=== PATIENT | female | born 1975 | race Caucasian/White ===

== ENCOUNTER → 2018-04-30 10:34 | Outpatient (CLI) | payer MEDICAID, SELFPAY ==
[2018-04-30 12:19] LABS: Alanine Aminotransferase 21 U/L (12-78); Albumin Level 3.9 gm/dL (3.4-5.0); Alkaline Phosphatase 91 U/L (46-116); Anion Gap 11.6 mEq/L (5-15); Aspartate Amino Transferase 17 U/L (15-37); Bilirubin,Total 0.5 mg/dL (0.2-1.0); Blood Urea Nitrogen 13 mg/dL (7-18); Calcium 9.5 mg/dL (8.5-10.1); Carbon Dioxide 27 mmol/L (21.0-32.0); Chloride 104 mmol/L (98-107); Chol/HDL Ratio 4.3 (1-3.5); Cholesterol 200 mg/dL (140-200); Estimated Glomerular Filt Rate 91 ml/min (>60); GFR (African American) 111 ML/MIN (>60); Globulin 3.9 gm/dl (1.3-3.2); Glucose 96 mg/dL (74-106); HDL Cholesterol 46 mg/dL (29-89); LDL Cholesterol 129 mg/dL (0-130); Potassium 4.6 mmoL/L (3.5-5.1); Sodium 138 mmol/L (136-145); Thyroid Stimulating Hormone 1.15 uIU/ml (0.358-3.740); Total Protein,Serum 7.8 gm/dL (6.4-8.2); Triglycerides 123 mg/dL (30-200); VLDL Cholesterol 25 mg/dL (0-40)
[2018-05-01 18:05] LABS: Vitamin D 25 Hydroxy 30.9 ng/mL (30.0-100.0)
== END ==
PROVIDERS: Visit Provider Physician Assistant
DX: Z13.29 Encounter for screening for other suspected endocrine disorder (principal); Z13.220 Encounter for screening for lipoid disorders; E55.9 Vitamin D deficiency, unspecified
CPT/HCPCS: 36415; 80053; 80061; 82652; 84443

== ENCOUNTER → 2019-02-03 12:16 | Outpatient (CLI) | payer MEDICAID, SELFPAY ==
[2019-02-03 12:19] LABS: Adenovirus F 40/41, stool Not Detected (NotDetected); Astrovirus Not Detected (NotDetected); Campylobacter Not Detected (NotDetected); Clostridium Difficile A/B, PCR Not Detected (NotDetected); Cryptosporidium Not Detected (NotDetected); Cyclospora Cayetanesis Not Detected (NotDetected); Entamoeba histolytica Not Detected (NotDetected); Enteroaggregative E coli Not Detected (NotDetected); Enteropathogenic E coli Not Detected (NotDetected); Enterotoxigenic E coli Not Detected (NotDetected); Giardia lamblia Not Detected (NotDetected); Norovirus Not Detected (NotDetected); Plesimonas Shigalloides, PCR Not Detected (NotDetected); Rotavirus A Not Detected (NotDetected); Salmonella, PCR Not Detected (NotDetected); Sapovirus Not Detected (NotDetected); Shiga-like toxin E coli Not Detected (NotDetected); Shigella Enterovasive E coli Not Detected (NotDetected); Vibrio Cholerae Not Detected (NotDetected); Vibrio, PCR Not Detected (NotDetected); Yersinia Entercolitica, PCR Not Detected (NotDetected)
== END ==
PROVIDERS: Visit Provider Surgery
DX: R19.7 Diarrhea, unspecified (principal)
CPT/HCPCS: 87506

== ENCOUNTER → 2019-02-04 11:07 | Outpatient (CLI) | payer MEDICAID, SELFPAY ==
--- NOTE | 2019-02-04 11:12 | XR_ITS ---
XR KUB HISTORY: ITS.REASON: IBS and abdominal pain ORDERING PHYSICIAN: Jean Marie Zaidi MD PATIENT AGE: 43 years COMPARISON: None FINDINGS: Surgical clips are present in the right upper quadrant. There is a mild amount of retained colonic feces. No intestinal obstruction or free air is evident. No acute bony findings. IMPRESSION: Mild amount of retained colonic feces otherwise negative
== END ==
PROVIDERS: PCP Family Medicine; Visit Provider Surgery
DX: K58.9 Irritable bowel syndrome, unspecified (principal); R10.9 Unspecified abdominal pain
CPT/HCPCS: 74018

== ENCOUNTER → 2019-05-23 14:29 | Outpatient (CLI) | payer MEDICAID, SELFPAY ==
--- NOTE | 2019-05-23 14:34 | XR_ITS ---
XR hand RT min 3V HISTORY: ITS.REASON: RT HAND / WRIST PAIN ORDERING PHYSICIAN: Patricia Mooney MD PATIENT AGE: 43 years COMPARISON: None FINDINGS: No fracture or dislocation. No lytic or blastic change. There is normal mineralization.. The joint spaces are well-preserved. No significant degenerative/arthritic changes. No erosive changes evident.. IMPRESSION: Negative, no acute finding
== END ==
PROVIDERS: PCP Emergency Medicine; Visit Provider Emergency Medicine
DX: M79.641 Pain in right hand (principal); M25.531 Pain in right wrist
CPT/HCPCS: 73130

== ENCOUNTER 2020-02-06 16:40 | Emergency (ER) | payer MEDICAID, SELFPAY ==
[2020-02-06 17:08] VITALS: BP 131/75; PULSE 79; RESP 18; TEMP 36.6; O2SAT 99; BMI 39.9
[2020-02-06 17:14] LABS: Apearance,Urine Cloudy (Clear); Bilirubin,Urine Negative (Negative); Blood, Urine Negative (Negative); Color,Urine Dark Yellow (Yellow); Glucose,Urine (UA) Negative (Negative); Ketones,Urine Negative (Negative); Protein,Urine Negative (Negative); Specific Gravity, Urine 1.025 (1.005-1.030); UTC Leukocyte Esterase,Urine Negative (Negative); UTC Nitrate,Urine Negative (Negative); Urobilinogen,Urine 0.2 EU/dl (0.2)
--- NOTE | 2020-02-06 17:14 | HMH.EDUTC ---
[facility] [place] Clinical Impression: URI (upper respiratory infection) Qualifiers: URI type: unspecified URI Qualified Code(s): J06.9 - Acute upper respiratory infection, unspecified Disposition: Home, Self-Care Condition on Discharge: Good Instructions: Sinusitis (Alternative Therapy), Sore Throat, Sinusitis, DI for Urinary Tract Infection (UTI), DI for Low Back Pain, Low Back Pain Additional Instructions: *Monitor Temp, Over the counter Motrin or Tylenol as directed/as needed Tylenol every 4 hours and Motrin every 6 hours (as long as your family doctor has told you that you can take it) for fever or pain. and straight to ER if unable to lower temp less than 101.0 after medication given *Warm salt water gargles may help to soothe the throat *Throat Lozenges *Warm fluids *Sleep elevated *Humidifier/Vaporizer Make sure to drink plenty of fluids like water to help to flush kidneys Follow up with PCP if no improvement or any worsening of symptoms Return if needed Straight to ER if any life threatening symptoms Follow up IMMEDIATELY for new or worsening symptoms or no Noticeable improvement over the next 48-72 hours. 911 for difficulty breathing or swallowing Prescriptions: cephALEXin [Keflex 500mg Cap] 500 mg PO Q12H 10 Days #20 cap Transmission Status: Pending to [facility] Referrals: Marycruz Nelson MD [Primary Care Provider] - As needed Time of Disposition: 17:29 Medical Decision Making - Ricky Inquiry Pt receiving controlled substance: No Ricky was queried for this patient: No Vital Signs: 02/06/20 17:08 Temperature 97.8 F Temperature Source Oral Pulse Rate [Right Brachial] 79 Respiratory Rate 18 Blood Pressure [Right Arm] 131/75 Blood Pressure Mean [Right Arm] 93 Blood Pressure Source [Right Arm] Automatic Cuff Blood Pressure Position [Right Arm] Sitting 02 Sat by Pulse Oximetry 99 Oxygen Delivery Method Room Air - Lab Data Lab results reviewed: Yes: I reviewed the patient's lab results. Lab Results 02/06/20 17:13: Urine Color Dark yellow, Urine Appearance Cloudy, Urine pH 6.0, Ur Specific [place] 1.025, Urine Protein Negative, Urine Glucose (UA) Negative, Urine Ketones Negative, Urine Blood Negative, Urine Nitrate Negative, Urine Bilirubin Negative, Urine Urobilinogen 0.2, Ur Leukocyte Esterase Negative [facility] [place] - General Stated complaint: Possible UTI,Lower Back,sore throat,drainage Time Seen by Provider: 02/06/20 17:14 Mode of Arrival: Ambulatory Source of Information: Patient Limitations: No Limitations Description of Symptoms (Recalled from Triage Doc. by RN): PATIENT C/O LOW BACK PAIN, SINUS DRAINAGE AND COUGH X 3 DAYS; SHE BELIEVES SHE HAS A UTI AND HAS BEEN TAKING AZO SINCE THE LOW BACK PAIN STARTED HEENT Symptoms (Recalled from RN notes): Yes Resp Symptoms (Recalled from RN notes): Yes Skin Symptoms (Recalled from RN notes): No MS Symptoms (Recalled from RN notes): Yes Functional Status (Recalled from RN notes): WNL - History of Present Illness Provider Complaint: Patient states that she started having low back ache about 3 days ago and started taking AZO States that also has been having sore throat, cough and sinus pain and pressure States that she feels like her sinuses has got worse States that she came in to get checked Denies known exposure to Covid19 denies fever - Related Data Home Medications Medication Instructions Recorded Confirmed lisinopril 20 1 tab PO DAILY 02/02/19 02/21/19 mg-hydrochlorothiazide 12.5 mg tablet loratadine 10 mg tablet 10 mg PO DAILY 02/02/19 02/21/19 Previous Rx's Medication Instructions Recorded cephALEXin [Keflex 500mg Cap] 500 mg PO Q12H 10 Days #20 cap 02/06/20 Allergies Allergy/AdvReac Type Severity Reaction Status Date / Time acetaminophen [From PERCOCET] Allergy Unknown Verified 02/21/19 23:36 oxycodone [From PERCOCET] Allergy Unknown Verified 02/21/19 23:36 tramadol [TRAMADOL] Allergy Unknown
[2020-02-06 17:32] VITALS: BP 131/75; PULSE 79; RESP 18; TEMP 36.6; O2SAT 99
== END 2020-02-06 17:36 | disposition home or self-care (01) ==
PROVIDERS: Emergency Provider Nurse Practitioner; PCP Family Medicine
DX: J06.9 Acute upper respiratory infection, unspecified (principal); Z79.899 Other long term (current) drug therapy; Z88.6 Allergy status to analgesic agent; I10 Essential (primary) hypertension
CPT/HCPCS: 81003; 99201

== ENCOUNTER 2020-03-18 10:00 | Emergency (ER) | payer OTHER, MEDICAID, SELFPAY ==
[2020-03-18] VITALS (7 sets, daily range): BP systolic 123–171; BP diastolic 71–89; PULSE 75–113; RESP 18–22; TEMP 36.6–36.8; O2SAT 96–99; BMI 38.6
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
--- NOTE | 2020-03-18 10:05 | PC.NURSE ---
at bedside upon arrival
--- NOTE | 2020-03-18 10:15 | PC.NURSE ---
c-collar placed on pt at this time
--- NOTE | 2020-03-18 10:20 | PC.NURSE ---
pt to CT
--- NOTE | 2020-03-18 10:21 | PC.NURSE ---
Pt with rad.
--- NOTE | 2020-03-18 10:26 | PC.NURSE ---
Dr Noriega paged.
--- NOTE | 2020-03-18 10:28 | PC.NURSE ---
Dr Noriega returned call.
--- NOTE | 2020-03-18 10:35 | PC.NURSE ---
Pt returned from rad.
--- NOTE | 2020-03-18 11:27 | PC.NURSE ---
Dr Butcher spoke with Dr. Donahue
--- NOTE | 2020-03-18 11:28 | PC.NURSE ---
[facility] paged
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
--- NOTE | 2020-03-18 12:28 | PC.NURSE ---
Pt returned from rad.
--- NOTE | 2020-03-18 13:00 | PC.NURSE ---
pt c/o increasing pain. mother at bedside.
--- NOTE | 2020-03-18 14:00 | PC.NURSE ---
pt c/o increasing pain
--- NOTE | 2020-03-18 15:00 | PC.NURSE ---
pt in ccollar informed she is not to take off c collar until follow up with neurosurgery
--- NOTE | 2020-03-18 16:00 | PC.NURSE ---
long arm splint applied to lt arm sling applied. pt c/o pain lt upper arm pt tearful.
== END 2020-03-18 16:54 | disposition home or self-care (01) ==
PROVIDERS: Emergency Provider Emergency Medicine
DX: S42.342A Displaced spiral fracture of shaft of humerus, left arm, initial encounter for closed fracture (principal); S12.591A Other nondisplaced fracture of sixth cervical vertebra, initial encounter for closed fracture; V49.3XXA Car occupant (driver) (passenger) injured in unspecified nontraffic accident, initial encounter; Y92.488 Other paved roadways as the place of occurrence of the external cause; I10 Essential (primary) hypertension; Z88.5 Allergy status to narcotic agent; Z90.49 Acquired absence of other specified parts of digestive tract
CPT/HCPCS: 29105; 70450; 72125; 73060; 73562; 96372; 96374; 96376; 99285

== ENCOUNTER 2020-04-24 14:41 | Emergency (ER) | payer OTHER, MEDICAID, SELFPAY ==
[2020-04-24 14:50] VITALS: BP 126/84; PULSE 89; RESP 18; TEMP 37.3; O2SAT 97; BMI 38.2
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
[2020-04-24 16:34] LABS: Microscopic, Urine URINE MICROSCOPIC (MICROSCOPIC)
[2020-04-24 16:40] LABS: Appearance,Urine CLEAR (Clear); Bilirubin,Urine Negative (Negative); Blood, Urine Negative (Negative); Color,Urine YELLOW (Yellow); Glucose,Urine (UA) Negative (Negative); Ketones,Urine Negative (Negative); Leukocyte Esterase,Urine Negative (Negative); Nitrate,Urine POSITIVE (Negative); PH,Urine 6.5 (5.0-8.5); Protein,Urine Negative (Negative); Urobilinogen,Urine 0.2 EU/dl (0.2)
[2020-04-24 17:00] LABS: Squamous Epithelial Cell,Urine Occasional #/hpf (0-5); WBC,Urine Occasional #/hpf (0-3)
[2020-04-24 17:01] LABS: Bacteria,Urine Trace /lpf
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
[2020-04-24 17:45] VITALS: BP 114/72; PULSE 53; RESP 20; TEMP 36.7; O2SAT 94
== END 2020-04-24 17:45 | disposition home or self-care (01) ==
PROVIDERS: Emergency Provider Family Medicine
DX: S39.012A Strain of muscle, fascia and tendon of lower back, initial encounter (principal); R30.0 Dysuria; M54.16 Radiculopathy, lumbar region; I10 Essential (primary) hypertension; M54.31 Sciatica, right side; X50.1XXA Overexertion from prolonged static or awkward postures, initial encounter; Y92.013 Bedroom of single-family (private) house as the place of occurrence of the external cause
CPT/HCPCS: 72131; 81001; 99282

== ENCOUNTER → 2020-05-03 17:53 | Outpatient (CLI) | payer OTHER, SELFPAY ==
[2020-05-03 19:20] LABS: Alanine Aminotransferase 20 U/L (12-78); Alkaline Phosphatase 115 U/L (38-126); Aspartate Amino Transferase 22 U/L (14-36); Bilirubin,Indirect 0.4 mg/dL (0.0-0.9); Bilirubin,Total 0.4 mg/dl (0.2-1.3); Bilirubin,Unconjugated 0.3 mg/dL (0.0-1.1)
[2020-05-03 19:21] LABS: Albumin Level 4.1 g/dl (3.5-5.0); Total Protein,Serum 7.5 g/dl (6.3-8.2)
== END ==
PROVIDERS: Visit Provider Family Medicine
DX: R94.5 Abnormal results of liver function studies (principal); Z79.899 Other long term (current) drug therapy; V89.2XXA Person injured in unspecified motor-vehicle accident, traffic, initial encounter
CPT/HCPCS: 80076

== ENCOUNTER → 2020-06-05 18:05 | Outpatient (CLI) | payer OTHER, SELFPAY | PROVIDERS: Visit Provider Family Medicine | DX: N39.0 Urinary tract infection, site not specified (principal) | CPT/HCPCS: 87086; 87088; 87186 ==

== ENCOUNTER → 2020-07-05 14:53 | Outpatient (CLI) | payer OTHER, SELFPAY | PROVIDERS: Visit Provider Family Medicine | DX: N39.0 Urinary tract infection, site not specified (principal) | CPT/HCPCS: 87086; 87088; 87186 ==

== ENCOUNTER → 2020-08-14 15:39 | Outpatient (CLI) | payer OTHER, SELFPAY | PROVIDERS: Visit Provider Urology | DX: N39.0 Urinary tract infection, site not specified (principal) | CPT/HCPCS: 87086; 87088; 87186 ==

== ENCOUNTER → 2020-08-18 11:14 | Outpatient (CLI) | payer OTHER, SELFPAY ==
[2020-08-18 13:09] LABS: Basophils # 0.1 K/mm3 (0-0.2); Basophils % 0.7 % (0.1-2.0); Eosinophils # 0.1 K/mm3 (0.0-0.4); Eosinophils % 0.6 % (0.1-12.0); Hematocrit 44.4 % (37.0-47.0); Hemoglobin 14.7 g/dL (12.2-16.2); Lymphocytes # 2.2 K/mm3 (0.7-4.5); Mean Corpuscular HGB Conc 33.1 g/dL (31.8-35.4); Mean Corpuscular Hemoglobin 29.1 pg (27.0-31.2); Mean Corpuscular Volume 87.9 fl (81-99); Mean Platelet Volume 8.6 fl (7.4-10.4); Monocytes # 0.4 K/mm3 (0.1-1.0); Monocytes % 4.4 % (1.7-9.3); Neutrophils # 5.6 K/mm3 (1.8-7.8); Neutrophils % 67.3 % (37.0-80.0); Platelet Count 346 K/mm3 (142-424); Red Blood Count 5.05 M/mm3 (4.20-5.40); Red Cell Distribution Width 14.4 % (11.5-17.5); White Blood Count 8.3 K/mm3 (4.8-10.8)
[2020-08-18 13:19] LABS: HCG Qualitative, Serum Negative (Negative)
[2020-08-18 13:23] LABS: Blood Urea Nitrogen 13 mg/dl (7-17); Calcium 10.2 mg/dl (8.4-10.2); Carbon Dioxide 28 mmol/L (22.0-30.0); Chloride 102 mmol/L (98-107); Estimated Glomerular Filt Rate 90 ml/min (>60); GFR (African American) 109 ML/MIN (>60); Glucose 106 mg/dl (74-100); Sodium 141 mmol/L (136-145)
[2020-08-18 15:04] LABS: Coronavirus 19 IgG Antibody Negative (Negative); Coronavirus 19 IgM Antibody Negative (Negative)
== END ==
PROVIDERS: Visit Provider Urology
DX: Z01.818 Encounter for other preprocedural examination (principal); R10.9 Unspecified abdominal pain; R35.0 Frequency of micturition
CPT/HCPCS: 36415; 80048; 84703; 85025; 86328

== ENCOUNTER 2020-08-20 09:09 | Day surgery (SDC) | payer OTHER, SELFPAY ==
[2020-08-17 14:34] VITALS: BMI 36.4
[2020-08-20 09:26] VITALS: BP 109/72; PULSE 74; RESP 17; TEMP 36.5; O2SAT 98
[2020-08-20 11:33] VITALS: BP 100/51; PULSE 67; RESP 18; TEMP 36.1; O2SAT 94
[2020-08-20 11:43] VITALS: BP 96/67; PULSE 61; RESP 18; O2SAT 96
[2020-08-20 12:00] VITALS: BP 102/54; PULSE 61; RESP 18; O2SAT 96
--- NOTE | 2020-08-20 16:43 | HMH.OPNOTE ---
Date of procedure: 08/20/20 Pre-op Diagnosis:: History of urethral stenosis, recurrent UTIs Post-op Diagnosis:: Same Procedure performed:: Cystoscopy with urethral dilation Surgeon:: Jake Pacheco MD SOAP DRIER OPERATOR:: Tu Butcher Anesthesia: GETA Estimated blood loss (mL): 0 Clinical Note:: 44-year-old white female with recurrent urinary tract infections and history of urethral stenosis presents for cystoscopy and urethral dilation. She states that urethral dilation has improved her symptoms in the past. Operative findings:: Mildly stenotic urethra, bladder with squamous metaplasia but no suspicious findings. Operative note:: Patient taken to the operating room after informed consent was obtained. She was placed on the operating table in the supine position and general anesthesia administered. She was then placed into the dorsolithotomy position and prepped and draped in the standard surgical fashion. Vaginal examination was normal. Urethra in the normal anatomic position and no evidence of cystocele rectocele or genital lesions. The urethra was dilated with the 2426 and 28 [place] female sounds with mild resistance to the initial sound. A 22 [place] scope then passed into the urethra and into the bladder. The bladder was examined in a systematic fashion. There was some squamous metaplasia noted at the intertrigonal region. There is no evidence of mucosal abnormalities, stones, trabeculation or diverticula formation. The ureteral orifices in their normal anatomic position with clear efflux of urine noted. The bladder neck and urethra were normal. The bladder drained the scope removed. Lidocaine jelly placed into the urethra after the procedure. She was transported to recovery in stable condition. Condition: stable Disposition: PACU Specimens:: None Complications:: None
== END 2020-08-20 12:06 | disposition home or self-care (01) ==
LOC: OR 09:10
PROVIDERS: PCP Family Medicine; Visit Provider Urology
PROC: 0TJB8ZZ Inspection of Bladder, Via Natural or Artificial Opening Endoscopic (ICD-10-PCS; CPT 52000; principal; 2020-08-20 11:00)
DX: N35.92 Unspecified urethral stricture, female (principal); N32.89 Other specified disorders of bladder; Z87.442 Personal history of urinary calculi; Z87.440 Personal history of urinary (tract) infections
CPT/HCPCS: 52281

== ENCOUNTER 2020-09-05 10:00 | Outpatient (RCR) | payer OTHER, SELFPAY | END 2020-09-05 10:05 | disposition home or self-care (01) | LOC: OT 10:00 | PROVIDERS: Visit Provider Orthopaedic Surgery | DX: M79.602 Pain in left arm (principal); M25.512 Pain in left shoulder; S42.302A Unspecified fracture of shaft of humerus, left arm, initial encounter for closed fracture | CPT/HCPCS: 97014; 97110; 97165; 97530; G0283 ==

== ENCOUNTER 2020-09-05 11:00 | Outpatient (RCR) | payer OTHER, SELFPAY | END 2020-09-05 12:05 | disposition home or self-care (01) | LOC: PT 11:00 | PROVIDERS: Visit Provider Orthopaedic Surgery | DX: M25.562 Pain in left knee; M23.52 Chronic instability of knee, left knee; M25.561 Pain in right knee | CPT/HCPCS: 97010; 97014; 97110; 97163; G0283 ==

== ENCOUNTER 2020-09-23 11:41 | Emergency (ER) | payer OTHER, SELFPAY ==
[2020-09-23 12:11] VITALS: BP 121/75; PULSE 78; RESP 18; TEMP 36.9; O2SAT 98; BMI 36.4
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
[2020-09-23 12:48] VITALS: BP 121/75; PULSE 78; RESP 18; TEMP 36.9; O2SAT 98
== END 2020-09-23 12:49 | disposition home or self-care (01) ==
PROVIDERS: Emergency Provider Physician Assistant; PCP Family Medicine
DX: R20.0 Anesthesia of skin (principal); I10 Essential (primary) hypertension; Z88.5 Allergy status to narcotic agent; Z79.899 Other long term (current) drug therapy; Z90.49 Acquired absence of other specified parts of digestive tract; Z90.721 Acquired absence of ovaries, unilateral
CPT/HCPCS: 99201

== ENCOUNTER 2020-10-01 12:20 | Emergency (ER) | payer OTHER, SELFPAY ==
[2020-10-01 13:15] VITALS: BP 138/78; PULSE 87; RESP 19; TEMP 36.6; O2SAT 100; BMI 41.3
[2020-10-01 13:20] VITALS: BP 138/78; PULSE 87; RESP 19; TEMP 36.6; O2SAT 100
--- NOTE | 2020-10-01 13:21 | HMH.EDUTC ---
[facility] [place] Disposition Clinical Impression: Encounter for laboratory testing for COVID-19 virus Sinusitis Qualifiers: Sinusitis location: unspecified location Chronicity: unspecified Qualified Code(s): J32.9 - Chronic sinusitis, unspecified Disposition: Home, Self-Care Condition on Discharge: Good Instructions: Sinusitis, DI for Sinusitis, Preventing the Spread of Coronavirus Discharge Instructions Additional Instructions: *Monitor Temp, Over the counter Motrin or Tylenol as directed/as needed Tylenol every 4 hours and Motrin every 6 hours (as long as your family doctor has told you that you can take it) for fever or pain. and straight to ER if unable to lower temp less than 101.0 after medication given *Warm salt water gargles may help to soothe the throat *Throat Lozenges *Warm fluids like tea with honey may help to soothe the throat *Sleep elevated *Humidifier/Vaporizer *Flonase 2 sprays in each nostril daily but be aware that it may take 2-3 days before you notice improvement Follow up IMMEDIATELY for new or worsening symptoms or no Noticeable improvement over the next 48-72 hours. 911 for difficulty breathing or swallowing You were tested for today for COVID19 your test result should be back in the next 24-48 hours, you may call to the [facility] to see if your test results are back in the next 48 hours [phone] [facility] hours are 9am-9pm You was given a handout with instructions for Self Quarantine and Self isolation for while you wait on test results and what to do if they are positive If you are positive the Health Dept will be contacting you also Prescriptions: Amoxicillin/Potassium Clav [Augmentin 875-125 Tablet] 1 tab PO Q12H 10 Days #20 tab Transmission Status: Pending to [id number] Referrals: Kirill Desai MD [Primary Care Provider] - As needed Forms: Work/School Release Time of Disposition: 13:28 Medical Decision Making - Ricky Inquiry Pt receiving controlled substance: No Ricky was queried for this patient: No Vital Signs: 10/01/20 13:15 10/01/20 13:20 Temperature 97.8 F 97.8 F Temperature Source Oral Pulse Rate 87 Pulse Rate [Left] 87 Respiratory Rate 19 19 Blood Pressure 138/78 Blood Pressure [Right Arm] 138/78 Blood Pressure Mean [Right Arm] 98 Blood Pressure Source [Right Arm] Automatic Cuff Blood Pressure Position [Right Arm] Sitting 02 Sat by Pulse Oximetry 100 Oxygen Delivery Method Room Air Orders (Tests/Meds): ORDERS Category Date Time Status Covid-19 Nasal PCR Sendout [facility] 10/01/20 13:10 Ordered [facility] [place] HPI - General Stated complaint: Covid exposure Time Seen by Provider: 10/01/20 13:21 Mode of Arrival: Ambulatory Source of Information: Patient Limitations: No Limitations Description of Symptoms (Recalled from Triage Doc. by RN): Covid test-symptomatic- sinus pressure and pain, headache, sore throat, hot flashes HEENT Symptoms (Recalled from RN notes): Yes Resp Symptoms (Recalled from RN notes): Yes Skin Symptoms (Recalled from RN notes): No MS Symptoms (Recalled from RN notes): No Functional Status (Recalled from RN notes): wnl - History of Present Illness Provider Complaint: Patient state that she wanted to get tested for COVID States that she thinks she has a sinus infection States that she has been having sinus pain pressure and feeling the pressure behind her eyes and in her teeth for over a week, states that she felt like she was having hot flashes, states that she felt hot like she was feverish, had headache and sore throat - Related Data Home Medications Medication Instructions Recorded Confirmed Citalopram Hydrobromide 20 mg PO DAILY 08/17/20 08/20/20 [Citalopram HBr] Docusate Sodium 100 mg PO BID 08/17/20 08/20/20 Fluticasone Propionate 1 spray INTRANASAL DAILY 08/17/20 08/20/20 Loratadine [Allergy Relief] 10 mg PO DAILY 08/17/20 08/20/20 Miconazole Nitrate 1 applic TOPICAL DAILY 08/17/20 08/20/20 hydroCHLOROthiazide [HC
[2020-10-02 12:42] LABS: Covid-19 Nasal PCR Sendout Lex Positive
--- NOTE | 2020-10-02 13:14 | PC.NURSE ---
PT NOTIFIED OF POSITIVE COVID TEST RESULT
== END 2020-10-01 13:34 | disposition home or self-care (01) ==
PROVIDERS: Emergency Provider Nurse Practitioner; PCP Family Medicine
DX: U07.1 COVID-19 (principal); J32.9 Chronic sinusitis, unspecified; I10 Essential (primary) hypertension; Z88.5 Allergy status to narcotic agent; Z79.899 Other long term (current) drug therapy
CPT/HCPCS: 99201; U0004

== ENCOUNTER 2021-01-05 09:10 | Emergency (ER) | payer OTHER, SELFPAY ==
[2021-01-05 09:44] VITALS: BP 122/76; PULSE 102; RESP 14; TEMP 37.6; O2SAT 97; BMI 36.4
--- NOTE | 2021-01-05 10:03 | HMH.EDUTC ---
[facility] [place] Clinical Impression: Strep throat Disposition: Home, Self-Care Condition on Discharge: Good Instructions: DI for Strep Throat Additional Instructions: Start antibiotics today be sure to take it as ordered with the full length of time although you should start feeling better in 24-48 hours. Change toothbrush and toothpaste 24-48 hours after starting antibiotics Tylenol or Motrin as needed for fever or pain Encourage fluids, water, Gatorade, Powerade, try cold fluids, popsicles, ice cream will make it feel better You are contagious for 24 hours. Avoid kissing anyone, no eating or drinking after anyone. You are contagious. Follow-up the ER for new or worsening symptoms or no noticeable improvement over the next 24-48 hours. Follow-up with PCP this week. Prescriptions: Azithromycin [Zithromax 250mg tab] 250 mg PO DIRECTED #6 tab Transmission Status: [facility] Referrals: Kirill Desai MD [Primary Care Provider] - Time of Disposition: 10:09 Medical Decision Making - Ricky Inquiry Pt receiving controlled substance: No Vital Signs: 01/05/21 09:44 Temperature 99.7 F H Temperature Source Oral Pulse Rate [Right] 102 H Respiratory Rate 14 Blood Pressure [Right Arm] 122/76 Blood Pressure Mean [Right Arm] 91 Blood Pressure Source [Right Arm] Automatic Cuff Blood Pressure Position [Right Arm] Sitting 02 Sat by Pulse Oximetry 97 Oxygen Delivery Method Room Air [facility] [place] - General Chief complaint: [facility] Stated complaint: sore throat, 101F Time Seen by Provider: 01/05/21 10:03 Mode of Arrival: Ambulatory Source of Information: Patient Limitations: No Limitations Description of Symptoms (Recalled from Triage Doc. by RN): pt has a sore throat, is lethargic, it hurts to swall, body aches and she has a knot on the L side of her neck. HEENT Symptoms (Recalled from RN notes): Yes (sore throat) Resp Symptoms (Recalled from RN notes): No Skin Symptoms (Recalled from RN notes): No MS Symptoms (Recalled from RN notes): Yes (body aches) Functional Status (Recalled from RN notes): na - History of Present Illness Provider Complaint: 45 yr old female presents for sore throat,fever and difficulty swallowing since yesterday - Related Data Home Medications Medication Instructions Recorded Confirmed Fluticasone Propionate 1 spray INTRANASAL DAILY 08/17/20 12/06/20 Loratadine [Allergy Relief] 10 mg PO DAILY 08/17/20 12/06/20 hydroCHLOROthiazide [HCTZ 25mg 25 mg PO DAILY 08/17/20 12/06/20 tab] Previous Rx's Medication Instructions Recorded Naproxen [Naproxen 500mg tab] 500 mg PO BID 10 Days #20 tab 09/23/20 hydrocodone 7.5 mg-acetaminophen 1 tab PO DAILY PRN #20 tab 12/06/20 325 mg tablet methylprednisolone 4 mg tablets in See Rx Instructions PO PER PKG DIR 12/06/20 a dose pack #21 tab gabapentin 600 mg tablet 600 mg PO TID PRN #90 tab 12/07/20 citalopram 20 mg tablet See Rx Instructions .ROUTE 01/01/21 .COMPLEX #30 tablet Azithromycin [Zithromax 250mg 250 mg PO DIRECTED #6 tab 01/05/21 tab] Allergies Allergy/AdvReac Type Severity Reaction Status Date / Time acetaminophen [From PERCOCET] Allergy Unknown Verified 01/05/21 09:50 oxycodone [From PERCOCET] Allergy Unknown Verified 01/05/21 09:50 tramadol [TRAMADOL] Allergy Unknown Verified 01/05/21 09:50 - Worker's Comp Is this a Worker's Comp case?: No [facility] History - Hepatitis A Screen Drug use history?: No High risk sexual behaviors?: No History of sexually transmitted infection?: No Currently employed?: No Childcare worker?: No Do you have indoor plumbing?: Yes Do you have electricity?: Yes Attestation statement:: This patient has been screened for Hepatitis A risk factors. I have reviewed the patient's past medical history: Yes Medical History: Reports:: Hypertension, Ulcer Denies:: Cancer, Diabetes Mellitus Type 1, Diabetes Mellitus Type 2, Internal Pa
[2021-01-05 10:04] VITALS: BP 120/74; PULSE 98; RESP 16; TEMP 36.6
[2021-01-05 11:14] LABS: UTC Strep Screen (Rapid) Positive (Negative)
== END 2021-01-05 10:20 | disposition home or self-care (01) ==
PROVIDERS: Emergency Provider Nurse Practitioner Family; PCP Family Medicine
DX: J02.0 Streptococcal pharyngitis (principal); I10 Essential (primary) hypertension; Z88.5 Allergy status to narcotic agent
CPT/HCPCS: 87880; 99202; G0463

== ENCOUNTER → 2021-01-09 15:31 | Outpatient (CLI) | payer OTHER, SELFPAY ==
--- NOTE | 2021-01-09 15:37 | XR_ITS ---
PROCEDURE: XR HUMERUS RT CLINICAL INDICATION: arm pain COMPARISON: CR XR HUMERUS LT from 03/18/2020 FINDINGS: No fracture or dislocation. No lytic or blastic change. There is normal mineralization. The joint spaces are well-preserved. No significant degenerative/arthritic changes. No erosive changes evident. Other findings:None. IMPRESSION: No acute findings. Dictated by: Yung Davis MD 01/09/2021 16:19 Yung Davis MD in [place] 01/09/2021 16:19
--- NOTE | 2021-01-09 15:37 | XR_ITS ---
PROCEDURE: XR CERVICAL SPINE 4V CLINICAL INDICATION: numbness in hands COMPARISON: No exams were available for comparison FINDINGS: No fracture or dislocation. No lytic or blastic change. There is normal mineralization. There is straightening of the cervical lordosis. Anterior osteophytes are present at C3-C4 and C5-C6. Other findings:None. IMPRESSION: Mild degenerative changes, no acute finding Dictated by: Yung Davis MD 01/09/2021 16:17 Yung Davis MD in [facility] 01/09/2021 16:17
--- NOTE | 2021-01-09 15:37 | XR_ITS ---
PROCEDURE: XR HUMERUS LT CLINICAL INDICATION: fracture Pain COMPARISON: CR XR HUMERUS LT from 03/18/2020 FINDINGS: There is a healing midshaft left humeral fracture. Abundant callus formation has developed at the previously noted comminuted fracture site. There is mild medial angulation of the distal fracture fragment with no significant displacement. The joint spaces are well-preserved. No significant degenerative/arthritic changes. No erosive changes evident. Other findings:None. IMPRESSION: Healing midshaft left humeral fracture Dictated by: Yung Davis MD 01/09/2021 16:20 Yung Davis MD in [facility] 01/09/2021 16:20
== END ==
PROVIDERS: PCP Family Medicine; Visit Provider Family Medicine
DX: M79.603 Pain in arm, unspecified (principal); R20.0 Anesthesia of skin; R20.2 Paresthesia of skin; V89.2XXA Person injured in unspecified motor-vehicle accident, traffic, initial encounter
CPT/HCPCS: 72050; 73060

== ENCOUNTER → 2021-01-11 13:59 | Outpatient (CLI) | payer OTHER, SELFPAY ==
[2021-01-11 14:39] LABS: Basophils # 0.1 K/mm3 (0-0.2); Eosinophils # 0.1 K/mm3 (0.0-0.4); Eosinophils % 0.9 % (0.1-12.0); Hematocrit 42.2 % (37.0-47.0); Lymphocytes # 3.1 K/mm3 (0.7-4.5); Lymphocytes % 38.2 % (10-50); Mean Corpuscular HGB Conc 30.8 g/dL (31.8-35.4); Mean Corpuscular Hemoglobin 28.1 pg (27.0-31.2); Mean Corpuscular Volume 91.2 fl (81-99); Mean Platelet Volume 7.3 fl (7.4-10.4); Monocytes # 0.4 K/mm3 (0.1-1.0); Monocytes % 4.9 % (1.7-9.3); Neutrophils # 4.4 K/mm3 (1.8-7.8); Neutrophils % 55.1 % (37.0-80.0); Platelet Count 426 K/mm3 (142-424); Red Blood Count 4.63 M/mm3 (4.20-5.40); Red Cell Distribution Width 13.3 % (11.5-17.5)
[2021-01-11 15:01] LABS: Erythrocyte Sedimentation Rate 23 mm/hr (0-20)
[2021-01-11 15:06] LABS: Anion Gap 11.1 mEq/L (5-15); Blood Urea Nitrogen 13 mg/dl (7-17); Calcium 10.7 mg/dl (8.4-10.2); Carbon Dioxide 30 mmol/L (22.0-30.0); Chloride 102 mmol/L (98-107); Estimated Glomerular Filt Rate 90 ml/min (>60); GFR (African American) 109 ML/MIN (>60); Glucose 85 mg/dl (74-100); Potassium 4.1 mmoL/L (3.5-5.1); Sodium 139 mmol/L (136-145)
[2021-01-11 15:11] LABS: C-Reactive Protein 30.5 mg/L (0-4)
[2021-01-11 15:22] LABS: 25-OH Vitamin D, Total 32.3 ng/mL (30-100)
== END ==
PROVIDERS: Visit Provider Orthopaedic Surgery
DX: S42.302A Unspecified fracture of shaft of humerus, left arm, initial encounter for closed fracture (principal)
CPT/HCPCS: 36415; 80048; 82306; 85025; 85651; 86140

== ENCOUNTER → 2021-01-23 15:00 | Outpatient (CLI) | payer OTHER, SELFPAY ==
--- NOTE | 2021-01-23 15:04 | CT_ITS ---
PROCEDURE: CT HUMERUS LT WO CON CLINICAL HISTORY: Pain numbness of upper extremity COMPARISON: CR XR HUMERUS LT from 03/18/2020 CR XR HUMERUS RT from 01/09/2021 CR XR HUMERUS LT from 01/09/2021 TECHNIQUE: Axial images obtained with sagittal and coronal reformats. All CT scans at the facility use one or more dose reduction, viz: automated exposure control, ma/kV adjustment per patient size (including targeted exams where dose is matched to indication, i.e. head), or iterative reconstruction technique. FINDINGS: There is evidence of healed fracture of the right middle 1/3 of the left humerus. Heterogeneous bone density is noted at the site of the fracture with minor deformity and cortical irregularity, represents healed fracture. No acute fractures or dislocations. There is generalized osteopenia of the left femur. The glenohumeral joint appears within normal limits. There is no significant soft tissue abnormality is noted. The visualized left hemithorax is unremarkable. IMPRESSION: Healed fracture of the middle 1/3 of the left humeral diaphysis, demonstrates minor deformity and cortical irregularity. No evidence of acute fractures. Dictated by: Iqra Suarez 01/23/2021 16:18 Iqra Suarez in [facility] 01/23/2021 16:18
== END ==
PROVIDERS: PCP Family Medicine; Visit Provider Orthopaedic Surgery
DX: M79.602 Pain in left arm (principal); R20.2 Paresthesia of skin
CPT/HCPCS: 73200

== ENCOUNTER → 2021-05-09 18:17 | Outpatient (CLI) | payer OTHER, SELFPAY ==
[2021-05-09 19:35] LABS: Basophils # 0.1 K/mm3 (0-0.2); Basophils % 0.6 % (0.1-2.0); Eosinophils # 0.1 K/mm3 (0.0-0.4); Hematocrit 38.5 % (37.0-47.0); Hemoglobin 13.1 g/dL (12.2-16.2); Lymphocytes # 2.8 K/mm3 (0.7-4.5); Lymphocytes % 33.6 % (10-50); Mean Corpuscular HGB Conc 34.1 g/dL (31.8-35.4); Mean Corpuscular Hemoglobin 29.5 pg (27.0-31.2); Mean Corpuscular Volume 86.4 fl (81-99); Mean Platelet Volume 9.2 fl (7.4-10.4); Monocytes # 0.5 K/mm3 (0.1-1.0); Monocytes % 5.6 % (1.7-9.3); Neutrophils # 4.9 K/mm3 (1.8-7.8); Neutrophils % 59.2 % (37.0-80.0); Platelet Count 295 K/mm3 (142-424); Red Blood Count 4.45 M/mm3 (4.20-5.40); White Blood Count 8.4 K/mm3 (4.8-10.8)
[2021-05-09 19:48] LABS: Alanine Aminotransferase 18 U/L (12-78); Albumin Level 4.3 g/dl (3.5-5.0); Albumin/Globulin Ratio 1.3 (1.1-1.8); Alkaline Phosphatase 93 U/L (38-126); Anion Gap 14.5 mEq/L (5-15); Aspartate Amino Transferase 26 U/L (14-36); Bilirubin,Total 0.9 mg/dl (0.2-1.3); Blood Urea Nitrogen 14 mg/dl (7-17); Calcium 9.6 mg/dl (8.4-10.2); Carbon Dioxide 26 mmol/L (22.0-30.0); Chloride 104 mmol/L (98-107); Chol/HDL Ratio 4.2 (1-3.5); Cholesterol 197 mg/dl (140-200); Estimated Glomerular Filt Rate 90 ml/min (>60); GFR (African American) 109 ML/MIN (>60); Globulin 3.2 g/dL (1.3-3.2); Glucose 91 mg/dl (74-100); HDL Cholesterol 47 mg/dl (40-60); Potassium 4.5 mmoL/L (3.5-5.1); Sodium 140 mmol/L (136-145); Total Protein,Serum 7.5 g/dl (6.3-8.2); Triglycerides 166 mg/dl (30-150); VLDL Cholesterol 33 mg/dL (0-40)
[2021-05-09 19:59] LABS: Direct LDL Cholesterol 107.55 mg/dL (100-129)
[2021-05-09 20:05] LABS: T4 (Thyroxine) 7.9 ug/dl (5.53-11.0)
[2021-05-09 20:09] LABS: 25-OH Vitamin D, Total 44.5 ng/mL (30-100)
[2021-05-09 20:18] LABS: Thyroid Stimulating Hormone 1.33 uIU/mL (0.465-4.68)
== END ==
PROVIDERS: Visit Provider Nurse Practitioner Family
DX: R60.9 Edema, unspecified (principal); I95.9 Hypotension, unspecified; Z79.899 Other long term (current) drug therapy; E66.3 Overweight; Z68.39 Body mass index [BMI] 39.0-39.9, adult
CPT/HCPCS: 80053; 80061; 82306; 84436; 84443; 85025

== ENCOUNTER 2021-06-06 11:38 | Emergency (ER) | payer OTHER, SELFPAY ==
[2021-06-06 11:38] VITALS: BP 133/57; PULSE 77; RESP 19; TEMP 36.9; O2SAT 97; BMI 36.4
--- NOTE | 2021-06-06 12:12 | HMH.EDUTC ---
[facility] [place] Clinical Impression: Encounter for laboratory testing for COVID-19 virus Sinusitis Qualifiers: Sinusitis location: unspecified location Chronicity: unspecified Qualified Code(s): J32.9 - Chronic sinusitis, unspecified Disposition: Home, Self-Care Condition on Discharge: Good Instructions: Sinusitis, DI for Sinusitis, DI for Cough -- Adult, DI for COVID-19 (Suspected or Confirmed ), Preventing the Spread of Coronavirus Discharge Instructions Additional Instructions: *Monitor Temp, Over the counter Motrin or Tylenol as directed/as needed Tylenol every 4 hours and Motrin every 6 hours (as long as your family doctor has told you that you can take it) for fever or pain. and straight to ER if unable to lower temp less than 101.0 after medication given *Warm salt water gargles may help to soothe the throat *Throat Lozenges *Warm fluids like tea with honey may help to soothe the throat *Sleep elevated *Humidifier/Vaporizer *Flonase 2 sprays in each nostril daily but be aware that it may take 2-3 days before you notice improvement Follow up IMMEDIATELY for new or worsening symptoms or no Noticeable improvement over the next 48-72 hours. 911 for difficulty breathing or swallowing You were tested for today for COVID19 your test result should be back in the next 24-48 hours, you may call to the [facility] to see if your test results are back in the next 48 hours [phone] [facility] hours are 9am-9pm You was given a handout with instructions for Self Quarantine and Self isolation for while you wait on test results and what to do if they are positive If you are positive the Health Dept will be contacting you also Make sure to take your Vitamins Vit. C Vit D and Zinc if you can take them Prescriptions: Azithromycin [Z-Skip 250mg Tab] 250 mg PO DIRECTED #6 tab Transmission Status: Pending to [facility] Referrals: Kirill Desai MD [Primary Care Provider] - As needed Forms: Work/School Release Time of Disposition: 12:24 Medical Decision Making - Ricky Inquiry Pt receiving controlled substance: No Ricky was queried for this patient: No Vital Signs: 06/06/21 11:38 Temperature 98.4 F Temperature Source Oral Pulse Rate [Left Radial] 77 Respiratory Rate 19 Blood Pressure [Right Arm] 133/57 L Blood Pressure Mean [Right Arm] 82 Blood Pressure Source [Right Arm] Automatic Cuff 02 Sat by Pulse Oximetry 97 Oxygen Delivery Method Room Air Orders (Tests/Meds): ORDERS Category Date Time Status Covid-19 Nasal PCR ([facility]) Routine Lab 06/06/21 12:00 Received Medical Decision Narrative: Patient states that she has taken azithromycin in the past without complications or interactions [facility] [place] - General Stated complaint: sore throat, muscle pain, congestion Time Seen by Provider: 06/06/21 12:12 Mode of Arrival: Ambulatory Source of Information: Patient Limitations: No Limitations Description of Symptoms (Recalled from Triage Doc. by RN): c/o PLEITEZ, coughing and chest congestion for 3 days HEENT Symptoms (Recalled from RN notes): Yes Resp Symptoms (Recalled from RN notes): No Skin Symptoms (Recalled from RN notes): No MS Symptoms (Recalled from RN notes): No Functional Status (Recalled from RN notes): wnl - History of Present Illness Provider Complaint: Patient state that she has been around her grandchildren last week that was sick State that she started having some sinus congestion and pressure and has continued to get worse so she started taking Mucinex States that now she is having drainage in the back of her throat and cough so she came in to get tested for COVID to make sure she doesnt have it but thinks it is a sinus infection like she has had before - Related Data Home Medications Medication Instructions Recorded Confirmed Fluticasone Propionate 1 spray INTRANASAL DAILY 08/17/20 05/09/21 Loratadine [Allergy Relief] 10 mg PO DAILY 08/17/20 05/09/21 hydroCHLOROthiazide [HCTZ 25mg 25 mg PO
[2021-06-06 12:33] VITALS: BP 133/57; PULSE 77; RESP 19; TEMP 36.9; O2SAT 97
== END 2021-06-06 12:33 | disposition home or self-care (01) ==
PROVIDERS: Emergency Provider Nurse Practitioner; PCP Family Medicine
DX: J32.9 Chronic sinusitis, unspecified (principal); Z20.822 Contact with and (suspected) exposure to COVID-19; I10 Essential (primary) hypertension
CPT/HCPCS: 99202; G0463; U0003

== ENCOUNTER 2021-07-01 10:33 | Emergency (ER) | payer OTHER, SELFPAY ==
[2021-07-01 10:34] VITALS: BP 151/82; PULSE 71; RESP 16; TEMP 36.6; O2SAT 98; BMI 36.4
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
--- NOTE | 2021-07-01 10:45 | HMH.EDNEU ---
ED Disposition Clinical Impression: Radicular neuropathy Disposition: Home, Self-Care Condition on Discharge: Good Additional Instructions: Please follow-up with your primary care physician within about 5 days if symptoms do not improve. Prescriptions: Ketorolac Tromethamine [Toradol 10mg tablet] 10 mg PO Q6HP PRN #8 tab MDD 40mg/day PRN Reason: pain Transmission Status: Received by [facility] predniSONE [Deltasone 20mg tablet] 60 mg PO DAILY #15 tab Transmission Status: Received by [facility] Referrals: Kirill Desai MD [Primary Care Provider] - As needed - Critical Care Critical Care Time: No Attestation: On , the high probability of a clinically significant, sudden or life threatening deterioration of the following system(s) required my full and direct attention, intervention and personal management. The time I documented below is in addition to time spent performing reported procedures but includes the following listed in this critical care notation. Medical Decision Making - Medical Records Medical records reviewed: Yes: I reviewed the patient's medical records. - Ricky Inquiry Pt receiving controlled substance: No Ricky was queried for this patient: No Vital Signs: 07/01/21 10:34 Temperature 98 F Temperature Source Oral Pulse Rate [Radial] 71 Respiratory Rate 16 Blood Pressure [Right Arm] 151/82 H Blood Pressure Mean [Right Arm] 105 Blood Pressure Position [Right Arm] Sitting 02 Sat by Pulse Oximetry 98 Oxygen Delivery Method Room Air - Lab Data Lab results reviewed: Yes: I reviewed the patient's lab results. Orders (Tests/Meds): ED MEDICATIONS Discontinued Medications Generic Name Dose Route Start Last Admin Trade Name Freq PRN Reason Stop Dose Admin Ketorolac Tromethamine 60 mg 07/01/21 11:01 07/01/21 11:18 Ketorolac 60mg/2ml Vial IM 07/01/21 11:02 60 mg ONCE ONE Administration - Radiology Data #1 Image(s): C-Spine Image Reviewed: Yes I have reviewed radiologist's interpretation Preliminary Findings: Normal/NAD (Degenerative changes) Medical Decision Narrative: The patient presents to the emergency department complaining of right-sided upper extremity pain. This pain is worsened with manipulation of the patient's neck. This is highly suggestive of cervical radiculopathy. The patient's plain radiograph did not show any acute disease. The patient will be discharged in stable condition with a prescription for Toradol and oral steroids and instructions to follow-up with her primary care physician regarding further work-up for this probable cervical radiculopathy. Neuro HPI - General Stated Complaint: rt arm pain/swelling Time Seen by Provider: 07/01/21 10:45 Mode of Arrival: Ambulatory Source of Information: Patient Limitations: No Limitations - History of Present Illness HPI Narrative: The patient presents to the emergency department complaining of right-sided upper arm and forearm pain. Denies any recent injuries. Denies fever. Onset (ago): day(s) (5) - Related Data Home Medications: Home Medications Medication Instructions Recorded Confirmed Fluticasone Propionate 1 spray INTRANASAL DAILY 08/17/20 05/09/21 Loratadine [Allergy Relief] 10 mg PO DAILY 08/17/20 05/09/21 hydroCHLOROthiazide [HCTZ 25mg 25 mg PO DAILY 08/17/20 05/09/21 tab] Previous Rx's Medication Instructions Recorded hydrocodone 7.5 mg-acetaminophen 1 tab PO DAILY PRN #20 tab 12/06/20 325 mg tablet gabapentin 600 mg tablet 600 mg PO TID PRN #90 tab 12/07/20 citalopram 20 mg tablet See Rx Instructions .ROUTE 01/01/21 .COMPLEX #30 tablet Azithromycin [Z-Skip 250mg Tab] 250 mg PO DIRECTED #6 tab 06/06/21 Ketorolac Tromethamine [Toradol 10 mg PO Q6HP PRN #8 tab MDD 07/01/21 10mg tablet] 40mg/day predniSONE [Deltasone 20mg 60 mg PO DAILY #15 tab 07/01/21 tablet] Allergies/Adverse Reactions: Allergi
--- NOTE | 2021-07-01 10:56 | PC.NURSE ---
Pt with rad.
[2021-07-01 12:07] VITALS: BP 140/71; PULSE 67; RESP 16; TEMP 36.7; O2SAT 97
== END 2021-07-01 12:13 | disposition home or self-care (01) ==
LOC: ER 11:14
PROVIDERS: Emergency Provider Emergency Medicine; PCP Family Medicine
DX: M54.12 Radiculopathy, cervical region (principal); I10 Essential (primary) hypertension; Z88.5 Allergy status to narcotic agent
CPT/HCPCS: 72050; 96372; 99282

== ENCOUNTER → 2021-07-15 14:32 | Outpatient (CLI) | payer OTHER, SELFPAY ==
--- NOTE | 2021-07-15 14:32 | MR_ITS ---
PROCEDURE: MR CERVICAL SPINE WO CON CLINICAL INDICATION: neck pain Right-sided neck and arm pain with numbness and headache COMPARISON: CR XR CERVICAL SPINE 5V from 07/01/2021 TECHNIQUE: Standard multiplanar multiecho sequences are performed without contrast. 3-D MIP and myelographic images are also rendered and reviewed FINDINGS: There is straightening of the cervical lordosis which could be due to patient positioning or muscle spasm. The craniocervical junction has an unremarkable appearance. No fracture or dislocation. C2-C3: Unremarkable. There is a mild posterior longitudinal ligament hypertrophic change at C3 very slightly eccentric toward the left resulting in canal stenosis at 10 mm. C3-C4: Small left paracentral disc protrusion versus prominent posterior longitudinal ligament with canal stenosis of 9 mm. There is minimal contour deformity of the cord at this level anteriorly. C4-C5: There is canal stenosis of 10 mm without cord impingement. C5-C6: Minimal bulging disc with canal stenosis of 9 mm. There is mild left-sided foraminal narrowing from facet and uncovertebral hypertrophy. There is mild wedging of the C6 vertebral body anteriorly. This however does appear chronic. C6-C7: Minimal broad-based disc protrusion in the central left paracentral and foraminal region with canal stenosis of 8 mm and mild left lateral recess and foraminal narrowing. C7-T1: Unremarkable. Anterior osteophytes are present at C3-C4 C5 and C6. No extruded herniated disc is evident. IMPRESSION: There is multilevel cervical spondylosis with mild multilevel canal stenosis. Please see above for detailed description at each level. Dictated by: Yung Davis MD 07/17/2021 07:40 Yung Davis MD in [place] 07/17/2021 07:40
== END ==
PROVIDERS: PCP Family Medicine; Visit Provider Family Medicine
DX: M54.2 Cervicalgia (principal)
CPT/HCPCS: 72141; 76376

== ENCOUNTER → 2021-07-22 16:13 | Outpatient (CLI) | payer OTHER, SELFPAY ==
--- NOTE | 2021-07-22 16:26 | XR_ITS ---
PROCEDURE: XR HIP LT 2-3V W/PELVIS CLINICAL INDICATION: left hip pain COMPARISON: CR [id number] HIP RT 2-3V W/PELVIS IF PERFOR from 12/25/2016 FINDINGS: Mild osteoarthritic changes. No acute fracture or dislocation. No lytic or blastic change. IMPRESSION: Mild osteoarthritis Dictated by: Yung Davis MD 07/23/2021 09:41 Yung Davis MD in [place] 07/23/2021 09:41
--- NOTE | 2021-07-22 16:26 | XR_ITS ---
PROCEDURE: XR HIP RT 2-3V W/PELVIS CLINICAL INDICATION: right hip pain COMPARISON: No exams were available for comparison FINDINGS: Mild osteoarthritic changes. No acute fracture or dislocation. No lytic or blastic change. IMPRESSION: Mild osteoarthritis Dictated by: Yung Davis MD 07/23/2021 07:44 Yung Davis MD in [place] 07/23/2021 07:44
[2021-07-22 17:32] LABS: C-Reactive Protein 22.8 mg/L (0-4)
[2021-07-22 21:21] LABS: Erythrocyte Sedimentation Rate 18 mm/hr (0-20)
[2021-07-30 21:08] LABS: 1,25 Dihydroxy Vitamin D 40 pg/mL (.); 1,25-Dihydroxy, Vitamin D-2 <10 pg/mL (.); 1,25-Dihydroxy, Vitamin D-3 39 pg/mL (.)
== END ==
PROVIDERS: Visit Provider Family Medicine
DX: M25.552 Pain in left hip (principal); M25.551 Pain in right hip; Z71.2 Person consulting for explanation of examination or test findings
CPT/HCPCS: 36415; 73502; 82652; 85651; 86140

== ENCOUNTER → 2021-08-07 17:59 | Outpatient (CLI) | payer OTHER, SELFPAY | PROVIDERS: Visit Provider Nurse Practitioner Family | DX: Z20.822 Contact with and (suspected) exposure to COVID-19 (principal) | CPT/HCPCS: C9803; U0003; U0005 ==

== ENCOUNTER 2021-08-18 15:08 | Emergency (ER) | payer OTHER, SELFPAY ==
[2021-08-18 15:55] VITALS: BP 184/79; PULSE 66; RESP 18; TEMP 36.8; O2SAT 97; BMI 36.6
--- NOTE | 2021-08-18 16:56 | HMH.EDUTC ---
[facility] [place] Disposition Clinical Impression: Herpes zoster Qualifiers: Herpes zoster complications: without complications Qualified Code(s): B02.9 - Zoster without complications Sinusitis Qualifiers: Sinusitis location: unspecified location Chronicity: acute Recurrence: non-recurrent Qualified Code(s): J01.90 - Acute sinusitis, unspecified Disposition: Home, Self-Care Condition on Discharge: Good Instructions: Shingles, DI for Shingles, DI for Sinusitis Additional Instructions: Drink plenty of fluids. Take tylenol or ibuprofen for pain or fever. Take the medications as directed. Follow up with your regular doctor. GO TO THE ER FOR ANY WORSENING SYMPTOMS Take the medications as directed. Drink plenty of water while you are on these medications. Follow up with Dr. Desai. Prescriptions: Acyclovir 800 mg PO 5XDAY 7 Days #37 tab Transmission Status: Received by [id number] Amoxicillin/Potassium Clav [Augmentin 875-125 Tablet] 1 tab PO Q12H 10 Days #20 tab Transmission Status: Received by [id number] Fluticasone Propionate [Flonase 50mcg nasal spray 16gm] 1 spr NS BID #120 each Transmission Status: Received by [id number] methylPREDNISolone [Medrol] 4 mg PO DIRECTED 6 Days #21 packet Transmission Status: Received by [id number] Referrals: Kirill Desai MD [Primary Care Provider] - Forms: Work/School Release Time of Disposition: 17:02 Medical Decision Making - Medical Records Medical records reviewed: No: I reviewed the patient's medical records. - Ricky Inquiry Pt receiving controlled substance: No Vital Signs: 08/18/21 15:55 08/18/21 17:04 Temperature 98.2 F 98.2 F Temperature Source Oral Oral Pulse Rate 66 Pulse Rate [Right Brachial] 66 Respiratory Rate 18 18 Blood Pressure 184/79 H Blood Pressure [Right Arm] 184/79 H Blood Pressure Mean [Right Arm] 114 Blood Pressure Source [Right Arm] Automatic Cuff Blood Pressure Position [Right Arm] Sitting 02 Sat by Pulse Oximetry 97 Oxygen Delivery Method Room Air Room Air - Lab Data Lab Results 08/18/21 15:57: Urine Color Yellow, Urine Appearance Cloudy, Urine pH 6.0, Ur Specific [place] 1.025, Urine Protein Negative, Urine Glucose (UA) Negative, Urine Ketones Negative, Urine Blood Negative, Urine Nitrate Negative, Urine Bilirubin Negative, Urine Urobilinogen 0.2, Ur Leukocyte Esterase Negative [facility] [place] HPI - General Stated complaint: Rash MAIK anders Time Seen by Provider: 08/18/21 16:57 Mode of Arrival: Ambulatory Source of Information: Patient Limitations: No Limitations Description of Symptoms (Recalled from Triage Doc. by RN): rash. headache. no energy HEENT Symptoms (Recalled from RN notes): Yes Resp Symptoms (Recalled from RN notes): No Skin Symptoms (Recalled from RN notes): Yes MS Symptoms (Recalled from RN notes): Yes Functional Status (Recalled from RN notes): yes - History of Present Illness Provider Complaint: She c/o a painful itchy rash on her left lower chest below her breast. Her symptoms began about 2 days ago. She has patches of blisters that go around to her left upper back. She denies any shortness of breath of other chest pain. - Related Data Home Medications Medication Instructions Recorded Confirmed Fluticasone Propionate 1 spray INTRANASAL DAILY 08/17/20 08/07/21 Loratadine [Allergy Relief] 10 mg PO DAILY 08/17/20 08/07/21 hydroCHLOROthiazide [HCTZ 25mg 25 mg PO DAILY 08/17/20 08/07/21 tab] Previous Rx's Medication Instructions Recorded citalopram 20 mg tablet See Rx Instructions .ROUTE 07/15/21 .COMPLEX #30 tab prednisone 20 mg tablet 20 mg PO BID #10 tab 08/07/21 Acyclovir 800 mg PO 5XDAY 7 Days #37 tab 08/18/21 Amoxicillin/Potassium Clav 1 tab PO Q12H 10 Days #20 tab 08/18/21 [Augmentin 875-125 Tablet] Fluticasone Propionate [Flonase 1 spr NS BID #120 each 08/18/21 50mcg nasal spray 16gm] methylPREDNISolone [Medrol] 4
[2021-08-18 17:04] VITALS: BP 184/79; PULSE 66; RESP 18; TEMP 36.8
[2021-08-18 18:22] LABS: Apearance,Urine Cloudy (Clear); Color,Urine Yellow (Yellow)
[2021-08-18 18:25] LABS: Bilirubin,Urine Negative (Negative); Blood, Urine Negative (Negative); Glucose,Urine (UA) Negative (Negative); Ketones,Urine Negative (Negative); Protein,Urine Negative (Negative); Specific Gravity, Urine 1.025 (1.005-1.030); Urobilinogen,Urine 0.2 EU/dl (0.2)
[2021-08-18 18:26] LABS: UTC Leukocyte Esterase,Urine Negative (Negative); UTC Nitrate,Urine Negative (Negative)
== END 2021-08-18 17:04 | disposition home or self-care (01) ==
PROVIDERS: Emergency Provider Nurse Practitioner Family; PCP Family Medicine
DX: J01.90 Acute sinusitis, unspecified (principal); B02.9 Zoster without complications; I10 Essential (primary) hypertension; Z88.5 Allergy status to narcotic agent
CPT/HCPCS: 81003; 99202; G0463

== ENCOUNTER 2021-08-24 08:38 | Emergency (ER) | payer OTHER, SELFPAY ==
[2021-08-24 08:39] VITALS: BP 157/85; PULSE 82; RESP 16; TEMP 36.9; O2SAT 98; BMI 36.4
--- NOTE | 2021-08-24 09:16 | PC.NURSE ---
Took pt to the bathroom.
--- NOTE | 2021-08-24 09:20 | HMH.EDNVD ---
ED Disposition Clinical Impression: Nausea vomiting and diarrhea Disposition: Home, Self-Care Condition on Discharge: Good Instructions: DI for Diarrhea and Traveler's Diarrhea -- Adult, DI for Diarrhea and Traveler's Diarrhea -- Child, DI for Nausea -- Adult, DI for Nausea -- Child Additional Instructions: You were evaluated in the emergency department today for vomiting and diarrhea, and there is no need for further emergent evaluation at this time. Symptoms may be due to adverse effect of medication, possible gastroenteritis. Use loperamide, 2 mg of liquid bowel movement as needed [id number], as well as Pepcid 20 mg twice daily [id number] for control of symptoms. Maintain adequate oral hydration with sips of liquid throughout the day and follow-up with your primary care physician in the next 2 to 3 days for monitoring of any persistent symptoms and coordination of ongoing care needs. Return to the emergency department without hesitation with any new or worsening symptoms. Referrals: Kirill Desai MD [Primary Care Provider] - 3 days - Critical Care Critical Care Time: No Attestation: On 08/24/21, the high probability of a clinically significant, sudden or life threatening deterioration of the following system(s) required my full and direct attention, intervention and personal management. The time I documented below is in addition to time spent performing reported procedures but includes the following listed in this critical care notation. Medical Decision Making - Ricky Inquiry Pt receiving controlled substance: No Vital Signs: 08/24/21 08:39 Temperature 98.4 F Temperature Source Oral Pulse Rate [Right] 82 Respiratory Rate 16 Blood Pressure [Right Arm] 157/85 H Blood Pressure Mean [Right Arm] 109 Blood Pressure Source [Right Arm] Automatic Cuff Blood Pressure Position [Right Arm] Sitting 02 Sat by Pulse Oximetry 98 Oxygen Delivery Method Room Air - Lab Data Lab Results 08/24/21 09:18: Urine Color Yellow, Urine Appearance Clear, Urine pH 6.0, Ur Specific [place] >= 1.030, Urine Protein Negative, Urine Glucose (UA) Negative, Urine Ketones Negative, Urine Blood Negative, Urine Nitrate Negative, Urine Bilirubin Negative, Urine Urobilinogen 0.2, Ur Leukocyte Esterase Negative, Urine RBC None, Urine WBC None, Ur Squamous Epith Cells Occasional, Urine Bacteria Trace 08/24/21 10:28: WBC 12.9 H, RBC 4.72, Hgb 13.9, Hct 44.2, MCV 93.5, MCH 29.4, MCHC 31.4 L, RDW 14.5, Plt Count 288, MPV 8.4, Neut % (Auto) 81.3 H, Lymph % (Auto) 12.5, [place] % (Auto) 4.7, Eos % (Auto) 0.6, Baso % (Auto) 0.8, Neut # (Auto) 10.5 H, Lymph # (Auto) 1.6, [place] # (Auto) 0.6, Eos # (Auto) 0.1, Baso # (Auto) 0.1 08/24/21 10:28: Sodium 136, Potassium 4.2, Chloride 105, Carbon Dioxide 22, Anion Gap 13.2, BUN 16, Creatinine 0.50 L, Estimated Creat Clear 220, Estimated GFR 133, Est GFR ( Amer) 161, Glucose 112 H, Calcium 9.6, Total Bilirubin 1.4 H, AST 35, ALT 20, Alkaline Phosphatase 97, Total Protein 7.7, Albumin 4.1, Globulin 3.6 H, Albumin/Globulin Ratio 1.1 08/24/21 10:28: Lipase 114 Result diagrams: 08/24/21 10:28 08/24/21 10:28 Orders (Tests/Meds): ED MEDICATIONS Discontinued Medications Generic Name Dose Route Start Last Admin Trade Name Farhad PRN Reason Stop Dose Admin Belladonna Alkaloids 60 ml 08/24/21 09:12 08/24/21 09:35 Gi Cocktail 60ml Udc PO 08/24/21 09:13 60 ml ONCE ONE Administration Famotidine 40 mg 08/24/21 09:12 08/24/21 09:35 Famotidine 20mg Tablet PO 08/24/21 09:13 40 mg ONCE ONE Administration Fluconazole 200 mg 08/25/21 09:13 Fluconazole 200mg Tablet PO 08/25/21 09:14 ONCE ONE Fluconazole 200 mg 08/24/21 09:35 08/24/21 09:37 Fluconazole 100mg Tablet PO 08/24/21 09:36 200 mg ONCE ONE Administration Sodium Chloride 1,000 mls @ 999 mls/hr 08/24/21 09:15 08/24/21 09:36 Sod Chlor 0.9% 1000ml Bag IV 08/24/21 10:15 999 mls/hr .Q1H1M CINTHYA Administ
[2021-08-24 09:27] LABS: Microscopic, Urine URINE MICROSCOPIC (MICROSCOPIC)
[2021-08-24 09:31] LABS: Appearance,Urine CLEAR (Clear); Bilirubin,Urine Negative (Negative); Blood, Urine Negative (Negative); Color,Urine YELLOW (Yellow); Glucose,Urine (UA) Negative (Negative); Ketones,Urine Negative (Negative); Leukocyte Esterase,Urine Negative (Negative); Nitrate,Urine Negative (Negative); Protein,Urine Negative (Negative); Specific Gravity, Urine >= 1.030 (1.005-1.030); Urobilinogen,Urine 0.2 EU/dl (0.2)
[2021-08-24 09:46] LABS: Bacteria,Urine Trace /lpf; Squamous Epithelial Cell,Urine Occasional #/hpf (0-5)
--- NOTE | 2021-08-24 10:05 | PC.NURSE ---
Multiple IV attempts with no success. Dr. Damon going to attempt with US
[2021-08-24 10:54] LABS: Basophils # 0.1 K/mm3 (0-0.2); Basophils % 0.8 % (0.1-2.0); Eosinophils # 0.1 K/mm3 (0.0-0.4); Eosinophils % 0.6 % (0.1-12.0); Hematocrit 44.2 % (37.0-47.0); Hemoglobin 13.9 g/dL (12.2-16.2); Lymphocytes # 1.6 K/mm3 (0.7-4.5); Lymphocytes % 12.5 % (10-50); Mean Corpuscular HGB Conc 31.4 g/dL (31.8-35.4); Mean Corpuscular Hemoglobin 29.4 pg (27.0-31.2); Mean Corpuscular Volume 93.5 fl (81-99); Mean Platelet Volume 8.4 fl (7.4-10.4); Monocytes # 0.6 K/mm3 (0.1-1.0); Monocytes % 4.7 % (1.7-9.3); Neutrophils # 10.5 K/mm3 (1.8-7.8); Neutrophils % 81.3 % (37.0-80.0); Platelet Count 288 K/mm3 (142-424); Red Blood Count 4.72 M/mm3 (4.20-5.40); Red Cell Distribution Width 14.5 % (11.5-17.5); White Blood Count 12.9 K/mm3 (4.8-10.8)
[2021-08-24 10:59] LABS: Chloride 105 mmol/L (98-107); Potassium 4.2 mmoL/L (3.5-5.1); Sodium 136 mmol/L (136-145)
[2021-08-24 11:01] LABS: Blood Urea Nitrogen 16 mg/dl (7-17); Creatinine Clearance Estimated 220 mL/min (50-200); Estimated Glomerular Filt Rate 133 ml/min (>60); GFR (African American) 161 ML/MIN (>60)
[2021-08-24 11:02] LABS: Alanine Aminotransferase 20 U/L (12-78); Albumin Level 4.1 g/dl (3.5-5.0); Albumin/Globulin Ratio 1.1 (1.1-1.8); Alkaline Phosphatase 97 U/L (38-126); Anion Gap 13.2 mEq/L (5-15); Aspartate Amino Transferase 35 U/L (14-36); Bilirubin,Total 1.4 mg/dl (0.2-1.3); Calcium 9.6 mg/dl (8.4-10.2); Carbon Dioxide 22 mmol/L (22.0-30.0); Globulin 3.6 g/dL (1.3-3.2); Glucose 112 mg/dl (74-100); Total Protein,Serum 7.7 g/dl (6.3-8.2)
[2021-08-24 11:34] LABS: Lipase 114 U/L (23-300)
[2021-08-24 12:16] VITALS: BP 130/70; PULSE 74; RESP 16; TEMP 36.8; O2SAT 98
== END 2021-08-24 12:20 | disposition home or self-care (01) ==
PROVIDERS: Emergency Provider Student in an Organized Health Care Education/Training Program; PCP Family Medicine
DX: R11.12 Projectile vomiting (principal); R19.7 Diarrhea, unspecified; F41.8 Other specified anxiety disorders; I10 Essential (primary) hypertension
CPT/HCPCS: 80053; 81001; 83690; 85025; 96374; 99283; J2405

== ENCOUNTER → 2021-09-18 17:39 | Outpatient (CLI) | payer OTHER, SELFPAY | PROVIDERS: Visit Provider Nurse Practitioner Family | DX: J02.9 Acute pharyngitis, unspecified (principal) ==

== ENCOUNTER 2021-10-24 12:55 | Emergency (ER) | payer OTHER, SELFPAY ==
--- NOTE | 2021-10-24 13:23 | XR_ITS ---
PROCEDURE: XR CHEST PORTABLE CLINICAL HISTORY: chest pain, cough, fever COMPARISON: CR CXR CHEST(2 VIEWS-NOT PORTABLE) from 06/10/2015 CR CXR CHEST(2 VIEWS-NOT PORTABLE) from 05/10/2016 CR CXR1 CHEST-PORTABLE from 12/16/2016 FINDINGS: The cardiomediastinal silhouette and pulmonary vascularity are within normal limits. The lungs are clear without infiltrates, suspicious nodules, or pleural effusions. No acute bony abnormalities. IMPRESSION: No acute findings. Dictated by: Yung Davis MD 10/24/2021 14:13 Yung Davis MD in [place] 10/24/2021 14:13
[2021-10-24 13:35] VITALS: BP 121/56; PULSE 98; RESP 16; TEMP 36.9; O2SAT 100; BMI 40.9
[2021-10-24 13:42] LABS: Influenza A, PCR Not Detected (NotDetected); Influenza B, PCR Not Detected (NotDetected)
[2021-10-24 14:31] LABS: Coronavirus 19, PCR Detected (NotDetected)
--- NOTE | 2021-10-24 14:52 | HMH.EDGENADL ---
ED Disposition Clinical Impression: COVID-19 Disposition: Home, Self-Care Condition on Discharge: Good Instructions: Coronavirus Disease 2019 Additional Instructions: Please follow up with your primary care physician in 2-3 days for further management via telehealth. Please take tylenol and ibuprofen for pain control. Please use the zofran as prescribed. Please return for any worsening symptoms. If oxygenation saturation drops below 88% on your O2 monitor please return to the ED. Referrals: Kirill Desai MD [Primary Care Provider] - Forms: Work/School Release Time of Disposition: 15:35 - Critical Care Critical Care Time: No Attestation: On 10/24/21, the high probability of a clinically significant, sudden or life threatening deterioration of the following system(s) required my full and direct attention, intervention and personal management. The time I documented below is in addition to time spent performing reported procedures but includes the following listed in this critical care notation. Medical Decision Making - Medical Records Medical records reviewed: Yes: I reviewed the patient's medical records. - Ricky Inquiry Pt receiving controlled substance: No Vital Signs: 10/24/21 13:35 10/24/21 15:07 Temperature 98.5 F 98.5 F Temperature Source Oral Pulse Rate 89 Pulse Rate [Right Brachial] 98 H Respiratory Rate 16 16 Blood Pressure 123/54 L Blood Pressure [Right Arm] 121/56 L Blood Pressure Mean [Right Arm] 77 Blood Pressure Source [Right Arm] Automatic Cuff Blood Pressure Position [Right Arm] Sitting 02 Sat by Pulse Oximetry 100 Oxygen Delivery Method Room Air - Lab Data Lab results reviewed: Yes: I reviewed the patient's lab results. Lab Results 10/24/21 13:33: SARS-CoV-2 (PCR) Detected A, Influenza A Untype (PCR) Not detected, Influenza Type B (PCR) Not detected Orders (Tests/Meds): ED MEDICATIONS Discontinued Medications Generic Name Dose Route Start Last Admin Trade Name Freq PRN Reason Stop Dose Admin Acetaminophen 1,000 mg 10/24/21 14:01 10/24/21 14:02 Acetaminophen 500mg Tab PO 10/24/21 14:02 1,000 mg ONCE ONE Administration Sodium Chloride 500 mls @ 999 mls/hr 10/24/21 13:30 Sod Chlor 0.9% 1000ml Bag IV 10/24/21 14:00 .Q31M [facility] Medical Decision Narrative: Miss Glasgow is a 46 yo female w/ no significant PMH who presents to the ED for cough, fever and chest pressures, associated symptoms include vomting, headache and heart palpitations. Patient is afebrile and hemodynamically stable on arrival. Patient is po challenged and drink 2L from water bottle following administration of zofran and tylenol. CXR shows normal cardiopulmonary silhouette, no evidence of pneumonia. Patient is swabbed positive for COVID. Patient instructed to self quarantine for 14 d and to return to the ED for any concerning symptoms such as difficulty breathing, inability to eat and drink or any other worsening symptoms. Patient provided a script for zofran and is discharged in stable condition. Of note: Patient is PERC negative no suspicion for PE. General Adult HPI - General Chief complaint: Upper Respiratory Infection Stated complaint: chest, pressure, vomiting,headache Time Seen by Provider: 10/24/21 13:50 Mode of Arrival: Ambulatory Source of Information: Patient Limitations: No Limitations Description of Symptoms (Recalled from ER Triage Doc. by RN): patient states she has been having vomiting and fever since 5 am today. she said she has had congestion and cough for a few days. - History of Present Illness HPI narrative: Miss Glasgow is a 46 yo female otherwise healthy, who presents to the ED for cough, fever and chest pressure. Patient reports symptoms onset a few days prior. No known covid exposures or sick contact. Patient also reports non bloody non bilious emesis and reduced po intake. Patient also reports intermittent periods of heart palpitations and headache wh
[2021-10-24 15:07] VITALS: BP 123/54; PULSE 89; RESP 16; TEMP 36.9; O2SAT 98
== END 2021-10-24 15:08 | disposition home or self-care (01) ==
PROVIDERS: Emergency Provider Student in an Organized Health Care Education/Training Program; PCP Family Medicine
DX: U07.1 COVID-19 (principal); I10 Essential (primary) hypertension
CPT/HCPCS: 71045; 99282; C9803; U0003; U0005

== ENCOUNTER → 2021-11-22 14:49 | Outpatient (CLI) | payer OTHER, SELFPAY ==
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
--- NOTE | 2021-11-22 14:54 | XR_ITS ---
FINAL REPORT CLINICAL HISTORY: pain proximal femur imaged under Rt hip FINDINGS: Multiple views of the right femur were obtained. There is no acute fracture or dislocation. Visualized joint spaces are intact. There is no acute soft tissue abnormality. IMPRESSION: No acute process. Reviewed, Interpreted and Dictated by Nate Sierra MD Transcribed by Cj Norton Authenticated by Nate Sierra MD on 11/22/2021 04:26:38 PM [facility]
--- NOTE | 2021-11-22 14:54 | XR_ITS ---
FINAL REPORT CLINICAL HISTORY: pain FINDINGS: RIGHT HIP WITH PELVIS Two views demonstrate no acute fracture or dislocation. The joint spaces appear normal. The visualized bony structures are well aligned. No soft tissue abnormality is seen. IMPRESSION: No acute bony abnormality. Reviewed, Interpreted and Dictated by Nate Sierra MD Transcribed by Cj Norton Authenticated by Nate Sierra MD on 11/22/2021 04:26:[address] [facility]
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
== END ==
PROVIDERS: PCP Family Medicine; Visit Provider Family Medicine
DX: M54.10 Radiculopathy, site unspecified (principal); M77.41 Metatarsalgia, right foot; M77.42 Metatarsalgia, left foot; V89.2XXA Person injured in unspecified motor-vehicle accident, traffic, initial encounter
CPT/HCPCS: 72052; 73060; 73502; 73552; 73630

== ENCOUNTER → 2021-12-06 16:30 | Outpatient (CLI) | payer OTHER, SELFPAY | PROVIDERS: Visit Provider Family Medicine | DX: J02.9 Acute pharyngitis, unspecified (principal) ==

== ENCOUNTER 2021-12-13 14:42 | Outpatient (RCR) | payer OTHER, SELFPAY | END 2021-12-13 15:47 | disposition home or self-care (01) | LOC: OT 14:42 | PROVIDERS: Visit Provider Orthopaedic Surgery | DX: G56.01 Carpal tunnel syndrome, right upper limb (principal) | CPT/HCPCS: 97763 ==

== ENCOUNTER 2022-01-21 11:38 | Emergency (ER) | payer OTHER, SELFPAY ==
[2022-01-21 12:30] VITALS: BP 180/111; PULSE 91; RESP 19; TEMP 36.9; O2SAT 95
[2022-01-21 12:37] VITALS: BP 184/117; PULSE 78; RESP 20; TEMP 36.9; O2SAT 98; BMI 36.4
--- NOTE | 2022-01-21 12:43 | XR_ITS ---
FINAL REPORT CLINICAL HISTORY: cough COMPARISON: October 24, 2021 FINDINGS: Two views of the chest were obtained. The heart size and pulmonary vascularity are within normal limits. The mediastinum is normal. No acute pulmonary abnormality is identified. There is no pneumothorax. The bony thorax is intact. IMPRESSION: No active cardiopulmonary disease. Reviewed, Interpreted and Dictated by Carter Ambrocio III, MD Transcribed by Citlalli Meyer Authenticated by Carter Ambrocio III, MD on 01/21/2022 01:45:48 PM [facility]
[2022-01-21 12:53] VITALS: BP 150/94; PULSE 87; O2SAT 96
--- NOTE | 2022-01-21 13:02 | HMH.EDGENADL ---
ED Disposition Clinical Impression: Viral illness Disposition: Home, Self-Care Condition on Discharge: Good Instructions: DI for Viral Syndrome Additional Instructions: follow up pcp as needed Prescriptions: Promethazine/Dextromethorphan [Promethazine-Dm Syrup] 5 ml PO Q6H PRN #120 ml PRN Reason: Cough Transmission Status: P[facility] to [facility] Ondansetron [Zofran 4mg ODT] 4 mg PO TIDP PRN #15 tab PRN Reason: Nausea And Vomiting Transmission Status: Pending to [facility] Referrals: Kirill Desai MD [Primary Care Provider] - - Critical Care Critical Care Time: No Attestation: On 01/21/22, the high probability of a clinically significant, sudden or life threatening deterioration of the following system(s) required my full and direct attention, intervention and personal management. The time I documented below is in addition to time spent performing reported procedures but includes the following listed in this critical care notation. Medical Decision Making - Medical Records Medical records reviewed: Yes: I reviewed the patient's medical records. - Ricky Inquiry Pt receiving controlled substance: No Vital Signs: 01/21/22 12:30 01/21/22 12:37 Temperature 98.4 F 98.4 F Temperature Source Oral Oral Pulse Rate [Left Radial] 78 Pulse Rate [Right Brachial] 91 H Respiratory Rate 19 20 Blood Pressure [Right Arm] 180/111 H 184/117 H Blood Pressure Mean [Right Arm] 134 139 Blood Pressure Source [Right Arm] Automatic Cuff Automatic Cuff Blood Pressure Position [Right Arm] Supine Sitting 02 Sat by Pulse Oximetry 95 98 Oxygen Delivery Method Room Air Room Air - Lab Data Lab Results 01/21/22 12:43: Group A Strep Rapid Negative Orders (Tests/Meds): ED MEDICATIONS Discontinued Medications Generic Name Dose Route Start Last Admin Trade Name Freq PRN Reason Stop Dose Admin Lisinopril 20 mg 01/21/22 12:45 01/21/22 12:47 Lisinopril 20mg Tablet PO 02/20/22 12:44 Not Given DAILY CINTHYA Lisinopril 20 mg 01/22/22 12:47 Lisinopril 10mg Tablet PO 01/22/22 12:48 DAILY ONE Lisinopril 20 mg 01/21/22 12:50 01/21/22 12:51 Lisinopril 10mg Tablet PO 01/21/22 12:51 20 mg ONCE ONE Administration Ondansetron HCl 8 mg 01/21/22 13:03 Ondansetron 4mg Odt SL 01/21/22 13:04 ONCE ONE ORDERS Category Date Time Status XR chest 2V Stat Exams 01/21/22 12:43 Taken Rapid PCR Covid and Flu A/B Stat Lab 01/21/22 12:43 Received Strep Screen Confirmation Stat Micro 01/21/22 12:43 Received Medical Decision Narrative: reeval, appears well, johnny po weel, vss, ok with plan to f/u pcp General Adult HPI - General Chief complaint: Upper Respiratory Infection Stated complaint: fever, sore throat, vomiting, h/a Time Seen by Provider: 01/21/22 13:02 Mode of Arrival: Ambulatory Limitations: No Limitations Description of Symptoms (Recalled from ER Triage Doc. by RN): c/o fever, cough, PLEITEZ, vomiting mucus, sore throat for 2 days - History of Present Illness HPI narrative: fever, sore throat, cough, rn, n/v Onset (ago): day(s) Severity: moderate Quality: aching Consistency: constant Relieving factors: none Exacerbating factors: none Associated symptoms: fever/chills, nausea/vomiting - Related Data Home Medications Medication Instructions Recorded Confirmed Fluticasone Propionate 1 spray INTRANASAL DAILY 08/17/20 12/13/21 Previous Rx's Medication Instructions Recorded Fluticasone Propionate [Flonase 1 spr NS BID #120 each 08/18/21 50mcg nasal spray 16gm] hydrochlorothiazide 25 mg tablet See Rx Instructions .ROUTE 09/17/21 .COMPLEX #90 tablet benzonatate 100 mg capsule 100 mg PO TID PRN #20 cap 09/18/21 cetirizine 10 mg tablet 10 mg PO DAILY PRN #30 tab 09/18/21 etodolac 400 mg tablet 400 mg PO BID #60 tab 11/22/21 tizanidine 4 mg capsule 4 mg PO HS #90 cap 11/22/21 citalopram 20 mg tablet See Rx Instructions .ROUTE
[2022-01-21 13:04] LABS: Coronavirus 19, PCR Not Detected (NotDetected); Influenza A, PCR Not Detected (NotDetected); Influenza B, PCR Not Detected (NotDetected)
[2022-01-21 13:15] LABS: Strep Scrn Group A (Rapid) Negative (Negative)
[2022-01-21 13:28] VITALS: BP 128/76; PULSE 70; O2SAT 97
[2022-01-21 13:46] VITALS: BP 146/95; PULSE 84; O2SAT 97
[2022-01-21 13:58] VITALS: BP 146/95; PULSE 84; RESP 16; TEMP 36.9; O2SAT 97
== END 2022-01-21 14:00 | disposition home or self-care (01) ==
LOC: UTC 11:41 → ER 12:25
PROVIDERS: Emergency Provider Emergency Medicine; PCP Family Medicine
DX: B34.9 Viral infection, unspecified (principal); I10 Essential (primary) hypertension; R50.9 Fever, unspecified; Z79.899 Other long term (current) drug therapy
CPT/HCPCS: 71046; 87430; 96365; 99283; C9803; U0003; U0005

== ENCOUNTER → 2022-01-28 14:41 | Outpatient (CLI) | payer OTHER, SELFPAY | PROVIDERS: Visit Provider Family Medicine | DX: N39.498 Other specified urinary incontinence (principal); B96.20 Unspecified Escherichia coli [E. coli] as the cause of diseases classified elsewhere | CPT/HCPCS: 87086; 87088; 87186 ==

== ENCOUNTER 2022-03-07 23:12 | Emergency (ER) | payer OTHER, SELFPAY ==
[2022-03-07 23:14] VITALS: BP 133/73; PULSE 95; RESP 18; TEMP 36.8; O2SAT 99; BMI 35.7
[2022-03-07 23:21] VITALS: BMI 35.7
[2022-03-07 23:26] LABS: Microscopic, Urine URINE MICROSCOPIC (MICROSCOPIC)
[2022-03-07 23:27] LABS: Appearance,Urine CLOUDY (Clear); Bilirubin,Urine Negative (Negative); Blood, Urine Negative (Negative); Color,Urine YELLOW (Yellow); Glucose,Urine (UA) Negative (Negative); Ketones,Urine TRACE (Negative); Leukocyte Esterase,Urine Negative (Negative); Nitrate,Urine Negative (Negative); Protein,Urine 2+ (Negative); Specific Gravity, Urine 1.025 (1.005-1.030)
[2022-03-07 23:37] LABS: Basophils # 0.1 K/mm3 (0-0.2); Basophils % 0.7 % (0.1-2.0); Eosinophils # 0.2 K/mm3 (0.0-0.4); Eosinophils % 1.2 % (0.1-12.0); Hematocrit 42.6 % (37.0-47.0); Hemoglobin 14.6 g/dL (12.2-16.2); Lymphocytes # 0.9 K/mm3 (0.7-4.5); Lymphocytes % 7.7 % (10-50); Mean Corpuscular HGB Conc 34.2 g/dL (31.8-35.4); Mean Corpuscular Volume 87.9 fl (81-99); Mean Platelet Volume 8.6 fl (7.4-10.4); Monocytes # 0.5 K/mm3 (0.1-1.0); Monocytes % 4.2 % (1.7-9.3); Neutrophils # 10.3 K/mm3 (1.8-7.8); Neutrophils % 86.2 % (37.0-80.0); Platelet Count 349 K/mm3 (142-424); Red Blood Count 4.85 M/mm3 (4.20-5.40); Red Cell Distribution Width 14.8 % (11.5-17.5); White Blood Count 11.9 K/mm3 (4.8-10.8)
[2022-03-07 23:38] LABS: MANUAL DIFFERENTIAL MANUAL DIFFERENTIAL (MANUAL DIFF)
[2022-03-07 23:38] LABS: Bacteria,Urine 1+ /lpf; RBC,Urine Occasional #/hpf (0-3)
[2022-03-07 23:43] LABS: Chloride 101 mmol/L (98-107)
[2022-03-07 23:44] LABS: Potassium 3.9 mmoL/L (3.5-5.1); Sodium 135 mmol/L (136-145)
[2022-03-07 23:46] LABS: Alanine Aminotransferase 26 U/L (12-78); Alkaline Phosphatase 117 U/L (38-126); Anion Gap 9.9 mEq/L (5-15); Aspartate Amino Transferase 39 U/L (14-36); Bilirubin,Total 1.1 mg/dl (0.2-1.3); Blood Urea Nitrogen 16 mg/dl (7-17); Carbon Dioxide 28 mmol/L (22.0-30.0); Creatinine Clearance Estimated 214 mL/min (50-200); Estimated Glomerular Filt Rate 132 ml/min (>60); GFR (African American) 160 ML/MIN (>60); Lipase 59 U/L (23-300)
[2022-03-07 23:47] LABS: Albumin Level 4.2 g/dl (3.5-5.0); Albumin/Globulin Ratio 1.1 (1.1-1.8); Calcium 9.4 mg/dl (8.4-10.2); Globulin 3.7 g/dL (1.3-3.2); Glucose 155 mg/dl (74-100); Total Protein,Serum 7.9 g/dl (6.3-8.2)
[2022-03-07 23:50] LABS: Lymphocytes % 11 % (10-50); Monocytes % 2 % (2-9); Neutrophils % 84 % (42-76); Platelet Estimate Normal; RBC Morphology Normal; Total Cells Counted 100
--- NOTE | 2022-03-08 01:51 | HMH.EDGENADL ---
ED Disposition Clinical Impression: Gastroenteritis UTI (urinary tract infection) Qualifiers: Urinary tract infection type: site unspecified Hematuria presence: without hematuria Qualified Code(s): N39.0 - Urinary tract infection, site not specified Disposition: Home, Self-Care Condition on Discharge: Good Instructions: DI for Nausea -- Adult, DI for Nausea -- Child, DI for Diarrhea and Traveler's Diarrhea -- Adult, DI for Diarrhea and Traveler's Diarrhea -- Child Prescriptions: cephALEXin [Cephalexin 500mg Tab] 500 mg PO Q6H 5 Days #20 tab Transmission Status: Pending to [facility] Ondansetron [Zofran 4mg ODT] 4 mg PO TIDP PRN 2 Days #6 tab PRN Reason: Nausea Transmission Status: Pending to [facility] Referrals: Kirill Desai MD [Primary Care Provider] - - Critical Care Critical Care Time: No Attestation: On 03/07/22, the high probability of a clinically significant, sudden or life threatening deterioration of the following system(s) required my full and direct attention, intervention and personal management. The time I documented below is in addition to time spent performing reported procedures but includes the following listed in this critical care notation. Medical Decision Making - Ricky Inquiry Pt receiving controlled substance: No Vital Signs: 03/07/22 23:14 Temperature 98.2 F Temperature Source Oral Pulse Rate [Right] 95 H Respiratory Rate 18 Blood Pressure [Right Arm] 133/73 Blood Pressure Mean [Right Arm] 93 02 Sat by Pulse Oximetry 99 - Lab Data Lab Results 03/07/22 23:14: Urine Color Yellow, Urine Appearance Cloudy, Urine pH 7.0, Ur Specific [place] 1.025, Urine Protein 2+, Urine Glucose (UA) Negative, Urine Ketones Trace, Urine Blood Negative, Urine Nitrate Negative, Urine Bilirubin Negative, Urine Urobilinogen 1.0, Ur Leukocyte Esterase Negative, Urine RBC Occasional, Urine WBC 10-20, Ur Squamous Epith Cells 5-10, Urine Bacteria 1+ 03/07/22 23:20: WBC 11.9 H, RBC 4.85, Hgb 14.6, Hct 42.6, MCV 87.9, MCH 30.0, MCHC 34.2, RDW 14.8, Plt Count 349, MPV 8.6, Neut % (Auto) 86.2 H, Lymph % (Auto) 7.7 L, [place] % (Auto) 4.2, Eos % (Auto) 1.2, Baso % (Auto) 0.7, Neut # (Auto) 10.3 H, Lymph # (Auto) 0.9, [place] # (Auto) 0.5, Eos # (Auto) 0.2, Baso # (Auto) 0.1, Total Counted 100, Neutrophils % (Manual) 84 H, Band Neutrophils % 3.0, Lymphocytes % (Manual) 11, Monocytes % (Manual) 2, Platelet Estimate Normal, RBC Morphology Normal 03/07/22 23:20: Sodium 135 L, Potassium 3.9, Chloride 101, Carbon Dioxide 28, Anion Gap 9.9, BUN 16, Creatinine 0.50 L, Estimated Creat Clear 214, Estimated GFR 132, Est GFR ( Amer) 160, Glucose 155 H, Calcium 9.4, Total Bilirubin 1.1, AST 39 H, ALT 26, Alkaline Phosphatase 117, Total Protein 7.9, Albumin 4.2, Globulin 3.7 H, Albumin/Globulin Ratio 1.1, Lipase 59 Result diagrams: 03/07/22 23:20 03/07/22 23:20 Orders (Tests/Meds): ED MEDICATIONS Generic Name Dose Route Start Last Admin Trade Name Freq PRN Reason Stop Dose Admin Lactated Ringer's 1,000 mls @ 999 mls/hr 03/07/22 23:30 03/07/22 23:37 Lactated Ringer's 1000 Ml Bag IV 03/08/22 00:30 999 mls/hr .Q1H1M CINTHYA Administration Discontinued Medications Generic Name Dose Route Start Last Admin Trade Name Freq PRN Reason Stop Dose Admin Ondansetron HCl 4 mg 03/07/22 23:22 03/07/22 23:37 Ondansetron 4mg/2ml Vial IV 03/07/22 23:23 4 mg ONCE ONE Administration ORDERS Category Date Time Status Urine Culture Stat Micro 03/07/22 23:14 Received Medical Decision Narrative: 46-year-old female presented to the emergency department with several day history of headache with vomiting and diarrhea today with patient afebrile and hemodynamically stable in the emergency department. Patient was in crystalloid fluid bolus as well as Zofran in the emergency department with patient able to tolerate p.o. after this. Patient CBC and metabolic panel are nonactionable
[2022-03-08 03:02] VITALS: BP 130/70; PULSE 78; RESP 18; TEMP 36.8; O2SAT 99
== END 2022-03-08 03:04 | disposition home or self-care (01) ==
PROVIDERS: Emergency Provider Student in an Organized Health Care Education/Training Program; PCP Family Medicine
DX: K52.9 Noninfective gastroenteritis and colitis, unspecified (principal); N39.0 Urinary tract infection, site not specified; Z87.11 Personal history of peptic ulcer disease; Z87.19 Personal history of other diseases of the digestive system; I10 Essential (primary) hypertension; Z88.6 Allergy status to analgesic agent; Z80.9 Family history of malignant neoplasm, unspecified; Z83.3 Family history of diabetes mellitus
CPT/HCPCS: 80053; 81001; 83690; 85007; 85025; 87086; 87088; 87186; 96365; 96375; 99283; J2405

== ENCOUNTER → 2022-04-02 06:27 | Outpatient (CLI) | payer OTHER, SELFPAY | PROVIDERS: PCP Family Medicine; Visit Provider Family Medicine | DX: N39.0 Urinary tract infection, site not specified (principal) | CPT/HCPCS: 87086 ==

== ENCOUNTER 2022-04-30 19:38 | Emergency (ER) | payer OTHER, SELFPAY ==
[2022-04-30 19:40] VITALS: BP 124/60; PULSE 71; RESP 17; TEMP 36.7; O2SAT 99; BMI 36.6
--- NOTE | 2022-04-30 20:24 | XR_ITS ---
PROCEDURE INFORMATION: Exam: XR Left Forearm Exam date and time: 04/30/2022 8:25 PM Age: 46 years old Clinical indication: Pain; Lower or forearm; Left; Additional info: Pain, no known injury TECHNIQUE: Imaging protocol: Radiologic exam of the Left forearm. Views: 2 views. COMPARISON: CR XR WRIST LT MIN 3V 04/30/2022 8:23 PM FINDINGS: Bones/joints: No acute fracture or dislocation. Soft tissues: Normal. IMPRESSION: No acute fracture or dislocation.
--- NOTE | 2022-04-30 20:24 | XR_ITS ---
PROCEDURE INFORMATION: Exam: XR Left Wrist Exam date and time: 04/30/2022 8:23 PM Age: 46 years old Clinical indication: Pain; Wrist; Left; Additional info: Pain, no known injury TECHNIQUE: Imaging protocol: Radiologic exam of the Left wrist. Views: 3 or more views. COMPARISON: DX (HAND PA, HAND, HAND PA) 05/23/2019 2:36 PM FINDINGS: Bones/joints: No acute fracture or dislocation. Soft tissues: Normal. IMPRESSION: No acute fracture or dislocation.
--- NOTE | 2022-04-30 21:13 | HMH.EDUPEXT ---
ED Disposition Clinical Impression: Tenosynovitis of left wrist Disposition: Home, Self-Care Condition on Discharge: Fair Instructions: DI for Tenosynovitis Additional Instructions: use meds and see pcp for follow up Prescriptions: predniSONE [Prednisone 20mg Tab] 20 mg PO BID #10 tab Transmission Status: [facility] to [facility] Ketorolac Tromethamine [Toradol 10mg tablet] 10 mg PO Q6HP PRN #8 tab MDD 40mg/day PRN Reason: Moderate To Severe Pain Transmission Status: Pending to [facility] Referrals: Kirill Desai MD [Primary Care Provider] - - Critical Care Critical Care Time: No Attestation: On 04/30/22, the high probability of a clinically significant, sudden or life threatening deterioration of the following system(s) required my full and direct attention, intervention and personal management. The time I documented below is in addition to time spent performing reported procedures but includes the following listed in this critical care notation. Medical Decision Making - Medical Records Medical records reviewed: Yes: I reviewed the patient's medical records. - Ricky Inquiry Pt receiving controlled substance: No Vital Signs: 04/30/22 19:40 Temperature 98.1 F Temperature Source Oral Pulse Rate [Right] 71 Respiratory Rate 17 Blood Pressure [Right Arm] 124/60 Blood Pressure Mean [Right Arm] 81 Blood Pressure Source [Right Arm] Automatic Cuff 02 Sat by Pulse Oximetry 99 Oxygen Delivery Method Room Air - Radiology Data #1 Image(s): Forearm, Wrist Image Reviewed: Yes I have reviewed radiologist's interpretation Preliminary Findings: No Fracture Seen Medical Decision Narrative: has acute tenosynovitis lt wrist - will need splint and meds and see pcp for follow up Upper Extremity HPI - General Chief Complaint: Extremity Problem,Nontraumatic Stated Complaint: L arm pain Time Seen by Provider: 04/30/22 21:13 Mode of Arrival: Family Vehicle Source of Information: Patient, Medical Record Limitations: No Limitations Description of Symptoms (Recalled from ER Triage Doc. by RN): Pt c/o pain to left wrist and forearm. Denies any injury or trauma. States she has known carpal tunnel to R wrist and sees Dr. Love. However, she has not been dx to left side though states it junior feels like that what it is. She has taking tylenol 2x today, lidocaine patches, and wirst wrap however continues to have pain. - History of Present Illness HPI narrative: has lt wrist/forearm pain and some to right sec to overuse and consistent with tenosynovitis MD complaint: injury to: left, forearm, wrist Onset (ago): day(s) Other Extremity Injury: Left: wrist, forearm Handedness: right Place: work Severity: moderate Exacerbating factors: movement of extremity Context: other (over- use - repetive activity) Associated symptoms: denies other symptoms - Related Data Home Medications Medication Instructions Recorded Confirmed Fluticasone Propionate 1 spray INTRANASAL DAILY 08/17/20 04/01/22 Previous Rx's Medication Instructions Recorded Fluticasone Propionate [Flonase 1 spr NS BID #120 each 08/18/21 50mcg nasal spray 16gm] cetirizine 10 mg tablet 10 mg PO DAILY PRN #30 tab 09/18/21 tizanidine 4 mg capsule 4 mg PO HS #90 cap 11/22/21 diclofenac sodium 3 % topical gel 1 applic TOPICAL BID #100 g 12/06/21 Ondansetron [Zofran 4mg ODT] 4 mg PO TIDP PRN #15 tab 01/21/22 Promethazine/Dextromethorphan 5 ml PO Q6H PRN #120 ml 01/21/22 [Promethazine-Dm Syrup] albuterol sulfate 90 mcg/actuation 2 puff INHALATION QID PRN #8.5 g 01/28/22 aerosol inhaler Ondansetron [Zofran 4mg ODT] 4 mg PO TIDP PRN 2 Days #6 tab 03/08/22 citalopram 20 mg tablet See Rx Instructions .ROUTE 03/21/22 .COMPLEX #30 tab bupropion HCl 150 mg tablet,12 hr 150 mg PO DAILY #30 each 04/01/22 sustained-release etodolac 400 mg tablet 400 mg PO BID #60 tab 04/01/22 methylprednisolone 4 mg tabl
[2022-04-30 21:39] VITALS: BP 108/60; PULSE 61; RESP 16; TEMP 36.7; O2SAT 99
== END 2022-04-30 21:45 | disposition home or self-care (01) ==
PROVIDERS: Emergency Provider Emergency Medicine; PCP Family Medicine
DX: M65.88 Other synovitis and tenosynovitis, other site (principal)
CPT/HCPCS: 73090; 73110; 96372; 99283

== ENCOUNTER 2022-06-26 11:17 | Emergency (ER) | payer OTHER, SELFPAY ==
[2022-06-26] VITALS (12 sets, daily range): BP systolic 118–167; BP diastolic 52–84; PULSE 55–80; RESP 15–21; TEMP 37; O2SAT 95–100; BMI 39.4
--- NOTE | 2022-06-26 11:13 | ECG_ITS ---
APPROVED REPORT Exam: Resting ECG HR:76 bpm ECG Measurements Heart Rate 76 AXES WA 151 P 47 QRSd 90 QRS 7 QT 360 T 21 QTc 391 Conclusion SINUS RHYTHM NORMAL ECG UNCONFIRMED REPORT Electronically signed by : Ruel Arreola MD 06/27/2022 17:10:02
--- NOTE | 2022-06-26 11:26 | XR_ITS ---
FINAL REPORT CLINICAL HISTORY: CHEST PAIN COMPARISON: 01/21/2022 FINDINGS: The heart size is normal. The mediastinum is normal. There is no focal infiltrate or edema. There are no pleural effusions. There is no pneumothorax. There is no osseous abnormality. IMPRESSION: No acute cardiopulmonary process Reviewed, Interpreted and Dictated by Carter Ambrocio III, MD Transcribed by Cj Norton Authenticated and [facility]
--- NOTE | 2022-06-26 11:31 | HMH.EDGENADL ---
Discharge Plan Disposition Patient Disposition: Home, Self-Care Condition: Good Prescriptions Prescriptions: No Action tizanidine [Zanaflex] 4 mg capsule 4 mg PO HS Qty: 90 3RF methylprednisolone [Medrol (Skip)] 4 mg tablets,dose pack See Rx Instructions PO PER PKG DIR Qty: 21 0RF Rx Instructions: PO PER PKG DIR etodolac [Lodine] 400 mg tablet 400 mg PO BID Qty: 60 2RF bupropion HCl [Wellbutrin SR] 150 mg tablet sustained-release 12 hr 150 mg PO DAILY Qty: 30 2RF cetirizine [Zyrtec] 10 mg tablet 10 mg PO DAILY PRN (Reason: allergy symptoms) Qty: 30 3RF diclofenac sodium 3 % gel 1 applic TOPICAL BID Qty: 100 10RF albuterol sulfate 90 mcg/actuation HFA aerosol inhaler 2 puff INHALATION QID PRN (Reason: shortness of breath or wheezing) Qty: 8.5 10RF Rx Instructions: for cough citalopram 20 mg tablet See Rx Instructions .ROUTE .COMPLEX Qty: 30 2RF Dose Instruction: TAKE ONE TABLET BY MOUTH EVERY DAY Rx Instructions: TAKE ONE TABLET BY MOUTH EVERY DAY hydrochlorothiazide 25 mg tablet See Rx Instructions .ROUTE .COMPLEX Qty: 90 1RF Dose Instruction: TAKE ONE TABLET BY MOUTH EVERY DAY Rx Instructions: TAKE ONE TABLET BY MOUTH EVERY DAY fluticasone propionate 16 GM spray,suspension 1 spray INTRANASAL DAILY Rx Instructions: administer into each nostril fluticasone propionate 120 SPR/BOT bottle 1 spr NS BID Qty: 120 1RF ondansetron 4 MG tablet,disintegrating 4 mg PO TIDP PRN (Reason: Nausea) 2 Days Qty: 6 0RF prednisone 20 MG tablet 20 mg PO BID Qty: 10 0RF ketorolac 10 MG tablet 10 mg PO Q6HP MDD 40mg/day PRN (Reason: Moderate To Severe Pain) Qty: 8 0RF Rx Instructions: Therapy initiated with IV/IM dose ondansetron 4 MG tablet,disintegrating 4 mg PO TIDP PRN (Reason: Nausea And Vomiting) Qty: 15 0RF promethazine-DM 120 ML syrup 5 ml PO Q6H PRN (Reason: Cough) Qty: 120 0RF Referrals Follow up/Referrals: Jose Luis Escobedo MD [Staff Physician] - See instructions (holter monitor placed for paroxysmal palpitations) Clinical Impressions Clinical Impression: Heart palpitations Discharge ED Provider: Vj Vu General Adult HPI General Chief complaint: Chest Pain Stated complaint: chest pain Time Seen by Provider: 06/26/22 11:20 Mode of Arrival: Ambulatory Source of Information: Patient Limitations: No Limitations Description of Symptoms (Recalled from ER Triage Doc. by RN): to ed per pvt car with c/o chest pain, sob, palpatations starting yesterday. pt denies any fever, chills, nausea, vomiting, radiation of pain History of Present Illness HPI narrative: This is a 46-year-old female with history of hypertension and anxiety presenting with palpitations. Patient states the palpitations began yesterday at work, and then again today at work. Associated with shortness of breath and they are intermittent, lasting less than a minute. Patient denies chest pain, nausea, vomiting, diaphoresis, weakness, vision changes, chest pain, chest trauma, recent travel, cough, fevers, chills, or any other concerning history. The only thing that makes shortness of breath better is deep breathing and slow breathing. Otherwise no concerning history. Related Data Home Medications Medication Instructions Recorded Confirmed fluticasone propionate 50 1 spray intranasal DAILY Allergy 08/17/20 04/01/22 mcg/actuation nasal symptoms spray,suspension Previous Rx's Medication Instructions Recorded fluticasone propionate 50 1 spr intranasal BID #120 ea 08/18/21 mcg/actuation nasal spray,suspension cetirizine 10 mg tablet (Zyrtec) 10 mg PO DAILY PRN allergy 09/18/21 symptoms #30 tabs tizanidine 4 mg capsule (Zanaflex) 4 mg PO HS #90 caps 11/22/21 diclofenac sodium 3 % topical gel 1 applic topical BID #100 grams 12/06/21 ondansetron 4 mg disintegrating 4 mg PO TIDP PRN Nausea And 01/21/22 t
[2022-06-26 11:35] LABS: Basophils # 0.1 K/mm3 (0-0.2); Basophils % 1.3 % (0.1-2.0); Eosinophils # 0.1 K/mm3 (0.0-0.4); Hematocrit 41.3 % (37.0-47.0); Hemoglobin 12.9 g/dL (12.2-16.2); Lymphocytes % 42.8 % (10-50); Mean Corpuscular HGB Conc 31.3 g/dL (31.8-35.4); Mean Corpuscular Hemoglobin 28.2 pg (27.0-31.2); Mean Platelet Volume 8.3 fl (7.4-10.4); Monocytes # 0.5 K/mm3 (0.1-1.0); Monocytes % 7.2 % (1.7-9.3); Neutrophils # 3.3 K/mm3 (1.8-7.8); Neutrophils % 46.7 % (37.0-80.0); Platelet Count 304 K/mm3 (142-424); Red Blood Count 4.59 M/mm3 (4.20-5.40); Red Cell Distribution Width 13.8 % (11.5-17.5)
[2022-06-26 11:43] LABS: Chloride 106 mmol/L (98-107); Potassium 3.8 mmoL/L (3.5-5.1); Sodium 142 mmol/L (136-145)
[2022-06-26 11:44] LABS: Chloride 105 mmol/L (98-107); Potassium 3.8 mmoL/L (3.5-5.1); Sodium 142 mmol/L (136-145)
[2022-06-26 11:46] LABS: Alanine Aminotransferase 28 U/L (12-78); Albumin Level 4.4 g/dl (3.5-5.0); Albumin/Globulin Ratio 1.3 (1.1-1.8); Alkaline Phosphatase 132 U/L (38-126); Anion Gap 9.8 mEq/L (5-15); Aspartate Amino Transferase 40 U/L (14-36); Bilirubin,Total 0.2 mg/dl (0.2-1.3); Blood Urea Nitrogen 16 mg/dl (7-17); Carbon Dioxide 30 mmol/L (22.0-30.0); Creatinine Clearance Estimated 120 mL/min (50-200); Estimated Glomerular Filt Rate 67 ml/min (>60); GFR (African American) 81 ML/MIN (>60); Globulin 3.5 g/dL (1.3-3.2); Total Protein,Serum 7.9 g/dl (6.3-8.2)
[2022-06-26 11:47] LABS: Alanine Aminotransferase 29 U/L (12-78); Albumin Level 4.4 g/dl (3.5-5.0); Albumin/Globulin Ratio 1.2 (1.1-1.8); Alkaline Phosphatase 131 U/L (38-126); Anion Gap 10.8 mEq/L (5-15); Aspartate Amino Transferase 44 U/L (14-36); Bilirubin,Total 0.2 mg/dl (0.2-1.3); Blood Urea Nitrogen 17 mg/dl (7-17); Carbon Dioxide 30 mmol/L (22.0-30.0); Creatinine Clearance Estimated 120 mL/min (50-200); Estimated Glomerular Filt Rate 67 ml/min (>60); GFR (African American) 81 ML/MIN (>60); Globulin 3.6 g/dL (1.3-3.2)
[2022-06-26 11:48] LABS: Calcium 9.8 mg/dl (8.4-10.2); Glucose 96 mg/dl (74-100)
[2022-06-26 11:56] LABS: NT Pro Brain Natriuretic Pep. 92.7 pg/mL (0-125)
[2022-06-26 12:02] LABS: Troponin I < 0.01 ng/ml (0.00-0.034)
[2022-06-26 12:05] LABS: HCG,Quantitative < 2 mIU/ml (0-5.42)
[2022-06-26 12:13] LABS: Glucose 98 mg/dl (74-100)
--- NOTE | 2022-06-26 13:39 | PC.NURSE ---
PT AMBULATING TO BR
--- NOTE | 2022-06-26 13:40 | PC.NURSE ---
LAB NOTIFIED OF TROP
--- NOTE | 2022-06-26 14:29 | PC.NURSE ---
contacted lab about second troponin draw
[2022-06-26 15:26] LABS: Troponin I < 0.01 ng/ml (0.00-0.034)
== END 2022-06-26 15:45 | disposition home or self-care (01) ==
PROVIDERS: Emergency Provider Emergency Medicine; PCP Family Medicine
DX: R00.2 Palpitations (principal); I10 Essential (primary) hypertension; F41.9 Anxiety disorder, unspecified; Z88.6 Allergy status to analgesic agent
CPT/HCPCS: 71045; 80053; 83880; 84484; 84702; 85025; 93005; 93225; 99284

== ENCOUNTER → 2022-07-16 13:04 | Outpatient (CLI) | payer OTHER, SELFPAY ==
--- NOTE | 2022-07-16 13:04 | MR_ITS ---
FINAL REPORT CLINICAL HISTORY: [place] hip pain bilateral hip pain bursitis injection x 3 years pain, tingling and numbness down both legs steps make it worse FINDINGS: Multiplanar MR images of the pelvis was obtained without contrast. The hip joint spaces are well preserved. The femoral heads demonstrate normal smooth contour. There is no evidence of avascular necrosis or osteochondral injury. The acetabular jacob appear intact. There is a small uterine fibroid measuring 0.8 cm. IMPRESSION: No acute process. Small uterine fibroid. Reviewed, Interpreted and Dictated by Nate Sierra MD Transcribed by Malia Boateng Authenticated and [facility]
== END ==
PROVIDERS: PCP Family Medicine; Visit Provider Orthopaedic Surgery
DX: M70.61 Trochanteric bursitis, right hip (principal); M70.62 Trochanteric bursitis, left hip
CPT/HCPCS: 72195

== ENCOUNTER 2022-08-09 15:16 | Emergency (ER) | payer OTHER, SELFPAY ==
[2022-08-09 16:00] VITALS: BP 145/74; PULSE 80; RESP 20; TEMP 36.8; O2SAT 96; BMI 36.4
--- NOTE | 2022-08-09 16:26 | EXP.UTC ---
Discharge Plan Disposition Patient Disposition: Home, Self-Care Condition: Good Prescriptions Prescriptions: New amoxicillin-pot clavulanate 875-125 mg Tablet 1 tab PO Q12H Qty: 20 0RF prednisone 20 mg tablet 20 mg PO BID Qty: 10 0RF benzonatate 100 mg capsule 100 mg PO TID PRN (Reason: cough) Qty: 30 0RF No Action tizanidine [Zanaflex] 4 mg capsule 4 mg PO HS Qty: 90 3RF methylprednisolone [Medrol (Skip)] 4 mg tablets,dose pack See Rx Instructions PO PER PKG DIR Qty: 21 0RF Rx Instructions: PO PER PKG DIR etodolac [Lodine] 400 mg tablet 400 mg PO BID Qty: 60 2RF bupropion HCl [Wellbutrin SR] 150 mg tablet sustained-release 12 hr 150 mg PO DAILY Qty: 30 2RF diclofenac sodium 3 % gel 1 applic TOPICAL BID Qty: 100 10RF albuterol sulfate 90 mcg/actuation HFA aerosol inhaler 2 puff INHALATION QID PRN (Reason: shortness of breath or wheezing) Qty: 8.5 10RF Rx Instructions: for cough hydrochlorothiazide 25 mg tablet See Rx Instructions .ROUTE .COMPLEX Qty: 90 1RF Dose Instruction: TAKE ONE TABLET BY MOUTH EVERY DAY Rx Instructions: TAKE ONE TABLET BY MOUTH EVERY DAY citalopram 20 mg tablet See Rx Instructions .ROUTE .COMPLEX Qty: 30 1RF Dose Instruction: TAKE ONE TABLET BY MOUTH EVERY DAY Rx Instructions: TAKE ONE TABLET BY MOUTH EVERY DAY cetirizine [Zyrtec] 10 mg tablet 10 mg PO DAILY PRN (Reason: allergy symptoms) Qty: 30 3RF fluticasone propionate 16 GM spray,suspension 1 spray INTRANASAL DAILY Rx Instructions: administer into each nostril fluticasone propionate 120 SPR/BOT bottle 1 spr NS BID Qty: 120 1RF ondansetron 4 MG tablet,disintegrating 4 mg PO TIDP PRN (Reason: Nausea) 2 Days Qty: 6 0RF prednisone 20 MG tablet 20 mg PO BID Qty: 10 0RF ketorolac 10 MG tablet 10 mg PO Q6HP MDD 40mg/day PRN (Reason: Moderate To Severe Pain) Qty: 8 0RF Rx Instructions: Therapy initiated with IV/IM dose ondansetron 4 MG tablet,disintegrating 4 mg PO TIDP PRN (Reason: Nausea And Vomiting) Qty: 15 0RF promethazine-DM 120 ML syrup 5 ml PO Q6H PRN (Reason: Cough) Qty: 120 0RF Referrals Follow up/Referrals: Kirill Desai MD [Primary Care Provider] - See instructions Activity Restrictions/Add. Instructions Additional Instructions/Restrictions: Start antibiotic today. Be sure to complete entire prescription even if feeling better Monitor temp. Tylenol every 4 hours as needed and / or ibuprofen every 6 hours as needed ( As long as your primary care physician has told you that it ok to take both. For fever/aches/pains ER if no less than 101 despite Tylenol or Motrin Humidifier/vaporizer or hot steamy shower *Start steroid today. Helps with inflammation therefore, cough and wheezing. Follow directions on the package. Reviewed side effects. Patient reports taking them before. Follow up IMMEDIATELY for new or worsening of symptoms OR no noticeable improvement over the next 48-72 hours. 911 immediately for any life threatening symptoms such as chest pain or difficulty breathing Clinical Impressions Clinical Impression: Bronchitis Sinusitis Qualifiers: Sinusitis location: unspecified location Chronicity: unspecified Qualified Code(s): J32.9 - Chronic sinusitis, unspecified Instructions Patient Instructions: Sinusitis, Acute Bronchitis, DI for Sinusitis Discharge ED Provider: Soni Robin [facility] [place] General Stated complaint: candice PLEITEZ Mode of Arrival: Ambulatory Source of Information: Patient Limitations: No Limitations Time Seen by Provider: 08/09/22 16:26 Description of Symptoms (Recalled from Triage Doc. by RN): PATIENT C/O HEADACHE, DRAINAGE, AND COUGH WITH THICK MUCOUS SINCE LAST THURSDAY HEENT Symptoms (Recalled from RN notes): Yes Resp Symptoms (Recalled from RN notes): Yes Skin Symptoms (Recalled from RN notes): No MS Symptoms
[2022-08-09 16:35] VITALS: BP 145/74; PULSE 80; RESP 20; TEMP 36.8; O2SAT 96
== END 2022-08-09 16:38 | disposition home or self-care (01) ==
PROVIDERS: Emergency Provider Nurse Practitioner; PCP Family Medicine
DX: J40 Bronchitis, not specified as acute or chronic (principal); J32.9 Chronic sinusitis, unspecified
CPT/HCPCS: 99212; G0463

== ENCOUNTER → 2022-08-20 13:17 | Outpatient (CLI) | payer OTHER, SELFPAY | PROVIDERS: PCP Family Medicine; Visit Provider Emergency Medicine | DX: Z20.822 Contact with and (suspected) exposure to COVID-19 (principal) | CPT/HCPCS: C9803; U0003; U0005 ==

== ENCOUNTER → 2022-08-21 16:10 | Outpatient (CLI) | payer OTHER, SELFPAY | PROVIDERS: PCP Family Medicine; Visit Provider Emergency Medicine | DX: Z20.822 Contact with and (suspected) exposure to COVID-19 (principal) | CPT/HCPCS: C9803; U0003; U0005 ==

== ENCOUNTER → 2022-08-28 10:30 | Outpatient (CLI) | payer OTHER, SELFPAY ==
[2022-08-28 14:45] LABS: Chol/HDL Ratio 4.7 (1-3.5); Cholesterol 249 mg/dl (140-200); HDL Cholesterol 53 mg/dl (40-60); Triglycerides 136 mg/dl (30-150); VLDL Cholesterol 27 mg/dL (0-40)
[2022-08-28 14:55] LABS: Direct LDL Cholesterol 146.92 mg/dL (100-129)
[2022-08-28 15:17] LABS: Thyroid Stimulating Hormone 1.49 uIU/mL (0.465-4.68)
== END ==
PROVIDERS: PCP Family Medicine; Visit Provider Family Medicine
DX: I10 Essential (primary) hypertension (principal); R53.83 Other fatigue
CPT/HCPCS: 80061; 84443

== ENCOUNTER 2022-09-16 01:04 | Emergency (ER) | payer OTHER, SELFPAY ==
[2022-09-16 01:06] VITALS: BP 159/86; PULSE 95; RESP 16; TEMP 36.9; O2SAT 98; BMI 35.2
--- NOTE | 2022-09-16 01:14 | ECG_ITS ---
APPROVED REPORT Exam: Resting ECG HR:97 bpm ECG Measurements Heart Rate 97 AXES [place] 159 P 54 QRSd 94 QRS 40 QT 332 T 5 QTc 387 Conclusion SINUS RHYTHM NORMAL ECG UNCONFIRMED REPORT Electronically signed by : Ruel Arreola MD 09/18/2022 20:17:12
[2022-09-16 01:19] VITALS: RESP 16; TEMP 36.9; O2SAT 98
--- NOTE | 2022-09-16 01:19 | XR_ITS ---
PROCEDURE INFORMATION: Exam: XR Chest Exam date and time: 09/16/2022 1:19 AM Age: 46 years old Clinical indication: Shortness of breath; Additional info: SOA TECHNIQUE: Imaging protocol: Radiologic exam of the chest. Views: 2 views. COMPARISON: CR XR CHEST PORTABLE 06/26/2022 11:41 AM FINDINGS: Lungs: Lung volumes are mildly diminished. There are minimally increased markings in the left lower lobe. The lungs appear otherwise clear. No focal areas of consolidation. Pleural spaces: No pleural effusions or appreciable adenopathy. Negative for pneumothorax. Heart/Mediastinum: Cardiac silhouette and pulmonary vasculature are within range of normal. Bones/joints: There is no evidence of acute fracture. Surgical clips in the right upper quadrant indicate cholecystectomy. IMPRESSION: 1. Lung volumes are mildly diminished. 2. Minimally increased nonspecific markings in the left lower lobe
[2022-09-16 01:38] LABS: Basophils # 0.2 K/mm3 (0-0.2); Basophils % 1.4 % (0.1-2.0); Eosinophils # 0.1 K/mm3 (0.0-0.4); Hematocrit 45.3 % (37.0-47.0); Hemoglobin 14.6 g/dL (12.2-16.2); Lymphocytes # 4.2 K/mm3 (0.7-4.5); Lymphocytes % 31.9 % (10-50); Mean Corpuscular HGB Conc 32.2 g/dL (31.8-35.4); Mean Corpuscular Hemoglobin 29.1 pg (27.0-31.2); Mean Corpuscular Volume 90.1 fl (81-99); Mean Platelet Volume 8.2 fl (7.4-10.4); Monocytes # 0.7 K/mm3 (0.1-1.0); Monocytes % 5.4 % (1.7-9.3); Neutrophils # 7.9 K/mm3 (1.8-7.8); Neutrophils % 60.2 % (37.0-80.0); Platelet Count 415 K/mm3 (142-424); Red Blood Count 5.03 M/mm3 (4.20-5.40); Red Cell Distribution Width 13.7 % (11.5-17.5); White Blood Count 13.2 K/mm3 (4.8-10.8)
[2022-09-16 01:43] LABS: Chloride 101 mmol/L (98-107); Potassium 3.7 mmoL/L (3.5-5.1); Sodium 142 mmol/L (136-145)
[2022-09-16 01:46] LABS: Alanine Aminotransferase 19 U/L (12-78); Albumin Level 4.6 g/dl (3.5-5.0); Albumin/Globulin Ratio 1.2 (1.1-1.8); Alkaline Phosphatase 140 U/L (38-126); Anion Gap 12.7 mEq/L (5-15); Aspartate Amino Transferase 30 U/L (14-36); Bilirubin,Total 0.4 mg/dl (0.2-1.3); Blood Urea Nitrogen 19 mg/dl (7-17); Carbon Dioxide 32 mmol/L (22.0-30.0); Creatinine Clearance Estimated 117 mL/min (50-200); Estimated Glomerular Filt Rate 67 ml/min (>60); GFR (African American) 81 ML/MIN (>60); Globulin 3.9 g/dL (1.3-3.2); Total Protein,Serum 8.5 g/dl (6.3-8.2)
[2022-09-16 01:47] LABS: Calcium 10.5 mg/dl (8.4-10.2); Glucose 110 mg/dl (74-100)
[2022-09-16 02:04] LABS: Troponin I < 0.01 ng/ml (0.00-0.034)
--- NOTE | 2022-09-16 02:39 | CT_ITS ---
PROCEDURE INFORMATION: Exam: CTA Chest With Contrast Exam date and time: 09/16/2022 2:50 AM Age: 46 years old Clinical indication: Shortness of breath; Additional info: SOA TECHNIQUE: Imaging protocol: Computed tomographic angiography of the chest with contrast. 3D rendering (Not supervised by radiologist): MIP and/or 3D reconstructed images were created by the technologist. Radiation optimization: All CT scans at this facility use at least one of these dose optimization techniques: automated exposure control; mA and/or kV adjustment per patient size (includes targeted exams where dose is matched to clinical indication); or iterative reconstruction. Contrast material: ISOVUE; Contrast volume: 70 ml; Contrast route: INTRAVENOUS (IV); COMPARISON: CR XR CHEST 2V 09/16/2022 1:19 AM FINDINGS: Pulmonary arteries: There is heterogeneous contrast attenuation of visualized pulmonary arteries, more pronounced in the subsegmental vessels and likely related to contrast bolus. This limits the detection of pulmonary emboli in the small and peripheral pulmonary arterial branches. As seen, no large or central pulmonary emboli. Aorta: No aortic aneurysm. No aortic dissection. Thyroid: Subtle area of decreased attenuation in the inferior right thyroid lobe is nonspecific. The remainder of the visualized thyroid is within range of normal. Lungs: Nonspecific minor bibasilar opacities are consistent with atelectasis, edema, or pneumonia. Pleural spaces: There are no pleural effusions. There are no pleural effusions. No pneumothorax. Heart: The heart is not enlarged. There is no evidence of pericardial fluid collections. There is no evidence of pericardial fluid collections. Lymph nodes: There is no evidence of pathologic adenopathy. Liver: There is diffuse decrease in hepatic parenchymal density consistent with fatty infiltration. Gallbladder and bile ducts: There has been a cholecystectomy. Intraperitoneal space: The remainder of the upper visualized abdominal structures are normal. Bones/joints: The thoracic spine demonstrates mild degenerative changes at multiple levels. Soft tissues: No significant soft tissue edema. Other findings: Motion artifact does moderately limit the sensitivity of this examination. IMPRESSION: 1. Heterogeneous contrast attenuation of visualized pulmonary arteries limits the detection of pulmonary emboli in the small and peripheral pulmonary arterial branches. No large or central pulmonary emboli. 2. Nonspecific mild bibasilar opacities are most consistent with atelectasis, edema, or pneumonia. 3. Fatty hepatic infiltration.
--- NOTE | 2022-09-16 03:18 | HMH.EDSOB ---
Discharge Plan Disposition Patient Disposition: Home, Self-Care Chief Complaint: Shortness of Breath/Dyspnea Prescriptions Prescriptions: No Action etodolac [Lodine] 400 mg tablet 400 mg PO BID Qty: 60 2RF diclofenac sodium 3 % gel 1 applic TOPICAL BID Qty: 100 10RF albuterol sulfate 90 mcg/actuation HFA aerosol inhaler 2 puff INHALATION QID PRN (Reason: shortness of breath or wheezing) Qty: 8.5 10RF Rx Instructions: for cough citalopram 20 mg tablet See Rx Instructions .ROUTE .COMPLEX Qty: 90 3RF Dose Instruction: TAKE ONE TABLET BY MOUTH EVERY DAY Rx Instructions: TAKE ONE TABLET BY MOUTH EVERY DAY bupropion HCl 150 mg tablet sustained-release 12 hr See Rx Instructions .ROUTE .COMPLEX Qty: 90 3RF Dose Instruction: TAKE ONE TABLET BY MOUTH EVERY DAY Rx Instructions: TAKE ONE TABLET BY MOUTH EVERY DAY clobetasol [Temovate] 0.05 % ointment 1 applic topical BID PRN (Reason: itching) Qty: 60 3RF hydrochlorothiazide 25 mg tablet See Rx Instructions .ROUTE .COMPLEX Qty: 90 1RF Dose Instruction: TAKE ONE TABLET BY MOUTH EVERY DAY Rx Instructions: TAKE ONE TABLET BY MOUTH EVERY DAY cetirizine [Zyrtec] 10 mg tablet 10 mg PO DAILY PRN (Reason: allergy symptoms) Qty: 30 3RF atorvastatin [Lipitor] 20 mg tablet 20 mg PO DAILY Qty: 90 3RF fluticasone propionate 120 SPR/BOT bottle 1 spr NS BID Qty: 120 1RF Referrals Follow up/Referrals: Kirill Desai MD [Primary Care Provider] - See instructions Clinical Impressions Clinical Impression: Acute pleurisy without pleural effusion Instructions Patient Instructions: DI for Pleurisy Discharge ED Provider: Geraldo Siegel Resp/SOB HPI General Chief Complaint: Shortness of Breath/Dyspnea Stated Complaint: SOB; radiating back pain Time Seen by Provider: 09/16/22 03:18 Mode of Arrival: Ambulatory Source of Information: Patient, Significant Other and Medical Record Limitations: No Limitations Description of Symptoms (Recalled from ER Triage Doc. by RN): pt states got out her emma tree out today. around 10 today pt began having sharp paon yael rt breat radiating to back and SOA History of Present Illness acute onset of rt chest pain with pain with insp and movement - no fever/trauma or rash - no recent viral illness Complaint: pain with inspiration and chest pain Onset (ago): day(s) Severity: moderate Consistency/Duration: intermittent Exacerbating factors: inspiration Treatment prior to arrival: none Related Data Home oxygen amount: none Previous Rx's Medication Instructions Recorded fluticasone propionate 50 1 spr intranasal BID #120 ea 08/18/21 mcg/actuation nasal spray,suspension diclofenac sodium 3 % topical gel 1 applic topical BID #100 grams 12/06/21 albuterol sulfate 90 mcg/actuation 2 puff inhalation QID PRN 01/28/22 aerosol inhaler shortness of breath or wheezing #8.5 grams etodolac 400 mg tablet (Lodine) 400 mg PO BID #60 tabs 04/01/22 hydrochlorothiazide 25 mg tablet See Rx Instructions .Route 04/24/22 .COMPLEX #90 tabs cetirizine 10 mg tablet (Zyrtec) 10 mg PO DAILY PRN allergy 07/10/22 symptoms #30 tabs bupropion HCl 150 mg tablet,12 hr See Rx Instructions .Route 08/28/22 sustained-release .COMPLEX #90 tabs citalopram 20 mg tablet See Rx Instructions .Route 08/28/22 .COMPLEX #90 tabs clobetasol 0.05 % topical ointment 1 applic topical BID PRN itching 08/28/22 (Temovate) #60 grams atorvastatin 20 mg tablet (Lipitor) 20 mg PO DAILY #90 tabs 08/31/22 Allergies Allergy/AdvReac Type Severity Reaction Status Date / Time tramadol [TRAMADOL] Allergy Unknown Verified 08/28/22 09:51 Well's Criteria PE Score Clinical signs/symptoms of DVT: No PE is #1 diagnosis or equally likely: Yes Heart rate is > 100: Yes Immobile at least 3 days, or surgery in past 4 wks: No Previously, obj. diagnosed PE or DVT: No Hemoptysis: No Malignancy w/Rx with
[2022-09-16 03:50] VITALS: BP 147/81; PULSE 90; RESP 16; TEMP 36.9; O2SAT 98
[2022-09-16 04:36] LABS: T4 (Thyroxine) 7.5 ug/dl (5.53-11.0)
[2022-09-16 04:43] LABS: Intact Parathyroid Hormone 64.8 pg/mL (7.5-53.5)
[2022-09-16 04:50] LABS: Thyroid Stimulating Hormone 1.53 uIU/mL (0.465-4.68)
== END 2022-09-16 03:57 | disposition home or self-care (01) ==
PROVIDERS: Emergency Provider Emergency Medicine; PCP Family Medicine
DX: R07.9 Chest pain, unspecified (principal); M54.9 Dorsalgia, unspecified; R06.02 Shortness of breath; K21.9 Gastro-esophageal reflux disease without esophagitis; F32.A Depression, unspecified; Z79.1 Long term (current) use of non-steroidal anti-inflammatories (NSAID); Z79.51 Long term (current) use of inhaled steroids; Z79.899 Other long term (current) drug therapy
CPT/HCPCS: 71046; 71275; 80053; 83970; 84436; 84443; 84484; 85025; 93005; 96374; 96375; 99284; J2405; Q9967

== ENCOUNTER 2022-09-26 08:00 | Outpatient (RCR) | payer OTHER, SELFPAY ==
--- NOTE | 2022-09-23 15:30 | HMH.OTOPEV ---
OT Inpatient Evaluation Rehab OT Outpatient Eval Start: 09/23/22 13:16 Freq: Status: Active Protocol: Document 09/23/22 13:17 PELON (Rec: 09/23/22 13:21 ZOLTANRAFAT [id number]) E-signed By Rebekah Hart, OT Outpatient Therapy Subjective History Subjective History 46 year old female referred to skilled OP OT services for left wrist pain. Patient stated to have left wrist pain starting on Nov while completing repetition movements at 3M. Patient is applying topical cream daily as diclofenac sodium gel. 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 Patient dx is sprain wrist at this time. No x-rays completed. Chief Complaint Pain,Decreased Sap Manager Strength Symptom Type Ache Symptoms Relieved By Nothing Symptoms Aggravated By Physical Activity Prior Functional Limitations None Current Functional Limitations Reaching,Lifting,Recreation Activity Symptom Description Constant and Continuous Level of pain today (0-10) 3 Pain scale - at its best (0-10) 3 Pain scale - at its worst (0-10) 7 Wrist/Hand Eval Wrist Range of Motion Left Wrist Extension Active Range of Motion ( 50 degrees) Wrist Flexion Active Range of Motion ( 50 degrees) Wrist Radial Deviation Active Range of 15 Motion (degrees) Wrist Ulnar Deviation Active Range of 28 Motion (degrees) Forearm Supination Active Range of 80 Motion (degrees) Forearm Pronation Active Range of Motion 90 (degrees) Sap Manager/Pinch Strength Right Sap Manager Strength Measurement (lbs) 50 Left Sap Manager Strength Measurement (lbs) 40 OT Outpatient Assessment Short Term Goals Number of Weeks 2 Increase Range of Motion Yes: Improve AROM of LUE wrist flex: 55; ext: [address]: 20 Increase Strength Yes: 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
== END 2022-09-26 08:05 | disposition home or self-care (01) ==
LOC: OT 08:00
PROVIDERS: Visit Provider Student in an Organized Health Care Education/Training Program
DX: M25.532 Pain in left wrist (principal)
CPT/HCPCS: 97010; 97014; 97035; 97140; 97165; G0283

== ENCOUNTER → 2022-11-06 08:15 | Outpatient (CLI) | payer OTHER, SELFPAY ==
--- NOTE | 2022-11-06 08:15 | MR_ITS ---
FINAL REPORT CLINICAL HISTORY: Lower Back Pain. History lumbar surgery 2009. bilateral leg pain, numbness and tingling but left leg is worse. no injury or trauma. FINDINGS: Multiplanar MR imaging of the lumbar spine was performed without contrast. On the sagittal T2-weighted images, multilevel disc degeneration is seen. The vertebral alignment is normal. There is no evidence of fracture. No bony mass is identified. The conus is seen at approximately the L1 level and has an unremarkable appearance. T11-12: No significant central canal stenosis or neural foraminal narrowing. T12-L1: No significant central canal stenosis or neural foraminal narrowing. L1-2: There is an annular disc bulge without significant canal stenosis or neural foraminal narrowing. L2-3: There is an annular disc bulge without significant canal stenosis or neural foraminal narrowing. L3-4: Annular disc bulge with right posterolateral disc protrusion and mild right neural foraminal narrowing. L4-5: Annular disc bulge with small central disc protrusion. L5-S1: Annular disc bulge and facet arthropathy. There is a left foraminal disc protrusion with left S1 nerve root impingement. There is mild right and moderate left neural foraminal narrowing. IMPRESSION: Left foraminal disc protrusion at L5-S1 with left S1 nerve root impingement and moderate left neural foraminal narrowing. Reviewed, Interpreted and Dictated by Carter Ambrocio III, MD Transcribed by Cheryl Parr Authenticated and [facility]
== END ==
PROVIDERS: PCP Family Medicine; Visit Provider Nurse Practitioner Family
DX: M54.50 Low back pain, unspecified (principal); M54.16 Radiculopathy, lumbar region; M79.606 Pain in leg, unspecified
CPT/HCPCS: 72148; 76376

== ENCOUNTER 2022-11-20 08:00 | Outpatient (RCR) | payer OTHER, SELFPAY ==
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
== END 2022-11-20 08:05 | disposition home or self-care (01) ==
LOC: PT 08:00
PROVIDERS: PCP Family Medicine; Visit Provider Nurse Practitioner Family
DX: M54.30 Sciatica, unspecified side (principal); M25.552 Pain in left hip; M25.551 Pain in right hip
CPT/HCPCS: 97010; 97014; 97110; 97163; G0283

== ENCOUNTER → 2022-11-21 15:10 | Outpatient (CLI) | payer OTHER, SELFPAY ==
[2022-11-21 15:19] LABS: Chol/HDL Ratio 4.4 (1-3.5); Cholesterol 234 mg/dl (140-200); HDL Cholesterol 53 mg/dl (40-60); Triglycerides 156 mg/dl (30-150); VLDL Cholesterol 31 mg/dL (0-40)
[2022-11-21 15:30] LABS: Direct LDL Cholesterol 135.22 mg/dL (100-129)
[2022-11-21 15:49] LABS: Thyroid Stimulating Hormone 1.24 uIU/mL (0.465-4.68)
== END ==
PROVIDERS: PCP Family Medicine; Visit Provider Family Medicine
DX: R53.83 Other fatigue (principal); Z79.899 Other long term (current) drug therapy
CPT/HCPCS: 80061; 84443

== ENCOUNTER 2022-12-03 13:54 | Emergency (ER) | payer OTHER, SELFPAY ==
[2022-12-03 14:28] VITALS: BP 149/86; PULSE 75; RESP 18; TEMP 36.5; O2SAT 98; BMI 36.6
--- NOTE | 2022-12-03 14:38 | EXP.UTC ---
Discharge Plan Disposition Patient Disposition: Still a Patient Condition: Fair Prescriptions Prescriptions: No Action etodolac [Lodine] 400 mg tablet 400 mg PO BID Qty: 60 2RF cyclobenzaprine 10 mg tablet 10 mg PO TID PRN (Reason: muscle spasm) Qty: 60 0RF diclofenac sodium 3 % gel 1 applic TOPICAL BID Qty: 100 10RF albuterol sulfate 90 mcg/actuation HFA aerosol inhaler 2 puff INHALATION QID PRN (Reason: shortness of breath or wheezing) Qty: 8.5 10RF Rx Instructions: for cough clobetasol [Temovate] 0.05 % ointment 1 applic topical BID PRN (Reason: itching) Qty: 60 3RF venlafaxine [Effexor XR] 150 mg capsule,extended release 24hr 150 mg PO DAILY Qty: 90 3RF hydrochlorothiazide 25 mg tablet See Rx Instructions .ROUTE .COMPLEX Qty: 90 1RF Dose Instruction: TAKE ONE TABLET BY MOUTH EVERY DAY Rx Instructions: TAKE ONE TABLET BY MOUTH EVERY DAY cetirizine [Zyrtec] 10 mg tablet 10 mg PO DAILY PRN (Reason: allergy symptoms) Qty: 30 3RF atorvastatin [Lipitor] 20 mg tablet 20 mg PO DAILY Qty: 90 3RF lidocaine 5 % adhesive patch,medicated 1 patch topical DAILY Qty: 30 0RF Rx Instructions: leave on most painful area for up to 12 hrs fluticasone propionate 120 SPR/BOT bottle 1 spr NS BID Qty: 120 1RF Referrals Follow up/Referrals: Kirill Desai MD [Primary Care Provider] - See instructions Discharge ED Provider: Soni Robin [facility] HPI General Stated complaint: Headache weakness congestion Mode of Arrival: Ambulatory Source of Information: Patient Limitations: No Limitations Time Seen by Provider: 12/03/22 14:38 Description of Symptoms (Recalled from Triage Doc. by RN): Patient reports nausea, headache, sinus pressure, congestion, dizziness HEENT Symptoms (Recalled from RN notes): Yes Resp Symptoms (Recalled from RN notes): No Skin Symptoms (Recalled from RN notes): No MS Symptoms (Recalled from RN notes): No Functional Status (Recalled from RN notes): wnl History of Present Illness Provider Complaint: Patient states that she struck with headache on Thursday and felt like it may have been sinuses States that she was having nausea, dizziness and feeling off in her head and she passed out on the toilet State that she is unsure how long she was out but she when she woke up she still had a bad headache State that she thought she would be ok but has continued to have headache, dizziness and feeling like she is going to pass out State that she feels like something is off in her head States today she has the worse headache of her life with dizziness and did not feel right so she came in Related Data Previous Rx's Medication Instructions Recorded fluticasone propionate 50 1 spr intranasal BID #120 ea 08/18/21 mcg/actuation nasal spray,suspension diclofenac sodium 3 % topical gel 1 applic topical BID #100 grams 12/06/21 albuterol sulfate 90 mcg/actuation 2 puff inhalation QID PRN 01/28/22 aerosol inhaler shortness of breath or wheezing #8.5 grams etodolac 400 mg tablet (Lodine) 400 mg PO BID #60 tabs 04/01/22 hydrochlorothiazide 25 mg tablet See Rx Instructions .Route 04/24/22 .COMPLEX #90 tabs cetirizine 10 mg tablet (Zyrtec) 10 mg PO DAILY PRN allergy 07/10/22 symptoms #30 tabs clobetasol 0.05 % topical ointment 1 applic topical BID PRN itching 08/28/22 (Temovate) #60 grams atorvastatin 20 mg tablet (Lipitor) 20 mg PO DAILY #90 tabs 08/31/22 cyclobenzaprine 10 mg tablet 10 mg PO TID PRN muscle spasm #60 10/16/22 tabs lidocaine 5 % topical patch 1 patch topical DAILY #30 ea 10/30/22 venlafaxine 150 mg 150 mg PO DAILY #90 caps 11/21/22 capsule,extended release 24 hr (Effexor XR) Allergies Allergy/AdvReac Type Severity Reaction Status Date / Time tramadol [TRAMADOL] Allergy Unknown Verified 11/21/22 10:55 Worker's Comp Is this a Worker's Comp case?: No [facility] Disclaimer: The information contained in this section
[2022-12-03 16:40] VITALS: BP 144/76; PULSE 68; RESP 16; O2SAT 100
--- NOTE | 2022-12-03 16:58 | CT_ITS ---
PROCEDURE INFORMATION: Exam: CTA Head With Contrast, Arteriography Exam date and time: 12/03/2022 5:27 PM Age: 47 years old Clinical indication: Headache TECHNIQUE: Imaging protocol: Computed tomographic angiography of the head with contrast. Exam focused on the arteries. 3D rendering (Not supervised by radiologist): MIP and/or 3D reconstructed images were created by the technologist. Radiation optimization: All CT scans at this facility use at least one of these dose optimization techniques: automated exposure control; mA and/or kV adjustment per patient size (includes targeted exams where dose is matched to clinical indication); or iterative reconstruction. Contrast material: ISO 370; Contrast volume: 96 ml; Contrast route: INTRAVENOUS (IV); Other protocol: This patient has received 3 known CTs and 0 known cardiac nuclear medicine studies in the 12 months prior to the current study. COMPARISON: CT HEAD/BRAIN WO CON 12/03/2022 5:25 PM FINDINGS: ANTERIOR CIRCULATION: Right internal carotid artery: Intracranial segment is patent with no significant stenosis. No aneurysm. Right middle cerebral artery: No occlusion or significant stenosis. No aneurysm. Right anterior cerebral artery: No occlusion or significant stenosis. No aneurysm. Left internal carotid artery: Intracranial segment is patent with no significant stenosis. No aneurysm. Left middle cerebral artery: No occlusion or significant stenosis. No aneurysm. Left anterior cerebral artery: No occlusion or significant stenosis. No aneurysm. POSTERIOR CIRCULATION: Right vertebral artery: Hypoplastic. Left vertebral artery: No occlusion or significant stenosis. No aneurysm. Basilar artery: Hypoplastic. Right posterior cerebral artery: Primarily constituted from the anterior circulation via a patent posterior communicating artery. There is a small P1 segment. Left posterior cerebral artery: Primarily constituted from the anterior circulation via a patent posterior communicating artery. There is a small P1 segment. Brain: No definite mass, mass effect, or midline shift. Cerebral ventricles: No ventriculomegaly. Bones/joints: Unremarkable. No acute fracture. Soft tissues: Unremarkable. IMPRESSION: No large vessel stenosis or occlusion. The posterior circulation is primarily constituted from the anterior circulation.
--- NOTE | 2022-12-03 16:58 | CT_ITS ---
PROCEDURE INFORMATION: Exam: CTA Neck With Contrast Exam date and time: 12/03/2022 5:27 PM Age: 47 years old Clinical indication: Headache TECHNIQUE: Imaging protocol: Computed tomographic angiography of the neck with contrast. 3D rendering (Not supervised by radiologist): MIP and/or 3D reconstructed images were created by the technologist. Radiation optimization: All CT scans at this facility use at least one of these dose optimization techniques: automated exposure control; mA and/or kV adjustment per patient size (includes targeted exams where dose is matched to clinical indication); or iterative reconstruction. Contrast material: ISO 370; Contrast volume: 96 ml; Contrast route: INTRAVENOUS (IV); Other protocol: This patient has received 3 known CTs and 0 known cardiac nuclear medicine studies in the 12 months prior to the current study. COMPARISON: MR CERVICAL SPINE WO CON 07/15/2021 2:44 PM FINDINGS: Right common carotid artery: No stenosis. No dissection or occlusion. Right internal carotid artery: No stenosis of the extracranial segment. No dissection or occlusion. Right external carotid artery: No occlusion or stenosis of the origin. Left common carotid artery: No stenosis. No dissection or occlusion. Left internal carotid artery: No stenosis of the extracranial segment. No dissection or occlusion. Left external carotid artery: No occlusion or stenosis of the origin. Right vertebral artery: Hypoplastic. No dissection or occlusion. Left vertebral artery: No stenosis. No dissection or occlusion. Soft tissues: Normal. No significant soft tissue swelling. Bones/joints: No acute fracture. IMPRESSION: No significant stenoses of the internal carotid arteries by NASCET criteria. REFERENCES: NASCET CRITERIA. The degree of stenosis in the cervical segment of the internal carotid artery is based on NASCET criteria. Normal is no stenosis. Mild is less than 50% stenosis. Moderate is 50-69% stenosis. Severe is 70% to 99% stenosis. Total occlusion is no detectable patent lumen.
--- NOTE | 2022-12-03 16:58 | CT_ITS ---
PROCEDURE INFORMATION: Exam: CT Head Without Contrast Exam date and time: 12/03/2022 5:25 PM Age: 47 years old Clinical indication: Pain; Headache TECHNIQUE: Imaging protocol: Computed tomography of the head without contrast. Radiation optimization: All CT scans at this facility use at least one of these dose optimization techniques: automated exposure control; mA and/or kV adjustment per patient size (includes targeted exams where dose is matched to clinical indication); or iterative reconstruction. Other protocol: This patient has received 3 known CTs and 0 known cardiac nuclear medicine studies in the 12 months prior to the current study. COMPARISON: CT HEAD/BRAIN WO CON 03/18/2020 12:13 PM FINDINGS: Brain: The cortical/white matter interfaces are preserved throughout the brain. The visualized basilar cisterns are patent. There is no evidence of acute hemorrhage within the brain parenchyma or the subarachnoid space. There is no evidence of mass, mass effect or midline shift. No significant white matter lucencies. Cerebral ventricles: The ventricular system is normal in size and distribution. Paranasal sinuses: Minor mucoperiosteal thickening involves the bilateral maxillary sinuses, scattered ethmoid air cells, sphenoid sinuses and minimally involving the left frontal sinus. No air-fluid levels or bony destructive change. Mastoid air cells: The mastoid sinuses are normal. Orbital cavities: The orbits are normal. Bones/joints: There is no evidence of acute fracture. Soft tissues: No significant soft tissue edema. IMPRESSION: No acute intracranial abnormality. Stable exam.
[2022-12-03 17:01] VITALS: BP 132/78; PULSE 82; RESP 18; O2SAT 99
[2022-12-03 17:04] VITALS: BP 144/76; PULSE 64; RESP 18; TEMP 36.7; O2SAT 100; BMI 36.6
[2022-12-03 17:29] LABS: Basophils # 0.1 K/mm3 (0-0.2); Basophils % 1.5 % (0.1-2.0); Eosinophils # 0.1 K/mm3 (0.0-0.4); Eosinophils % 1.4 % (0.1-12.0); Hematocrit 41.7 % (37.0-47.0); Hemoglobin 13.9 g/dL (12.2-16.2); Lymphocytes # 2.9 K/mm3 (0.7-4.5); Lymphocytes % 31.4 % (10-50); Mean Corpuscular HGB Conc 33.4 g/dL (31.8-35.4); Mean Corpuscular Hemoglobin 29.4 pg (27.0-31.2); Mean Corpuscular Volume 88.2 fl (81-99); Mean Platelet Volume 8.2 fl (7.4-10.4); Monocytes # 0.5 K/mm3 (0.1-1.0); Monocytes % 5.9 % (1.7-9.3); Neutrophils # 5.5 K/mm3 (1.8-7.8); Neutrophils % 59.8 % (37.0-80.0); Platelet Count 337 K/mm3 (142-424); Red Blood Count 4.73 M/mm3 (4.20-5.40); Red Cell Distribution Width 13.7 % (11.5-17.5); White Blood Count 9.2 K/mm3 (4.8-10.8)
[2022-12-03 17:51] LABS: Alanine Aminotransferase 26 U/L (12-78); Albumin Level 4.5 g/dl (3.5-5.0); Albumin/Globulin Ratio 1.2 (1.1-1.8); Alkaline Phosphatase 137 U/L (38-126); Anion Gap 10.2 mEq/L (5-15); Aspartate Amino Transferase 38 U/L (14-36); Bilirubin,Total 0.6 mg/dl (0.2-1.3); Blood Urea Nitrogen 10 mg/dl (7-17); Calcium 9.8 mg/dl (8.4-10.2); Carbon Dioxide 25 mmol/L (22.0-30.0); Chloride 107 mmol/L (98-107); Creatinine Clearance Estimated 181 mL/min (50-200); Estimated Glomerular Filt Rate 107 ml/min (>60); GFR (African American) 129 ML/MIN (>60); Globulin 3.8 g/dL (1.3-3.2); Glucose 109 mg/dl (74-100); Potassium 4.2 mmoL/L (3.5-5.1); Sodium 138 mmol/L (136-145); Total Protein,Serum 8.3 g/dl (6.3-8.2)
--- NOTE | 2022-12-03 18:20 | PC.NURSE ---
contacted rad to check on status of CT results, waiting rn telephone triage back
--- NOTE | 2022-12-03 18:26 | PC.NURSE ---
radiology states CTs are being read at this time
--- NOTE | 2022-12-03 18:39 | HMH.EDGENADL ---
Discharge Plan Disposition Patient Disposition: Home, Self-Care Condition: Fair Prescriptions Prescriptions: No Action etodolac [Lodine] 400 mg tablet 400 mg PO BID Qty: 60 2RF cyclobenzaprine 10 mg tablet 10 mg PO TID PRN (Reason: muscle spasm) Qty: 60 0RF diclofenac sodium 3 % gel 1 applic TOPICAL BID Qty: 100 10RF albuterol sulfate 90 mcg/actuation HFA aerosol inhaler 2 puff INHALATION QID PRN (Reason: shortness of breath or wheezing) Qty: 8.5 10RF Rx Instructions: for cough clobetasol [Temovate] 0.05 % ointment 1 applic topical BID PRN (Reason: itching) Qty: 60 3RF venlafaxine [Effexor XR] 150 mg capsule,extended release 24hr 150 mg PO DAILY Qty: 90 3RF hydrochlorothiazide 25 mg tablet See Rx Instructions .ROUTE .COMPLEX Qty: 90 1RF Dose Instruction: TAKE ONE TABLET BY MOUTH EVERY DAY Rx Instructions: TAKE ONE TABLET BY MOUTH EVERY DAY cetirizine [Zyrtec] 10 mg tablet 10 mg PO DAILY PRN (Reason: allergy symptoms) Qty: 30 3RF atorvastatin [Lipitor] 20 mg tablet 20 mg PO DAILY Qty: 90 3RF lidocaine 5 % adhesive patch,medicated 1 patch topical DAILY Qty: 30 0RF Rx Instructions: leave on most painful area for up to 12 hrs fluticasone propionate 120 SPR/BOT bottle 1 spr NS BID Qty: 120 1RF Referrals Follow up/Referrals: Kirill Desai MD [Primary Care Provider] - See instructions Clinical Impressions Clinical Impression: Headache Discharge ED Provider: Soni Robin Adult HPI General Chief complaint: Headache Stated complaint: Headache weakness congestion Time Seen by Provider: 12/03/22 14:38 Mode of Arrival: Ambulatory Source of Information: Patient Limitations: No Limitations Description of Symptoms (Recalled from ER Triage Doc. by RN): pt to ed c/o headache that started on thursday. pt states she has had episodes of nausea but denies v/d. pt states pt has been constipated x1 week. History of Present Illness HPI narrative: Patient sent over from urgent care for worsening headache as described in HPI and urgent care. Very strong headache for couple days not thunderclap in origin however was throbbing and nonradiating. No numbness weakness or tingling in arms or legs. Sent over for evaluation for CT head Related Data Previous Rx's Medication Instructions Recorded fluticasone propionate 50 1 spr intranasal BID #120 ea 08/18/21 mcg/actuation nasal spray,suspension diclofenac sodium 3 % topical gel 1 applic topical BID #100 grams 12/06/21 albuterol sulfate 90 mcg/actuation 2 puff inhalation QID PRN 01/28/22 aerosol inhaler shortness of breath or wheezing #8.5 grams etodolac 400 mg tablet (Lodine) 400 mg PO BID #60 tabs 04/01/22 hydrochlorothiazide 25 mg tablet See Rx Instructions .Route 04/24/22 .COMPLEX #90 tabs cetirizine 10 mg tablet (Zyrtec) 10 mg PO DAILY PRN allergy 07/10/22 symptoms #30 tabs clobetasol 0.05 % topical ointment 1 applic topical BID PRN itching 08/28/22 (Temovate) #60 grams atorvastatin 20 mg tablet (Lipitor) 20 mg PO DAILY #90 tabs 08/31/22 cyclobenzaprine 10 mg tablet 10 mg PO TID PRN muscle spasm #60 10/16/22 tabs lidocaine 5 % topical patch 1 patch topical DAILY #30 ea 10/30/22 venlafaxine 150 mg 150 mg PO DAILY #90 caps 11/21/22 capsule,extended release 24 hr (Effexor XR) Allergies Allergy/AdvReac Type Severity Reaction Status Date / Time tramadol [TRAMADOL] Allergy Unknown Verified 11/21/22 10:55 [facility] Disclaimer: The information contained in this section may have been updated after the patient was seen, as this information can be updated by other users. Medical History Depression History of gastroesophageal reflux (GERD) Hypertension Surgical History History of cholecystectomy History of tubal ligation Social History (Reviewed 09/02/22 @ 14:07 b
[2022-12-03 18:54] VITALS: BP 138/74; PULSE 62; RESP 20; TEMP 36.7; O2SAT 99
== END 2022-12-03 18:55 | disposition home or self-care (01) ==
LOC: UTC 14:44 → ER 16:05
PROVIDERS: Emergency Medicine; Emergency Provider Nurse Practitioner; PCP Family Medicine
DX: R51.9 Headache, unspecified (principal); R53.1 Weakness; R09.81 Nasal congestion; F32.A Depression, unspecified; K21.9 Gastro-esophageal reflux disease without esophagitis; I10 Essential (primary) hypertension; Z90.49 Acquired absence of other specified parts of digestive tract; Z98.51 Tubal ligation status
CPT/HCPCS: 36415; 70450; 70496; 70498; 80053; 85025; 96361; 96374; 96375; 99285; Q9967

== ENCOUNTER 2022-12-09 19:46 | Emergency (ER) | payer OTHER, SELFPAY ==
[2022-12-09 19:48] VITALS: BP 163/70; PULSE 70; RESP 24; TEMP 37.1; O2SAT 98; BMI 36.4
[2022-12-09 20:04] VITALS: BP 163/70; PULSE 69; O2SAT 97
--- NOTE | 2022-12-09 20:53 | HMH.EDNVD ---
Discharge Plan Disposition Patient Disposition: Home, Self-Care Prescriptions Prescriptions: New fluconazole [Diflucan] 150 mg tablet 150 mg PO DAILY Qty: 5 0RF ondansetron HCl 4 mg Tablet 4 mg PO Q8H PRN (Reason: Nausea) Qty: 20 0RF No Action etodolac [Lodine] 400 mg tablet 400 mg PO BID Qty: 60 2RF cyclobenzaprine 10 mg tablet 10 mg PO TID PRN (Reason: muscle spasm) Qty: 60 0RF diclofenac sodium 3 % gel 1 applic TOPICAL BID Qty: 100 10RF albuterol sulfate 90 mcg/actuation HFA aerosol inhaler 2 puff INHALATION QID PRN (Reason: shortness of breath or wheezing) Qty: 8.5 10RF Rx Instructions: for cough clobetasol [Temovate] 0.05 % ointment 1 applic topical BID PRN (Reason: itching) Qty: 60 3RF venlafaxine [Effexor XR] 150 mg capsule,extended release 24hr 150 mg PO DAILY Qty: 90 3RF hydrochlorothiazide 25 mg tablet See Rx Instructions .ROUTE .COMPLEX Qty: 90 1RF Dose Instruction: TAKE ONE TABLET BY MOUTH EVERY DAY Rx Instructions: TAKE ONE TABLET BY MOUTH EVERY DAY cetirizine [Zyrtec] 10 mg tablet 10 mg PO DAILY PRN (Reason: allergy symptoms) Qty: 30 3RF atorvastatin [Lipitor] 20 mg tablet 20 mg PO DAILY Qty: 90 3RF lidocaine 5 % adhesive patch,medicated 1 patch topical DAILY Qty: 30 0RF Rx Instructions: leave on most painful area for up to 12 hrs fluconazole 150 mg tablet See Rx Instructions .ROUTE .COMPLEX Qty: 1 0RF Dose Instruction: TAKE ONE TABLET BY MOUTH NOW A ONE-TIME DOSE Rx Instructions: TAKE ONE TABLET BY MOUTH NOW A ONE-TIME DOSE Referrals Follow up/Referrals: Geraldo Siegel MD [Primary Care Provider] - See instructions Clinical Impressions Clinical Impression: Gastroenteritis Instructions Patient Instructions: DI for Diarrhea and Traveler's Diarrhea -- Adult Discharge ED Provider: Christal (ED)Geraldo Nausea/Vomiting/Diarrhea HPI General Chief complaint: Nausea/Vomiting/Diarrhea Stated complaint: vomiting,Abd pain Time Seen by Provider: 12/09/22 20:53 Mode of Arrival: Wheelchair Source of Information: Patient, Spouse and Medical Record Limitations: No Limitations Description of Symptoms (Recalled from ER Triage Doc. by RN): pt c/o NVD for 3 days pt also stated she was seen here and is currently being treated for a yeast infection. pt c/o weakness from being sick History of Present Illness HPI Narrative: pt with reported vomiting and diarrhea w/o blood or fever and reports feeling weak MD complaint: nausea, vomiting and diarrhea Onset (ago): day(s) Associated Abdominal Pain: Yes Location of pain: diffuse Severity: moderate Quality: cramping Consistency: intermittent Associated symptoms: denies other symptoms Related Data Previous Rx's Medication Instructions Recorded diclofenac sodium 3 % topical gel 1 applic topical BID #100 grams 12/06/21 albuterol sulfate 90 mcg/actuation 2 puff inhalation QID PRN 01/28/22 aerosol inhaler shortness of breath or wheezing #8.5 grams etodolac 400 mg tablet (Lodine) 400 mg PO BID #60 tabs 04/01/22 hydrochlorothiazide 25 mg tablet See Rx Instructions .Route 04/24/22 .COMPLEX #90 tabs cetirizine 10 mg tablet (Zyrtec) 10 mg PO DAILY PRN allergy 07/10/22 symptoms #30 tabs clobetasol 0.05 % topical ointment 1 applic topical BID PRN itching 08/28/22 (Temovate) #60 grams atorvastatin 20 mg tablet (Lipitor) 20 mg PO DAILY #90 tabs 08/31/22 cyclobenzaprine 10 mg tablet 10 mg PO TID PRN muscle spasm #60 10/16/22 tabs lidocaine 5 % topical patch 1 patch topical DAILY #30 ea 10/30/22 venlafaxine 150 mg 150 mg PO DAILY #90 caps 11/21/22 capsule,extended release 24 hr (Effexor XR) fluconazole 150 mg tablet See Rx Instructions .Route 12/08/22 .COMPLEX #1 ea fluconazole 150 mg tablet 150 mg PO DAILY #5 tabs 12/09/22 (Diflucan) ondansetron HCl 4 mg tablet 4 mg PO Q8H PRN Nausea #20 tabs 12/09/22 Allergies Allergy/AdvReac Type S
--- NOTE | 2022-12-09 21:00 | XR_ITS ---
PROCEDURE INFORMATION: Exam: XR Chest Exam date and time: 12/09/2022 9:15 PM Age: 47 years old Clinical indication: Pain; Other: Abdominal; Additional info: Abd pain TECHNIQUE: Imaging protocol: Radiologic exam of the chest. Views: 2 views. COMPARISON: CR XR CHEST 2V 09/16/2022 1:19 AM FINDINGS: Lungs: Unremarkable. No consolidation. Pleural spaces: Unremarkable. No pleural effusion. No pneumothorax. Heart/Mediastinum: Unremarkable. No cardiomegaly. Bones/joints: Unremarkable. IMPRESSION: No acute findings.
--- NOTE | 2022-12-09 21:01 | CT_ITS ---
PROCEDURE INFORMATION: Exam: CT Abdomen And Pelvis With Contrast Exam date and time: 12/09/2022 9:30 PM Age: 47 years old Clinical indication: Abdominal pain; Prior surgery; Surgery type: Tubal; Additional info: Abd pain TECHNIQUE: Imaging protocol: Computed tomography of the abdomen and pelvis with contrast. Radiation optimization: All CT scans at this facility use at least one of these dose optimization techniques: automated exposure control; mA and/or kV adjustment per patient size (includes targeted exams where dose is matched to clinical indication); or iterative reconstruction. Contrast material: ISOVUE; Contrast volume: 75 ml; Contrast route: IV; Other protocol: This patient has received 4 known CTs and 0 known cardiac nuclear medicine studies in the 12 months prior to the current study. COMPARISON: MR PELVIS WO CON 07/16/2022 1:08 PM FINDINGS: Tubes, catheters and devices: None noted. Lungs: Lung bases appear clear. Heart: No significant coronary calcifications. No cardiomegaly. No significant pericardial effusion. Liver: Normal. No mass. Gallbladder and bile ducts: Cholecystectomy. No ductal dilation. Pancreas: Normal. No ductal dilation. Spleen: Normal. No splenomegaly. Adrenal glands: Normal. No mass. Kidneys and ureters: Normal. No hydronephrosis. Stomach and bowel: Diverticulosis without diverticulitis. No obstruction. No mucosal thickening. Appendix: No evidence of appendicitis. Intraperitoneal space: Unremarkable. No free air. No significant fluid collection. Retroperitoneal space: No significant retroperitoneal inflammatory changes are noted. Vasculature: Unremarkable. No abdominal aortic aneurysm. Lymph nodes: Unremarkable. No enlarged lymph nodes. Urinary bladder: Unremarkable as visualized. Reproductive: Unremarkable as visualized. Bones/joints: Unremarkable. No acute fracture. Soft tissues: Unremarkable. IMPRESSION: No acute findings.
[2022-12-09 21:12] LABS: Microscopic, Urine URINE MICROSCOPIC (MICROSCOPIC)
[2022-12-09 21:20] LABS: Basophils # 0.1 K/mm3 (0-0.2); Basophils % 1.3 % (0.1-2.0); Eosinophils # 0.1 K/mm3 (0.0-0.4); Eosinophils % 0.9 % (0.1-12.0); Hematocrit 41.7 % (37.0-47.0); Hemoglobin 13.9 g/dL (12.2-16.2); Lymphocytes # 3.4 K/mm3 (0.7-4.5); Lymphocytes % 44.9 % (10-50); Mean Corpuscular HGB Conc 33.4 g/dL (31.8-35.4); Mean Corpuscular Hemoglobin 28.7 pg (27.0-31.2); Mean Platelet Volume 8.8 fl (7.4-10.4); Monocytes # 0.4 K/mm3 (0.1-1.0); Monocytes % 5.7 % (1.7-9.3); Neutrophils # 3.6 K/mm3 (1.8-7.8); Neutrophils % 47.3 % (37.0-80.0); Platelet Count 386 K/mm3 (142-424); Red Blood Count 4.85 M/mm3 (4.20-5.40); Red Cell Distribution Width 13.7 % (11.5-17.5); White Blood Count 7.7 K/mm3 (4.8-10.8)
--- NOTE | 2022-12-09 21:24 | PC.NURSE ---
pt gone to ct at this time
[2022-12-09 21:26] LABS: Amylase 61 U/L (30-110); Lipase 93 U/L (23-300)
[2022-12-09 21:26] LABS: Appearance,Urine CLOUDY (Clear); Bilirubin,Urine Negative (Negative); Blood, Urine Negative (Negative); Color,Urine YELLOW (Yellow); Glucose,Urine (UA) Negative (Negative); Ketones,Urine Negative (Negative); Leukocyte Esterase,Urine Negative (Negative); Nitrate,Urine Negative (Negative); PH,Urine 7.5 (5.0-8.5); Protein,Urine Negative (Negative); Urobilinogen,Urine 0.2 EU/dl (0.2)
[2022-12-09 21:27] LABS: Alanine Aminotransferase 28 U/L (12-78); Albumin Level 4.7 g/dl (3.5-5.0); Albumin/Globulin Ratio 1.2 (1.1-1.8); Alkaline Phosphatase 127 U/L (38-126); Aspartate Amino Transferase 34 U/L (14-36); Bilirubin,Total 0.6 mg/dl (0.2-1.3); Blood Urea Nitrogen 11 mg/dl (7-17); Calcium 9.7 mg/dl (8.4-10.2); Carbon Dioxide 27 mmol/L (22.0-30.0); Chloride 105 mmol/L (98-107); Creatinine Clearance Estimated 154 mL/min (50-200); Estimated Glomerular Filt Rate 89 ml/min (>60); GFR (African American) 108 ML/MIN (>60); Globulin 3.9 g/dL (1.3-3.2); Glucose 124 mg/dl (74-100); Sodium 139 mmol/L (136-145); Total Protein,Serum 8.6 g/dl (6.3-8.2)
[2022-12-09 21:55] LABS: Squamous Epithelial Cell,Urine Occasional #/hpf (0-5)
[2022-12-09 22:00] VITALS: BP 163/89; PULSE 62; O2SAT 99
[2022-12-09 22:00] LABS: Lactic Acid 0.9 mmol/L (0.7-2.1)
[2022-12-09 22:10] LABS: Coronavirus 19, PCR Not Detected (NotDetected); Influenza A, PCR Not Detected (NotDetected); Influenza B, PCR Not Detected (NotDetected)
[2022-12-09 22:30] VITALS: BP 124/63; PULSE 63; O2SAT 98
[2022-12-09 23:00] VITALS: BP 118/67; PULSE 63; O2SAT 99
[2022-12-10 00:02] VITALS: BP 118/67; PULSE 63; RESP 16; TEMP 36.9; O2SAT 98
== END 2022-12-10 00:09 | disposition home or self-care (01) ==
PROVIDERS: Emergency Provider Emergency Medicine; PCP Emergency Medicine
DX: K52.9 Noninfective gastroenteritis and colitis, unspecified (principal); F32.A Depression, unspecified; K21.9 Gastro-esophageal reflux disease without esophagitis; I10 Essential (primary) hypertension; Z90.49 Acquired absence of other specified parts of digestive tract; Z98.51 Tubal ligation status; Z20.822 Contact with and (suspected) exposure to COVID-19
CPT/HCPCS: 71046; 74177; 80053; 81001; 82150; 83605; 83690; 85025; 96361; 96374; 99285; C9803; J2405; Q9967; U0003; U0005

== ENCOUNTER → 2022-12-10 11:55 | Outpatient (CLI) | payer OTHER, SELFPAY ==
[2022-12-10 12:02] LABS: Adenovirus F 40/41, stool Not Detected (NotDetected); Astrovirus Not Detected (NotDetected); Campylobacter Not Detected (NotDetected); Clostridium Difficile A/B, PCR Not Detected (NotDetected); Cryptosporidium Not Detected (NotDetected); Cyclospora Cayetanesis Not Detected (NotDetected); Entamoeba histolytica Not Detected (NotDetected); Enteroaggregative E coli Not Detected (NotDetected); Enteropathogenic E coli Not Detected (NotDetected); Enterotoxigenic E coli Not Detected (NotDetected); Giardia lamblia Not Detected (NotDetected); Plesimonas Shigalloides, PCR Not Detected (NotDetected); Rotavirus A Not Detected (NotDetected); Salmonella, PCR Not Detected (NotDetected); Sapovirus Not Detected (NotDetected); Shiga-like toxin E coli Not Detected (NotDetected); Shigella Enterovasive E coli Not Detected (NotDetected); Vibrio Cholerae Not Detected (NotDetected); Vibrio, PCR Not Detected (NotDetected); Yersinia Entercolitica, PCR Not Detected (NotDetected)
[2022-12-10 20:34] LABS: Norovirus Detected (NotDetected)
== END ==
PROVIDERS: PCP Emergency Medicine; Visit Provider Emergency Medicine
DX: R19.7 Diarrhea, unspecified (principal); R11.2 Nausea with vomiting, unspecified; A08.11 Acute gastroenteropathy due to Norwalk agent
CPT/HCPCS: 87507

== ENCOUNTER → 2023-01-02 10:34 | Outpatient (CLI) | payer OTHER, SELFPAY ==
--- NOTE | 2023-01-02 10:42 | XR_ITS ---
FINAL REPORT CLINICAL HISTORY: shoulder pain,,NO TRAUMA COMPARISON: none FINDINGS: LEFT SHOULDER Two views demonstrate no acute fracture or dislocation. Mild degenerative change of the AC joint. The visualized bony structures are well aligned. No soft tissue abnormality is seen. IMPRESSION: Degenerative change without acute bony abnormality. Reviewed, Interpreted and Dictated by Carter Ambrocio III, MD Transcribed by Gayle Chang Authenticated and . [facility]
--- NOTE | 2023-01-02 10:42 | XR_ITS ---
FINAL REPORT CLINICAL HISTORY: shoulder pain,,NO TRAUMA COMPARISON: none FINDINGS: RIGHT SHOULDER Two views demonstrate no acute fracture or dislocation. There is mild AC joint degenerative change. The visualized bony structures are well aligned. No soft tissue abnormality is seen. IMPRESSION: Degenerative change with no acute bony abnormality. Reviewed, Interpreted and Dictated by Carter Ambrocio III, MD Transcribed by Gayle Chang Authenticated and [facility]
--- NOTE | 2023-01-02 10:42 | XR_ITS ---
FINAL REPORT CLINICAL HISTORY: wrist pain..NO TRAUMA COMPARISON: none FINDINGS: RIGHT WRIST Three views demonstrate no acute fracture or dislocation. The visualized joint spaces are normally aligned. The soft tissues are unremarkable. IMPRESSION: No acute bony abnormality. Reviewed, Interpreted and Dictated by Carter Ambrocio III, MD Transcribed by Gayle Chang Authenticated and [facility]
== END ==
PROVIDERS: PCP Family Medicine; Visit Provider Orthopaedic Surgery
DX: M25.511 Pain in right shoulder (principal); M25.512 Pain in left shoulder; M25.531 Pain in right wrist
CPT/HCPCS: 73030; 73110

== ENCOUNTER 2023-01-17 15:48 | Emergency (ER) | payer OTHER, SELFPAY ==
[2023-01-17 15:57] VITALS: BP 129/80; PULSE 87; RESP 15; TEMP 36.8; O2SAT 99; BMI 37.4
--- NOTE | 2023-01-17 16:20 | HMH.EDGENADL ---
Discharge Plan Disposition Patient Disposition: Home, Self-Care Condition: Fair Prescriptions Prescriptions: No Action etodolac [Lodine] 400 mg tablet 400 mg PO BID Qty: 60 2RF cyclobenzaprine 10 mg tablet 10 mg PO TID PRN (Reason: muscle spasm) Qty: 60 0RF diclofenac sodium 3 % gel 1 applic TOPICAL BID Qty: 100 10RF albuterol sulfate 90 mcg/actuation HFA aerosol inhaler 2 puff INHALATION QID PRN (Reason: shortness of breath or wheezing) Qty: 8.5 10RF Rx Instructions: for cough clobetasol [Temovate] 0.05 % ointment 1 applic topical BID PRN (Reason: itching) Qty: 60 3RF venlafaxine [Effexor XR] 150 mg capsule,extended release 24hr 150 mg PO DAILY Qty: 90 3RF hydrochlorothiazide 25 mg tablet See Rx Instructions .ROUTE .COMPLEX Qty: 90 1RF Dose Instruction: TAKE ONE TABLET BY MOUTH EVERY DAY Rx Instructions: TAKE ONE TABLET BY MOUTH EVERY DAY cetirizine [Zyrtec] 10 mg tablet 10 mg PO DAILY PRN (Reason: allergy symptoms) Qty: 30 3RF atorvastatin [Lipitor] 20 mg tablet 20 mg PO DAILY Qty: 90 3RF lidocaine 5 % adhesive patch,medicated 1 patch topical DAILY Qty: 30 0RF Rx Instructions: leave on most painful area for up to 12 hrs fluconazole 150 mg tablet See Rx Instructions .ROUTE .COMPLEX Qty: 1 0RF Dose Instruction: TAKE ONE TABLET BY MOUTH NOW A ONE-TIME DOSE Rx Instructions: TAKE ONE TABLET BY MOUTH NOW A ONE-TIME DOSE fluconazole [Diflucan] 150 mg tablet 150 mg PO DAILY Qty: 5 0RF ondansetron HCl 4 mg Tablet 4 mg PO Q8H PRN (Reason: Nausea) Qty: 20 0RF Referrals Follow up/Referrals: Kirill Desai MD [Primary Care Provider] - See instructions Clinical Impressions Clinical Impression: Visit for wound check Instructions Patient Instructions: How to Care for a Surgical Wound-Stitches Discharge ED Provider: [facility] HPI General Chief complaint: Wound/Laceration Stated complaint: Surg 01/08 Lumbar Decompression, infected Time Seen by Provider: 01/17/23 16:20 Mode of Arrival: Wheelchair Source of Information: Patient and Spouse Limitations: Physical Limitations Description of Symptoms (Recalled from ER Triage Doc. by RN): 10 days s/p [id number] surgery w midline incision and patient concerned about scant drainage from incision. Dsg in place History of Present Illness HPI narrative: Patient is a 47-year-old female with past medical history of recent lumbar surgery who presents with concern for wound dehiscence. She says that there has been a little bit of drainage from the inferior margin of her incision. She says her surgery was 10 days ago. Denies any redness. She says the drainage was slightly blood-tinged. Denies any fever or chills. Related Data Previous Rx's Medication Instructions Recorded diclofenac sodium 3 % topical gel 1 applic topical BID #100 grams 12/06/21 albuterol sulfate 90 mcg/actuation 2 puff inhalation QID PRN 01/28/22 aerosol inhaler shortness of breath or wheezing #8.5 grams etodolac 400 mg tablet (Lodine) 400 mg PO BID #60 tabs 04/01/22 hydrochlorothiazide 25 mg tablet See Rx Instructions .Route 04/24/22 .COMPLEX #90 tabs cetirizine 10 mg tablet (Zyrtec) 10 mg PO DAILY PRN allergy 07/10/22 symptoms #30 tabs clobetasol 0.05 % topical ointment 1 applic topical BID PRN itching 08/28/22 (Temovate) #60 grams atorvastatin 20 mg tablet (Lipitor) 20 mg PO DAILY #90 tabs 08/31/22 cyclobenzaprine 10 mg tablet 10 mg PO TID PRN muscle spasm #60 10/16/22 tabs lidocaine 5 % topical patch 1 patch topical DAILY #30 ea 10/30/22 venlafaxine 150 mg 150 mg PO DAILY #90 caps 11/21/22 capsule,extended release 24 hr (Effexor XR) fluconazole 150 mg tablet See Rx Instructions .Route 12/08/22 .COMPLEX #1 ea fluconazole 150 mg tablet 150 mg PO DAILY #5 tabs 12/09/22 (Diflucan) ondansetron HCl 4 mg tablet 4 mg PO Q8H PRN Nausea #20 tabs 12/09/22 Allergies
--- NOTE | 2023-01-17 16:35 | PC.NURSE ---
no needs at this time
[2023-01-17 16:52] VITALS: BP 126/63; PULSE 80; RESP 20; TEMP 37; O2SAT 98
== END 2023-01-17 16:54 | disposition home or self-care (01) ==
LOC: ER 16:41
PROVIDERS: Emergency Provider Student in an Organized Health Care Education/Training Program; PCP Family Medicine
DX: T81.31XA Disruption of external operation (surgical) wound, not elsewhere classified, initial encounter (principal)
CPT/HCPCS: 99281; 99282

== ENCOUNTER → 2023-05-12 08:57 | Outpatient (CLI) | payer OTHER, SELFPAY ==
[2023-05-12 09:31] LABS: Basophils # 0.1 K/mm3 (0-0.2); Eosinophils # 0.1 K/mm3 (0.0-0.4); Eosinophils % 1.6 % (0.1-12.0); Hematocrit 39.6 % (37.0-47.0); Hemoglobin 12.9 g/dL (12.2-16.2); Lymphocytes # 2.6 K/mm3 (0.7-4.5); Lymphocytes % 40.3 % (10-50); Mean Corpuscular HGB Conc 32.6 g/dL (31.8-35.4); Mean Corpuscular Hemoglobin 27.7 pg (27.0-31.2); Mean Corpuscular Volume 84.9 fl (81-99); Mean Platelet Volume 8.3 fl (7.4-10.4); Monocytes # 0.4 K/mm3 (0.1-1.0); Monocytes % 6.3 % (1.7-9.3); Neutrophils # 3.3 K/mm3 (1.8-7.8); Neutrophils % 50.8 % (37.0-80.0); Platelet Count 328 K/mm3 (142-424); Red Blood Count 4.67 M/mm3 (4.20-5.40); Red Cell Distribution Width 13.6 % (11.5-17.5); White Blood Count 6.5 K/mm3 (4.8-10.8)
[2023-05-12 09:37] LABS: Hemoglobin A1C 5.6 % (4.0-6.0)
[2023-05-12 09:58] LABS: Alanine Aminotransferase 28 U/L (12-78); Albumin Level 4.3 g/dl (3.5-5.0); Albumin/Globulin Ratio 1.4 (1.1-1.8); Alkaline Phosphatase 162 U/L (38-126); Anion Gap 10.4 mEq/L (5-15); Aspartate Amino Transferase 31 U/L (14-36); Bilirubin,Total 0.5 mg/dl (0.2-1.3); Blood Urea Nitrogen 17 mg/dl (7-17); Calcium 10.1 mg/dl (8.4-10.2); Carbon Dioxide 30 mmol/L (22.0-30.0); Chloride 105 mmol/L (98-107); Chol/HDL Ratio 4.1 (1-3.5); Cholesterol 216 mg/dl (140-200); Estimated Glomerular Filt Rate 107 ml/min (>60); GFR (African American) 129 ML/MIN (>60); Globulin 3.1 g/dL (1.3-3.2); Glucose 120 mg/dl (74-100); HDL Cholesterol 53 mg/dl (40-60); Potassium 4.4 mmoL/L (3.5-5.1); Sodium 141 mmol/L (136-145); Total Protein,Serum 7.4 g/dl (6.3-8.2); Triglycerides 142 mg/dl (30-150); VLDL Cholesterol 28 mg/dL (0-40)
[2023-05-12 10:08] LABS: Direct LDL Cholesterol 120.38 mg/dL (100-129)
[2023-05-12 10:14] LABS: Free T4 (Free Thyroxine) 0.98 ng/dl (0.78-2.19)
[2023-05-12 10:28] LABS: Thyroid Stimulating Hormone 3.18 uIU/mL (0.465-4.68)
[2023-05-27 22:18] LABS: 1,25 Dihydroxy Vitamin D 33 pg/mL (.); 1,25-Dihydroxy, Vitamin D-2 <10 pg/mL (.); 1,25-Dihydroxy, Vitamin D-3 33 pg/mL (.)
== END ==
PROVIDERS: PCP Family Medicine; Visit Provider Nurse Practitioner Acute Care
DX: F32.A Depression, unspecified (principal); F41.0 Panic disorder [episodic paroxysmal anxiety]; F41.1 Generalized anxiety disorder; R53.83 Other fatigue; R63.5 Abnormal weight gain; E11.9 Type 2 diabetes mellitus without complications; E66.9 Obesity, unspecified; Z68.41 Body mass index [BMI] 40.0-44.9, adult
CPT/HCPCS: 36415; 80053; 80061; 82652; 83036; 84439; 84443; 85025

== ENCOUNTER → 2023-05-25 12:13 | Outpatient (CLI) | payer OTHER, SELFPAY ==
--- NOTE | 2023-05-25 13:07 | MR_ITS ---
FINAL REPORT CLINICAL HISTORY: LUMBAR PAIN COMPARISON: 11/06/2022 FINDINGS: Multiplanar MR imaging of the lumbar spine was performed without contrast. On the sagittal T2-weighted images, disc degeneration is seen at multiple levels. The vertebral alignment is normal. Mild chronic wedging of L2 is stable. No bony mass is identified. The conus has an unremarkable appearance. L1-2: Annular disc bulge and facet arthropathy. There is no significant canal stenosis or neural foraminal narrowing. L2-3: An annular bulge is present. Posterior midline annular tear. There is no significant canal stenosis or neural foraminal narrowing. L3-4: Annular disc bulge and facet arthropathy. Right posterior lateral disc protrusion is stable. Mild right neuroforaminal narrowing. L4-5: Interval postoperative changes from L4 laminectomies. An annular bulge is present. Mild left neuroforaminal narrowing. L5-S1: Interval postoperative changes from L5 laminectomies. Annular disc bulge and facet arthropathy. Left paracentral disc protrusion partially improved. Mild right and moderate left neuroforaminal narrowing. Possible left S1 nerve root impingement but improved. IMPRESSION: Multilevel degenerative disc disease. Postoperative changes L4-5 and L5-S1 with improved disc protrusion and nerve root impingement at L5-S1. Reviewed, Interpreted and Dictated by Carter Ambrocio III, MD Transcribed by Gayle Chang Authenticated and [facility]
== END ==
PROVIDERS: PCP Family Medicine; Visit Provider Orthopaedic Surgery
DX: M54.50 Low back pain, unspecified (principal); G47.33 Obstructive sleep apnea (adult) (pediatric); R06.83 Snoring; R40.0 Somnolence
CPT/HCPCS: 72148; 76376; G0399

== ENCOUNTER → 2023-08-26 16:22 | Outpatient (CLI) | payer OTHER, SELFPAY ==
[2023-08-26 16:50] LABS: Basophils # 0.1 K/mm3 (0-0.2); Basophils % 0.8 % (0.1-2.0); Eosinophils # 0.1 K/mm3 (0.0-0.4); Eosinophils % 1.2 % (0.1-12.0); Hematocrit 40.1 % (37.0-47.0); Hemoglobin 13.7 g/dL (12.2-16.2); Lymphocytes # 3.4 K/mm3 (0.7-4.5); Mean Corpuscular HGB Conc 34.1 g/dL (31.8-35.4); Mean Corpuscular Hemoglobin 29.4 pg (27.0-31.2); Mean Corpuscular Volume 86.1 fl (81-99); Mean Platelet Volume 8.2 fl (7.4-10.4); Monocytes # 0.5 K/mm3 (0.1-1.0); Monocytes % 4.5 % (1.7-9.3); Neutrophils % 59.6 % (37.0-80.0); Platelet Count 309 K/mm3 (142-424); Red Blood Count 4.66 M/mm3 (4.20-5.40); Red Cell Distribution Width 13.4 % (11.5-17.5); White Blood Count 10.1 K/mm3 (4.8-10.8)
[2023-08-26 17:27] LABS: Erythrocyte Sedimentation Rate 21 mm/hr (0-20)
[2023-08-26 17:29] LABS: Alanine Aminotransferase 28 U/L (12-78); Albumin Level 4.4 g/dl (3.5-5.0); Albumin/Globulin Ratio 1.4 (1.1-1.8); Alkaline Phosphatase 132 U/L (38-126); Anion Gap 13.9 mEq/L (5-15); Aspartate Amino Transferase 32 U/L (14-36); Bilirubin,Total 0.2 mg/dl (0.2-1.3); Blood Urea Nitrogen 22 mg/dl (7-17); Calcium 9.7 mg/dl (8.4-10.2); Carbon Dioxide 28 mmol/L (22.0-30.0); Chloride 101 mmol/L (98-107); Cholesterol 198 mg/dl (140-200); Estimated Glomerular Filt Rate 89 ml/min (>60); GFR (African American) 108 ML/MIN (>60); Globulin 3.2 g/dL (1.3-3.2); Glucose 107 mg/dl (74-100); HDL Cholesterol 49 mg/dl (40-60); Magnesium 1.6 mg/dl (1.6-2.3); Potassium 3.9 mmoL/L (3.5-5.1); Sodium 139 mmol/L (136-145); Total Protein,Serum 7.6 g/dl (6.3-8.2); Triglycerides 179 mg/dl (30-150); Uric Acid 6.3 mg/dl (2.5-6.2); VLDL Cholesterol 36 mg/dL (0-40)
[2023-08-26 17:41] LABS: Direct LDL Cholesterol 109.01 mg/dL (100-129)
[2023-08-26 17:48] LABS: 25-OH Vitamin D, Total 39.6 ng/mL (30-100)
[2023-08-26 17:49] LABS: Hemoglobin A1C 5.8 % (4.0-6.0)
[2023-08-26 18:03] LABS: Thyroid Stimulating Hormone 2.34 uIU/mL (0.465-4.68)
[2023-08-28 10:17] LABS: Estradiol <5.0 pg/mL (.); FSH 33.3 mIU/mL (.); LH 24.5 mIU/mL (.); Progesterone <0.1 ng/mL (.)
[2023-08-28 12:32] LABS: RA Latex Turbid. <10.0 IU/mL (<14.0)
[2023-08-31 12:10] LABS: Antinuclear Antibodies, IFA Negative (.)
== END ==
PROVIDERS: PCP Nurse Practitioner Family; Visit Provider Nurse Practitioner Family
DX: M79.10 Myalgia, unspecified site (principal); M25.50 Pain in unspecified joint; R73.9 Hyperglycemia, unspecified; R23.2 Flushing; I10 Essential (primary) hypertension; R00.2 Palpitations; R51.9 Headache, unspecified; Z68.41 Body mass index [BMI] 40.0-44.9, adult; Z79.84 Long term (current) use of oral hypoglycemic drugs
CPT/HCPCS: 80053; 80061; 82306; 82670; 83001; 83002; 83036; 83735; 84144; 84443; 84550; 85025; 85651; 86038; 86431

== ENCOUNTER → 2023-09-07 09:54 | Outpatient (POV) | payer OTHER, SELFPAY ==
--- NOTE | 2023-09-07 09:56 | EXP.PAIN.OV ---
HPI Data of Consult Patient: new to practice Consult date: 09/07/23 Requesting Physician: Hanna Varela APRN Primary Care Provider: Jocelynn Troy APRN Consult Narrative Reason for consult: Low back pain, bilateral hip pain, left leg pain History of present illness: Ms. Glasgow is a 47 year old female who presents today as a new patient. She is a referral from [facility] office. Today she rates her pain a 7 out of 10. She states her pain is all in her low back along her bilateral hips and she also has left leg pain. 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 Patient does state then she ended up having a lumbar surgery with slim Shin at . Patient does state that she continues to have pain over the years and ended up having a second surgery in December 2022 however this made no change of her symptoms but seem to worsen her pain into her hips and buttocks. Patient does describe this as an aching, throbbing, sharp sensation that is worse with increased activity or prolonged positioning. Patient states she typically cannot lay on her sides for long without having to change position or prolonged sitting worsens her pain. She does state that at night she seems to have worsening pain. Patient does state the pain interferes with her ability to perform activities of daily living such as cooking and cleaning. Patient states that Humberto Avery was the provider who did her second lumbar surgery and that he is wanting to do a fusion however the patient does not want to proceed forward with this option since her last surgery did not provide any additional relief. Patient has had multiple sessions of physical therapy with no additional help. She does state that she is scheduled to start it again next week. Patient states her hips have been an issue over the last 5 years and in the past she has had bursa injections by Dr. Suarez that did provide good relief however only lasted a short period of time. Patient has tried Tylenol and ibuprofen along with heat and ice and topicals with no additional relief. Patient has been prescribed Callicoon, Tylenol 3 and tramadol in the past. Her Ricky has been reviewed and is appropriate. CC: Hanna Varela APRN [facility] Disclaimer: The information contained in this section may have been updated after the patient was seen, as this information can be updated by other users. Medical History (Updated 09/07/23 @ 10:27 by Hanna Varela APRN) Chronic post-traumatic stress disorder (PTSD) Depression Generalized anxiety disorder with panic attacks History of gastroesophageal reflux (GERD) Hypertension MDD (major depressive disorder), recurrent, with melancholic features OCD (obsessive compulsive disorder) Type 2 diabetes mellitus Surgical History History of carpal tunnel surgery of right wrist History of cholecystectomy History of tubal ligation Hx of decompressive lumbar laminectomy Family History Mother FHx: mental illness Hypertension Hyperlipidemia Father FHx: mental illness Bipolar disorder Coronary artery disease Alcoholism Grandfather , Paternal grandfather had bipolar disorder No problems noted. Social History Smoking Status: Never smoker second hand exposure: No alcohol intake: never substance use type: denies use current occupational status: previously employed, disabled (Tiffanie has filed for disability.) and other Travel in the last 8 weeks: None household members: children housing: house marital status: legally number of children: 3 number of grandchildren: 6 education level: middle school service: No snf: No cur
--- OUTSIDE RECORDS SUMMARY | 2023-09-07 09:56 | XMS_ITS ---
Care Plan - [facility], [facility] Created on: September 07, 2023 Tiffanie Glasgow : 1975 Sex: Female Author Name Unknown Address [address] [place] [address] [place] [address] Phone Organization [facility] Address [address] [place] [address] Phone Care Team Providers Care Operating Room Scheduler Name Role Phone Omar SANDERS, Bc Randhawa Primary Care Provider [phone] Avery SANEDRS, Humberto Casillas Unavailable [phone] Kirill Desai Unavailable [phone]
--- OUTSIDE RECORDS SUMMARY | 2023-09-07 09:56 | XMS_ITS ---
Author Name Unknown Address [address] [place] [address] Phone Organization [facility] Address [address] [place] [address] Phone Care Team Providers Care Crude Unit Operator Name Role Phone Omar SANDERS, Bc Randhawa Primary Care Provider [phone] Avery SANDERS, Humberto Casillas Unavailable [phone] Kirill Desai Unavailable [phone] Problems Includes: Active, inactive, and resolved Problems All Visits Onset Date Resolved Date Provider Condition S tatus Lower Back Pain 12/18/2016 Humberto Varela MD Act juwan Plan of Treatment Pending Tests Order Diagnosis Results Due Ordering P cherelle Radiology - MRI MRI Lumbar Spine Low back pain 05/25/23 Geraldo Belle PA-C Instructions to patient Lose weight Last Documented On 3 8:27AM ; [facility] Lose weight Last Documented On 3 2:43PM ; [facility] Lose weight Last Documented On 3 1:55PM ; [facility] Lose weight Last Documented On 3 4:04PM ; [facility] Lose weight Last Documented On 3 8:17AM ; [facility]
--- OUTSIDE RECORDS SUMMARY | 2023-09-07 09:57 | XMS_ITS | Clinical Summary ---
Author Name Unknown Address [address] [address] Phone Organization [facility] Address [address] [address] Phone Care Team Providers Care Mammographer Name Role Phone Bc Nelson MD Primary Care Provider [phone] Avery SANDERS, Humberto Casillas Unavailable [phone] Kirill Desai Unavailable [phone] Reason for Visit and Chief Complaint The Chief Complaint is: L4-S1 Lami POV Problems Includes: Problems addressed during this encounter and other active Problems Current Visit Onset Date Resolved Date Provider Alexia candelaria Status Lower Back Pain 12/18/2016 Humberto Varela MD Act juwan Plan of Treatment Patient was seen by myself Geraldo Belle PA-C. Patient will follow up with myself and Dr. Varela on . We will place her on some clindamycin keep a dressing on this but some there is new Steri-Strips on it to - Last Documented On 01/20/2023 8:12AM ; [facility], [facility] Pending Tests Order Diagnosis Results Due Ordering P rovider Radiology - MRI MRI Lumbar Spine Low back pain 05/25/23 Geraldo Belle PA-C Instructions to patient Lose weight Last Documented On 4:04PM ; [facility], [facility] Assessments Includes: Assessments from this encounter Findings L4-S1 laminectomy January 07, 2023 - Last Documented On 01/20/2023 8:12AM ; [facility]
--- OUTSIDE RECORDS SUMMARY | 2023-09-07 09:57 | XMS_ITS | Clinical Summary ---
Author Name Unknown Address [address] [place] [address] Phone Organization [facility] Address [address] [place] [address] Phone Care Team Providers Care Special Education Case Manager Name Role Phone Bc Nelson MD Primary Care Provider [phone] Avery SANDERS, Humberto Casillas Unavailable [phone] Kirill Desai Unavailable [phone] Reason for Visit and Chief Complaint [facility] Problems Includes: Problems addressed during this encounter and other active Problems All Visits Onset Date Resolved Date Provider Condition S tatus Lower Back Pain 12/18/2016 Humberto Varela MD Act juwan Plan of Treatment No Plan of Treatment Recorded Assessments Includes: Assessments from this encounter No Assessments Recorded Medical Equipment - Implanted Devices Includes: Current Devices No Medical Equipment Recorded Medications Includes: Medications discussed during this encounter and other current Medications Current Medications (continue as prescribed) Venlafaxine HCl ER 150 MG Or al Capsule Extended Release 24 Hour 11/21/2022 Provider: Diagnosis: Citalopram Hydrobromide 20 MG Oral Tablet 11/05/2022 Provider: Diagnosis:
--- OUTSIDE RECORDS SUMMARY | 2023-09-07 09:57 | XMS_ITS | Clinical Summary ---
Author Name Unknown Address [address] [place] [address] Phone Organization [facility] Address [address] [place] [address] Phone Care Team Providers Care Parts Person Name Role Phone Bc Nelson MD Primary Care Provider [phone] Avery SANDERS, Humberto Casillas Unavailable [phone] Kirill Desai Unavailable [phone] Reason for Visit and Chief Complaint The Chief Complaint is: L4-S1 Lami POV Problems Includes: Problems addressed during this encounter and other active Problems Current Visit Onset Date Resolved Date Provider Alexia candelaria Status Lower Back Pain 12/18/2016 Humberto Varela MD Act juwan Plan of Treatment Instructions to patient Lose weight Last Documented On 3 1:55PM ; [facility], [facility] Assessments Includes: Assessments from this encounter Findings L4-S1 laminectomy January 07, 2023 - Last Documented On 01/23/2023 7:50AM ; [facility], [facility] Instructions Includes: Instructions from this encounter Instructions to patient Lose weight Last Documented On 3 1:55PM ; [facility], [facility] Medical Equipment - Implanted Devices Includes: Current Devices No Medical Equipment Recorded Medications Includes: Medications discussed during this encounter and other current Medications
--- OUTSIDE RECORDS SUMMARY | 2023-09-07 09:57 | XMS_ITS | Clinical Summary ---
Author Name Unknown Address [address] [place] [address] Phone Organization [facility] , [facility] Address [address] [place] [address] Phone Care Team Providers Care Pie Cutter Name Role Phone Bc Nelson MD Primary Care Provider [phone] Avery SANDERS, Humberto Casillas Unavailable [phone] Kirill Desai Unavailable [phone] Reason for Visit and Chief Complaint The Chief Complaint is: Low back/leg pain Problems Includes: Problems addressed during this encounter and other active Problems Current Visit Onset Date Resolved Date Provider Conditio n Status Lower Back Pain 12/18/2016 Humberto Varela MD Act juwan Plan of Treatment Patient was seen by myself Geraldo Belle PA-C. Patient will follow up with Dr. Varela after lumbar spine MRI. - Last Documented On 05/12/2023 12:50PM ; [facility] Pending Tests Order Diagnosis Results Due Ordering [facility] - MRI MRI Lumbar Spine Low back pain 05/25/23 Geraldo Belle PA-C Instructions to patient Lose weight Last Documented On 2:43PM ; [facility], [facility] Assessments Includes: Assessments from this encounter Findings L4-S1 laminectomy January 07, 2023 - Last Documented On 05/12/2023 12:50PM ; [facility] Right leg radiculopathy possible recurrence of spinal stenosis - Last Documented On
[2023-09-07 10:38] VITALS: BP 144/86; PULSE 82; RESP 18; O2SAT 97; BMI 40.6
== END ==
LOC: SC.PAIN 09:54
PROVIDERS: PCP Nurse Practitioner Family; Visit Provider Nurse Practitioner Family
DX: M51.16 Intervertebral disc disorders with radiculopathy, lumbar region (principal); G54.9 Nerve root and plexus disorder, unspecified; M54.42 Lumbago with sciatica, left side; M54.41 Lumbago with sciatica, right side; G89.29 Other chronic pain; M46.1 Sacroiliitis, not elsewhere classified; M70.60 Trochanteric bursitis, unspecified hip
CPT/HCPCS: 99202; G0463

== ENCOUNTER → 2023-09-07 12:53 | Outpatient (CLI) | payer OTHER, SELFPAY ==
--- NOTE | 2023-09-07 12:53 | US_ITS ---
PROCEDURE: US TRANSVAGINAL CLINICAL INDICATION: Pelvic pain COMPARISON: No exams were available for comparison FINDINGS: Transvaginal sonographic images of the pelvis were obtained. UTERUS: 6.1 cm x 4.3 cm x 2.9 cm with a combined endometrial thickness of 1.9mm. Uterus is anteverted and anteflexed. There are several nabothian cysts in the cervix. The largest measures 1.1 cm. Post ablation changes and the endometrium is thin. There is a small hyperechoic area in the posterior endometrium with posterior shadowing measuring 5.1 mm x 2.3 mm x 4.3 mm. LEFT OVARY: [id number] with a volume of 3.5ml. RIGHT OVARY: Not visualized and may be surgically absent. There is no fluid in the cul-de-sac. IMPRESSION: 1. Anteverted, anteflexed uterus normal in shape and size. 2. The endometrium is thin with an echogenic area that has posterior shadowing in the posterior aspect of the uterus. 3. The right ovary has been surgically removed, the left ovary is normal in shape and size. 4. No fluid in the cul-de-sac Dictated by: Derick Dickson MD 09/07/2023 16:47 Derick Dickson MD in OV 09/07/2023 16:47
== END ==
PROVIDERS: PCP Nurse Practitioner Family; Visit Provider Nurse Practitioner Family
DX: R10.2 Pelvic and perineal pain (principal)
CPT/HCPCS: 76830

== ENCOUNTER 2023-09-22 09:06 | Day surgery (SDC) | payer OTHER, SELFPAY ==
--- OUTSIDE RECORDS SUMMARY | 2023-09-22 09:08 | XMS_ITS ---
Author Name Unknown Address [address] [place] [address] Phone Organization [facility] Address [address] [place] [address] Phone Care Team Providers Care [employer] Tech Name Role Phone Omar SANDERS, Bc Randhawa Primary Care Provider [phone] Avery SANDERS, Humberto Casillas Unavailable [phone] Kirill Desai Unavailable [phone] Problems Includes: Active, inactive, and resolved Problems All Visits Onset Date Resolved Date Provider Condition S tatus Lower Back Pain 12/18/2016 Humberto Varela MD Act juwan Plan of Treatment Pending Tests Order Diagnosis Results Due Ordering P rovider Radiology - MRI MRI Lumbar Spine Low back pain 05/25/23 Geraldo Belle PA-C Instructions to patient Lose weight Last Documented On 3 8:27AM ; [facility] Lose weight Last Documented On 3 2:43PM ; [facility] Lose weight Last Documented On 3 1:55PM ; [facility] Lose weight Last Documented On 3 4:04PM ; [facility] Lose weight Last Documented On 3 8:17AM ; [facility] No intervention and counseli ng on cessation of tobacco use Last Documented On 7 1:02PM ; [facility] No intervention and counseli ng on cessation of tobacco use Last Documented On 7 8:59AM ; [facility] Education and Decision Aids were provided during visit for: No health seminar on smoking cessation Last Documented On 7 1:02PM ; [facility] No health seminar on smoking cessation Last Documented On 7 8:59AM ; [facility] Assessments Includes: Assessments for all patient encounters Findings Encounter Date Overweight Follow Up with Humberto Varela MD 07/02/2023 Instructions Includes: Instructions for all patient encounters Instructions to patient Lose weight Last Documented On 3 8:27AM ; [facility] Lose weight Last Documented On 3 2:43PM ; [facility] Lose weight Last Documented On 3 1:55PM ; [facility] Lose weight Last Documented On 3 4:04PM ; [facility] Lose weight Last Documented On 3 8:17AM ; [facility] No intervention and counseli ng on cessation of tobacco use Last Documented On 7 1:02PM ; [facility] No intervention and counseli ng on cessation of tobacco use Last Documented On 7 8:59AM ; [facility] Education and Decision Aids were provided during visit for: No health seminar on smoking cessation Last Documented On 7 1:02PM ; [facility] No health seminar on smoking cessation Last Documented On 7 8:59AM ; [facility] Medical Equipment - Implanted Devices Includes: Current and historical Devices No Medical Equipment Recorded Medications Includes: Current and historical Medications Current Medications (continue as prescribed) Venlafaxine HCl ER 150 MG Or al Capsule Extended Release 24 Hour 11/21/2022 Provider: Diagnosis: Citalopram Hydrobromide 20 MG Oral Tablet 11/05/2022 Provider: Diagnosis: hydroCHLOROthiazide 25 MG Oral Tablet 11/05/2022 Pro vider: Diagnosis: Past Medications on file Methocarbamol 750 MG Oral Tablet 07/02/2023 - 08/31/20 Provider: Humberto Varela MD Diagnosis: Take 1 tablet every 8 hrs prn pain HYDROcodone-Acetaminophen 5- 325 MG Oral Tablet 01/22/2023 - 02/06/2023 Provider: Humberto Varela MD Diagnosis: Take 1 tablet every 8 hrs prn pain Clindamycin HCl 300 MG Oral Capsule 01/19/2023 - 01/26/2023 Provider: Geraldo Bernardo Diagnosis: Take 2 tablets by mouth every 8 hours HYDROcodone-Acetaminophen 7. 5-325 MG Oral Tablet 01/05/2023 - 01/20/2023 Provider: Humberto Varela MD Diagnosis: 1 po q 4h prn pain Flector 1.3 % Patch 12/18/2016 - 01/17/2017 Provider: Humberto Varela MD Diagnosis: take as directed Lisinopril 20 MG Tablet 12/01/2016 - 11/27/2022 Provid er: Diagnosis: PriLOSEC 10 MG Packet 12/01/2016 - 11/27/2022 Provider : Diagnosis: Medications Administered Includes: Administered Medications in patient's chart No Administered Medications Recorded Vital Signs Includes: Vital Signs from 09/22/2022 through 09/22/2023 Vital Name 07/02/2023 08:30A 05/11/2023 02:50P 01/22/2023 02:05P 01/19/2023 04:05P 11/27/2022 08:09A Height (in) 65 65 65 65 65 Weight (lb) 250 225 225 225 220 Body Mass Index 41.6 37.4 37.4 37.4 36.6 Body Surface Area 2.2 2.1 2.1 2.1 2.1 Blood Pressure Sitting (mmHg) 124/87 Pulse Rate-Sitting (bpm) 84 Note: sg mg mg MG mg Last Documented On: 07/02/2023 8:30AM ; [facility] 05/11/2023 2:50PM ; [facility] 01/22/2023 2:05PM ; [facility] 01/19/2023 4:05PM ; [facility] 11/27/2022 8:17AM ; [facility] Results Includes: Results from 09/22/2022 through 09/22/2023 No Results Recorded For Specified Dates History of Present Illness History of Present Illness not supported for this document type No History of Present Illness Recorded Social History Description Last Updated Tobacco non-user 07/02/2023 Procedures and Surgical History Includes: Procedures from 09/22/2022 through 09/22/2023 Procedures Code Diagnosis Performing Provider Service Location Service Date X-RAY EXAM OF LOWER SPINE 2-3 VIEWS LIMITED [address]8949 Radiculopathy, lumbar region Geraldo Belle PA-C [facility] 05/11/2023 Surgical History Last Updated History of back surgery L5-S1 Fusion 200 8 11/27/2022 Medical History Includes: Medical History in patient's chart Description Last Updated History of depression 11/27/2022 Family History Includes: Family History in patient's chart Description Last Updated Diabetes mellitus 11/27/2022 Review of Systems Review of Systems not supported for this document type No Review of Systems Recorded Mental Status Description No anxiety Functional Status No Functional Status Recorded Physical Exam Physical Exam not supported for this document type No Physical Exam Recorded Allergies Includes: Active, inactive, and resolved Allergies Substance Type Reaction Onset Date Resolved Date Statu s traMADol HCl Allergy 12/01/2016 Active Encounters Includes: Encounters from 09/22/2022 through 09/22/2023 Encounter Provider Location Date Check-In Time Check-Out Time Diagnosis Follow Up Humberto Varela MD [facility] 07/02/20 8:27AM 8:45AM Overweight Follow Up Geraldo Belle PA-C [facility] 05/11/20 23 2:43PM 3:12PM Post Op Humberto Varela MD [facility] 01/23/20 23 1:34PM 2:26PM Post Op Geraldo Belle PA-C [facility] 01/20/20 23 4:00PM 4:27PM [facility] Humberto Varela MD Surgery 01/08/20 23 01/08/2023 11:18AM 11/27/2022 11:59PM [Patient Encounter] Humberto Varela MD 01/06/20 23 11/27/2022 1:31PM 11/27/2022 11:59PM [Patient Encounter] Humberto Varela MD 12/07/19 23 11/27/2022 10:15PM 11/27/2022 11:59PM Physician Specified Humberto Varela MD [facility] 11/27/19 8:11AM 8:35AM Insurance Includes: Active Insurance Policies Plan Name Member ID Group # Subscriber Relationship Effect juwan Dates 1 - [facility] [id number] Tiffanie Glasogw Self Clinical Notes Includes: Signed Clinical Notes starting from 10/09/2022 * Progress note Date Encounter Last Documented by 07/02/2023 Follow Up Last documented on 07/02/2023; 4:54 PM, Humberto Varela MD; [facility] Active Problems & Conditions - Lower Back Pain Chief Complaint The Chief Complaint is: Low back/leg pain. Referred Here Referred by PCP. History of Present Illness Tiffanie Glasgow is a 47 year old female. - Allergy list reviewed - Problem list reviewed - Medication list reviewed with patient Patient a previous L4-L5 L5-S1 lumbar laminectomy January 06, 2023 she did well until about the beginning of April and symptoms count returned mainly in the right leg radiates down the right leg to the side of the foot difficulty standing and walking. She denies any bowel or bladder issues with this. Current Medication - Citalopram Hydrobromide 20 MG Oral Tablet 30 days, 0 refills - hydroCHLOROthiazide 25 MG Oral Tablet 30 days, 0 refills - Venlafaxine HCl ER 150 MG Oral Capsule Extended Release 24 Hour 30 days, 0 refills Past Medical/Surgical History Reported: Medical: Gallbladder disease. Diagnoses: Hypertension. Gastric ulcer. Depression past medical/surgical history [use for free text]. Procedural: - History of Gallbladder Surgical: - Back surgery L5-S1 Fusion 2007 Social History Not a current smoker. Current diet: No recent change in diet. No recent change in diet. Caffeine use: Caffeine use. Tobacco use: No tobacco use and not a current smoker. Tobacco non-user. Alcohol: Not using alcohol. Drug Use: Not using drugs. Habits: Not exercising regularly. Allergies - Percocet - traMADol HCl Family History Cancer Heart disease Diabetes mellitus Systemic hypertension Thromboembolic disease Rheumatoid arthritis Review Of Systems Systemic: Not feeling tired and no recent weight loss. Recent weight gain. No edema. Head: Headache and sinus pain. Eyes: No vision problems and no glaucomatous visual field defect. No Cataracts. Glasses/Contacts. No Glaucoma. Otolaryngeal: No hearing loss and no tinnitus. No nasal symptoms. Cardiovascular: No chest pain or discomfort, no palpitations, no Hypertension, and no High Cholesterol. Pulmonary: No daytime asthma symptoms, no cough, and no chronic cough. No wheezing. Gastrointestinal: No heartburn and no abdominal pain. No Indigestion, no Acid Reflux, no Peptic Ulcer, no GI Stomach Bleed, and no Ulcers. Endocrine: No hot flashes, no muscle weakness, no Diabetes, no Hypothyroid, and no Hyperthyroid. Hematologic: No easy bleeding, no tendency for easy bruising, and no Anemia. Musculoskeletal: No Arthritis. Lower back pain. No soft tissue swelling. Pain localized to one or more joints. Neurological: No dizziness, no convulsions, and no numbness. Psychological: No anxiety and no emotional lability. Depression. No insomnia. Not crying for no reason. Skin: No dry skin. No Ulcers, no Scars, no rash, and no ulcers. Allergic and Immunologic: No complaint of seasonal allergic reaction. Physical Findings - Vitals taken 07/02/2023 08:30 am sg Height 65 in Weight 250 lbs Body Mass Index 41.6 kg/m2 Body Surface Area 2.2 m2 Standard Measurements: - Patient was overweight. Pleasant oriented x3. She is overweight. She is 4+ out of 5 EHL gastroc quadricep tibialis anterior strength bilaterally 1+ patellar and Achilles reflexes bilaterally negative straight leg raise bilaterally Tests lumbar spine MRI shows a some recurrence of the stenosis at L4-L5 L5-S1 on the right Assessment - Overweight L4-L5 L5-S1 spinal stenosis Previous Tests Available previous imaging studies were reviewed Available previous history reviewed Counseling/Education - Lose weight Plan StartCited - Low back pain Therapy/Physical Therapy: Lumbar Instructions: See PT order attached EndCited StartCited - Other Methocarbamol 750 MG tablet Take 1 tablet every 8 hrs prn pain, 30 days, 1 refills EndCited Patient was seen by myself and Dr. Avery Belle PA-C. Patient will follow up 6 weeks last resort for her be a lumbar fusion working to see if we can have her start some physical therapy prescription for Robaxin continue with anti-inflammatories as she is using Aleve [id number] and will try a L5-S1 transforaminal injection on the right side Notes This dictation was done with voice recognition software and may contain errors and omissions. Practice Management Use of tobacco assessment performed Review of medications documented. Care Team - Kirill Desai Health Reminders - Assess BMI satisfied 07/02/2023. - Assess Tobacco Use satisfied 12/18/2016. - Follow Up Plan BMI Management satisfied 07/02/2023. * Progress note Date Encounter Last Documented by 05/11/2023 Follow Up Last documented on 05/12/2023; 12:50 PM, Geraldo Chavez; [facility] Active Problems & Conditions - Lower Back Pain Chief Complaint The Chief Complaint is: Low back/leg pain. Referred Here Referred by PCP. History of Present Illness Tiffanie Glasgow is a 47 year old female. - Allergy list reviewed - Problem list reviewed - Medication list reviewed with patient Patient is here today complaints of back and right leg pain has been on for about 2 weeks is getting worse. She had a previous lumbar decompression L5-S1 March 09, [address] Varela for spinal stenosis. Says this bothers her more when she tries to walk will radiate down the right leg to the lateral ankle top of the foot she has difficulty sleeping difficulties laying on her back. She had no injury and no bowel or bladder issues with this. Current Medication - Citalopram Hydrobromide 20 MG Oral Tablet 30 days, 0 refills - hydroCHLOROthiazide 25 MG Oral Tablet 30 days, 0 refills - Venlafaxine HCl ER 150 MG Oral Capsule Extended Release 24 Hour 30 days, 0 refills Past Medical/Surgical History Reported: Medical: Gallbladder disease. Diagnoses: Hypertension. Gastric ulcer. Depression past medical/surgical history [use for free text]. Procedural: - History of Gallbladder Surgical: - Back surgery L5-S1 Fusion 2007 Social History Not a current smoker. Current diet: No recent change in diet. No recent change in diet. Caffeine use: Caffeine use. Tobacco use: No tobacco use and not a current smoker. Tobacco non-user. Smoking status: Never smoker. Alcohol: Not using alcohol. Drug Use: Not using drugs. Habits: Not exercising regularly. Allergies - Percocet - traMADol HCl Family History Cancer Heart disease Diabetes mellitus Systemic hypertension Thromboembolic disease Diabetes mellitus Rheumatoid arthritis Review Of Systems Systemic: Not feeling tired and no recent weight loss. Recent weight gain. No edema. Head: Headache and sinus pain. Eyes: No vision problems and no glaucomatous visual field defect. No Cataracts. Glasses/Contacts. No Glaucoma. Otolaryngeal: No hearing loss and no tinnitus. No nasal symptoms. Cardiovascular: No chest pain or discomfort, no palpitations, no Hypertension, and no High Cholesterol. Pulmonary: No daytime asthma symptoms, no cough, and no chronic cough. No wheezing. Gastrointestinal: No heartburn and no abdominal pain. No Indigestion, no Acid Reflux, no Peptic Ulcer, no GI Stomach Bleed, and no Ulcers. Endocrine: No hot flashes, no muscle weakness, no Diabetes, no Hypothyroid, and no Hyperthyroid. Hematologic: No easy bleeding, no tendency for easy bruising, and no Anemia. Musculoskeletal: No Arthritis. Lower back pain. No soft tissue swelling. Pain localized to one or more joints. Neurological: No dizziness, no convulsions, and no numbness. Psychological: No anxiety and no emotional lability. Depression. No insomnia. Not crying for no reason. Skin: No dry skin. No Ulcers, no Scars, no rash, and no ulcers. Allergic and Immunologic: No complaint of seasonal allergic reaction. Physical Findings - Vitals taken 05/11/2023 02:50 pm mg Height 65 in Weight 225 lbs Body Mass Index 37.4 kg/m2 Body Surface Area 2.1 m2 Standard Measurements: - Patient was overweight. Pleasant alert and AOx3 seems to walk with a normal gait she has 4+ out of 5 EHL gastroc quadricep tibialis anterior strength bilaterally blunted patellar and Achilles reflexes bilaterally Tests 2 views lumbar spine shows degenerative changes L5-S1 05/11/23 Assessment L4-S1 laminectomy January 07, 2023 Right leg radiculopathy possible recurrence of spinal stenosis Previous Tests Available previous imaging studies were reviewed Available previous history reviewed Counseling/Education - Lose weight Plan StartCited - Low back pain Radiology/MRI: MRI Lumbar Spine EndCited Patient was seen by myself Geraldo Belle PA-C. Patient will follow up with Dr. Varela after lumbar spine MRI. Notes This dictation was done with voice recognition software and may contain errors and omissions. Practice Management Use of tobacco assessment performed. Care Team - Kirill Desai Health Reminders - Assess BMI satisfied 05/11/2023. - Assess Tobacco Use satisfied 12/18/2016. - Follow Up Plan BMI Management satisfied 05/11/2023. * Progress note Date Encounter Last Documented by 01/22/2023 Post Op Last documented on 01/23/2023; 7:50 AM, Humberto Varela MD; [facility] Active Problems & Conditions - Lower Back Pain Chief Complaint The Chief Complaint is: L4-S1 Lami POV. Referred Here Referred by PCP. History of Present Illness Tiffanie Glasgow is a 47 year old female. - Allergy list reviewed - Problem list reviewed - Medication list reviewed with patient Current Medication - Citalopram Hydrobromide 20 MG Oral Tablet 30 days, 0 refills - Clindamycin HCl 300 MG Oral Capsule Take 2 tablets by mouth every 8 hours, 7 days, 0 refills - hydroCHLOROthiazide 25 MG Oral Tablet 30 days, 0 refills - Venlafaxine HCl ER 150 MG Oral Capsule Extended Release 24 Hour 30 days, 0 refills Past Medical/Surgical History Reported: Medical: Gallbladder disease. Diagnoses: Hypertension. Gastric ulcer. Depression past medical/surgical history [use for free text]. Procedural: - History of Gallbladder Surgical: - Back surgery L5-S1 Fusion 2007 Social History Not a current smoker. Current diet: No recent change in diet. Caffeine use: Caffeine use. Tobacco use: Tobacco non-user. Alcohol: Not using alcohol. Drug Use: Not using drugs. Habits: Not exercising regularly. Allergies - Percocet - traMADol HCl Family History Cancer Heart disease Diabetes mellitus Systemic hypertension Thromboembolic disease Diabetes mellitus Rheumatoid arthritis Review Of Systems Systemic: Not feeling tired and no recent weight loss. Recent weight gain. No edema. Head: Headache and sinus pain. Eyes: No vision problems and no glaucomatous visual field defect. No Cataracts. Glasses/Contacts. No Glaucoma. Otolaryngeal: No hearing loss and no tinnitus. No nasal symptoms. Cardiovascular: No chest pain or discomfort, no palpitations, no Hypertension, and no High Cholesterol. Pulmonary: No daytime asthma symptoms, no cough, and no chronic cough. No wheezing. Gastrointestinal: No heartburn and no abdominal pain. No Indigestion, no Acid Reflux, no Peptic Ulcer, no GI Stomach Bleed, and no Ulcers. Endocrine: No hot flashes, no muscle weakness, no Diabetes, no Hypothyroid, and no Hyperthyroid. Hematologic: No easy bleeding, no tendency for easy bruising, and no Anemia. Musculoskeletal: No Arthritis. Lower back pain. No soft tissue swelling. Pain localized to one or more joints. Neurological: No dizziness, no convulsions, and no numbness. Psychological: No anxiety and no emotional lability. Depression. No insomnia. Not crying for no reason. Skin: No dry skin. No Ulcers, no Scars, no rash, and no ulcers. Allergic and Immunologic: No complaint of seasonal allergic reaction. Physical Findings - Vitals taken 01/22/2023 02:05 pm mg Height 65 in Weight 225 lbs Body Mass Index 37.4 kg/m2 Body Surface Area 2.1 m2 Standard Measurements: - Patient was overweight. Assessment L4-S1 laminectomy January 07, 2023 Previous Tests Available previous imaging studies were reviewed Available previous history reviewed Counseling/Education - Lose weight Plan StartCited - Other HYDROcodone-Acetaminophen 5-325 MG tablet Take 1 tablet every 8 hrs prn pain, 15 days, 0 refills EndCited Notes This dictation was done with voice recognition software and may contain errors and omissions. Patient is here for follow-up of her lumbar laminectomy. She is feeling better. Incisions clean dry and intact. She has good strength both lower extremities. Recommend she do some gentle stretching and we will see her back in 6 weeks Practice Management Use of tobacco assessment performed. Care Team - Kirill Desai Health Reminders - Assess BMI satisfied 01/22/2023. - Assess Tobacco Use satisfied 01/23/2023. - Follow Up Plan BMI Management satisfied 01/22/2023. * Progress note Date Encounter Last Documented by 01/19/2023 Post Op Last documented on 01/20/2023; 8:12 AM, Geraldo Belle PA-C; [facility] Active Problems & Conditions - Lower Back Pain Chief Complaint The Chief Complaint is: L4-S1 Lami POV. Referred Here Referred by PCP. History of Present Illness Tiffanie Glasgow is a 47 year old female. - Allergy list reviewed - Problem list reviewed - Medication list reviewed with patient Patient is here today for follow-up of her back surgery she noticed on Thursday that her incision had been draining some and she is having some increased pain with that. She wanted to have the incision checked today Current Medication - Citalopram Hydrobromide 20 MG Oral Tablet 30 days, 0 refills - hydroCHLOROthiazide 25 MG Oral Tablet 30 days, 0 refills - HYDROcodone-Acetaminophen 7.5-325 MG Oral Tablet 1 po q 4h prn pain, 15 days, 0 refills - Venlafaxine HCl ER 150 MG Oral Capsule Extended Release 24 Hour 30 days, 0 refills Past Medical/Surgical History Reported: Medical: Gallbladder disease. Diagnoses: Hypertension. Gastric ulcer. Depression past medical/surgical history [use for free text]. Procedural: - History of Gallbladder Surgical: - Back surgery L5-S1 Fusion 2007 Social History Not a current smoker. Current diet: No recent change in diet. No recent change in diet. Caffeine use: Caffeine use. Tobacco use: No tobacco use and not a current smoker. Tobacco non-user. Smoking status: Never smoker. Alcohol: Not using alcohol. Drug Use: Not using drugs. Habits: Not exercising regularly. Allergies - Percocet - traMADol HCl Family History Cancer Heart disease Diabetes mellitus Systemic hypertension Thromboembolic disease Diabetes mellitus Rheumatoid arthritis Review Of Systems Systemic: Not feeling tired and no recent weight loss. Recent weight gain. No edema. Head: Headache and sinus pain. Eyes: No vision problems and no glaucomatous visual field defect. No Cataracts. Glasses/Contacts. No Glaucoma. Otolaryngeal: No hearing loss and no tinnitus. No nasal symptoms. Cardiovascular: No chest pain or discomfort, no palpitations, no Hypertension, and no High Cholesterol. Pulmonary: No daytime asthma symptoms, no cough, and no chronic cough. No wheezing. Gastrointestinal: No heartburn and no abdominal pain. No Indigestion, no Acid Reflux, no Peptic Ulcer, no GI Stomach Bleed, and no Ulcers. Endocrine: No hot flashes, no muscle weakness, no Diabetes, no Hypothyroid, and no Hyperthyroid. Hematologic: No easy bleeding, no tendency for easy bruising, and no Anemia. Musculoskeletal: No Arthritis. Lower back pain. No soft tissue swelling. Pain localized to one or more joints. Neurological: No dizziness, no convulsions, and no numbness. Psychological: No anxiety and no emotional lability. Depression. No insomnia. Not crying for no reason. Skin: No dry skin. No Ulcers, no Scars, no rash, and no ulcers. Allergic and Immunologic: No complaint of seasonal allergic reaction. Physical Findings - Vitals taken 01/19/2023 04:05 pm MG Height 65 in Weight 225 lbs Body Mass Index 37.4 kg/m2 Body Surface Area 2.1 m2 Patient's incision was clean dry intact there is no [place] this was all with internal sutures there is at scant amount of drainage on the dressing today there is no erythema around the incision itself Assessment L4-S1 laminectomy January 07, 2023 Previous Tests Available previous imaging studies were reviewed Available previous history reviewed Counseling/Education - Lose weight Plan StartCited - Other Clindamycin HCl 300 MG capsule Take 2 tablets by mouth every 8 hours, 7 days, 0 refills EndCited Patient was seen by myself Geraldo Belle PA-C. Patient will follow up with myself and Dr. Varela on . We will place her on some clindamycin keep a dressing on this but some there is new Steri-Strips on it to Notes This dictation was done with voice recognition software and may contain errors and omissions. Practice Management Use of tobacco assessment performed. Care Team - Kirill Desai Health Reminders - Assess BMI satisfied 01/19/2023. - Assess Tobacco Use satisfied 12/18/2016. - Follow Up Plan BMI Management satisfied 01/19/2023. * Progress note Date Encounter Last Documented by 11/27/2022 Physician Specified Last documen tricia on 11/27/2022; 11:20 AM, Humberto Varela MD; [facility], [facility] Active Problems & Conditions - Lower Back Pain Chief Complaint The Chief Complaint is: Low back pain. Referred Here Referred by PCP. History of Present Illness Tiffanie Glasgow is a 47 year old female. - Allergy list reviewed - Problem list reviewed - Medication list reviewed with patient - Previous history of new onset pain 2021 - Pain is constant (100% of the time) - Pain is throbbing - Pain is dull, aching - Yes, previous treatment. PCP Current Medication - Citalopram Hydrobromide 20 MG Oral Tablet 30 days, 0 refills - hydroCHLOROthiazide 25 MG Oral Tablet 30 days, 0 refills - Venlafaxine HCl ER 150 MG Oral Capsule Extended Release 24 Hour 30 days, 0 refills Past Medical/Surgical History Reported: Medical: Gallbladder disease. Diagnoses: Hypertension. Gastric ulcer. Depression past medical/surgical history [use for free text]. Procedural: - History of Gallbladder Surgical: - Back surgery L5-S1 Fusion 2007 Social History Not a current smoker. Current diet: No recent change in diet. No recent change in diet. Caffeine use: Caffeine use. Tobacco use: No tobacco use and not a current smoker. Tobacco non-user. Smoking status: Never smoker. Alcohol: Not using alcohol. Drug Use: Not using drugs. Habits: Not exercising regularly. Allergies - Percocet - traMADol HCl Family History Cancer Heart disease Diabetes mellitus Systemic hypertension Diabetes mellitus Review Of Systems Systemic: Not feeling tired and no recent weight loss. Recent weight gain. No edema. Head: Headache and sinus pain. Eyes: No vision problems and no glaucomatous visual field defect. No Cataracts. Glasses/Contacts. No Glaucoma. Otolaryngeal: No hearing loss and no tinnitus. No nasal symptoms. Cardiovascular: No chest pain or discomfort, no palpitations, no Hypertension, and no High Cholesterol. Pulmonary: No daytime asthma symptoms, no cough, and no chronic cough. No wheezing. Gastrointestinal: No heartburn and no abdominal pain. No Indigestion, no Acid Reflux, no Peptic Ulcer, no GI Stomach Bleed, and no Ulcers. Endocrine: No hot flashes, no muscle weakness, no Diabetes, no Hypothyroid, and no Hyperthyroid. Hematologic: No easy bleeding, no tendency for easy bruising, and no Anemia. Musculoskeletal: No Arthritis. Lower back pain. No soft tissue swelling. Pain localized to one or more joints. Neurological: No dizziness, no convulsions, and no numbness. Psychological: No anxiety and no emotional lability. Depression. No insomnia. Not crying for no reason. Skin: No dry skin. No Ulcers, no Scars, no rash, and no ulcers. Allergic and Immunologic: No complaint of seasonal allergic reaction. Physical Findings - Vitals taken 11/27/2022 08:09 am mg BP-Sitting 124/87 mmHg Pulse Rate-Sitting 84 bpm Height 65 in Weight 220 lbs Body Mass Index 36.6 kg/m2 Body Surface Area 2.1 m2 Standard Measurements: - Patient was overweight. Previous Tests Musculoskeletal: History of Blood Tests. Imaging: X-Ray: An X-ray was performed. MRI Scan: An MRI was performed. Available previous imaging studies were reviewed Available previous history reviewed Counseling/Education - Lose weight Notes This dictation was done with voice recognition software and may contain errors and omissions. Patient is here with complaints of low back pain. Going on for a year. Radiates into both hips and down more down the left side to the side of the calf and L5 distribution. She had previous L5-S1 microdisc decompression 12 years ago on the left side. She has tried physical therapy and anti-inflammatories and she has had injections without success before her previous surgery she has weakness in EHL on the left side and a positive straight leg raise. Her symptoms are on both sides. Her MRI shows posterior lateral stenosis at L4-5 but also residual stenosis at L5-S1 and her previous surgery. She is failed conservative treatment. She wants to have it fixed and does not want to have injections. I discussed with her the risk benefits alternatives of an open laminectomy for revision decompression L5-S1 but also laminae L4-5 with medial facetectomies she understands and wishes to proceed Practice Management Use of tobacco assessment performed. Care Team - Kirill Desai Health Reminders - Assess BMI satisfied 11/27/2022. - Assess Tobacco Use satisfied 12/18/2016. - Follow Up Plan BMI Management satisfied 11/27/2022.
--- OUTSIDE RECORDS SUMMARY | 2023-09-22 09:08 | XMS_ITS | Clinical Summary ---
Author Name Unknown Address [address] [place] [address] Phone Organization [facility] , [facility] Address [address] [place] [address] Phone Care Team Providers Care Manager Learning Name Role Phone Bc Nelson MD Primary Care Provider [phone] Avery SANDERS, Humberto Casillas Unavailable [phone] Kirill Desai Unavailable [phone] Reason for Visit and Chief Complaint The Chief Complaint is: Low back/leg pain Problems Includes: Problems addressed during this encounter and other active Problems Current Visit Onset Date Resolved Date Provider Alexia candelaria Status Lower Back Pain 12/18/2016 Humberto Varela MD Act juwan Plan of Treatment Patient was seen by myself and Dr. Avery Belle PA-C. Patient will follow up 6 weeks last resort for her be a lumbar fusion working to see if we can have her start some physical therapy prescription for Robaxin continue with anti-inflammatories as she is using Aleve [id number] and will try a L5-S1 transforaminal injection on the right side - Last Documented On 07/02/2023 4:54PM ; [facility], [facility] Pending Tests Order Diagnosis Results Due Ordering P rovider Therapy - Physical Therapy Lumbar Low back pain Humberto Varela MD Instructions to patient Lose weight Last Documented On 8:27AM ; [facility], [facility] Assessments Includes: Assessments from this encounter Findings - Overweight - Last Documented On 07/02/2023 4:54PM ; [facility], [facility] L4-L5 L5-S1 spinal stenosis - Last Documented On 07/02/2023 4:54PM ; [facility], [facility] Instructions Includes: Instructions from this encounter Instructions to patient Lose weight Last Documented On 8:27AM ; [facility], [facility] Medical Equipment - Implanted Devices Includes: Current Devices No Medical Equipment Recorded Medications Includes: Medications discussed during this encounter and other current Medications New / Renewed during this visit Humberto Varela MD on 07/02/2023 Methocarbamol 750 MG Oral Tablet Provider: Humberto Varela MD 30 day supply: 60 tablet, 1 refills Diagnosis: Take 1 tablet every 8 hrs prn pain [facility] [address] [place] [address] Jose Guadalupe [place], [id number] - Current Medications (continue as prescribed) Venlafaxine HCl ER 150 MG Or al Capsule Extended Release 24 Hour 11/21/2022 Provider: Diagnosis: Citalopram Hydrobromide 20 MG Oral Tablet 11/05/2022 Provider: Diagnosis: hydroCHLOROthiazide 25 MG Oral Tablet 11/05/2022 Pro vider: Diagnosis: Past Medications on file HYDROcodone-Acetaminophen 5- 325 MG Oral Tablet 01/22/2023 [...] Humberto Varela MD Diagnosis: take as directed Medications Administered Includes: Administered Medications from this encounter No Administered Medications Recorded Vital Signs Includes: Vital Signs from this encounter Vital Name 07/02/2023 08:30A Height (in) 65 Weight (lb) 250 Body Mass Index 41.6 Body Surface Area 2.2 Note: sg Last Documented On: 07/02/2023 8:30AM ; [facility] Results Includes: Results discussed during this encounter No Results Recorded For Specified Dates History of Present Illness Includes: History of Present Illness from this encounter HPI Tiffanie Glasgow is a 47 year old [...] any bowel or bladder issues with this. Social History Description Last Updated Tobacco non-user 07/02/2023 Procedures and Surgical History Includes: Procedures from this encounter Procedures Code Diagnosis Performing Provider Service L ocation Service Date use of tobacco assessment performed 1000F Surgical History Last Updated History of back surgery L5-S1 Fusion 200 8 11/27/2022 Medical History Includes: Medical History addressed during this encounter Description Last Updated History of depression 11/27/2022 Family History Includes: Family History addressed during this encounter Description Last Updated Diabetes mellitus 11/27/2022 Review of Systems Includes: Review of Systems from this encounter Systemic: Not feeling tired and no recent [...] Immunologic: No complaint of seasonal allergic reaction. Mental Status Includes: Mental Status from this encounter Description No anxiety Functional Status Includes: Functional Status from this encounter No Functional Status Recorded Physical Exam Includes: Physical Exam from this encounter Allergies Includes: Active Allergies Substance Type Reaction Onset Date Resolved Date Statu s traMADol HCl Allergy 12/01/2016 Active Encounters Encounter Provider Location Date Check-In Time Check-Out Time Diagnosis Follow Up Humberto Varela MD [facility] 3 8:27AM 8:45AM Overweight Insurance Includes: Active Insurance Policies Plan Name Member ID Group # Subscriber Relationship Effect juwan Dates 1 - [facility]et [facility] [id number] Tiffanie Glasgow Self Clinical Notes Includes: Clinical Notes from this encounter * Progress note Date Encounter Last Documented by 07/02/2023 Follow Up Last documented on 07/02/2023; 4:54 PM, Humberto Varela MD; [facility], [facility] Active Problems & Conditions - Lower [...] with anti-inflammatories as she is using Aleve [id number] and will try a L5-S1 transforaminal injection [...]
--- OUTSIDE RECORDS SUMMARY | 2023-09-22 09:08 | XMS_ITS ---
Care Plan - [facility], [facility] Created on: September 22, 2023 Tiffanie Glasgow : 1975 Sex: Female Author Name Unknown Address [address] [place] [address] Phone Organization [facility] Address [address] [place] [address] Phone Care Team Providers Care Service Parts Coordinator Name Role Phone Omar SANDERS, Bc Randhawa Primary Care Provider [phone] Avery SANDERS, Humberto Casillas Unavailable [phone] Kirill Desai Unavailable [phone]
--- OUTSIDE RECORDS SUMMARY | 2023-09-22 09:09 | XMS_ITS | Clinical Summary ---
Author Name Unknown Address [address] [place] [address] Phone Organization [facility] , [facility] Address [address] [place] [address] Phone Care Team Providers Care Safety Investigator/Cause Analyst Name Role Phone Bc Nelson MD Primary Care Provider [phone] Avery SANDERS, Humberto Casillas Unavailable [phone] Kirill Desai Unavailable [phone] Reason for Visit and Chief Complaint The [...] - Last Documented On 05/12/2023 12:50PM ; [facility] Pending Tests Order Diagnosis Results Due Ordering [facility] - MRI MRI Lumbar Spine Low back pain 05/25/23 Geraldo Belle PA-C Instructions to patient Lose weight Last Documented On 3 2:43PM ; [facility], [facility] Assessments Includes: Assessments from this encounter Findings L4-S1 laminectomy January 07, 2023 - Last Documented On 05/12/2023 12:50PM ; [facility], [facility] Right leg radiculopathy possible recurrence of spinal stenosis - Last Documented On 05/12/2023 12:50PM ; [facility], [facility] Instructions Includes: Instructions from this encounter Instructions to patient Lose weight Last Documented On 3 2:43PM ; [facility] Medical Equipment - Implanted Devices [...] Vital Signs from this encounter Vital Name 05/11/2023 02:50P Height (in) 65 Weight (lb) 225 Body Mass Index 37.4 Body Surface Area 2.1 Note: mg Last Documented On: 05/11/2023 2:50PM ; [facility] Results Includes: Results discussed during [...] no bowel or bladder issues with this. Social History Description Last Updated Tobacco non-user 07/02/2023 Procedures and Surgical History Includes: Procedures from this encounter Procedures Code Diagnosis Performing Provider Service Location Service Date X-RAY EXAM OF LOWER SPINE 2-3 VIEWS LIMITED 01965 Radiculopathy, lumbar region Geraldo Belle PA-C [facility] 05/11/2023 Surgical History Last Updated History [...] Encounters Encounter Provider Location Date Check-In Time Check- Out Time Diagnosis Follow Up Geraldo Belle PA-C [facility] 3 2:43PM 3:12PM Insurance Includes: Active Insurance Policies Plan Name Member ID Group # Subscriber Relationship Effect juwan Dates 1 - Aetna [facility] [id number] Tiffanie Glasgow Self Clinical Notes Includes: Clinical Notes from this encounter * Progress note Date Encounter Last Documented by 05/11/2023 Follow Up Last documented on 05/12/2023; 12:50 PM, Geraldo Chavez; [facility], [facility] Active Problems & Conditions - Lower Back [...]
--- OUTSIDE RECORDS SUMMARY | 2023-09-22 09:09 | XMS_ITS | Clinical Summary ---
Author Name Unknown Address [address] [place] [address] Phone Organization [facility] , [facility] Address [address] [place] [address] Phone Care Team Providers Care Non Licensed Nuclear Equipment Operator Name Role Phone Bc Nelson MD Primary Care Provider [phone] Avery SANDERS, Humberto Casillas Unavailable [phone] Kirill Desai Unavailable [phone] Reason for Visit and Chief Complaint [facility] Problems Includes: Problems addressed during this encounter [...] MG Oral Tablet 11/05/2022 Pro vider: Diagnosis: Medications Administered Includes: Administered Medications from this encounter No Administered Medications Recorded Results Includes: Results discussed during this encounter No Results Recorded For Specified Dates History of Present Illness Includes: History of Present Illness from this encounter No History of Present Illness Recorded Social History No Social History Recorded - Smoking Status Unknown Procedures and Surgical History Includes: Procedures from this encounter Procedures Code Diagnosis Performing Provider Service Location Service Date Facetectomy, lumbar 42354 Spinal stenosis, lumbar region with neurogenic claudication Humberto Varela MD [facility] 01/07/2023 Medical History Includes: Medical History addressed during this encounter No Medical History Recorded Family History Includes: Family History addressed during this encounter No Family History Recorded Review of Systems Includes: Review of Systems from this encounter No Review of Systems Recorded Mental Status Includes: Mental Status from this encounter No Mental Status Recorded Functional Status Includes: Functional Status from this encounter No Functional Status Recorded Physical Exam Includes: Physical Exam from this encounter No Physical Exam Recorded Allergies Includes: Active Allergies Substance Type Reaction Onset Date Resolved Date Statu s traMADol HCl Allergy 12/01/2016 Active Encounters Encounter Provider Location Date Check-In Time Check-Out Time Diagnosis [facility] Humberto Varela MD Surgery 3 01/08/2023 11:18AM 11:59PM Insurance Includes: Active Insurance Policies Plan Name Member ID Group # Subscriber Relationship Effect juwan Dates 1 - Aetna [facility] [id number] Tiffanie Glasgow Self Clinical Notes Includes: Clinical Notes from this encounter No Clinical Notes Recorded
--- OUTSIDE RECORDS SUMMARY | 2023-09-22 09:09 | XMS_ITS | Clinical Summary ---
Author Name Unknown Address [address] [place] [address] Phone Organization [facility] , [facility] Address [address] [place] [address] Phone Care Team Providers Care Plumber'S Assistant Name Role Phone Bc Nelson MD Primary Care Provider [phone] Avery SANDERS, Humberto Casillas Unavailable [phone] Kirill Desai Unavailable [phone] Reason for Visit and Chief Complaint The [...] - Last Documented On 01/20/2023 8:12AM ; [facility] Pending Tests Order Diagnosis Results Due Ordering P rovider Radiology - MRI MRI Lumbar Spine Low back pain 05/25/23 Geraldo Belle PA-C Instructions to patient Lose weight Last Documented On 3 4:04PM ; [facility], [facility] Assessments Includes: Assessments from this encounter Findings L4-S1 laminectomy January 07, 2023 - Last Documented On 01/20/2023 8:12AM ; [facility], [facility] Instructions Includes: Instructions from this encounter Instructions to patient Lose weight Last Documented On 3 4:04PM ; [facility], [facility] Medical Equipment - Implanted Devices Includes: Current Devices No Medical Equipment Recorded Medications Includes: Medications discussed during this encounter and other current Medications New / Renewed during this visit Geraldo Belle PA-C on 01/19/2023 Clindamycin HCl 300 MG Oral Capsule Provider: Geraldo Belle PA-C 7 day supply: 42 capsule, 0 refills Diagnosis: Take 2 tablets by mouth every 8 hours [facility]acy[facility] [address] [place] [address] Jose Guadalupe [place], [id number] - Current Medications (continue as prescribed) Venlafaxine [...] tablet every 8 hrs prn pain HYDROcodone-Acetaminophen 7. 5-325 MG Oral Tablet 01/05/2023 - 01/20/2023 Provider: Humberto Varela MD Diagnosis: 1 po q 4h prn pain Flector 1.3 % Patch 12/18/2016 - 01/17/2017 Provider: Humberto Varela MD Diagnosis: take as directed Medications Administered Includes: Administered Medications from this encounter No Administered Medications Recorded Vital Signs Includes: Vital Signs from this encounter Vital Name 01/19/2023 04:05P Height (in) 65 Weight (lb) 225 Body Mass Index 37.4 Body Surface Area 2.1 Note: MG Last Documented On: 01/19/2023 4:05PM ; [facility], [facility] Results Includes: Results discussed during this encounter [...] wanted to have the incision checked today Social History Description Last Updated Tobacco non-user [...] Date Check-In Time Check- Out Time Diagnosis Post Op Geraldo Belle PA-C [facility] 3 4:00PM 4:27PM Insurance Includes: Active Insurance Policies Plan Name Member ID Group # Subscriber Relationship Effect juwan Dates 1 - [facility] [id number] Tiffanie Glasgow Self Clinical Notes Includes: Clinical Notes from this encounter * Progress note Date Encounter Last Documented by 01/19/2023 Post Op Last documented on 01/20/2023; 8:12 AM, Geraldo Belle PA-C; [facility], [facility] Active Problems & Conditions - [...] tobacco assessment performed. Care Team - Kirill Neus Health Reminders - Assess BMI satisfied 01/19/2023. - Assess Tobacco Use satisfied 12/18/2016. - Follow Up Plan BMI Management satisfied 01/19/2023.
--- OUTSIDE RECORDS SUMMARY | 2023-09-22 09:09 | XMS_ITS | Clinical Summary ---
Author Name Unknown Address [address] [place] [address] Phone Organization [facility] , [facility] Address [address] [place] [address] Phone Care Team Providers Care Ict Support And Test Engineers Name Role Phone Bc Nelson MD Primary Care Provider [phone] Avery SANDERS, Humberto Casillas Unavailable [phone] Kirill Desai Unavailable [phone] Reason for Visit and Chief Complaint The Chief Complaint is: L4-S1 Lami POV Problems Includes: Problems addressed during this encounter and other active Problems Current Visit Onset Date Resolved Date Provider Alexia candelaria Status Lower Back Pain 12/18/2016 Humberto Varela MD Act juwan Plan of Treatment Instructions to patient Lose weight Last Documented On 3 1:55PM ; [facility] Assessments Includes: Assessments from this encounter Findings L4-S1 laminectomy January 07, 2023 - Last Documented On 01/23/2023 7:50AM ; [facility], [facility] Instructions Includes: Instructions from this encounter Instructions to patient Lose weight Last Documented On 3 1:55PM ; [facility] Medical Equipment - Implanted Devices Includes: Current Devices No Medical Equipment Recorded Medications Includes: Medications discussed during this encounter and other current Medications New / Renewed during this visit Humberto Varela MD on 01/22/2023 HYDROcodone-Acetaminophen 5- 325 MG Oral Tablet Provider: Humberto Varela MD 15 day supply: 40 tablet, 0 refills Diagnosis: Take 1 tablet every 8 hrs prn pain [facility] [address] [place] [address], [id number] - Current Medications (continue as prescribed) Venlafaxine [...] Vital Signs from this encounter Vital Name 01/22/2023 02:05P Height (in) 65 Weight (lb) 225 Body Mass Index 37.4 Body Surface Area 2.1 Note: mg Last Documented On: 01/22/2023 2:05PM ; [facility], [facility] Results Includes: Results discussed during this encounter No Results Recorded For Specified Dates History of Present Illness Includes: History of Present Illness from this encounter MAGDIEL Glasgow is a 47 year old female. - Allergy list reviewed - Problem list reviewed - Medication list reviewed with patient Social History Description Last Updated Tobacco non-user 01/23/2023 Procedures and Surgical History Includes: Procedures from [...] Time Check- Out Time Diagnosis Post Op Humberto Varela MD [facility] 3 1:34PM 2:26PM Insurance Includes: Active Insurance Policies Plan Name Member ID Group # Subscriber Relationship Effect juwan Dates 1 - Aetna [facility] [id number] Tiffanie Glasgow Self Clinical Notes Includes: Clinical Notes from this encounter * Progress note Date Encounter Last Documented by 01/22/2023 Post Op Last documented on 01/23/2023; 7:50 AM, Humberto Varela MD; [facility], [facility] Active Problems & Conditions - Lower Back [...]
[2023-09-22 09:23] VITALS: BP 162/91; PULSE 84; RESP 16; TEMP 36.9; O2SAT 97; BMI 40.7
[2023-09-22] MEDS: methylPREDNISolone ACETATE 80MG/ML VIAL 80 MG (09:35)
[2023-09-22] MEDS: BUPIVACAINE 0.25% 10ML INJ 25 MG IJ (09:35)
[2023-09-22] MEDS: LIDOCAINE 1% 5ML PF VIAL 5 ML (09:35)
[2023-09-22 09:36] VITALS: BP 168/98; PULSE 90; PULSE 92; RESP 18; O2SAT 99
[2023-09-22 09:44] VITALS: BP 140/73; PULSE 75; RESP 16; O2SAT 97
--- NOTE | 2023-09-22 09:59 | P.PCN_ITS ---
Procedure Date: 09/22/23 Time: 09:20 Anesthesiologist:: Mazin Lees CRNA Complications:: None Pre-procedure Diagnosis:: Bilateral sacroiliitis. Degenerative disc disease lumbar spine multilevels. Lumbar radiculopathy. Lumbar postlaminectomy syndrome Post-procedure Diagnosis:: Same. Indications for Procedure:: Patient is a pleasant 39-year-old female comes to clinic today for bilateral sacroiliac joint injections. She has extreme point tenderness over the bilateral sacroiliac joints upon examination. Patient reports difficulty transitioning from sitting to standing. Difficulty with flexion of the lumbar spine. She rates her pain 7/10 Procedure Details:: Procedure: Bilateral sacroiliac joint injections under fluoroscopy Informed consent was obtained and the risks and benefits of the procedure were explained to the patient.~ The patient was taken to the procedure room and noninvasive monitors were placed including a noninvasive blood pressure cuff and pulse oximeter.~ The patient was placed prone on the procedure table. Both hips were cleansed using Betadine as a cleansing solution. C-arm fluoroscopy was used to view the right sacroiliac joint.~ The skin and subcutaneous tissues were anesthetized using lidocaine 1.5% and a 25-gauge needle.~ After this, a 22-gauge spinal needle was inserted under fluoroscopic guidance into the inferior aspect of the right sacroiliac joint.~ Omnipaque dye was injected and good spread was seen throughout the joint.~ After this, approximately 5 mL of bupivacaine, 0.25% and Depo-Medrol, 40 mg was incrementally injected into the right sacroiliac joint. We then moved to the left sacroiliac joint.~ The skin and subcutaneous tissues were anesthetized using lidocaine 1.5% and a 25-gauge needle.~ After this, a 22- gauge spinal needle was inserted under fluoroscopic guidance into the inferior aspect of the left sacroiliac joint.~ Omnipaque dye was injected and good spread was seen throughout the joint. After this, approximately 5 mL of bupivacaine, 0.25% and Depo-Medrol, 40 mg was incrementally injected into the left sacroiliac joint.~ The patient tolerated the procedure well with no complications. The patient was observed in the Pain Clinic and then was discharged home neuro logically intact. Plan and Disposition:: Patient was discharged without incident.
== END 2023-09-22 09:44 | disposition home or self-care (01) ==
LOC: SC.PAINP 09:06
PROVIDERS: PCP Nurse Practitioner Family; Visit Provider Nurse Anesthetist, Certified Registered
DX: M46.1 Sacroiliitis, not elsewhere classified (principal); M51.16 Intervertebral disc disorders with radiculopathy, lumbar region; M96.1 Postlaminectomy syndrome, not elsewhere classified
CPT/HCPCS: 27096; G0260; J1040

== ENCOUNTER 2023-10-21 09:33 | Emergency (ER) | payer OTHER, SELFPAY ==
[2023-10-21 09:34] VITALS: BP 147/90; PULSE 89; RESP 19; TEMP 36.8; O2SAT 98; BMI 39.9
--- OUTSIDE RECORDS SUMMARY | 2023-10-21 09:38 | XMS_ITS ---
Author Name Unknown Address [address] [address] Phone Organization [facility] Address [address] [place] [place] [address] Phone Care Team Providers Care Office Machine Service Supervisor Name Role Phone Omar SANDERS, Bc Randhawa Primary Care Provider [phone] Avery SANDERS, Humberto Casillas Unavailable [phone] Kirill Desai Unavailable [phone] Problems Includes: Active, inactive, and resolved Problems All Visits Onset Date Resolved Date Provider Condition S tatus Lower Back Pain 12/18/2016 Humberto Varela MD Act juwan Plan of Treatment Pending Tests Order Diagnosis Results Due Ordering P rovider Radiology - MRI MRI Lumbar Spine Low back pain 05/25/23 Geraldo Belle PA-C Instructions to patient Lose weight Last Documented On 3 8:27AM ; [facility] Lose weight Last Documented On 3 2:43PM ; [facility] Lose weight Last Documented On 3 1:55PM ; [facility] Lose weight Last Documented On 3 4:04PM ; [facility] Lose weight Last Documented On 3 8:17AM ; [facility] No intervention and counseli ng on cessation of tobacco use Last Documented On 7 1:02PM ; [facility] No intervention and counseli ng on cessation of tobacco use Last Documented On 7 8:59AM ; [facility], [facility] Education and Decision Aids were provided during visit for: No health seminar on smoking cessation Last Documented On 7 1:02PM ; [facility] No health seminar on smoking cessation Last Documented On 7 8:59AM ; [facility] Assessments Includes: Assessments for all patient encounters Findings Encounter Date Overweight Follow Up with Humberto Varela MD 07/02/2023 Instructions Includes: Instructions for all patient encounters Instructions to patient Lose weight Last Documented On 3 8:27AM ; [facility] Lose weight Last Documented On 3 2:43PM ; [facility] Lose weight Last Documented On 3 1:55PM ; [facility] Lose weight Last Documented On 3 4:04PM ; [facility] Lose weight Last Documented On 3 8:17AM ; [facility] No intervention and counseli ng on cessation of tobacco use Last Documented On 7 1:02PM ; [facility] No intervention and counseli ng on cessation of tobacco use Last Documented On 7 8:59AM ; [facility] Education and Decision Aids were provided during visit for: No health seminar on smoking cessation Last Documented On 7 1:02PM ; [facility] No health seminar on smoking cessation Last Documented On 7 8:59AM ; [facility] Medical Equipment - Implanted Devices Includes: [...] Recorded Vital Signs Includes: Vital Signs from 10/21/2022 through 10/21/2023 Vital Name 07/02/2023 08:30A 05/11/2023 02:50P 01/22/2023 02:05P 01/19/2023 04:05P 11/27/2022 08:09A Height (in) 65 65 65 65 65 Weight (lb) 250 225 225 225 220 Body Mass Index 41.6 37.4 37.4 37.4 36.6 Body Surface Area 2.2 2.1 2.1 2.1 2.1 Blood Pressure Sitting (mmHg) 124/87 Pulse Rate-Sitting (bpm) 84 Note: sg mg mg MG mg Last Documented On: 07/02/2023 8:30AM ; [facility] 05/11/2023 2:50PM ; [facility] 01/22/2023 2:05PM ; [facility] 01/19/2023 4:05PM ; [facility] 11/27/2022 8:17AM ; [facility] Results Includes: Results from 10/21/2022 through 10/21/2023 No Results Recorded For Specified Dates History of Present Illness History of Present Illness not supported for this document type No History of Present Illness Recorded Social History Description Last Updated Tobacco non-user 07/02/2023 Procedures and Surgical History Includes: Procedures from 10/21/2022 through 10/21/2023 Procedures Code Diagnosis Performing Provider Service Location Service Date X-RAY EXAM OF LOWER SPINE 2-3 VIEWS LIMITED 79636 Radiculopathy, lumbar region Geraldo Belle PA-C [facility] 05/11/2023 Surgical History Last Updated History [...] Allergy 12/01/2016 Active Encounters Includes: Encounters from 10/21/2022 through 10/21/2023 Encounter Provider Location Date Check-In Time Check-Out Time Diagnosis Follow Up Humberto Varela MD [facility] 07/02/20 8:27AM 8:45AM Overweight Follow Up Geraldo Belle PA-C [facility] 05/11/20 23 2:43PM 3:12PM Post Op Humberto Varela MD [facility] 01/23/20 23 1:34PM 2:26PM Post Op Geraldo Belle PA-C [facility] 01/20/20 23 4:00PM 4:27PM [facility] Humberto Varela MD Surgery 01/08/20 23 01/08/2023 11:18AM 11/27/2022 11:59PM [Patient Encounter] Humberto Varela MD 01/06/20 23 11/27/2022 1:31PM 11/27/2022 11:59PM [Patient Encounter] Humberto Varela MD 12/07/19 23 11/27/2022 10:15PM 11/27/2022 11:59PM Physician Specified Humberto Varela MD [facility] 11/27/19 8:11AM 8:35AM Insurance Includes: Active Insurance Policies Plan Name Member ID Group # Subscriber Relationship Effect juwan Dates 1 - Aetna [facility] [id number] Tiffanie Glasgow Self Clinical Notes Includes: Signed Clinical Notes starting from 10/09/2022 * Progress note Date Encounter Last Documented by 07/02/2023 Follow Up Last documented on 07/02/2023; 4:54 PM, Humberto Varela MD; [facility] Active Problems & Conditions - Lower [...] with anti-inflammatories as she is using Aleve [id number]-lepslrh and will try a L5-S1 transforaminal injection [...] documented on 05/12/2023; 12:50 PM, Geraldo Chavez; [facility] Active Problems & Conditions - Lower [...] on 01/23/2023; 7:50 AM, Humberto Varela MD; [facility] Active Problems & Conditions - Lower [...] on 01/20/2023; 8:12 AM, Geraldo Belle PA-C; [facility] Active Problems & Conditions - Lower [...] on 11/27/2022; 11:20 AM, Humberto Varela MD; [facility] Active Problems & Conditions - Lower [...]
--- OUTSIDE RECORDS SUMMARY | 2023-10-21 09:38 | XMS_ITS ---
Care Plan - [facility], [facility] Created on: October 21, 2023 Tiffanie Glasgow : 1975 Sex: Female Author Name Unknown Address [address] [place] [address] Phone Organization [facility] Address [address] [place] [address] Phone Care Team Providers Care Science Consultant Name Role Phone Omar SANDERS, Bc Randhawa Primary Care Provider [phone] Avery SANDERS, Humberto Casillas Unavailable [phone] Kirill Desai Unavailable [phone]
--- OUTSIDE RECORDS SUMMARY | 2023-10-21 09:39 | XMS_ITS | Clinical Summary ---
Author Name Unknown Address [address] [place] [address] Phone Organization [facility] , [facility] Address [address] [place] [address] Phone Care Team Providers Care Sterilization Technician Name Role Phone Bc Nelson MD Primary Care Provider [phone] Avery SANDERS, Humberto Casillas Unavailable [phone] Kirill Desai Unavailable [phone] Reason for Visit and Chief Complaint The Chief Complaint is: L4-S1 Lami POV Problems Includes: Problems addressed during this encounter and other active Problems Current Visit Onset Date Resolved Date Provider Alexia candelaria Status Lower Back Pain 12/18/2016 Humberto Varela MD Act juwan Plan of Treatment Instructions to patient Lose weight Last Documented On 3 1:55PM ; [facility] Assessments Includes: Assessments from this encounter Findings L4-S1 laminectomy January 07, 2023 - Last Documented On 01/23/2023 7:50AM ; [facility], [facility] Instructions Includes: Instructions from this encounter Instructions to patient Lose weight Last Documented On 3 1:55PM ; [facility] Medical Equipment - Implanted Devices Includes: Current [...] hrs prn pain [facility]acy: [facility] [address] [place] [address], [phone] - Current Medications (continue as prescribed) Venlafaxine [...] mg Last Documented On: 01/22/2023 2:05PM ; [facility] Results Includes: Results discussed during this [...] Time Diagnosis Post Op Humberto Varela MD [facility] 3 1:34PM 2:26PM Insurance Includes: Active Insurance Policies Plan Name Member ID Group # Subscriber Relationship Effect juwan Dates 1 - Aetna [facility] [id number] Tiffanie Glasgow Self Clinical Notes Includes: Clinical Notes from this encounter * Progress note Date Encounter Last Documented by 01/22/2023 Post Op Last documented on 01/23/2023; 7:50 AM, Humberto Varela MD; [facility], [facility] Active Problems & Conditions - [...]
--- OUTSIDE RECORDS SUMMARY | 2023-10-21 09:39 | XMS_ITS | Clinical Summary ---
Author Name Unknown Address [address] [address] Phone Organization [facility] , [facility] Address [address] [place] [address] Phone Care Team Providers Care Hydrogen Cell Tender Name Role Phone Bc Nelson MD Primary Care Provider [phone] Avery SANDERS, Humberto Casillas Unavailable [phone] Kirill Desai Unavailable [phone] Reason for Visit and Chief Complaint The [...] with anti-inflammatories as she is using Aleve [id number]-[id number]-nrdtaeb and will try a L5-S1 transforaminal injection on the right side - Last Documented On 07/02/2023 4:54PM ; [facility], [facility] Pending Tests Order Diagnosis Results Due Ordering P rovider Therapy - Physical Therapy Lumbar Low back pain Humberto Varela MD Instructions to patient Lose weight Last Documented On 8:27AM ; [facility], [facility] Assessments Includes: Assessments from this encounter Findings - Overweight - Last Documented On 07/02/2023 4:54PM ; [facility], [facility] L4-L5 L5-S1 spinal stenosis - Last Documented On 07/02/2023 4:54PM ; [facility], [facility] Instructions Includes: Instructions from this encounter Instructions to patient Lose weight Last Documented On 8:27AM ; [facility], [facility] Medical Equipment - Implanted Devices Includes: [...] hrs prn pain Pharmacy: [facility] - [address] [place] [address] Jose Guadalupe [place], [id number] - Current Medications (continue as prescribed) Venlafaxine [...] Oral Capsule 01/19/2023 - 01/26/2023 Provider: Geraldo Bernarod Diagnosis: Take 2 tablets by mouth every [...] sg Last Documented On: 07/02/2023 8:30AM ; [facility] Results Includes: Results discussed during this [...] Time Diagnosis Follow Up Humberto Varela MD [facility] 3 8:27AM 8:45AM Overweight Insurance Includes: Active Insurance Policies Plan Name Member ID Group # Subscriber Relationship Effect juwan Dates 1 - Aet [facility] [id number] Tiffanie Glasgow Self Clinical Notes Includes: Clinical Notes from this encounter * Progress note Date Encounter Last Documented by 07/02/2023 Follow Up Last documented on 07/02/2023; 4:54 PM, Humberto Varela MD; [facility], [facility] Active Problems & Conditions - Lower [...] with anti-inflammatories as she is using Aleve [id number]-oylumpa and will try a L5-S1 transforaminal injection [...]
--- OUTSIDE RECORDS SUMMARY | 2023-10-21 09:39 | XMS_ITS | Clinical Summary ---
Author Name Unknown Address [address] [place] [address] Phone Organization [facility] , [facility] Address [address] [place] [address] Phone Care Team Providers Care Accelerator Systems Director Name Role Phone Bc Nelson MD Primary Care Provider [phone] Avery SANDERS, Humberto Casillas Unavailable [phone] Kirill Desai Unavailable [phone] Reason for Visit and Chief Complaint [facility] [...] Provider Service Location Service Date Facetectomy, lumbar 78788 Spinal stenosis, lumbar region with neurogenic claudication Humberto Varela MD [facility] 01/07/2023 Medical History Includes: Medical History addressed [...] Location Date Check-In Time Check-Out Time Diagnosis [facility] Humberto Varela MD Surgery 3 01/08/2023 11:18AM 11:59PM Insurance Includes: Active Insurance Policies Plan Name Member ID Group # Subscriber Relationship Effect juwan Dates 1 - Aetna [facility] [id number] Tiffanie Glasgow Self Clinical Notes Includes: Clinical Notes from this encounter No Clinical Notes Recorded
--- OUTSIDE RECORDS SUMMARY | 2023-10-21 09:39 | XMS_ITS | Clinical Summary ---
Author Name Unknown Address [address] [place] [address] Phone Organization [facility] , [facility] Address [address] [place] [address] Phone Care Team Providers Care Tax Associate Attorney Name Role Phone Bc Nelson MD Primary Care Provider [phone] Avery SANDERS, Humberto Casillas Unavailable [phone] Kirill Desai Unavailable [phone] Reason for Visit and Chief Complaint The [...] - Last Documented On 05/12/2023 12:50PM ; [facility] Pending Tests Order Diagnosis Results Due Ordering [facility] Radiology - MRI MRI Lumbar Spine Low back pain 05/25/23 Geraldo Belle PA-C Instructions to patient Lose weight Last Documented On 3 2:43PM ; [facility] Assessments Includes: Assessments from this encounter Findings L4-S1 laminectomy January 07, 2023 - Last Documented On 05/12/2023 12:50PM ; [facility] Right leg radiculopathy possible recurrence of spinal stenosis - Last Documented On 05/12/2023 12:50PM ; [facility] Instructions Includes: Instructions from this encounter Instructions to patient Lose weight Last Documented On 3 2:43PM ; [facility] Medical Equipment - Implanted Devices Includes: [...] mg Last Documented On: 05/11/2023 2:50PM ; [facility] Results Includes: Results discussed during this [...] EXAM OF LOWER SPINE 2-3 VIEWS LIMITED 73743 Radiculopathy, lumbar region Geraldo Belle PA-C [facility] 05/11/2023 Surgical History Last Updated History of [...] Time Diagnosis Follow Up Geraldo Belle PA-C [facility] 3 2:43PM 3:12PM Insurance Includes: Active Insurance Policies Plan Name Member ID Group # Subscriber Relationship Effect juwan Dates 1 - Aetna [facility] [id number] Tiffanie Glasgow Self Clinical Notes Includes: Clinical Notes from this encounter * Progress note Date Encounter Last Documented by 05/11/2023 Follow Up Last documented on 05/12/2023; 12:50 PM, Geraldo Chavez; [facility] Active Problems & Conditions - Lower Back [...]
--- OUTSIDE RECORDS SUMMARY | 2023-10-21 09:39 | XMS_ITS | Clinical Summary ---
Author Name Unknown Address [address] [place] [address] Phone Organization [facility] Address [address] [place] [address] Phone Care Team Providers Care Booster Assembler Name Role Phone Bc Nelson MD Primary Care Provider [phone] Avery SANDERS, Humberto Casillas Unavailable [phone] Kirill Desai Unavailable [phone] Reason for Visit and Chief Complaint The [...] - Last Documented On 01/20/2023 8:12AM ; [facility] Pending Tests Order Diagnosis Results Due Ordering P rovider Radiology - MRI MRI Lumbar Spine Low back pain 05/25/23 Geraldo Belle PA-C Instructions to patient Lose weight Last Documented On 3 4:04PM ; [facility], [facility] Assessments Includes: Assessments from this encounter Findings L4-S1 laminectomy January 07, 2023 - Last Documented On 01/20/2023 8:12AM ; [facility], [facility] Instructions Includes: Instructions from this encounter Instructions to patient Lose weight Last Documented On 3 4:04PM ; [facility], [facility] Medical Equipment - Implanted Devices [...] every 8 hours Pharmacy: [facility] - [address] [place] [address] Jose Guadalupe [place], [phone] - Current Medications (continue as prescribed) Venlafaxine [...] MG Last Documented On: 01/19/2023 4:05PM ; [facility], [facility] Results Includes: Results discussed during [...] Time Diagnosis Post Op Geraldo Belle PA-C [facility] 3 4:00PM 4:27PM Insurance Includes: Active Insurance Policies Plan Name Member ID Group # Subscriber Relationship Effect juwan Dates 1 - [facility] [id number] Tiffanie Glasgow Self Clinical Notes Includes: Clinical Notes from this encounter * Progress note Date Encounter Last Documented by 01/19/2023 Post Op Last documented on 01/20/2023; 8:12 AM, Geraldo Belle PA-C; [facility], [facility] Active Problems & Conditions - [...]
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
[2023-10-21 10:09] VITALS: BP 147/90; PULSE 89; RESP 19; TEMP 36.8; O2SAT 98
== END 2023-10-21 10:10 | disposition home or self-care (01) ==
PROVIDERS: Emergency Provider Nurse Practitioner; PCP Nurse Practitioner Family
DX: J01.90 Acute sinusitis, unspecified (principal); R51.9 Headache, unspecified; R09.81 Nasal congestion
CPT/HCPCS: 99212; 99214; G0463

== ENCOUNTER 2023-11-29 11:57 | Emergency (ER) | payer OTHER, SELFPAY ==
[2023-11-29 12:15] VITALS: BP 118/89; PULSE 106; RESP 18; TEMP 36.8; O2SAT 98; BMI 29.2
[2023-11-29 12:42] LABS: UTC Influenza A Antigen Negative (Negative)
[2023-11-29 12:43] LABS: UTC Influenza B Antigen Negative (Negative)
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
[2023-11-29 13:00] VITALS: BP 118/89; PULSE 106; RESP 18; TEMP 36.8; O2SAT 98
[2023-11-29 13:04] LABS: Adenovirus,PCR Not Detected (NotDetected); Coronavirus 229E Not Detected (NotDetected); Coronavirus NL63 Not Detected (NotDetected); Coronavirus OC43 Not Detected (NotDetected); Coronovirus HKU1,PCR Not Detected (NotDetected); Human Metapneumovirus Not Detected (NotDetected); Influenza A, PCR Not Detected (NotDetected); Influenza AH1, 2009 Not Detected (NotDetected); Influenza AH1, PCR Not Detected (NotDetected); Influenza AH3,PCR Not Detected (NotDetected); Influenza B, PCR Not Detected (NotDetected); Parainfluenza 1, PCR Not Detected (NotDetected); Parainfluenza 2, PCR Not Detected (NotDetected); Parainfluenza 3, PCR Not Detected (NotDetected); Parainfluenza 4, PCR Not Detected (NotDetected); Respiratory Syncytial Virus Not Detected (NotDetected); Rhinovirus/Enterovirus Not Detected (NotDetected)
[2023-11-29 15:05] LABS: Coronavirus 19, PCR Detected (NotDetected)
== END 2023-11-29 13:02 | disposition home or self-care (01) ==
PROVIDERS: Emergency Provider Nurse Practitioner; PCP Nurse Practitioner Family
DX: U07.1 COVID-19 (principal); R51.9 Headache, unspecified; R50.9 Fever, unspecified; R09.81 Nasal congestion; E11.9 Type 2 diabetes mellitus without complications; I10 Essential (primary) hypertension; K21.9 Gastro-esophageal reflux disease without esophagitis; Z79.84 Long term (current) use of oral hypoglycemic drugs
CPT/HCPCS: 87632; 87635; 87804; 99212; 99213; G0463

== ENCOUNTER 2023-12-21 11:53 | Outpatient (CLI) | payer OTHER, SELFPAY ==
[2023-12-21 12:42] LABS: Basophils # 0.1 K/mm3 (0-0.2); Basophils % 0.7 % (0.1-2.0); Eosinophils # 0.1 K/mm3 (0.0-0.4); Eosinophils % 1.3 % (0.1-12.0); Hematocrit 42.3 % (37.0-47.0); Hemoglobin 13.2 g/dL (12.2-16.2); Lymphocytes # 2.8 K/mm3 (0.7-4.5); Lymphocytes % 36.5 % (10-50); Mean Corpuscular HGB Conc 31.3 g/dL (31.8-35.4); Mean Corpuscular Hemoglobin 28.7 pg (27.0-31.2); Mean Corpuscular Volume 91.7 fl (81-99); Mean Platelet Volume 8.3 fl (7.4-10.4); Monocytes # 0.5 K/mm3 (0.1-1.0); Monocytes % 5.9 % (1.7-9.3); Neutrophils # 4.3 K/mm3 (1.8-7.8); Neutrophils % 55.6 % (37.0-80.0); Platelet Count 354 K/mm3 (142-424); Red Blood Count 4.61 M/mm3 (4.20-5.40); Red Cell Distribution Width 13.9 % (11.5-17.5); White Blood Count 7.7 K/mm3 (4.8-10.8)
[2023-12-21 12:47] LABS: Amphetamine/Metha Screen,Urine Negative ng/ml (<1000)
[2023-12-21 12:48] LABS: Barbiturates Screen,Urine Negative ng/ml (<200)
[2023-12-21 12:49] LABS: Cannabinoid Screen,Urine Negative ng/ml (<50)
[2023-12-21 12:50] LABS: Cocaine Screen,Urine Negative ng/ml (<300)
[2023-12-21 12:51] LABS: Opiate Screen,Urine Negative ng/ml (<300)
[2023-12-21 12:52] LABS: Phencyclidine Screen,Urine Negative ng/ml (<25)
[2023-12-21 12:54] LABS: Benzodiazepines Screen,Urine Negative ng/ml (<200)
[2023-12-21 12:55] LABS: Methadone Screen,Urine Negative ng/ml (<300)
[2023-12-21 13:04] LABS: Alanine Aminotransferase 29 U/L (12-78); Albumin Level 4.3 g/dl (3.5-5.0); Albumin/Globulin Ratio 1.3 (1.1-1.8); Alkaline Phosphatase 152 U/L (38-126); Anion Gap 10.6 mEq/L (5-15); Aspartate Amino Transferase 32 U/L (14-36); Bilirubin,Total 0.5 mg/dl (0.2-1.3); Blood Urea Nitrogen 9 mg/dl (7-17); Calcium 9.9 mg/dl (8.4-10.2); Carbon Dioxide 29 mmol/L (22.0-30.0); Chloride 105 mmol/L (98-107); Estimated Glomerular Filt Rate 106 ml/min (>60); GFR (African American) 129 ML/MIN (>60); Globulin 3.2 g/dL (1.3-3.2); Glucose 122 mg/dl (74-100); Potassium 4.6 mmoL/L (3.5-5.1); Sodium 140 mmol/L (136-145); Total Protein,Serum 7.5 g/dl (6.3-8.2); Uric Acid 6.7 mg/dl (2.5-6.2)
[2023-12-21 13:09] LABS: Hemoglobin A1C 5.9 % (4.0-6.0)
[2023-12-21 13:23] LABS: 25-OH Vitamin D, Total 31.7 ng/mL (30-100)
[2023-12-21 13:36] LABS: Thyroid Stimulating Hormone 2.05 uIU/mL (0.465-4.68)
[2023-12-21 13:53] LABS: Vitamin B12 657 pg/mL (239-931)
[2023-12-21 15:14] LABS: Ferritin 70.1 ng/ml (6.24-137)
== END 2023-12-21 23:59 ==
LOC: LAB 11:54
PROVIDERS: PCP Nurse Practitioner Family; Visit Provider Nurse Practitioner Family
DX: M54.50 Low back pain, unspecified (principal); R53.83 Other fatigue; E79.0 Hyperuricemia without signs of inflammatory arthritis and tophaceous disease; E11.9 Type 2 diabetes mellitus without complications; E66.9 Obesity, unspecified; Z68.41 Body mass index [BMI] 40.0-44.9, adult; Z79.84 Long term (current) use of oral hypoglycemic drugs; Z79.899 Other long term (current) drug therapy
CPT/HCPCS: 36415; 80053; 80307; 82306; 82607; 82728; 83036; 84443; 84550; 85025

== ENCOUNTER 2024-01-01 14:05 | Outpatient (CLI) | payer OTHER, SELFPAY ==
--- NOTE | 2024-01-01 14:05 | MR_ITS ---
FINAL REPORT CLINICAL HISTORY: left sciatica, previous lumbar surgery COMPARISON: 05/25/2023 FINDINGS: Multiplanar MR imaging of the lumbar spine was performed without contrast. On the sagittal T2-weighted images, disc degeneration is seen throughout. The vertebral alignment is normal. There is no evidence of fracture. No bony mass is identified. The conus is seen at approximately the L1 level and has an unremarkable appearance. L1-2: There is an annular disc bulge and facet arthropathy without significant canal stenosis or neural foraminal narrowing. L2-3: There is an annular disc bulge with facet arthropathy and mild bilateral neuroforaminal narrowing. L3-4: There is an annular disc bulge with facet arthropathy. There is a right foraminal disc protrusion with moderate right and mild left neuroforaminal narrowing. L4-5: There are postoperative changes of L4 laminectomies. There is an annular disc bulge with facet arthropathy. There is a small central disc protrusion and moderate bilateral neuroforaminal narrowing. L5-S1: Postoperative changes of L5 laminectomies. There is an annular disc bulge with facet arthropathy. There is a left paracentral disc protrusion with left S1 nerve root impingement. There is moderate right and severe left neuroforaminal narrowing. IMPRESSION: Postoperative changes of L4 and L5 laminectomies with left paracentral disc protrusion at L5-S1, left S1 nerve root impingement and severe left neuroforaminal narrowing Reviewed, Interpreted and Dictated by Carter Ambrocio III, MD Transcribed by Cheryl Parr Authenticated and [facility]
== END 2024-01-01 23:59 ==
LOC: RAD 14:05
PROVIDERS: PCP Nurse Practitioner Family; Visit Provider Nurse Practitioner Family
DX: M54.50 Low back pain, unspecified (principal); M51.36 Other intervertebral disc degeneration, lumbar region; M54.16 Radiculopathy, lumbar region; M54.30 Sciatica, unspecified side
CPT/HCPCS: 72148; 76376

== ENCOUNTER 2024-01-03 13:48 | Emergency (ER) | payer OTHER, SELFPAY ==
[2024-01-03 13:53] VITALS: BP 169/63; PULSE 94; RESP 20; TEMP 36.6; O2SAT 97; BMI 39.9
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
[2024-01-03 13:59] VITALS: BP 156/92; PULSE 96; RESP 20; O2SAT 97
--- NOTE | 2024-01-03 14:05 | ECG_ITS ---
APPROVED REPORT Exam: Resting ECG HR:90 bpm ECG Measurements Heart Rate 90 AXES IN 163 P 62 QRSd 86 QRS 32 QT 328 T 28 QTc 375 Conclusion SINUS RHYTHM NORMAL ECG UNCONFIRMED REPORT Electronically signed by : Dave Long, 01/03/2024 23:15:22
--- NOTE | 2024-01-03 14:25 | PC.NURSE ---
Rounded on pt. Pt stated she ok, but requested water to drink.
--- NOTE | 2024-01-03 14:29 | PC.NURSE ---
Lab called to report CBC was clotted, asking for a re-collect.
[2024-01-03 14:31] LABS: Chloride 106 mmol/L (98-107); Coronavirus 19, PCR Not Detected (NotDetected); Influenza A, PCR Not Detected (NotDetected); Influenza B, PCR Not Detected (NotDetected); Potassium 4.2 mmoL/L (3.5-5.1); Sodium 139 mmol/L (136-145)
[2024-01-03 14:34] LABS: Alanine Aminotransferase 30 U/L (12-78); Albumin Level 4.3 g/dl (3.5-5.0); Albumin/Globulin Ratio 1.2 (1.1-1.8); Alkaline Phosphatase 131 U/L (38-126); Anion Gap 9.2 mEq/L (5-15); Aspartate Amino Transferase 37 U/L (14-36); Bilirubin,Total 0.5 mg/dl (0.2-1.3); Blood Urea Nitrogen 15 mg/dl (7-17); Carbon Dioxide 28 mmol/L (22.0-30.0); Creatinine Clearance Estimated 167 mL/min (50-200); Estimated Glomerular Filt Rate 89 ml/min (>60); GFR (African American) 108 ML/MIN (>60); Globulin 3.6 g/dL (1.3-3.2); Glucose 98 mg/dl (74-100); Total Protein,Serum 7.9 g/dl (6.3-8.2)
[2024-01-03 14:35] LABS: Magnesium 1.9 mg/dl (1.6-2.3)
[2024-01-03 14:49] LABS: Basophils # 0.1 K/mm3 (0-0.2); Eosinophils # 0.1 K/mm3 (0.0-0.4); Eosinophils % 1.5 % (0.1-12.0); Hematocrit 41.7 % (37.0-47.0); Hemoglobin 12.9 g/dL (12.2-16.2); Lymphocytes # 2.3 K/mm3 (0.7-4.5); Lymphocytes % 33.2 % (10-50); Mean Corpuscular Hemoglobin 28.5 pg (27.0-31.2); Mean Corpuscular Volume 91.9 fl (81-99); Mean Platelet Volume 8.4 fl (7.4-10.4); Monocytes # 0.4 K/mm3 (0.1-1.0); Monocytes % 6.1 % (1.7-9.3); Neutrophils % 57.1 % (37.0-80.0); Platelet Count 320 K/mm3 (142-424); Red Blood Count 4.53 M/mm3 (4.20-5.40); Red Cell Distribution Width 13.9 % (11.5-17.5)
[2024-01-03 14:50] LABS: Troponin I < 0.01 ng/ml (0.00-0.034)
[2024-01-03 15:00] VITALS: BP 188/85; PULSE 85; RESP 20; O2SAT 98
[2024-01-03] MEDS: KETOROLAC 30MG/ML VIAL 30 MG IM (15:04)
[2024-01-03] MEDS: ACETAMINOPHEN 500MG TAB 1000 MG PO (15:04)
[2024-01-03 15:31] VITALS: BP 144/78; PULSE 74; RESP 18; O2SAT 97
--- NOTE | 2024-01-03 15:47 | PC.NURSE ---
Rounded on pt. Warm blanket provided and light turned off per request. No other needs voiced and call light remains within reach.
[2024-01-03 16:12] VITALS: BP 132/72; PULSE 74; RESP 18; TEMP 36.7; O2SAT 98
== END 2024-01-03 16:22 | disposition home or self-care (01) ==
PROVIDERS: Physician Assistant; Emergency Provider Student in an Organized Health Care Education/Training Program; PCP Nurse Practitioner Family
DX: R51.9 Headache, unspecified (principal); I10 Essential (primary) hypertension; K21.9 Gastro-esophageal reflux disease without esophagitis; E66.01 Morbid (severe) obesity due to excess calories; Z68.39 Body mass index [BMI] 39.0-39.9, adult
CPT/HCPCS: 80053; 83735; 84484; 85025; 87636; 93005; 96372; 96374; 96375; 99284

== ENCOUNTER 2024-02-15 09:50 | Outpatient (CLI) | payer OTHER, SELFPAY ==
--- NOTE | 2024-02-15 09:54 | XR_ITS ---
FINAL REPORT CLINICAL HISTORY: left upper arm pain, hx of fracture FINDINGS: LEFT HUMERUS 2 views were obtained. There is no acute fracture or dislocation. There is a healed fracture deformity in the mid humeral diaphysis with bridging callus formation. There is mild bowing deformity. The joint spaces are intact. There is no soft tissue abnormality. IMPRESSION: No acute bony abnormality. Reviewed, Interpreted and Dictated by Nate Sierra MD Transcribed by Citlalli Meyer Authenticated and . [facility]
== END 2024-02-15 23:59 | disposition home or self-care (01) ==
LOC: RAD 09:52
PROVIDERS: PCP Nurse Practitioner Family; Visit Provider Nurse Practitioner Family
DX: M79.622 Pain in left upper arm (principal)
CPT/HCPCS: 73060

== ENCOUNTER 2024-02-24 09:12 | Outpatient (CLI) | payer OTHER, SELFPAY ==
--- NOTE | 2024-02-24 09:13 | FL_ITS ---
FINAL REPORT CLINICAL HISTORY: FT: 1:33 mGy: 85.81 dysphagia FINDINGS: BARIUM SWALLOW HISTORY: Dysphagia. TECHNIQUE: The patient ingested barium contrast. Effervescent crystals were also administered. Spot films were performed. A total of 16 images were saved. FINDINGS: There is a small sliding-type hiatal hernia. There is mild gastroesophageal reflux. No mucosal defects are seen. Motility appears normal. No changes of esophagitis are evident. 13 mm barium tablet passes easily through the esoophagus and into the stomach. FLUOROSCOPY TIME: 1 minute 33 seconds Radiation exposure in Reference air Kerma: 85.51 mGy IMPRESSION: Small sliding-type hiatal hernia with mild gastroesophageal reflux. Otherwise, unremarkable barium swallow. Reviewed, Interpreted and Dictated by Marycruz Roland MD Transcribed by Tala Roe PA-C Authenticated and . [facility]
== END 2024-02-24 23:59 | disposition home or self-care (01) ==
LOC: RAD 09:13
PROVIDERS: PCP Nurse Practitioner Family; Visit Provider Nurse Practitioner Family
DX: R13.10 Dysphagia, unspecified (principal)
CPT/HCPCS: 74220

== ENCOUNTER 2024-03-16 09:10 | Day surgery (SDC) | payer OTHER, SELFPAY ==
--- NOTE | 2024-03-14 14:23 | SUR.PREOP ---
preop interview attempted on 03/14/24. unable to leave voicemail
--- NOTE | 2024-03-15 10:44 | SUR.PREOP ---
spoke to pt's mother regarding arrival time, NPO after midnight and hyster driver for procedure. She will relay the message to pt.
[2024-03-16 10:12] VITALS: BMI 42.2
[2024-03-16 10:19] VITALS: BP 161/65; PULSE 76; RESP 18; TEMP 36.7; O2SAT 99
[2024-03-16 10:27] LABS: POC Glucose,Bedside 102 (70-110)
[2024-03-16 10:29] LABS: Urine Pregnancy, HCG Qual. Negative (Negative)
[2024-03-16] MEDS: LACTATED RINGERS 1000ML 1,000 ML 25 ML IV (10:33)
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
--- NOTE | 2024-03-16 10:55 | HMH.SCOPE ---
Procedure: Date: 03/16/24 Patient Date of :: 1975 Procedure Performed:: EGD Indications:: The patient is a 48-year-old who presents for EGD evaluation of dysphagia. The patient has a barium esophagram that shows a small hiatal hernia and gastroesophageal reflux Performing Provider:: Noel Arenas MD Referring Provider:: Debra Troy APRN Sedation:: See RN record Procedure:: The gastroscope was gently passed through the incisoral orifice into the oral cavity and under direct visualization the esophagus was intubated. The endoscope was passed down the esophagus, through the stomach, and into the duodenum. Color, texture, mucosa, and anatomy of the esophagus, stomach, and duodenum were carefully examined with the scope. Findings:: The esophageal mucosa appeared normal. Biopsies were obtained from the mid to distal esophagus with cold forceps for histology. Z-line was irregular and measured at 35 cm. Empiric esophageal dilatation was performed with a Tong dilator 54 Fr. There is a small hiatal hernia. There was mild inflammation characterized by erythema in the stomach. These were obtained with a cold forceps for histology. The examined duodenum appeared normal. Impression: Irregular Z-line Small hiatal hernia Minimal gastritis Recommendations:: Await pathology result Follow-up with referring provider in office as previously scheduled Complications:: None Estimated blood obtained (mL): 0 Colonoscopy Component Colonoscopy Component Was a colonoscopy performed during today's procedure?: No
[2024-03-16 10:58] VITALS: BP 119/72; PULSE 84; RESP 18; TEMP 36.9; O2SAT 94
[2024-03-16 11:08] VITALS: BP 104/65; PULSE 75; RESP 18; O2SAT 96
[2024-03-16 11:18] VITALS: BP 134/64; PULSE 74; RESP 18; O2SAT 98
[2024-03-16 11:28] VITALS: BP 111/49; PULSE 71; RESP 18; O2SAT 98
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
== END 2024-03-16 11:28 | disposition home or self-care (01) ==
PROVIDERS: PCP Nurse Practitioner Family; Visit Provider Internal Medicine
PROC: 0DJ08ZZ Inspection of Upper Intestinal Tract, Via Natural or Artificial Opening Endoscopic (ICD-10-PCS; CPT 43235; principal; 2024-03-16 10:30)
DX: R13.10 Dysphagia, unspecified (principal); K44.9 Diaphragmatic hernia without obstruction or gangrene; K21.9 Gastro-esophageal reflux disease without esophagitis; K29.60 Other gastritis without bleeding; B96.81 Helicobacter pylori [H. pylori] as the cause of diseases classified elsewhere; E11.9 Type 2 diabetes mellitus without complications
CPT/HCPCS: 43239; 43248; 73221; 81025; 82962

== ENCOUNTER 2024-04-07 10:01 | Outpatient (CLI) | payer OTHER, SELFPAY ==
--- NOTE | 2024-04-07 10:03 | MR_ITS ---
FINAL REPORT TECHNIQUE: Multiplanar MR without contrast was obtained of the left knee. CLINICAL HISTORY: left posterior knee pain, swelling COMPARISON: None FINDINGS: Articular cartilage: Mild diffuse thinning. Marrow signal: Unremarkable Joint fluid: Small with a tiny Augustine's cyst. Menisci: Normal morphology without tear Ligaments: Collateral and cruciate ligaments intact Mild proximal patellar tendinitis. IMPRESSION: No evidence of meniscal or ligamentous injury. Mild patellar tendinitis. Reviewed, Interpreted and Dictated by Marycruz Roland MD Transcribed by Gayle Chang Authenticated and [facility]
== END 2024-04-07 23:59 | disposition home or self-care (01) ==
PROVIDERS: PCP Nurse Practitioner Family; Visit Provider Nurse Practitioner Family
DX: M25.562 Pain in left knee (principal); M25.462 Effusion, left knee
CPT/HCPCS: 73721

== ENCOUNTER 2024-05-08 12:16 | Emergency (ER) | payer OTHER, SELFPAY ==
[2024-05-08 12:17] VITALS: BP 159/88; PULSE 92; RESP 18; TEMP 36.7; O2SAT 97; BMI 41.5
--- NOTE | 2024-05-08 12:49 | CT_ITS ---
PROCEDURE INFORMATION: Exam: CT Abdomen And Pelvis With Contrast Exam date and time: 05/08/2024 2:25 PM Age: 48 years old Clinical indication: Abdominal pain; Additional info: Left sided abd pain, diarrhea TECHNIQUE: Imaging protocol: Computed tomography of the abdomen and pelvis with contrast. Radiation optimization: All CT scans at this facility use at least one of these dose optimization techniques: automated exposure control; mA and/or kV adjustment per patient size (includes targeted exams where dose is matched to clinical indication); or iterative reconstruction. Contrast material: ISOVUE; Contrast volume: 75 ml; Contrast route: IV; COMPARISON: CT ABDOMEN PELVIS W CON 12/09/2022 9:30 PM FINDINGS: Lungs: Lung bases are clear. Liver: Liver is unremarkable. No mass or enlargement detected. Gallbladder and biliary ducts: Gallbladder has been removed. Bile ducts are not appreciably dilated. Pancreas: Unremarkable. Main pancreatic duct is not significantly dilated. Spleen: Normal. No splenomegaly. Adrenal glands: Normal. No mass. Kidneys and ureters: Normal. No hydronephrosis. Stomach and bowel: Few scattered diverticuli large bowel. No evidence of acute diverticulitis.Impression: Appendix: No evidence of appendicitis. Intraperitoneal space: Unremarkable. No free air. No significant fluid collection. Vasculature: Unremarkable. No abdominal aortic aneurysm. Lymph nodes: Unremarkable. No enlarged lymph nodes. Urinary bladder: Unremarkable as visualized. Reproductive: Unremarkable as visualized. Bones/joints: Unremarkable. No acute fracture. Soft tissues: Unremarkable. IMPRESSION: No acute findings within the abdomen or pelvis.
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
[2024-05-08 13:21] LABS: Adenovirus F 40/41, stool Not Detected (NotDetected); Astrovirus Not Detected (NotDetected); Campylobacter Not Detected (NotDetected); Clostridium Difficile A/B, PCR Not Detected (NotDetected); Cryptosporidium Not Detected (NotDetected); Cyclospora Cayetanesis Not Detected (NotDetected); Entamoeba histolytica Not Detected (NotDetected); Enteroaggregative E coli Not Detected (NotDetected); Enteropathogenic E coli Not Detected (NotDetected); Enterotoxigenic E coli Not Detected (NotDetected); Giardia lamblia Not Detected (NotDetected); Norovirus Not Detected (NotDetected); Plesimonas Shigalloides, PCR Not Detected (NotDetected); Rotavirus A Not Detected (NotDetected); Salmonella, PCR Not Detected (NotDetected); Sapovirus Not Detected (NotDetected); Shiga-like toxin E coli Not Detected (NotDetected); Shigella Enterovasive E coli Not Detected (NotDetected); Vibrio Cholerae Not Detected (NotDetected); Vibrio, PCR Not Detected (NotDetected); Yersinia Entercolitica, PCR Not Detected (NotDetected)
[2024-05-08] MEDS: MORPHINE 4MG/ML SYRINGE 4 MG IV (13:52)
[2024-05-08] MEDS: ONDANSETRON 4MG/2ML VIAL 4 MG IV (13:52)
[2024-05-08] MEDS: LACTATED RINGERS 1000ML 1,000 ML 999 ML IV (13:52)
[2024-05-08 14:02] LABS: Basophils # 0.1 K/mm3 (0-0.2); Basophils % 1.1 % (0.1-2.0); Eosinophils # 0.1 K/mm3 (0.0-0.4); Eosinophils % 1.2 % (0.1-12.0); Hematocrit 37.7 % (37.0-47.0); Hemoglobin 12.6 g/dL (12.2-16.2); Lymphocytes % 35.1 % (10-50); Mean Corpuscular HGB Conc 33.4 g/dL (31.8-35.4); Mean Corpuscular Hemoglobin 28.9 pg (27.0-31.2); Mean Corpuscular Volume 86.3 fl (81-99); Mean Platelet Volume 7.9 fl (7.4-10.4); Monocytes # 0.6 K/mm3 (0.1-1.0); Monocytes % 6.7 % (1.7-9.3); Neutrophils # 4.8 K/mm3 (1.8-7.8); Platelet Count 322 K/mm3 (142-424); Red Blood Count 4.37 M/mm3 (4.20-5.40); Red Cell Distribution Width 14.6 % (11.5-17.5); White Blood Count 8.5 K/mm3 (4.8-10.8)
[2024-05-08 14:03] LABS: Chloride 106 mmol/L (98-107)
[2024-05-08 14:04] LABS: Sodium 140 mmol/L (136-145)
[2024-05-08 14:06] LABS: Alanine Aminotransferase 31 U/L (12-78); Alkaline Phosphatase 132 U/L (38-126); Aspartate Amino Transferase 34 U/L (14-36); Bilirubin,Total 0.5 mg/dl (0.2-1.3); Blood Urea Nitrogen 18 mg/dl (7-17); Carbon Dioxide 27 mmol/L (22.0-30.0); Creatinine Clearance Estimated 77 mL/min (50-200); Estimated Glomerular Filt Rate 76 ml/min (>60); GFR (African American) 92 ML/MIN (>60); Glucose 105 mg/dl (74-100); Lactic Acid 1.2 mmol/L (0.7-2.1); Lipase 69 U/L (23-300)
[2024-05-08 14:07] LABS: Albumin Level 4.5 g/dl (3.5-5.0); Albumin/Globulin Ratio 1.2 (1.1-1.8); Globulin 3.9 g/dL (1.3-3.2); Total Protein,Serum 8.4 g/dl (6.3-8.2)
[2024-05-08 14:15] LABS: HCG Qualitative, Serum Negative (Negative)
[2024-05-08] MEDS: SODIUM CHLORIDE 0.9% 10ML SYR (RAD ONLY) 10 ML IV (14:27)
[2024-05-08] MEDS: IOPAMIDOL-370 (76%);100ML BOTTLE 75 ML IV (14:27)
[2024-05-08 16:08] VITALS: BP 148/73; PULSE 68; RESP 18; TEMP 36.6; O2SAT 97
== END 2024-05-08 16:11 | disposition home or self-care (01) ==
PROVIDERS: Emergency Provider Student in an Organized Health Care Education/Training Program; PCP Nurse Practitioner Family
DX: R10.12 Left upper quadrant pain (principal); R19.7 Diarrhea, unspecified; E11.9 Type 2 diabetes mellitus without complications; Z79.84 Long term (current) use of oral hypoglycemic drugs; I10 Essential (primary) hypertension; K21.9 Gastro-esophageal reflux disease without esophagitis
CPT/HCPCS: 74177; 80053; 83605; 83690; 84703; 85025; 87507; 96361; 96374; 96375; 99285; J2270; J2405; J7120; Q9967

== ENCOUNTER 2024-05-30 10:41 | Outpatient (CLI) | payer OTHER, SELFPAY ==
[2024-05-30 11:15] LABS: Basophils # 0.1 K/mm3 (0-0.2); Basophils % 1.5 % (0.1-2.0); Eosinophils # 0.1 K/mm3 (0.0-0.4); Eosinophils % 1.3 % (0.1-12.0); Hematocrit 41.5 % (37.0-47.0); Lymphocytes % 39.9 % (10-50); Mean Corpuscular HGB Conc 31.4 g/dL (31.8-35.4); Mean Corpuscular Hemoglobin 28.5 pg (27.0-31.2); Mean Corpuscular Volume 90.9 fl (81-99); Mean Platelet Volume 8.6 fl (7.4-10.4); Monocytes # 0.5 K/mm3 (0.1-1.0); Monocytes % 7.1 % (1.7-9.3); Neutrophils # 3.8 K/mm3 (1.8-7.8); Neutrophils % 50.2 % (37.0-80.0); Platelet Count 329 K/mm3 (142-424); Red Blood Count 4.56 M/mm3 (4.20-5.40); Red Cell Distribution Width 14.3 % (11.5-17.5); White Blood Count 7.5 K/mm3 (4.8-10.8)
[2024-05-30 12:12] LABS: Alanine Aminotransferase 33 U/L (12-78); Albumin Level 4.2 g/dl (3.5-5.0); Albumin/Globulin Ratio 1.2 (1.1-1.8); Alkaline Phosphatase 114 U/L (38-126); Amylase 50 U/L (30-110); Anion Gap 12.5 mEq/L (5-15); Aspartate Amino Transferase 32 U/L (14-36); Bilirubin,Total 0.6 mg/dl (0.2-1.3); Blood Urea Nitrogen 18 mg/dl (7-17); Calcium 10.3 mg/dl (8.4-10.2); Carbon Dioxide 23 mmol/L (22.0-30.0); Chloride 108 mmol/L (98-107); Estimated Glomerular Filt Rate 106 ml/min (>60); GFR (African American) 129 ML/MIN (>60); Globulin 3.5 g/dL (1.3-3.2); Glucose 109 mg/dl (74-100); Lipase 76 U/L (23-300); Potassium 4.5 mmoL/L (3.5-5.1); Sodium 139 mmol/L (136-145); Total Protein,Serum 7.7 g/dl (6.3-8.2)
[2024-05-30 13:23] LABS: Thyroid Stimulating Hormone 2.64 uIU/mL (0.465-4.68)
== END 2024-05-30 23:59 | disposition home or self-care (01) ==
LOC: LAB 10:41
PROVIDERS: PCP Nurse Practitioner Family; Visit Provider Nurse Practitioner Family
DX: R10.9 Unspecified abdominal pain (principal); E11.9 Type 2 diabetes mellitus without complications; R63.5 Abnormal weight gain; Z68.41 Body mass index [BMI] 40.0-44.9, adult
CPT/HCPCS: 36415; 80050; 80053; 82150; 83690; 84443; 85025

== ENCOUNTER 2024-05-31 13:25 | Outpatient (CLI) | payer OTHER, SELFPAY | END 2024-05-31 23:59 | disposition home or self-care (01) | LOC: LAB.DROPOF 13:25 | PROVIDERS: PCP Nurse Practitioner Family; Visit Provider Nurse Practitioner Family | DX: R19.7 Diarrhea, unspecified (principal) | CPT/HCPCS: 87177 ==

== ENCOUNTER 2024-06-01 07:56 | Outpatient (CLI) | payer OTHER, SELFPAY ==
--- NOTE | 2024-06-01 08:00 | US_ITS ---
FINAL REPORT CLINICAL HISTORY: left upper abd pain COMPARISON: None FINDINGS: Sonographic images of the right upper quadrant were obtained. The pancreas is partially obscured. There is diffuse echogenicity in the liver consistent with fatty infiltration of the liver. The gallbladder has been surgically resected. There is no evidence of biliary ductal dilatation.The common duct measures 3 mm. Limited images of the right kidney are unremarkable. IMPRESSION: Fatty infiltration of the liver, prior cholecystectomy. No biliary ductal dilatation is seen. Reviewed, Interpreted and Dictated by Carter Ambrocio III, MD Transcribed by Leia Gilliland Authenticated and [facility]
== END 2024-06-01 23:59 | disposition home or self-care (01) ==
LOC: RAD 07:57
PROVIDERS: PCP Nurse Practitioner Family; Visit Provider Nurse Practitioner Family
DX: R10.12 Left upper quadrant pain (principal)
CPT/HCPCS: 76700

== ENCOUNTER 2024-07-13 14:20 | Outpatient (CLI) | payer OTHER, SELFPAY ==
[2024-07-13 15:09] LABS: Basophils # 0.1 K/mm3 (0-0.2); Eosinophils # 0.1 K/mm3 (0.0-0.4); Eosinophils % 0.7 % (0.1-12.0); Hematocrit 40.1 % (37.0-47.0); Hemoglobin 12.8 g/dL (12.2-16.2); Lymphocytes # 2.8 K/mm3 (0.7-4.5); Lymphocytes % 40.7 % (10-50); Mean Corpuscular HGB Conc 31.9 g/dL (31.8-35.4); Mean Corpuscular Hemoglobin 28.8 pg (27.0-31.2); Mean Corpuscular Volume 90.3 fl (81-99); Mean Platelet Volume 8.7 fl (7.4-10.4); Monocytes # 0.4 K/mm3 (0.1-1.0); Monocytes % 6.5 % (1.7-9.3); Neutrophils # 3.5 K/mm3 (1.8-7.8); Platelet Count 308 K/mm3 (142-424); Red Blood Count 4.45 M/mm3 (4.20-5.40); Red Cell Distribution Width 13.8 % (11.5-17.5); White Blood Count 6.8 K/mm3 (4.8-10.8)
[2024-07-13 15:36] LABS: Hemoglobin A1C 6.1 % (4.0-6.0)
[2024-07-13 15:42] LABS: Alanine Aminotransferase 30 U/L (12-78); Alkaline Phosphatase 109 U/L (38-126); Aspartate Amino Transferase 33 U/L (14-36); Bilirubin,Total 0.6 mg/dl (0.2-1.3); Blood Urea Nitrogen 15 mg/dl (7-17); Calcium 9.4 mg/dl (8.4-10.2); Chloride 106 mmol/L (98-107); Estimated Glomerular Filt Rate 89 ml/min (>60); GFR (African American) 108 ML/MIN (>60); Glucose 117 mg/dl (74-100); Magnesium 1.9 mg/dl (1.6-2.3); Sodium 139 mmol/L (136-145); Total Protein,Serum 7.2 g/dl (6.3-8.2)
[2024-07-13 15:43] LABS: Albumin/Globulin Ratio 1.3 (1.1-1.8); Anion Gap 9.9 mEq/L (5-15); Carbon Dioxide 27 mmol/L (22.0-30.0); Globulin 3.2 g/dL (1.3-3.2); Potassium 3.9 mmoL/L (3.5-5.1)
[2024-07-13 15:52] LABS: NT Pro Brain Natriuretic Pep. 116 pg/mL (0-125)
[2024-07-13 16:13] LABS: Thyroid Stimulating Hormone 1.64 uIU/mL (0.465-4.68)
== END 2024-07-13 23:59 | disposition home or self-care (01) ==
LOC: LAB 14:22
PROVIDERS: PCP Nurse Practitioner Family; Visit Provider Nurse Practitioner Family
DX: R60.9 Edema, unspecified (principal); R63.5 Abnormal weight gain; R73.03 Prediabetes; R01.1 Cardiac murmur, unspecified; I10 Essential (primary) hypertension; Z68.41 Body mass index [BMI] 40.0-44.9, adult
CPT/HCPCS: 36415; 80050; 80053; 83036; 83735; 83880; 84443; 85025; 93225; 93227

== ENCOUNTER 2024-07-18 13:37 | Outpatient (CLI) | payer OTHER, SELFPAY ==
--- NOTE | 2024-07-18 13:43 | CA_ITS ---
APPROVED REPORT EXAM: Comprehensive 2D, Doppler, and color-flow Echocardiogram Shut Off Worker: Angélica Soriano CRT Ht: 5 ft 5 in Wt: 258lbs BSA: 2.20 BP: 120/98 mmHg Indications: Dizziness and Vertigo, Peripheral Edema, Hyperlipidemia, Hypertension/HDD 2D Dimensions LA Volume 39.90 mL LA Volume Index 17.70 mL/m2 (M/F) 16-34 M-Mode Dimensions RVDd 2.28 cm (0.9-2.6) LA Diam 3.16 cm (1.9-4.0) LVDd 4.77 cm (3.5-5.7) LVDs 3.02 cm (3.5-5.7) IVSd 1.20 cm (0.6-1.1) PWd 0.71 cm (0.6-1.1) EF (Teich) 66.40% FS 36.70% EDV (Teich) 106.00 mL ESV (Teich) 35.60 mL LV Diastology E Decel Time 173 (160-240 msec) E/A Ratio 1.10 MED A' 11.10 cm/s LAT A' 9.70 cm/s Aortic Valve AO Peak GR. 10.50 mmHg Mitral Valve MV A Velocity 92.0 (40-130 cm/s) E/A Ratio 1.10 Pulmonary Valve PV Peak Velocity 77.0 (50-150 cm/s) Tricuspid Valve TR P. Velocity 202.00 cm/s RAP Estimate 10.00 mmHg RVSP 26.40 mmHg Left Ventricle The left ventricle is normal size. The left ventricular systolic function is normal. The left ventricular ejection fraction is within the normal range. There is normal left ventricular wall thickness. There is normal LV segmental wall motion. The left ventricular diastolic function is normal. LVEF is 60%. Right Ventricle The right ventricle is normal size. The right ventricular systolic function is normal. Atria The left atrium size is normal. The right atrium size is normal. There is no Doppler evidence of interatrial shunt. Aortic Valve The aortic valve opens well. There is no aortic valvular stenosis. No aortic regurgitation is present. Mitral Valve The mitral valve is normal in structure. No evidence of mitral valve stenosis. There is no mitral valve regurgitation noted. Tricuspid Valve Tricuspid valve is grossly normal in structure and function. Trace tricuspid regurgitation. There is insufficient TR jet to estimate RVSP. Pulmonic Valve The pulmonary valve is normal in structure. Trace pulmonic regurgitation. Great Vessels The aortic root is normal in size. The ascending aorta is not well-visualized. IVC is normal in size and collapses >50% with inspiration. Pericardium There is no pericardial effusion. Other Information Study Quality: Fair Conclusion Normal biventricular systolic function. No significant valvular stenosis or regurgitation. Electronically signed by : Wendy Bryant MD 07/19/2024 00:36:37
== END 2024-07-18 23:59 | disposition home or self-care (01) ==
LOC: RT 13:38
PROVIDERS: PCP Nurse Practitioner Family; Visit Provider Nurse Practitioner Family
DX: R01.1 Cardiac murmur, unspecified (principal)
CPT/HCPCS: 93306

== ENCOUNTER 2024-07-19 12:04 | Outpatient (CLI) | payer OTHER, SELFPAY | END 2024-07-19 23:59 | disposition home or self-care (01) | LOC: LAB.DROPOF 07-20 12:51 | PROVIDERS: PCP Nurse Practitioner Family; Visit Provider Nurse Practitioner Family | DX: R05.1 Acute cough (principal) | CPT/HCPCS: 87635 ==

== ENCOUNTER 2024-08-11 15:24 | Outpatient (CLI) | payer OTHER, SELFPAY ==
--- NOTE | 2024-08-11 15:25 | MR_ITS ---
FINAL REPORT CLINICAL HISTORY: Dizziness and headaches for 6 months FINDINGS: Multi planar MR imaging was obtained through the brain without contrast. The midline structures appear intact. There is no evidence of Chiari malformation. On T2 and flair axial images the brain parenchyma contains a few tiny foci of increased signal in the deep white matter. On diffusion-weighted images there is no evidence of restricted diffusion. The visualized paranasal sinuses demonstrate normal signal voids. The seventh and eighth nerve root complexes are intact. IMPRESSION: A few tiny foci of increased signal in the deep white matter are present, with a differential diagnosis that includes migraine headache, minimal ischemic/chronic microvascular change, demyelination or vasculitis less likely. Otherwise unremarkable MRI of the head. Reviewed, Interpreted and Dictated by Nate Sierra MD Transcribed by Leia Gilliland Authenticated and [facility]
== END 2024-08-11 23:59 | disposition home or self-care (01) ==
LOC: RAD 15:25
PROVIDERS: PCP Nurse Practitioner Family; Visit Provider Nurse Practitioner Family
DX: R42 Dizziness and giddiness (principal)
CPT/HCPCS: 70551

== ENCOUNTER 2025-01-26 13:25 | Outpatient (CLI) | payer OTHER, SELFPAY ==
--- NOTE | 2025-01-26 13:45 | US_ITS ---
FINAL REPORT CLINICAL HISTORY: left parotid gland swelling COMPARISON: None FINDINGS: ULTRASOUND SALIVARY GLANDS: Ultrasound images were obtained of the parotid glands bilaterally and the submandibular glands bilaterally. The salivary glands examined are unremarkable in appearance. There are a few scattered normal-sized lymph nodes present in the upper neck. Incidental note is made of a mixed cystic and solid right thyroid mass measuring up to 19 mm in size. Recommend dedicated thyroid ultrasound for further evaluation. IMPRESSION: The parotid and submandibular glands are unremarkable in appearance. There are a few scattered normal-sized lymph nodes present in the upper neck. Incidental note is made of a mixed cystic and solid right thyroid mass measuring up to 19 mm, and recommend dedicated thyroid ultrasound for further evaluation. Reviewed, Interpreted and Dictated by Marycruz Roland MD Transcribed by Leia Gilliland Authenticated and [facility]
== END 2025-01-26 23:59 | disposition home or self-care (01) ==
LOC: RAD 13:26
PROVIDERS: PCP Nurse Practitioner Family; Visit Provider Nurse Practitioner Family
DX: R60.0 Localized edema (principal)
CPT/HCPCS: 76536

== ENCOUNTER 2025-01-30 12:59 | Outpatient (POV) | payer OTHER, SELFPAY ==
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
[2025-01-30 13:59] VITALS: BP 158/93; PULSE 71; RESP 14; O2SAT 99; BMI 43.2
== END 2025-01-30 23:59 | disposition home or self-care (01) ==
LOC: SC.PAIN 13:00
PROVIDERS: PCP Nurse Practitioner Family; Visit Provider Nurse Practitioner Family
DX: M47.816 Spondylosis without myelopathy or radiculopathy, lumbar region (principal); M51.369 Other intervertebral disc degeneration, lumbar region without mention of lumbar back pain or lower extremity pain; Z73.89 Other problems related to life management difficulty
CPT/HCPCS: 99212; G0463

== ENCOUNTER 2025-01-31 13:35 | Outpatient (CLI) | payer OTHER, SELFPAY ==
--- NOTE | 2025-01-31 13:45 | US_ITS ---
FINAL REPORT TECHNIQUE: Real-time grayscale and color ultrasound of the thyroid was performed. CLINICAL HISTORY: right thyroid mass measuring up to 19 mm COMPARISON: 01/26/2025 neck soft tissue ultrasound FINDINGS: The thyroid gland measures 51 x 15 x 18 mm on the right and 43 x 14 x 14 mm on the left. The isthmus measures 3 mm. The parenchyma is unremarkable . Nodules: 7 mm TR 4 nodule superior right lobe. Heterogeneous 19 mm TR 4 nodule central right lobe. Mixed cystic and solid 16 mm TR 3 nodule left lobe IMPRESSION: Bilateral thyroid masses, larger on the right. Ultrasound FNA recommended of the right thyroid lesion per TI-RADS criteria. 12 mm follow-up of the left thyroid lesion per TI-RADS criteria Reviewed, Interpreted and Dictated by Marycruz Roland MD Transcribed by Gayle Chang Authenticated and . [facility]
== END 2025-01-31 23:59 | disposition home or self-care (01) ==
LOC: RAD 13:36
PROVIDERS: PCP Nurse Practitioner Family; Visit Provider Nurse Practitioner Family
DX: E07.9 Disorder of thyroid, unspecified (principal)
CPT/HCPCS: 76536

== ENCOUNTER 2025-02-06 08:28 | Outpatient (CLI) | payer OTHER, SELFPAY ==
--- NOTE | 2025-02-06 09:00 | US_ITS ---
FINAL REPORT CLINICAL HISTORY: E04.1 - Nontoxic single thyroid nodule-- fna-- efrain garg-- FINDINGS: ULTRASOUND GUIDED THYROID BIOPSY HISTORY: Right thyroid nodule. Attending radiologist: Dr. Quijano Physician Emergency Service Worker: Efrain Andujar PA-C PROCEDURE: After informed consent was obtained and a time-out was performed, the patient was prepped and draped in usual sterile fashion over the right neck. Utilizing local anesthesia and sterile technique with a 25-gauge needle, access to lesion was obtained. Three passes were made under direct ultrasound guidance. The patient received no conscious sedation. The patient tolerated procedure well and left the department in good condition. IMPRESSION: Status post ultrasound guided biopsy of thyroid without immediate complication. Reviewed, Interpreted and Dictated by Nate Sierra MD Transcribed by RADHA Ace Authenticated and [facility]
== END 2025-02-06 23:59 | disposition home or self-care (01) ==
LOC: RAD 08:29
PROVIDERS: PCP Nurse Practitioner Family; Visit Provider Nurse Practitioner Family
DX: E04.1 Nontoxic single thyroid nodule (principal)
CPT/HCPCS: 10005

== ENCOUNTER 2025-02-17 08:29 | Outpatient (CLI) | payer OTHER, SELFPAY ==
--- NOTE | 2025-02-17 09:00 | US_ITS ---
FINAL REPORT CLINICAL HISTORY: E04.1 - Nontoxic single thyroid nodule - ANDRZEJ GARCIA -- RT THYROID NODULE REPEAT FINDINGS: Ultrasound guided thyroid biopsy. HISTORY: Thyroid mass. Previous biopsy was nondiagnostic. PROCEDURE: After informed consent was obtained and a time-out was performed, the patient was prepped and draped in usual sterile fashion over the anterior neck. The biopsy was significantly difficult secondary to the depth of the nodule. Utilizing local anesthesia and sterile technique with a 25-gauge needle, access to the lesion wasobtained. Multiple passes were made. diagnostic material was confirmed by the pathologist. The patient received no conscious sedation. The patient tolerated procedure well and left the department in good condition. IMPRESSION: Status post somewhat difficult ultrasound guided biopsy of a thyroid nodule without immediate complication. Diagnostic material confirmed by pathology. Films reviewed , interpreted and dictated by Dr. Sierra. Transcribed by Andrzej Concepcion PA-C. Reviewed, Interpreted and Dictated by Nate Sierra MD Transcribed by RADHA Grant Authenticated and [facility]
== END 2025-02-17 23:59 | disposition home or self-care (01) ==
LOC: RAD 08:30
PROVIDERS: PCP Nurse Practitioner Family; Visit Provider Nurse Practitioner Family
DX: E04.1 Nontoxic single thyroid nodule (principal); E07.9 Disorder of thyroid, unspecified
CPT/HCPCS: 10005

== ENCOUNTER 2025-02-27 13:58 | Outpatient (CLI) | payer OTHER, SELFPAY ==
[2025-02-27 15:17] LABS: Erythrocyte Sedimentation Rate 23 mm/hr (0-20)
[2025-02-27 16:14] LABS: Calcium 9.9 mg/dl (8.4-10.2)
[2025-02-27 16:19] LABS: C-Reactive Protein 18.8 mg/L (0-4)
[2025-02-27 16:29] LABS: Free T4 (Free Thyroxine) 0.82 ng/dl (0.78-2.19)
[2025-02-27 16:44] LABS: Thyroid Stimulating Hormone 2.39 uIU/mL (0.465-4.68)
[2025-02-27 16:48] LABS: Procalcitonin < 0.030 ng/mL (0.0-2.0)
[2025-02-28 12:21] LABS: Thyroid Peroxidase Antibodies 12 IU/mL (0-34)
== END 2025-02-27 23:59 | disposition home or self-care (01) ==
LOC: LAB 13:58
PROVIDERS: PCP Nurse Practitioner Family; Visit Provider Nurse Practitioner
DX: E04.1 Nontoxic single thyroid nodule (principal); E07.9 Disorder of thyroid, unspecified; L60.3 Nail dystrophy
CPT/HCPCS: 36415; 82310; 84145; 84439; 84443; 85651; 86140; 86376

== ENCOUNTER 2025-03-07 09:33 | Day surgery (SDC) | payer OTHER, SELFPAY ==
[2025-03-07 09:41] VITALS: BP 130/72; PULSE 78; RESP 16; TEMP 36.6; O2SAT 98; BMI 43.2
[2025-03-07] MEDS: LIDOCAINE 1% 5ML PF VIAL 5 ML (10:10)
[2025-03-07] MEDS: BUPIVACAINE 0.25% 10ML INJ 25 MG IJ (10:10)
[2025-03-07 10:11] VITALS: BP 130/72; PULSE 78; RESP 18; O2SAT 98
[2025-03-07] MEDS: DEXAMETHASONE 10MG/ML 1ML VIAL 10 MG (10:11)
[2025-03-07 10:12] VITALS: BP 130/72; PULSE 78; RESP 18; O2SAT 98
[2025-03-07 10:22] VITALS: BP 131/64; PULSE 84; RESP 16; O2SAT 98
--- NOTE | 2025-03-07 11:30 | P.PCN_ITS ---
Procedure Date: 03/07/25 Time: 10:20 Anesthesiologist:: Mazin Lees CRNA Complications:: None Pre-procedure Diagnosis:: Degenerative disc lumbar spine multilevels. Lumbar radiculopathy. Lumbar spondylosis. Multilevel lumbar facet arthropathy. Post-procedure Diagnosis:: Same. Indications for Procedure:: Patient is a very pleasant 49-year-old female who comes our clinic today for lumbar neuritis blocks/facet injections of the bilateral L4-5, L5-S1 level. Patient describes low lumbar back pain as constant, dull, aching. Patient also reports difficulty with lumbar flexion, extension, left and right rotation. She rates her pain 7/10. Procedure Details:: Informed consent was obtained and the risk and benefits of the procedure was explained to the patient. Patient was taken to the procedure room where noninvasive monitors were placed, including noninvasive blood pressure cuff as well as pulse oximeter. The area over the lumbar spine was cleansed using chlorhexidine as a cleansing solution. I anesthetized the skin and subcutaneous tissues with 1% Lidocaine. I placed 22-gauge spinal needles into the facet joint/ medial branches of L4-L5, and L5-S1] bilaterally. Needle placement was confirmed with fluoroscopy. After confirmation of needle placement, each site was injected with 1 mL of 1% lidocaine and 0.25 % Marcaine and 10 mg of Depo- Medrol. A total of 80 mg of depo medrol was used for bilateral medial branch blocks of L4-L5, and L5-S1] bilaterally. Patient tolerated the procedure without difficulty. There were no complications. Plan and Disposition:: Patient was discharged without incident.
== END 2025-03-07 10:22 | disposition home or self-care (01) ==
LOC: SC.PAINP 09:34
PROVIDERS: PCP Nurse Practitioner Family; Visit Provider Nurse Anesthetist, Certified Registered
DX: M47.816 Spondylosis without myelopathy or radiculopathy, lumbar region (principal); M51.369 Other intervertebral disc degeneration, lumbar region without mention of lumbar back pain or lower extremity pain
CPT/HCPCS: 64493; 64494; J1100

== ENCOUNTER 2025-03-30 09:11 | Outpatient (CLI) | payer OTHER, SELFPAY ==
[2025-03-30 10:01] LABS: Basophils # 0.1 K/mm3 (0-0.2); Basophils % 0.7 % (0.1-2.0); Eosinophils # 0.1 Kmm3 (0.0-0.4); Hematocrit 41.4 % (37.0-47.0); Immature Granulocytes # 0.01 10^3uL; Immature Granulocytes % 0.1 %; Lymphocytes # 2.9 K/mm3 (0.7-4.5); Lymphocytes % 43.3 % (10-50); Mean Corpuscular HGB Conc 31.4 g/dL (31.8-35.4); Mean Corpuscular Hemoglobin 27.5 pg (27.0-31.2); Mean Corpuscular Volume 87.5 fl (81-99); Mean Platelet Volume 10.1 fl (7.4-10.4); Monocytes # 0.5 K/mm3 (0.1-1.0); Monocytes % 6.8 % (1.7-9.3); Neutrophils # 3.3 K/mm3 (1.8-7.8); Neutrophils % 48.1 % (37.0-80.0); Nucleated Red Blood Cells # 0 10^3/uL; Nucleated Red Blood Cells % 0 %; Platelet Count 322 K/mm3 (142-424); Red Blood Count 4.73 M/mm3 (4.20-5.40); Red Cell Distribution Width 13.5 % (11.5-17.5); Red Cell Distribution Width-SD 43.4 fL; White Blood Count 6.8 K/mm3 (4.8-10.8)
[2025-03-30 10:28] LABS: C-Reactive Protein 20.7 mg/L (0-4)
[2025-03-30 10:33] LABS: Hemoglobin A1C 6.1 % (4.0-6.0)
[2025-03-30 11:02] LABS: Ferritin 52.8 ng/ml (6.24-137)
[2025-03-30 11:05] LABS: Gamma Glutamyl Transpeptidase 28 U/L (12-43)
[2025-03-31 08:18] LABS: Estradiol 10.5 pg/mL (.); FSH 32.6 mIU/mL (.); LH 24.4 mIU/mL (.); Progesterone 0.1 ng/mL (.); Triiodothyronine (T3) Free 3.6 pg/mL (2.0-4.4)
[2025-03-31 14:15] LABS: Anti-Centromere B Antibodies <0.2 AI (0.0-0.9); Anti-DNA (DS) Ab Qn <1 IU/mL (0-9); Anti-Jo-1 <0.2 AI (0.0-0.9); Antichromatin Antibodies <0.2 AI (0.0-0.9); Antinuclear Antibodies (ANA) Positive (Negative); Antiscleroderma-70 Antibodies 1.7 AI (0.0-0.9); RNP Antibodies <0.2 AI (0.0-0.9); Sjogren's Anti-SS-A <0.2 AI (0.0-0.9); Sjogren's Anti-SS-B <0.2 AI (0.0-0.9); Thyroglobulin Level <1.0 IU/mL (0.0-0.9)
[2025-04-04 11:49] LABS: Miscellaneous Test SCANNED IMAGE
== END 2025-03-30 23:59 | disposition home or self-care (01) ==
LOC: LAB 09:12
PROVIDERS: PCP Nurse Practitioner Family; Visit Provider Nurse Practitioner Family
DX: R79.82 Elevated C-reactive protein (CRP) (principal); E07.9 Disorder of thyroid, unspecified; G47.33 Obstructive sleep apnea (adult) (pediatric); R73.03 Prediabetes; R23.2 Flushing
CPT/HCPCS: 36415; 82670; 82728; 82977; 83001; 83002; 83036; 84144; 84443; 84481; 85025; 86038; 86140; 86356; 86359; 86360; 86800

== ENCOUNTER 2025-05-29 11:56 | Outpatient (CLI) | payer OTHER, SELFPAY ==
--- OUTSIDE RECORDS SUMMARY | 2025-05-18 09:30 | XMS_ITS | Encounter Summary ---
Author Organization Healthcare Address [address] [place] [address] Care Team Providers Care Drywall Applicator Name Role Phone Jocelynn Troy KEVYN Primary Care Provider [phone] Reason for Referral * Consultation (Routine) - Authorized Specialty Diagnoses / Procedures Referred By Elisa corea Referred To Contact Gastroenterology Diagnoses Diarrhea, unspecified type Melvin Kearns APRN [address] [place] [address] Phone: tel: fax: Referral ID Status Reason Start Date Expiration Date Visits Requested Visits Authorized [id number] Authorized Specialty Services Required 05/18/2025 11/17/2026 1 1 Scheduling Instructions ?IBS Reported h/o HPG Reason for Visit * Reason Comments Consult +SHERRY * Consultation (Routine) - Closed Specialty Diagnoses / Procedures Referred By Elisa corea Referred To Contact Rheumatology Diagnoses Positive SHERRY (antinuclear antibody) Luma Arevalo APRN [address] [place] [address] [place] [address] Phone: tel: fax: Referral ID Status Reason Start Date Expiration Date V isits Requested Visits Authorized [id number] Closed Specialty Services Required 04/18/2025 10/18/2026 1 1 Encounter Details Date Type Department Care Team (Late st Contact Info) Description 05/18/2025 9:30 AM EDT [facility] [address] [place] [address] Melvin Kearns APRN [address] [place] [id number] SHERRY positive (Primary Dx); Polyarthralgia; Scl-70 antibody positive; Diarrhea, unspecified type; Osteoarthritis, unspecified osteoarthritis type, unspecified site Social History Tobacco Use Types Packs/Day Years Used Date Smoking Tobacco: Never Smokeless Tobacco: Never Tobacco Cessation:Counseling Given: Not Answered Alcohol Use Standard Drinks/Week Comments Never 0 (1 standard drink = 0.6 oz pur e alcohol) PHQ-2 Answer Date Recorded Patient Health Questionnaire-2 Score 0 05/18/2025 PHQ-9 Answer Date Recorded Patient Health Questionnaire-9 Score 6 05/18/2025 AUDIT-C Answer Date Recorded Q1: How often do you have a drink containing alcohol? Never 05/18/2025 Q2: How many drinks containi ng alcohol do you have on a typical day when you are drinking? Patient does not drink Q3: How often do you have si x or more drinks on one occasion? Never 05/18/2025 Comments Unknown Sex and Gender Information Value Date Recorded Sex Assigned at Not on file Legal Sex Female 7:54 PM EDT Gender Identity Not on file Sexual Orientation Not on file documented as of this encounter Last Filed Vital Signs Vital Sign Reading Time Taken Comments Blood Pressure 147/80 05/18/2025 9:36 AM EDT Pulse 71 05/18/2025 9:36 AM EDT Temperature - - Respiratory Rate - - Oxygen Saturation 99% 05/18/2025 9:36 AM EDT Inhaled Oxygen Concentration - - Weight 121 kg (266 lb 12.1 oz) 05/18/2025 9:36 A M EDT Height 165.1 cm (5' 5 ) 05/18/2025 9:36 AM EDT Body Mass Index 44.39 05/18/2025 9:36 AM EDT documented in this encounter Functional Status * AUDIT-C Score Answer Date of Assessment Author 0 05/18/2025 9:37 AM EDT Idalia Merlos * Question Answer Date of Assessment Author Q1: How often do you have a drink containing alcohol? Never 05/18/2025 9:37 AM EDT Lewis Merlos Q2: How many drinks containing alcohol do you have on a typical day when you are drinking? Patient does not drink 05/18/2025 9:37 AM Idalia Ball Q3: How often do you have six or more drinks on one occasion? Never 05/18/2025 9:37 AM Lewis Ball * Over the past 2 weeks, how often have you been bothered by any of the following problems? Question Answer Date of Assessment Author Little interest or pleasure in doing things Not at all 05/18/2025 9:44 AM Lewis Ball Feeling down, depressed, or hopeless Not at all 05/18/2025 9:44 AM Lewis Ball Patient Health Questionnaire -2 Score 0 05/18/2025 9:44 AM Lewis Ball * Question Answer Date of Assessment Author Trouble falling or staying asleep, or sleeping too much Nearly every day 05/18/2025 9:44 AM Lewis Ball Feeling tired or having little energy Nearly every day 05/18/2025 9:44 AM Lewis Ball Poor appetite or overeating Not at all 05/18/2025 9:44 AM Lewis Ball Feeling bad about yourself - or that you are a failure or have let yourself or your family down Not at all 05/18/2025 9:44 AM Lewis Ball Trouble concentrating on things, such as reading the newspaper or watching television Not at all 05/18/2025 9:44 AM Lewis Ball Moving or speaking so slowly that other people could have noticed? Or the opposite - being so fidgety or restless that you have been moving around a lot more than usual. Not at all 05/18/2025 9:44 AM Lewis Ball Thoughts that you would be better off or hurting yourself in some way Not at all 05/18/2025 9:44 AM EDT Chelita, Kaitl in R Patient Health Questionnaire-9 Score 6 05/18/2025 9:44 AM EDT Cara Merlos R * If you checked off any problems on this questionnaire so far, Question Answer Date of Assessment Author How difficult have these problems made it for you to do your work, take care of things at home, or get along with other people? Not difficult at all 05/18/2025 9:44 AM EDT Lucia Merlos R * How difficult have these problems made it for you to do your work, take care of things at home, or get along with other people? Answer Date of Assessment Author Not difficult at all 05/18/2025 9:44 AM EDT Idalia Samuel documented as of this encounter Miscellaneous Notes * Progress Notes - Melvin Kearns APRN - 05/18/2025 9:30 AM EDT Images from the original note were not included. Melvin Kearns APRN Rheumatology Subjective HPI Tiffanie Glasgow is a 49 y.o. female with PMH significant for SHIVA, IBS, HPG, ccy, thyroid nodules with atypical biopsy, elevated inflam markers, arthritis seen today for sherry+, +scl70, Pt was referred by Luma Arevalo. High inflammation markers- she hasn't been told what auto-immune disease she has; when she has had inflammatory markers checked has been when she has had thyroid markers. She endorses a history of arthritis. 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 Endorses h/o gout- allopurinol. Has a planned sleep study- has SHIVA. Thyroid nodules- waiting; then sent to cardiology for BLE edema in order to address her thyroid nodules. Diarrhea- x3x a day Weight gain- insurance won't approve treatment for this. Joints affected: Ankles- AMS constant; activity makes it worse after initial improvement; am swelling noted Knees- AMS 1 hour; denies am swelling; activity makes this worse Hands- stiffness lasts all day; activity makes this worse; swelling in am noted Vitals: 05/18/25 0936 BP: (!) 147/80 Pulse: 71 SpO2: 99% Allergies[1] Current Medications[2] Initial Rheum ROS Rheumatological ROS positive for dry eyes- eye drops bid/blurry, f/with optho; sinusitis. Family History: FH of autoimmune diseases? no Social History: Exposure to HCV, HBV, HIV or TB. no hx IV drug use. no hx of tobacco use. no hx of alcohol use or abuse. 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 Musculoskeletal: Positive for arthralgias and back pain. Skin: Negative for rash. All other systems reviewed and are negative. Physical Exam Vitals reviewed. Constitutional: General: She is not in acute distress. Appearance: Normal appearance. She is not ill-appearing, toxic-appearing or diaphoretic. HENT: Head: Normocephalic and atraumatic. Mouth/Throat: Mouth: Mucous membranes are dry. Eyes: Extraocular Movements: Extraocular movements intact. Conjunctiva/sclera: Conjunctivae normal. Cardiovascular: Rate and Rhythm: Normal rate and regular rhythm. Pulses: Normal pulses. Pulmonary: Effort: Pulmonary effort is normal. No respiratory distress. Musculoskeletal: General: No swelling or tenderness. Normal range of motion. Cervical back: Normal range of motion. Right lower leg: No edema. Left lower leg: No edema. Skin: General: Skin is warm and dry. Capillary Refill: Capillary refill takes less than 2 seconds. Coloration: Skin is not jaundiced or pale. Findings: No lesion or rash. Neurological: General: No focal deficit present. Mental Status: She is alert and oriented to person, place, and time. Gait: Gait normal. Psychiatric: Mood and Affect: Mood normal. Behavior: Behavior normal. Thought Content: Thought content normal. The following portions of the chart were reviewed this encounter and updated as appropriate: Patient global assessment: 5/10 Swollen Joint Count: Swollen: 2 Tender Joint Count: Tender: 0 = (x2) CDAI:7 Rapid 3 score: 12.7/30 CDAI Interpretation: 0-2.8 Remission 2.9 -10 Low disease activity 10.1-22.0 Moderate Activity 22.1-76.0 High Activity Assessment and Plan of Care: Plan of care developed with Tiffanie Glasgow on (05/18/25): 1. SHERRY positive (Primary) 5. polyarthralgia 49-year-old female with known atypical thyroid nodules presenting today for polyarthralgia, fatigueand a positive SHERRY, Scl 70 antibody from an outside hospital. Her exam is reassuring as there is noactive synovitis or inflammation. There is minimal amount of swelling and a pocket on her dorsal hands bilaterally but it is nontender. I will obtain x-rays of her most painful joints specifically those with morning stiffness but I am concerned about the pattern as they are generally worse with activity. I will send off full autoimmune workup in light of her positive SHERRY as well as polyarthralgia. There is no Raynaud's but I will send off systemic sclerosis antibodies for completeness in light of her Scl 70 antibody positive from outside hospital. There is no dysphagia but there is recurrent H pylori gastritis. I will send her to GI for further evaluation of her various GI complaints today. - C-Reactive Protein, Plasma; Future - Sedimentation Rate, Automated; Future - XR Hand and Wrist Bilateral 2 Views; Future - Cyclic Citrul Peptide Antibody IgG; Future - Rheumatoid Factor, Plasma; Future - Acute Hepatitis Panel; Future - Antinuclear Antibody (SHERRY), HEp-2, IgG; Future - Double-Stranded DNA (dsDNA) Antibody, IgG by IFA; Future - C3 Complement; Future - C4 Complement; Future - ENAI; Future - ENAII; Future - Protein, Random, Urine with Creatinine; Future - Brothers (MINERVA) Antibody, IgG; Future - Thyroid Peroxidase Antibody; Future - XR Knee Left 3 Views; Future - XR Knee Right 3 Views; Future - XR Foot Left 3+ Views; Future - XR Foot Right 3+ Views; Future 2. Scl-70 antibody positive As above - Anti-scleroderma antibody; Future - RNA Polymerase III Antibody, IgG; Future - Centromere Antibody, IgG; Future 3. Diarrhea, unspecified type Seems more consistent with IBS, exaggerated gastrocolic reflex. We will defer ultimate etiology to GI as opinion. - Gastroenterology; Future 4. Osteoarthritis, unspecified osteoarthritis type, unspecified site Certainly present by report today, obtain x-rays for further evaluation. We will hold off on current treatment as she is currently being managed by rail transit operator for some bilateral lower extremity edema with diuresis. RTC Four months Telehealth Patient is agreeable to the above treatment plan and had no further questions. Thanks for the opportunity to participate in the care of this patient! If there are any questions or concerns, please reach out to me personally. Thanks! Melvin Kearns APRN Parts of this note were dictated using [employer] voice recognition software. As a result, errors may occur. When identified, these radiotelegraph operator servicer errors are corrected, but while every attempt is made to prevent/correct these, errors may still exist. Time Spent: I personally spent a total of minutes on this encounter. This time includes face to face with patient, counseling and discussion and/or coordination of care. minutes on the encounter. Thepatient was counseled about diagnostic results, instruction for management, risk factors reduction, prognosis, compliance with visits and treatment, risks and benefits of treatments options. Prior notes (by external physicians) and results were reviewed by me with independent interpretation of labsand imaging. My note will be sent to PCP and other consulting physicians. [1] Allergies Allergen Reactions Tramadol Hives and Itching [2] Current Outpatient Medications Medication Sig Dispense Refill allopurinol (Zyloprim) 100 MG tablet cetirizine (ZyrTEC) 10 MG tablet TAKE ONE TABLET BY MOUTH EVERY DAY NEEDED FOR FOR ALLERGY SYMPTOMS cyclobenzaprine (Flexeril) 5 MG tablet Take 1 tablet by mouth at night as needed. diclofenac (Voltaren) 1 % topical gel 4 g 4 times a day as needed. DIRECTED estradiol (Vagifem) 10 MCG tablet vaginal tablet fluticasone (Flonase) 50 MCG/ACT nasal spray furosemide (Lasix) 20 MG tablet hydroCHLOROthiazide 12.5 MG PO tablet Take 1 tablet by mouth daily. indomethacin (Indocin) 50 MG capsule Lancets (OneTouch Delica Plus [id number]) misc USE TO TEST BLOOD SUGAR TWICE DAILY levocetirizine (Xyzal) 5 MG tablet losartan (Cozaar) 50 MG tablet Take 1 tablet by mouth daily. magnesium oxide (Mag-Ox) 400 mg tablet 1 tablet daily. meloxicam (Mobic) 15 MG tablet metFORMIN (Glucophage) 500 MG tablet as needed. OIL OF OREGANO PO Take by mouth. omega-3 (Fish Oil) 1000 MG capsule Take 1 capsule by mouth 2 times a day with meals. omeprazole (PriLOSEC) [address] capsule OneTouch Verio test strip USE TO TEST BLOOD SUGAR TWICE DAILY potassium chloride ER (Micro-K) 10 MEQ ER capsule Take 1 capsule by mouth 2 times a day. terconazole (Terazol 3) 0.8 % vaginal cream valACYclovir (Valtrex) 1 g tablet as needed. No current facility-administered medications for this visit. documented in this encounter Plan of Treatment Upcoming Encounters Date Type Department Care Team (Late st Contact Info) Description 06/08/2025 9:00 AM EDT Consult [facility] [address], [address] [place] [address] Rich Christine MD [address] [facility] [address] [place] [address] 08/16/2025 12:40 PM EDT Office Visit [facility] [address] [place] [address] Tram Mead APRN [address] [place] [address] 09/07/2025 1:00 PM EST Office Visit [facility] [address] [place] [address] Melvin Kearns, KEVYN [address] [place] [address] Scheduled Referrals Name Type Priority Associated Diagnoses Orde r Schedule Gastroenterology Outpatient Referral Routine Diarrhea, unspecified type Expected: 05/18/2025, Expires: 11/19/2026 documented as of this encounter Results * XR Foot Right 3+ Views (05/18/2025 11:31 AM EDT) Anatomical Region Laterality Modality Lower Extremities, Foot Right Digital Radiography Impressions 05/18/2025 11:38 AM EDT No bone erosions. Osteoarthritis as above described. No acute osseous findings. CRITICAL RESULT: No. COMMUNICATION: Per this written report. Drafted by Rios Vyas MD on 05/18/2025 11:35 AM Final report signed by Rios Vyas MD on 05/18/2025 11:38 AM Narrative 05/18/2025 11:38 AM EDT CLINICAL INDICATION: evaluation for inflammatory changes. TECHNIQUE: XR HAND WRIST BILATERAL 2 VIEWS, XR KNEE LEFT 1 OR 2 VIEWS, XR KNEE RIGHT 1 OR 2 VIEWS, XR FOOT LEFT 3+ VIEWS, XR FOOT RIGHT 3+ VIEWS COMPARISON: None. FINDINGS: Wrist and hand bilateral: Mild osteoarthritis in the STT and first CMC joints bilaterally. No evidence of bone erosions. No fracture or dislocation. Left knee and right knee: Mild osteoarthritis in the knees. No significant joint effusion the knees. No acute fractures or dislocations. No bony erosions. Left foot: Mild osteoarthritis of the first MTP joint. No acute fracture or dislocation. Calcaneal enthesophytes. Dorsal navicular osteophyte is seen. No bone erosions. Soft tissue swelling the dorsal foot. Right foot: Osteoarthritis of the first MTP joint. Bipartite medial sesamoid. No acute fracture or dislocation. Calcaneal enthesophytes. No bone erosions. Soft tissue swelling the dorsal foot. Procedure Note Rios Steele MD - 05/18/2025 CLINICAL INDICATION: evaluation for inflammatory changes. TECHNIQUE: XR HAND WRIST BILATERAL 2 VIEWS, XR KNEE LEFT 1 OR 2 VIEWS, XR KNEE RIGHT1 OR 2 VIEWS, XR FOOT LEFT 3+ VIEWS, XR FOOT RIGHT 3+ VIEWS COMPARISON: None. FINDINGS: Wrist and hand bilateral: Mild osteoarthritis in the STT and first CMC joints bilaterally. No evidence of bone erosions. No fracture or dislocation. Left knee and right knee: Mild osteoarthritis in the knees. No significant joint effusion the knees. No acute fractures or dislocations. No bony erosions. Left foot: Mild osteoarthritis of the first MTP joint. No acute fracture or dislocation. Calcaneal enthesophytes. Dorsal navicular osteophyte is seen. No bone erosions. Soft tissue swelling the dorsal foot. Right foot: Osteoarthritis of the first MTP joint. Bipartite medial sesamoid. No acute fracture or dislocation. Calcaneal enthesophytes. No bone erosions. Soft tissue swelling the dorsal foot. IMPRESSION: No bone erosions. Osteoarthritis as above described. No acute osseous findings. CRITICAL RESULT: No. COMMUNICATION: Per this written report. Drafted by Rios Vyas MD on 05/18/2025 11:35 AM Final report signed by Rios Vyas MD on 1:38 AM Melvin Kearns OPTION TRADER IMG XR PROCEDURES Final Result * XR Foot Left 3+ Views (05/18/2025 11:31 AM EDT) Anatomical Region Laterality Modality Lower Extremities, Foot Left Digital Radiography Impressions 05/18/2025 11:38 AM EDT No bone erosions. Osteoarthritis as above described. No acute osseous findings. CRITICAL RESULT: No. COMMUNICATION: Per this written report. Drafted by Rios Vyas MD on 05/18/2025 11:35 AM Final report signed by Rios Vyas MD on 05/18/2025 11:38 AM Narrative 05/18/2025 11:38 AM EDT CLINICAL INDICATION: evaluation for inflammatory changes. TECHNIQUE: XR HAND WRIST BILATERAL 2 VIEWS, XR KNEE LEFT 1 OR 2 VIEWS, XR KNEE RIGHT 1 OR 2 VIEWS, XR FOOT LEFT 3+ VIEWS, XR FOOT RIGHT 3+ VIEWS COMPARISON: None. FINDINGS: Wrist and hand bilateral: Mild osteoarthritis in the STT and first CMC joints bilaterally. No evidence of bone erosions. No fracture or dislocation. Left knee and right knee: Mild osteoarthritis in the knees. No significant joint effusion the knees. No acute fractures or dislocations. No bony erosions. Left foot: Mild osteoarthritis of the first MTP joint. No acute fracture or dislocation. Calcaneal enthesophytes. Dorsal navicular osteophyte is seen. No bone erosions. Soft tissue swelling the dorsal foot. Right foot: Osteoarthritis of the first MTP joint. Bipartite medial sesamoid. No acute fracture or dislocation. Calcaneal enthesophytes. No bone erosions. Soft tissue swelling the dorsal foot. Procedure Note Rios Steele MD - 05/18/2025 CLINICAL INDICATION: evaluation for inflammatory changes. TECHNIQUE: XR HAND WRIST BILATERAL 2 VIEWS, XR KNEE LEFT 1 OR 2 VIEWS, XR KNEE RIGHT1 OR 2 VIEWS, XR FOOT LEFT 3+ VIEWS, XR FOOT RIGHT 3+ VIEWS COMPARISON: None. FINDINGS: Wrist and hand bilateral: Mild osteoarthritis in the STT and first CMC joints bilaterally. No evidence of bone erosions. No fracture or dislocation. Left knee and right knee: Mild osteoarthritis in the knees. No significant joint effusion the knees. No acute fractures or dislocations. No bony erosions. Left foot: Mild osteoarthritis of the first MTP joint. No acute fracture or dislocation. Calcaneal enthesophytes. Dorsal navicular osteophyte is seen. No bone erosions. Soft tissue swelling the dorsal foot. Right foot: Osteoarthritis of the first MTP joint. Bipartite medial sesamoid. No acute fracture or dislocation. Calcaneal enthesophytes. No bone erosions. Soft tissue swelling the dorsal foot. IMPRESSION: No bone erosions. Osteoarthritis as above described. No acute osseous findings. CRITICAL RESULT: No. COMMUNICATION: Per this written report. Drafted by Rios Vyas MD on 05/18/2025 11:35 AM Final report signed by Rios Vyas MD on 1:38 AM Melvin Kearns APRN IMG XR PROCEDURES Final Result * XR Hand and Wrist Bilateral 2 Views (05/18/2025 11:31 AM EDT) Anatomical Region Laterality Modality Hand, Wrist Bilateral Digital Radiogra phy Impressions 05/18/2025 11:38 AM EDT No bone erosions. Osteoarthritis as above described. No acute osseous findings. CRITICAL RESULT: No. COMMUNICATION: Per this written report. Drafted by Rios Vyas MD on 05/18/2025 11:35 AM Final report signed by Rios Vyas MD on 05/18/2025 11:38 AM Narrative 05/18/2025 11:38 AM EDT CLINICAL INDICATION: evaluation for inflammatory changes. TECHNIQUE: XR HAND WRIST BILATERAL 2 VIEWS, XR KNEE LEFT 1 OR 2 VIEWS, XR KNEE RIGHT 1 OR 2 VIEWS, XR FOOT LEFT 3+ VIEWS, XR FOOT RIGHT 3+ VIEWS COMPARISON: None. FINDINGS: Wrist and hand bilateral: Mild osteoarthritis in the STT and first CMC joints bilaterally. No evidence of bone erosions. No fracture or dislocation. Left knee and right knee: Mild osteoarthritis in the knees. No significant joint effusion the knees. No acute fractures or dislocations. No bony erosions. Left foot: Mild osteoarthritis of the first MTP joint. No acute fracture or dislocation. Calcaneal enthesophytes. Dorsal navicular osteophyte is seen. No bone erosions. Soft tissue swelling the dorsal foot. Right foot: Osteoarthritis of the first MTP joint. Bipartite medial sesamoid. No acute fracture or dislocation. Calcaneal enthesophytes. No bone erosions. Soft tissue swelling the dorsal foot. Procedure Note Rios Steele MD - 05/18/2025 CLINICAL INDICATION: evaluation for inflammatory changes. TECHNIQUE: XR HAND WRIST BILATERAL 2 VIEWS, XR KNEE LEFT 1 OR 2 VIEWS, XR KNEE RIGHT1 OR 2 VIEWS, XR FOOT LEFT 3+ VIEWS, XR FOOT RIGHT 3+ VIEWS COMPARISON: None. FINDINGS: Wrist and hand bilateral: Mild osteoarthritis in the STT and first CMC joints bilaterally. No evidence of bone erosions. No fracture or dislocation. Left knee and right knee: Mild osteoarthritis in the knees. No significant joint effusion the knees. No acute fractures or dislocations. No bony erosions. Left foot: Mild osteoarthritis of the first MTP joint. No acute fracture or dislocation. Calcaneal enthesophytes. Dorsal navicular osteophyte is seen. No bone erosions. Soft tissue swelling the dorsal foot. Right foot: Osteoarthritis of the first MTP joint. Bipartite medial sesamoid. No acute fracture or dislocation. Calcaneal enthesophytes. No bone erosions. Soft tissue swelling the dorsal foot. IMPRESSION: No bone erosions. Osteoarthritis as above described. No acute osseous findings. CRITICAL RESULT: No. COMMUNICATION: Per this written report. Drafted by Rios Vyas MD on 05/18/2025 11:35 AM Final report signed by Rios Vyas MD on 511:38 AM Melvin Kearns APRN IMG XR PROCEDURES Final Result * Centromere Antibody, IgG (05/18/2025 10:54 AM EDT) Centromere Ab, IgG 0 0 - 40 AU/mL 05/20/2025 1:30 PM EDT [facility] CV-Sight (TOBI) Blood Venous blood specimen / Unknown Venipuncture / Unknown 05/18/2025 10:54 AM EDT 05/18/2025 10:54 AM EDT Narrative [facility] PRESLEY TATE) - 05/20/2025 1:30 PM EDT INTERPRETIVE INFORMATION: Centromere Ab, IgG 29 AU/mL or Less ............. Negative 30 - 40 AU/mL ................ Equivocal 41 AU/mL or Greater .......... Positive When detected by this multiplex bead assay, the presence of centromere antibodies is mainly associated with CREST syndrome, a variant of systemic sclerosis (SSc). These antibodies target the centromere B, a dominant antigen of the centromeric complex associated with the centromere pattern observed in antinuclear antibody (SHERRY) testing by IFA. Centromere antibodies may also be seen in a varying percentage of patients with other autoimmune diseases, including diffuse cutaneous SSc, Raynaud syndrome, interstitial pulmonary fibrosis, autoimmune liver disease, systemic lupus erythematosus (SLE) and rheumatoid arthritis (RA). A negative result indicates no detectable IgG antibodies to centromere B. If the result is negative but clinical suspicion for SSc is strong, consider testing for SHERRY by IFA along with other antibodies associated with SSc, including Scl-70, U3-PLATE FINISHER, PM/Scl, or Th/To. Performed By: [employer] [address] [place] [address] [employer] Intelligence Technician: Ari Beasley MD, PhD CLIA Number: [id number] Melvin Kearns APRN LAB BLOOD ORDERABLES Final Res ult [facility] FritterTOBI) [address] [place] [address] * RNA Polymerase III Antibody, IgG (05/18/2025 10:54 AM EDT) RNA Polymerase III Antibody, IgG 5 0 - 19 Units 05/19/2025 11:33 PM EDT [facility]ight (TOBI) Blood Venous blood specimen / Unknown Venipuncture / Unknown 05/18/2025 10:54 AM EDT 05/18/2025 10:54 AM EDT Narrative NURIS TALBERTCONTRERAS) - 05/19/2025 11:33 PM EDT INTERPRETIVE INFORMATION: RNA Polymerase III Antibody, IgG 19 Units or less ......Negative 20 - 39 Units .........Weak Positive 40 - 80 Units .........Moderate Positive 81 Units or greater ...Strong Positive The presence of RNA polymerase III IgG antibody, when considered in conjunction with other laboratory and clinical findings, is an aid in the diagnosis of systemic sclerosis (SSc) with increased incidence of skin involvement and renal crisis with the diffuse cutaneous form of SSc. RNA polymerase III IgG antibody occur in about 11-23 percent of SSc patients, and typically in the absence of anti-centromere and anti-Scl-70 antibodies. A negative result indicates no detectable IgG antibodies to the dominant antigen of RNA polymerase III and does not rule out the possibility of SSc. False-positive results may also occur due to non-specific binding of immune complexes. Strong clinical correlation is recommended. If clinical suspicion remains, consider additional testing for other antibodies associated with SSc, including centromere, Scl-70, U3-PLATE FINISHER, PM/Scl, or Th/To. Performed By: [employer] [address] [place] [address] All Source Intelligence Technician: Ari Beasley MD, PhD CLIA Number: [id number] Melvin Kearns APRN LAB BLOOD ORDERABLES Final Res ult [facility] (TOBI) [address] [place] [id number] * Anti-scleroderma antibody (05/18/2025 10:54 AM EDT) SCLERODERMA (SCL-70) (MINERVA) ANTIBODY, IGG 1 0 - 40 AU/mL 05/20/2025 1:30 PM EDT ISABELLA PRESLEY TATE) Blood Venous blood specimen / Unknown Venipuncture / Unknown 05/18/2025 10:54 AM EDT 05/18/2025 10:54 AM EDT Mark MoodyTOBI) - 05/20/2025 1:30 PM EDT INTERPRETIVE INFORMATION: Scleroderma (Scl-70) (MINERVA) Ab, IgG 29 AU/mL or Less ............. Negative 30 - 40 AU/mL ................ Equivocal 41 AU/mL or Greater .......... Positive The presence of Scl-70 antibodies (also referred to as topoisomerase I, israel-I or RODNEY) is considered diagnostic for systemic sclerosis (SSc). Scl-70 antibodies alone are detected in about 20 percent of SSc patients and are associated with the diffuse form of the disease, which may include specific organ involvement and poor prognosis. Scl-70 antibodies have also been reported in a varying percentage of patients with systemic lupus erythematosus (SLE). Scl-70 (israel-1) is a DNA binding protein and anti-DNA/DNA complexes in the sera of SLE patients may bind to israel-I, leading to a false-positive result. The presence of Scl-70 antibody in sera may also be due to contamination of recombinant Scl-70 with DNA derived from cellular material used in immunoassays. Strong clinical correlation is recommended if both Scl-70 and dsDNA antibodies are detected. Negative results do not necessarily rule out the presence of SSc. If clinical suspicion remains, consider further testing for centromere, RNA polymerase III and U3-PLATE FINISHER, PM/Scl, or Th/To antibodies. Performed By: [employer] [address] [place] [address] All Source Intelligence Technician: Ari Beasley MD, PhD CLIA Number: [id number] Melvin Kearns APRN LAB BLOOD ORDERABLES Final Res ult [facility] (TOBI) [address] [place] [address] * Thyroid Peroxidase Antibody (05/18/2025 10:54 AM EDT) Thyroid Peroxidase Antibody <5 <=8 IU/mL 05/18/2025 1:44 PM EDT [facility] Blood Venous blood specimen / Unknown Venipuncture / Unknown 05/18/2025 10:54 AM EDT 05/18/2025 10:54 AM EDT Melvin Kearns APRN LAB BLOOD ORDERABLES Final Res ult [facility] [address] [place] [address] * Brothers (MINERVA) Antibody, IgG (05/18/2025 10:54 AM EDT) Brothers (MINERVA) Antibody, IgG 1 0 - 40 AU/mL 05/20/2025 1:30 PM EDT [facility] ([employer]) Serum 05/18/2025 10:5 4 AM EDT 05/18/2025 10:54 AM EDT Narrative [facility] - 05/20/2025 1:30 PM EDT INTERPRETIVE INFORMATION: Brothers (MINERVA) Antibody, IgG 29 AU/mL or Less ............. Negative 30 - 40 AU/mL ................ Equivocal 41 AU/mL or Greater .......... Positive Brothers antibody is highly specific (greater than 90 percent) for systemic lupus erythematosus (SLE) but only occurs in 30-35 percent of SLE cases. The presence of antibodies to Brothers has variable associations with SLE clinical manifestations. Performed By: [employer] [address] [place] [address] All Source Intelligence Technician: Ari Beasley MD, PhD CLIA Number: [id number] Melvin Kearns APRN LAB REF LAB BLOOD AND FLUID OR D Final Result [facility] ([facility]) [address] [place] [address] * ENAII (05/18/2025 10:54 AM EDT) SSA-52 (RO52) (MINERVA) Antibody, IgG 1 0 - 40 AU/mL 05/20/2025 1:30 PM EDT [facility] ([employer]) SSA-60 (RO60) (MINERVA) Antibody, IgG 0 0 - 40 AU/mL 05/20/2025 1:30 PM EDT [facility] ([facility]) SSB (LA) (MINERVA) Antibody, IgG 1 0 - 40 AU/mL 05/20/2025 1:30 PM EDT [facility] ([facility]) Blood Venous blood specimen / Unknown Venipuncture / Unknown 05/18/2025 10:54 AM EDT 05/18/2025 10:54 AM EDT Narrative [facility] ([facility]) - 05/20/2025 1:30 PM EDT INTERPRETIVE INFORMATION: SSA-52 (Ro52) (MINERVA) Antibody, IgG 29 AU/mL or Less ............. Negative 30 - 40 AU/mL ................ Equivocal 41 AU/mL or Greater .......... Positive SSA-52 (Ro52) and/or SSA-60 (Ro60) antibodies are associated with a diagnosis of Sjogren syndrome, systemic lupus erythematosus (SLE), and systemic sclerosis. SSA-52 antibody overlaps significantly with the major SSc-related antibodies. SSA-52 (Ro52) antibody occurs frequently in patients with inflammatory myopathies, often in the presence of interstitial lung disease. REFERENCE INTERVAL: SSA-60 (Ro60) (MINERVA) Antibody, IgG 29 AU/mL or Less ............. Negative 30 - 40 AU/mL ................ Equivocal 41 AU/mL or Greater .......... Positive INTERPRETIVE INFORMATION: SSB ([place]) (MINERVA) Ab, IgG 29 AU/mL or Less ............. Negative 30 - 40 AU/mL ................ Equivocal 41 AU/mL or Greater .......... Positive SSB (La) antibody is seen in 50-60% of Sjogren syndrome cases and is specific if it is the only MINERVA antibody present. 15-25% of patients with systemic lupus erythematosus (SLE) and 5-10% of patients with progressive systemic sclerosis (PSS) also have this antibody. Performed By: [employer] [address] [place] [address] All Source Intelligence Technician: Ari Beasley MD, PhD CLIA Number: [id number] Melvin Oliver Kearns OPTION TRADER LAB BLOOD ORDERABLES Final Res ult Performing Organization Address [facility] Co de Phone Number [facility] ([facility]) [address] [place] [address] * ENAI (05/18/2025 10:54 AM EDT) Brothers/PLATE FINISHER (MINERVA) Ab, IgG 2 0 - 19 Units 05/19/2025 11:55 PM EDT [facility] (TOBI) Blood Venous blood specimen / Unknown Venipuncture / Unknown 05/18/2025 10:54 AM EDT 05/18/2025 10:54 AM EDT Narrative [facility] (TOBI) - 05/19/2025 11:55 PM EDT INTERPRETIVE INFORMATION: Brothers/PLATE FINISHER (MINERVA) Antibody, IgG 19 Units or Less ............. Negative 20 to 39 Units ............... Weak Positive 40 to 80 Units ............... Moderate Positive 81 Units or greater .......... Strong Positive Brothers/PLATE FINISHER antibodies are frequently seen in patients with mixed connective tissue disease (MCTD) and are also associated with other systemic autoimmune rheumatic diseases (SARDs) such as systemic lupus erythematosus (SLE), systemic sclerosis, and myositis. Antibodies targeting the Brothers/PLATE FINISHER antigenic complex also recognize Brothers antigens, therefore, the Brothers antibody response must be considered when interpreting these results. Performed By: [employer] [address] [place] [address] All Source Intelligence Technician: Ari Beasley MD, PhD CLIA Number: [id number] Melvin Oliver Urmila OPTION TRADER LAB BLOOD ORDERABLES Final Res ult Performing Organization Address [facility] Co de Phone Number [facility] (TOBI) [address] [place] [phone] * C4 Complement (05/18/2025 10:54 AM EDT) C4 Complement 28 13 - 36 mg/dL 05/18/2025 1:20 PM EDT [facility] Blood Venous blood specimen / Unknown Venipuncture / Unknown 05/18/2025 10:54 AM EDT 05/18/2025 10:54 AM EDT Melvin Kearns APRN LAB BLOOD ORDERABLES Final Res ult Performing Organization Address [facility] [place] [address] * C3 Complement (05/18/2025 10:54 AM EDT) C3 Complement 166 84 - 166 mg/dL 05/18/2025 1:20 PM EDT [facility] Blood Venous blood specimen / Unknown Venipuncture / Unknown 05/18/2025 10:54 AM EDT 05/18/2025 10:54 AM EDT Melvin Kearns OPTION TRADER LAB BLOOD ORDERABLES Final Res ult Performing Organization Address [facility] [place] [address] * Double-Stranded DNA (dsDNA) Antibody, IgG by IFA (05/18/2025 10:54 AM EDT) Double-Strande d DNA (dsDNA) Ab IgG IFA <1:10 <1:10 05/20/2025 6:52 PM EDT [employer]) Blood Venous blood specimen / Unknown Venipuncture / Unknown 05/18/2025 10:54 AM EDT 05/18/2025 10:54 AM EDT Narrative [facility] ([employer]) - 05/20/2025 6:52 PM EDT INTERPRETIVE INFORMATION: Double-Stranded DNA (dsDNA) Antibody, IgG by IFA (using Crithidia luciliae) Positivity for anti-double stranded DNA (anti-dsDNA) IgG antibody is a diagnostic criterion of systemic lupus erythematosus (SLE). The presence of the anti-dsDNA IgG antibody is identified by IFA titer (Crithidia luciliae indirect fluorescent test [WALTER]). WALTER is highly specific for SLE with a sensitivity of 50-60 percent. Some patients with early or inactive SLE may be positive for anti-dsDNA IgG by JANINA but negative by WALTER. If the WALTER result is negative but the patient has a positive JANINA and clinical suspicion remains, consider antinuclear antibody (SHERRY) testing by IFA. Additional information and recommendations for testing may be found at https://[employer]/content/eeqboumckl-vacqzg-eqedcldo. Performed By: [employer] [address] [place] [address] All Source Intelligence Technician: Ari Beasley MD, PhD CLIA Number: [id number] Melvin Kearns OPTION TRADER LAB BLOOD ORDERABLES Final Res ult [facility] [employer]) [address] [place] [address] * Antinuclear Antibody (SHERRY), HEp-2, IgG (05/18/2025 10:54 AM EDT) SHERRY INTERPRETIVE COMMENT See Note 05/20/2025 9:29 AM EDT [facility] ([employer]) Anti Nuc Ab Screen <1:80 <1:80 05/20/2025 9:29 AM EDT [facility] ([employer]) Blood Venous blood specimen / Unknown Venipuncture / Unknown 05/18/2025 10:54 AM EDT 05/18/2025 10:54 AM EDT Narrative [facility] ([employer]) - 05/20/2025 9:29 AM EDT Antinuclear antibodies by IFA negative for homogeneous, speckled, nucleolar, centromere, and nuclear dots patterns. Cytoplasmic antibodies by IFA negative for reticular/AMA, discrete/GW body-like, polar/golgi-like, rods and rings, and cytoplasmic speckled patterns. INTERPRETIVE INFORMATION: SHERRY Interpretive Comment Presence of antinuclear antibodies (SHERRY) is a hallmark feature of systemic autoimmune rheumatic diseases (SARD). However, SHERRY lacks diagnostic specificity and is associated with a variety of diseases (cancers, autoimmune, infectious, and inflammatory conditions) and may also occur in healthy individuals in varying prevalence. The lack of diagnostic specificity requires confirmation of positive SHERRY by more specific serologic tests. SHERRY (nuclear reactivity) positive patterns reported include centromere, homogeneous, nuclear dots, nucleolar, or speckled. SHERRY (cytoplasmic reactivity) positive patterns reported include reticular/AMA, discrete/GW body-like, polar/golgi-like, cytoplasmic speckled or rods and rings. All positive patterns are reported to endpoint titers (1:2560). Reported patterns may help guide differential diagnosis, although they may not be specific for individual antibodies or diseases. Mitotic staining patterns not reported. Negative results do not necessarily rule out SARD. Performed By: [employer] [address] [place] [id number] All Source Intelligence Technician: Ari Beasley MD, PhD CLIA Number: [id number] Melvin Kearns APRN LAB BLOOD ORDERABLES Final Res ult Performing Organization Address City/[facility]/ZIP Co de Phone Number [email or web address] ([facility]) [address] [place] [phone] * Acute Hepatitis Panel (05/18/2025 10:54 AM EDT) Pathologist [facility] Hepatitis B Surf Antigen Negative Negative 05/18/2025 1:56 PM EDT [facility] Hepatitis C Antibody Negative Negative 05/18/2025 1:56 PM EDT [facility] Hepatitis A Antibody IgM Negative Negative 05/18/2025 1:56 PM EDT [facility] Hepatitis B Core Antibody IgM Negative Negative 05/18/2025 1:56 PM EDT [facility] Blood Venous blood specimen / Unknown Venipuncture / Unknown 05/18/2025 10:54 AM EDT 05/18/2025 10:54 AM EDT Melvin Kearns APRN LAB BLOOD ORDERABLES Final Res ult [facility] [address] [place] [address] * Rheumatoid Factor, Plasma (05/18/2025 10:54 AM EDT) Pathologist [facility] Rheumatoid Factor, Plasma <10 <14 IU/mL 05/18/2025 1:28 PM EDT [facility] Blood Venous blood specimen / Unknown Venipuncture / Unknown 05/18/2025 10:54 AM EDT 05/18/2025 10:54 AM EDT Melvin Hookyojana BAGLEY LAB BLOOD ORDERABLES Final Res ult Performing Organization Address City/[facility]/ZIP Co de Phone Number [facility] [address] [place] [address] * Cyclic Citrul Peptide Antibody IgG (05/18/2025 10:54 AM EDT) Cyclic Citrul Peptide Antibody IgG <5.0 <=5.0 U/mL 05/18/2025 2:04 PM EDT [facility] Blood Venous blood specimen / Unknown Venipuncture / Unknown 05/18/2025 10:54 AM EDT 05/18/2025 10:54 AM EDT Melvin Boyd Urmila WEATHERSN LAB BLOOD ORDERABLES Final Res ult Performing Organization Address [facility] [place] [address] * (ABNORMAL) Sedimentation Rate, Automated (05/18/2025 10:54 AM EDT) Sedimentation Rate 51(H) <30 mm/hr 2024 1:32 PM EDT [facility] Blood Venous blood specimen / Unknown Venipuncture / Unknown 05/18/2025 10:54 AM EDT 05/18/2025 10:54 AM EDT Melvin Hookyojana OPTION TRADER LAB BLOOD ORDERABLES Final Res ult Performing Organization Address [facility] [place] [address] * (ABNORMAL) C-Reactive Protein, Plasma (05/18/2025 10:54 AM EDT) CRP, Plasma 27.4(H) <=8.0 mg/L 05/18/2025 1:28 PM EDT [facility] Blood Venous blood specimen / Unknown Venipuncture / Unknown 05/18/2025 10:54 AM EDT 05/18/2025 10:54 AM EDT Narrative [facility] - 05/18/2025 1:28 PM EDT This CRP test is appropriate for assessment of infection, systemic inflammation and/or tissue injury. To assess cardiovascular disease risk order high sensitivity CRP (CRPH). Melvin Kearns APRN LAB BLOOD ORDERABLES Final Res ult Performing Organization Address [facility] Co de Phone Number [facility] [address] [place] [phone] * Protein, Random, Urine with Creatinine (05/18/2025 10:42 AM EDT) Protein, Urine 9 mg/dL 05/18/2025 11:59 AM EDT [facility] Creatinine, Urine 82 mg/dL 05/18/2025 11:59 AM EDT [facility] Protein/Creatin ine Ratio 0.1 mg/mg Creat 05/18/2025 11:59 AM EDT [facility] Urine Urine specimen obtained by clean catch procedure / Unknown Non-blood Collection / Unknown 05/18/2025 10:42 AM EDT 05/18/2025 10:42 AM EDT Melvin Kearns APRN LAB URINE ORDERABLES Final Res ult Performing Organization Address [facility] Co de Phone Number [facility] [address] [place] [address] documented in this encounter Visit Diagnoses Diagnosis SHERRY positive- Primary Polyarthralgia Pain in joint, multiple sites Scl-70 antibody positive Diarrhea, unspecified type Osteoarthritis, unspecified osteoarthritis type, unspecified site SHERRY positive documented in this encounter Additional Health Concerns Assessment Noted Time PHQ-9 Depression Total Score: 6 05/18/20 9:44 AM EDT A fall risk assessment has been complete d for the patient 05/18/2025 9:44 AM EDT A Body Mass Index follow-up plan has been documented for the patient 05/18/2025 10:31 AM EDT documented as of this encounter Care Teams Drywall Applicator Relationship Specialty Start Date End Date Jocelynn Troy APRN [address] [place] [address] PCP - General 05/18/25 documented as of this encounter
--- OUTSIDE RECORDS SUMMARY | 2025-05-18 10:57 | XMS_ITS | Encounter Summary ---
Author Organization Healthcare Address [address] [id number] Care Team Providers Care Multiple Pressure Riveter Operator Name Role Phone Jocelynn Troy APRN Primary Care Provider [phone] Encounter Details Date Type Department Care Team (Latest Contact Info) Description 05/18/2025 10:57 AM EDT - 05/18/2025 11:59 PM EDT Hospital Encounter [facility] [address], [address] [place] [phone] SHERRY positive Discharge Disposition: Home or Self Care Social History Tobacco Use Types Packs/Day Years Used Date Smoking Tobacco: Never Smokeless Tobacco: Never Alcohol Use Standard Drinks/Week Comments Never 0 [...] on file documented as of this encounter Functional Status * AUDIT-C Score Answer Date of Assessment Author 0 05/18/2025 9:37 AM EDT Idalia Merlos * Question Answer Date of Assessment Author Q1: How often do you have a drink containing alcohol? Never 05/18/2025 9:37 AM Lewis Ball Q2: How many drinks containing alcohol do [...] Not at all 05/18/2025 9:44 AM Lewis aBll Patient Health Questionnaire -2 Score 0 05/18/2025 [...] way Not at all 05/18/2025 9:44 AM Lucia Ball R Patient Health Questionnaire-9 Score 6 05/18/2025 9:44 AM Cara Ball R * If you checked off any problems on this questionnaire so far, Question Answer Date of Assessment Author How difficult have these problems made it for you to do your work, take care of things at home, or get along with other people? Not difficult at all 05/18/2025 9:44 AM Lucia Ball R * How difficult have these problems made it for you to do your work, take care of things at home, or get along with other people? Answer Date of Assessment Author Not difficult at all 05/18/2025 9:44 AM Idalia Quan documented as of this encounter Medications at Time of Discharge allopurinol (Zyloprim) 100 MG tablet 02/14/2025 cetirizine (ZyrTEC) 10 MG tablet TAKE ONE TABLET BY MOUTH EVERY DAY NEEDED FOR FOR ALLERGY SYMPTOMS 08/23/2024 cyclobenzaprine (Flexeril) 5 MG tablet Take 1 tablet by mouth at night as needed. 04/25/2020 diclofenac (Voltaren) 1 % topical gel 4 g 4 times a day as needed. DIRECTED estradiol (Vagifem) 10 MCG tablet vaginal tablet 12/28/2024 fluticasone (Flonase) 50 MCG/ACT nasal spray 08/23/2024 furosemide (Lasix) 20 MG tablet 10/20/2024 hydroCHLOROthiaz nirali 12.5 MG PO tablet Take 1 tablet by mouth daily. 05/11/2025 Lancets (OneTouch Delica Plus [id number]) [facility] USE TO TEST BLOOD SUGAR TWICE DAILY 10/20/2024 levocetirizine (Xyzal) 5 MG tablet 02/14/2025 losartan (Cozaar) 50 MG tablet Take 1 tablet by mouth daily. 05/11/2025 magnesium oxide (Mag-Ox) 400 mg tablet 1 tablet daily. metFORMIN (Glucophage) 500 MG tablet as needed. 02/14/2025 OIL OF OREGANO PO Take by mouth. omega-3 (Fish Oil) 1000 MG capsule Take 1 capsule by mouth 2 times a day with meals. omeprazole (PriLOSEC) [address] capsule 06/07/2024 OneTouch Verio test strip USE TO TEST BLOOD SUGAR TWICE DAILY 10/20/2024 potassium chloride ER (Micro-K) 10 MEQ ER capsule Take 1 capsule by mouth 2 times a day. 10/20/2024 terconazole (Terazol 3) 0.8 % vaginal cream 11/29/2024 valACYclovir (Valtrex) 1 g tablet as needed. 03/16/2025 indomethacin (Indocin) 50 MG capsule 02/14/2025 05/23/2025 meloxicam (Mobic) 15 MG tablet 02/14/2025 05/23/2025 documented as of this encounter Plan of Treatment Upcoming Encounters Date Type Department Care Team (Late st Contact Info) Description 06/08/2025 9:00 AM EDT Consult Medical Office Building Surgical Specialties [address], [address] [place] [phone] Rich Christine MD [address] [facility] [address] [phone] 08/16/2025 12:40 PM EDT Office Visit [facility] Medicine Specialties [address] [place] [phone] Tram Mead, OUTSIDE COLLECTOR [address] [place] [phone] 09/07/2025 1:00 PM EST Office Visit [facility] Medicine Specialties [address] [place] [phone] Melvin Kearns, OUTSIDE COLLECTOR [address] [place] [phone] documented as of this encounter Procedures Procedure Name Priority Date/Time Associated Diagnosis Comments XR HAND WRIST BILATERAL 2 VIEWS Routine 05/18/2025 11:31 AM EDT SHERRY positive XR FOOT RIGHT 3+ VIEWS Routine 05/18/2025 11:31 AM EDT SHERRY positive XR FOOT LEFT 3+ VIEWS Routine 05/18/2025 11:31 AM EDT SHERRY positive XR KNEE RIGHT 1 OR 2 VIEWS Routine 05/18/2025 11:31 AM EDT SHERRY positive XR KNEE LEFT 1 OR 2 VIEWS Routine 05/18/2025 11:31 AM EDT SHERRY positive documented in this encounter Results * XR Knee Right 1 or 2 Views (05/18/2025 11:31 AM EDT) Anatomical Region Laterality Modality Lower Extremities, Knee Right Digital Radiography Impressions 05/18/2025 11:38 AM [...] IMG XR PROCEDURES Final Result * XR Knee Left 1 or 2 Views (05/18/2025 11:31 AM EDT) Anatomical Region Laterality Modality Lower Extremities, Knee Left Digital Radiography Impressions 05/18/2025 11:38 AM [...] Vyas MD on 1:38 AM Melvin Kearns OUTSIDE COLLECTOR IMG XR PROCEDURES Final Result * XR Foot Right 3+ Views (05/18/2025 [...] Vyas MD on 511:38 AM Melvin Kearns OUTSIDE COLLECTOR IMG XR PROCEDURES Final Result * XR [...] Kearns APRN IMG XR PROCEDURES Final Result documented in this encounter Visit Diagnoses Diagnosis SHERRY positive documented in this encounter Additional Health Concerns Assessment Noted Time PHQ-9 Depression Total Score: 6 05/18/20 9:44 AM EDT A fall risk assessment has been complete d for the patient 05/18/2025 9:44 AM EDT A Body Mass Index follow-up plan has been documented for the patient 05/18/2025 10:31 AM EDT documented as of this encounter Care Teams Multiple Pressure Riveter Operator Relationship Specialty Start Date End Date Jocelynn Troy APRN [address] [place] [address] PCP - General 05/18/25 documented as of this encounter
[2025-05-29] VITALS (7 sets, daily range): BP systolic 131–163; BP diastolic 73–94; PULSE 62–77; RESP 18; TEMP 36.2; O2SAT 95–99; BMI 43.2
--- OUTSIDE RECORDS SUMMARY | 2025-05-29 11:58 | XMS_ITS | Encounter Summary ---
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 that time. IT IS IMPOSSIBLE FOR THE EMERGENCY DEPARTMENT TO RECOGNIZE AND TREAT ALL ELEMENTS OF INJURY OR ILLNESS IN A SINGLE VISIT. If you have been referred to a specialist physician, it means that we believe you may have a condition that requires the expertise of a specialist. These physicians work in partnership with the hospital and have agreed to see referred patients in their office for further evaluation. KEEP IN MIND THAT THE SPECIALIST HAS HIS/HER OWN OFFICE POLICIES WHICH MAY REQUIRE PROPER INSURANCE OR PAYMENT UP FRONT BEFORE THE SPECIALIST WILL SEE YOU. It is your responsibility to call the specialist physician to make an appointment. We do not have the ability to refer patients to specialists/physicians that work with specific insurance companies. Please be advised that all financial charges or billing practices are determined by that practice, not the hospital. If your insurance company requires that you see a specialist from their approved list, it is your responsibility to contact your insurance company to make those arrangements. It is also your responsibility to follow any other requirements of your insurance company necessary to obtain coverage for claims submitted. We will bill your insurance; however, you are responsible today for any co-pay amounts. You will receive a separate bill for any services you may have received including: emergency, radiology, or pathology physicians. Patient Name:TIFFANIE GLASGOW I have received this information and was given the opportunity to ask questions. Patient/Iuss Analyst Name: Patient/Iuss Analyst Signature: Relationship to Patient: Clinician/Hospital Iuss Analyst Signature: Please Provide a Telephone Number Where You Can Be Reached: Is it Permissible To Leave a Message? Date: Electronically signed by Ag, [facility] Conversion Electric Distribution Checker Cydney at 02/13/2023 10:00 AM CDT documented in this encounter Plan of Treatment Not on file documented as of this encounter Visit Diagnoses Not on filedocumented in this encounter
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
--- OUTSIDE RECORDS SUMMARY | 2025-05-29 11:58 | XMS_ITS | Encounter Summary ---
Author Organization [employer] ([place], [place], [place], [place]) Address [address] [place] [address] Care Team Providers Care Cover Stitch Machine Operator Name Role Phone Unavailable Primary Care Provider Unavailabl e Encounter Details Date Type Department Care Team (Late st Contact Info) Description 03/19/2020 Transcribed Document [facility] [place] Family Medicine [address] [place] [address] ProviderArchie MD [address] [place], [place] [id number] Social History Tobacco Use Types Packs/Day Years [...] Conversion Note - Historical ProviderMD - 03/19/2020 4:49 PM CDT [place]bert Suicide Severity Rating Scale (C-SSRS) Entered On: 03/19/2020 17:21 EDT Performed On: 03/19/2020 17:20 EDT by Keeley Shin RN [place] Suicide Severity Rating Scale (C-SSRS) CSSRS Past Month Wish to be : No CSSRS Past Month Suicidal Thoughts : No CSSRS Lifetime Suicide Behavior : No Suicide Severity Rating Score : 0 Suicide Severity Rating : No Additional Care Required at this time Keeley Shin RN - 03/19/2020 17:20 EDT documented in this encounter Plan of Treatment Not on file documented as of this encounter Visit Diagnoses Not on filedocumented in this encounter
--- OUTSIDE RECORDS SUMMARY | 2025-05-29 11:58 | XMS_ITS | Encounter Summary ---
Author Organization [employer] ([place], [place], [place], [place]) Address [address] [place] [address] Care Team Providers Care Supervisor Core Shop Name Role Phone Unavailable Primary Care Provider Unavailabl e Encounter Details Date Type Department Care Team (Late st Contact Info) Description 03/19/2020 Transcribed Document [facility] [place] [facility] [place] [address] ProviderArchie MD [address] [place] [address] Social History Tobacco Use Types [...] Conversion Note - Historical ProviderMD - 03/19/2020 7:11 PM CDT ED Discharge Entered On: 03/19/2020 19:11 EDT Performed On: 03/19/2020 19:11 EDT by CHRISTINA REES RN Discharge Process Patient Disposition : Discharge Personal Belongings With Patient : Yes Patient Education Completed : Yes Teaching Evaluation : Verbalizes understanding Nursing Documentation Completed : Yes CHRISTINA REES RN - 03/19/2020 19:11 EDT ED Discharge Discharge To : Home without planned follow-up Mode Of Departure : Ambulatory Accompanied By : Friend, Responsible adult Discharge Instructions Reviewed With, Opportunity For Questions Given : Patient Prescriptions Given to Patient : Yes Number of Prescriptions Given : 1 CHRISTINA REES RN - 03/19/2020 19:11 EDT Electronically signed by Ag [facility] Conversion Beauty Culturist Apprentice Cerner at 02/13/2023 9:54 AM CDT documented in this encounter Plan of Treatment Not on file documented as of this encounter Visit Diagnoses Not on filedocumented in this encounter
--- OUTSIDE RECORDS SUMMARY | 2025-05-29 11:58 | XMS_ITS | Referral Summary ---
Author Organization [employer] ([place], [place], [place], [place]) Address [address] [place] [address] Care Team Providers Care Manufacturing Systems Engineer Name Role Phone Unavailable Primary Care Provider Unavailabl e Social History Tobacco Use Types Packs/Day Years Used Date Smoking Tobacco: Never Assessed Comments Unknown Sex and Gender Information Value Date Recorded Sex Assigned at Female 04/22/2022 6:48 PM CDT Legal Sex Female 6:48 PM CDT Gender Identity Female 04/22/2022 6:48 PM CDT Sexual Orientation Not on file Plan of Treatment Not on file
--- OUTSIDE RECORDS SUMMARY | 2025-05-29 11:58 | XMS_ITS | Encounter Summary ---
Author Organization [employer] ([place], [place], [place], [place]) Address [address] [place] [address] Care Team Providers Care Machine Wiper Name Role Phone Unavailable Primary Care Provider Unavailabl e Encounter Details Date Type Department Care Team (Late st Contact Info) Description 03/19/2020 Transcribed Document [facility] [place] [facility] [place] [address] ProviderArchie MD [address] [place] [address] Social History Tobacco Use Types Packs/Day Years Used Date Smoking Tobacco: Never Assessed Comments Unknown Sex and Gender Information Value Date Recorded Sex Assigned at Female 04/22/2022 6:48 PM CDT Legal Sex Female 6:48 PM CDT Gender Identity Female 04/22/2022 6:48 PM CDT Sexual Orientation Not on file documented as of this encounter Miscellaneous Notes * Cerner Conversion Note - Archie Cai MD - 03/19/2020 7:01 PM CDT [facility] [place] [address] LUNATIFFANIE STARK MARCELLA :1975 Visit Time:03/19/2020 Your Visit Summary [...] Within 2 to 3 days Where: [address] [facility] [place] [address]- Business (1) Follow Up with Dr Morales at [facility] for humerus When Within 2 to 3 days Follow Up with SHAYLA SMILEY When Within 2 to 3 days Where: [address] [facility] [facility] [place] [address] [facility] (1) Allergies Percocet 10/325 (Tramadol hydrochloride 50mg capsule, Tramadol) traMADol (Itching) Immunizations This Visit No Immunizations Found Medications What How Much When Instructions Next Dose acetaminophen-hydrocodone ([place] 5 mg-325 mg oral tablet) 1 Tablet(s) [...] Formulary med) 1 Tablet(s) Oral Every Day [id number] tab The home medications listed are only [...] at home: Medicines ??? Take and apply mvrg-nhh-qbnktyr and prescription medicines only as told by [...] and water are not available, use hand jack spooler tender. ? Leave stitches (sutures), skin glue, or [...] 10/12/2006 Document Revised: 03/16/2017 Document Reviewed: 04/25/2016 Order [employer]apper Interactive Patient Education ?? 2019 [employer] Humerus Fracture Treated With Immobilization A [...] is stable enough for you to begin dwlrz-rj-lhtxxn exercises. You may also be prescribed pain [...] says that it is safe. ??? Do qnolu-ds-vykzaj exercises only as told by your health [...] ask your health care provider. ??? Take xtwp-anm-aqoxsvs and prescription medicines only as told by your health care provider. ??? Ask your health care provider if the medicine prescribed to you can cause constipation. You may need to take steps to prevent or treat constipation, such as: ? Drink enough fluid to keep your urine pale yellow. ? Take srap-fbb-nrwrxwt or prescription medicines. ? Eat foods that [...] 01/18/2002 Document Revised: 06/13/2019 Document Reviewed: 06/13/2019 [employer] Interactive Patient Education ?? 2019 [employer]. Cast or Splint Care, Adult Casts and [...] activities are safe for you. ??? Take brnv-ffh-gdsrggm and prescription medicines only as told by [...] 10/09/2001 Document Revised: 05/02/2017 Document Reviewed: 04/04/2017 [employer] Mapper Interactive Patient Education ?? 2019 [employer]. Emergency Awareness and Preventative Care STROKE is [...] Assistance with quitting is available by contacting 8-358-BGNM-NOW. This is a free resource providing counseling, [...] emergency, radiology, or pathology physicians. Patient Name:TIFFANIE LUNA I have received this information and was given the opportunity to ask questions. Patient/Bridge Teacher Name: Patient/Bridge Teacher Signature: Relationship to Patient: Clinician/Hospital Bridge Teacher Signature: Please Provide a Telephone Number Where You Can Be Reached: Is it Permissible To Leave a Message? Date: Electronically signed by Ag, [facility] Conversion Thermal Cutting Machine Operator Cydney at 02/13/2023 10:03 AM CDT documented in this encounter Plan of Treatment Not on file documented as of this encounter Visit Diagnoses Not on filedocumented in this encounter
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
--- OUTSIDE RECORDS SUMMARY | 2025-05-29 11:58 | XMS_ITS | Encounter Summary ---
Author Organization Healthcare Address [address] [place] [address] Care Team Providers Care Armed Guard Name Role Phone Jocelynn Troy APRN Primary Care Provider [phone]- [phone] Encounter Details Date Type Department Care Team (Latest Contact Info) Description 05/18/2025 Travel Social History Tobacco Use Types Packs/Day Years [...] of Assessment Author 0 05/18/2025 9:37 AM Idalia Ball * Question Answer Date of Assessment [...] all 05/18/2025 9:44 AM EDT Lucia Merlos in R * How difficult have these problems made it for you to do your work, take care of things at home, or get along with other people? Answer Date of Assessment Author Not difficult at all 05/18/2025 9:44 AM EDT Idalia Samuel documented as of this encounter Plan of Treatment Upcoming Encounters Date Type Department Care Team (Late st Contact Info) Description 06/08/2025 9:00 AM EDT Consult Medical Office Building Surgical Specialties [address] [facility], [address] [place] [address] Rich Christine MD [address] [facility] [address] [place] [address] 08/16/2025 12:40 PM EDT Office Visit [facility] Medicine Specialties [address] [place] [address] Tram Mead, BUNDLE HELPER [address] [place] [address] 09/07/2025 1:00 PM EST Office Visit [facility] Medicine Specialties [address] [place] [address] Melvin Kearns, BUNDLE HELPER [address] [place] [address] documented as of this encounter Visit Diagnoses Not on filedocumented in this encounter Additional Health Concerns Assessment Noted Time PHQ-9 Depression Total Score: 6 05/18/20 9:44 AM EDT A fall risk assessment has been complete d for the patient 05/18/2025 9:44 AM EDT A Body Mass Index follow-up plan has been documented for the patient 05/18/2025 10:31 AM EDT documented as of this encounter Care Teams Armed Guard Relationship Specialty Start Date End Date Jocelynn Troy APRN [address] [place] [address] PCP - General 05/18/25 documented as of this encounter
--- OUTSIDE RECORDS SUMMARY | 2025-05-29 11:59 | XMS_ITS | Encounter Summary ---
Author Organization [employer] ([place], [place], [place], [place]) Address [address] [place] [address] Care Team Providers Care Sanitation Worker Name Role Phone Unavailable Primary Care Provider Unavailabl e Encounter Details Date Type Department Care Team (Late st Contact Info) Description 03/19/2020 Transcribed Document [facility] [place] [address] ProviderArchie MD [address] [place], [place] [id number] Social History Tobacco Use Types Packs/Day Years [...] Conversion Note - Historical ProviderMD - 03/19/2020 5:03 PM CDT Vital Signs ED Entered On: 03/19/2020 17:06 EDT Performed On: 03/19/2020 17:03 EDT by CHRISTINA REES RN Vital Signs ED Temperature Source : Oral Temperature Mode : Fahrenheit Temperature, Fahrenheit : 98.2 Deg F Clinical Temperature, C : 36.8 Deg C Oxygen Therapy Mode : Room air Peripheral Pulse Rate : 80 bpm Systolic Blood Pressure : 140 mmHg Diastolic Blood Pressure : 72 mmHg Oxygen Saturation : 96 % CHRISTINA REES RN - 03/19/2020 17:03 EDT documented in this encounter Plan of Treatment Not on file documented as of this encounter Visit Diagnoses Not on filedocumented in this encounter
--- OUTSIDE RECORDS SUMMARY | 2025-05-29 11:59 | XMS_ITS | Encounter Summary ---
Author Organization Healthcare Address [address] [id number] Care Team Providers Care Body Liner Name Role Phone Jocelynn Troy KEVYN Primary Care Provider [phone]- [phone] Encounter Details Date Type Department Care Team (Late st Contact Info) Description 05/18/2025 Results Follow-Up [facility] Medicine Specialties [address] [place] [address] Melvin Kearns APRN [address] [place] [address] Social History Tobacco Use Types Packs/Day Years [...] way Not at all 05/18/2025 9:44 AM ABELT Lucia Merlos in R Patient Health Questionnaire-9 Score 6 [...] Medical Office Building Surgical Specialties [address] [facility], [address] [place] [address] Rich Christine MD [address] [facility] [address] [place] [address] 08/16/2025 12:40 PM EDT Office Visit [facility] Medicine Specialties [address] [place] [address] Tram Mead, ROUGH PLANER TENDER [address] [place] [address] 09/07/2025 1:00 PM EST Office Visit [facility] Medicine Specialties [address] [place] [address] Melvin Kearns, ROUGH PLANER TENDER [address] [place] [address] documented as of this encounter [...] documented as of this encounter Care Teams Body Liner Relationship Specialty Start Date End Date Jocelynn Troy APRN [address] [place] [address] PCP - General 05/18/25 documented as of this encounter
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
--- OUTSIDE RECORDS SUMMARY | 2025-05-29 11:59 | XMS_ITS | Encounter Summary ---
Author Organization [employer] ([place], [place], [place], [place]) Address [address] [place] [address] Care Team Providers Care Hydrometallurgical Engineer Name Role Phone Unavailable Primary Care Provider Unavailabl e Encounter Details Date Type Department Care Team (Late st Contact Info) Description 03/19/2020 Transcribed Document [facility] Family Medicine [facility] [place] [address] ProviderArchie MD [address] [place] [address] Social History Tobacco Use Types [...] Conversion Note - Historical ProviderMD - 03/19/2020 5:41 PM CDT Pain Assessment Entered On: 03/19/2020 18:44 EDT Performed On: 03/19/2020 18:44 EDT by Keeley Shin RN Intervention Information: morphine Performed by CECELIA HAMPTON RN on 03/19/2020 18:03:00 EDT morphine,4mg IV Push,Right Hand Pain Assessment Pain Assessment : Follow-up assessment Pain Scale Used : 0-10 Scale Keeley Shin RN - 03/19/2020 18:44 EDT Pain Scale Intensity : 6 Keeley Shin RN - 03/19/2020 18:44 EDT Image 4 - Images currently included in the form version of this document have not been included in the text rendition version of the form. documented in this encounter Plan of Treatment Not on file documented as of this encounter Visit Diagnoses Not on filedocumented in this encounter
--- OUTSIDE RECORDS SUMMARY | 2025-05-29 11:59 | XMS_ITS | Encounter Summary ---
Author Organization Healthcare Address [address] [id number] Care Team Providers Care Chocolate Production Machine Operator Name Role Phone Jocelynn Troy COMPUTER SYSTEMS DESIGNER Primary Care Provider [phone]- [phone] Encounter Details Date Type Department Care Team (Late st Contact Info) Description 05/23/2025 Orders Only [facility] Specialties [address] [place] [address] Melvin Kearns APRN [address] [place] [address] Social History Tobacco Use Types [...] on file documented as of this encounter Plan of Treatment Upcoming Encounters Date Type Department Care Team (Late st Contact Info) Description 06/08/2025 9:00 AM EDT Consult Medical Office Building Surgical Specialties [address] [place] [address] Rich Christine MD [address] [place] [address] 08/16/2025 12:40 PM EDT Office Visit [facility] Medicine Specialties [address] [place] [address] Tram Mead, COMPUTER SYSTEMS DESIGNER [address] [place] [address] 09/07/2025 1:00 PM EST Office Visit [facility] Medicine Specialties [address] [place] [address] Melvin Kearns, COMPUTER SYSTEMS DESIGNER [address] [place] [address] documented as of this encounter [...] documented as of this encounter Care Teams Chocolate Production Machine Operator Relationship Specialty Start Date End Date Jocelynn Troy, COMPUTER SYSTEMS DESIGNER [address] [place] [address] PCP - General 05/18/25 documented as of this encounter
--- OUTSIDE RECORDS SUMMARY | 2025-05-29 11:59 | XMS_ITS | Encounter Summary ---
Author Organization [employer] ([place], [place], [place], [place]) Address [address] [place] [address] Care Team Providers Care Marketing Director Assisted Living Name Role Phone Unavailable Primary Care Provider Unavailabl e Encounter Details Date Type Department Care Team (Late st Contact Info) Description 03/19/2020 Transcribed Document [facility] Family Medicine [facility] [place] [address] ProviderArchie MD [address] [place] [address] Social History Tobacco Use Types [...] Historical ProviderMD - 03/19/2020 4:49 PM CDT ED Assessment Entered On: 03/19/2020 17:21 EDT Performed On: 03/19/2020 17:20 EDT by Keeley Shin, CASHIER PAYMENTS RECEIVED Quick Look Assessment Level of Consciousness : Alert, Awake Affect/Behavior : Appropriate, Calm, Cooperative Orientation : Oriented x 4 Skin Temperature : Warm Skin Description : Normal for ethnicity Keeley Shin RN - 03/19/2020 17:20 EDT ED General-Functional Assess Information Obtained From : Patient Preferred Communication Mode : Verbal Communication Barrier : None Primary Language : Barbadian Any Spiritual/Cultural Needs or Requests : No Currently in Unsafe Situation : No Keeley Shin RN - 03/19/2020 17:20 EDT Social Habits Smoking Status : Never (less than 100 in lifetime; none in last 30 days) Smokeless Tobacco Status : Never Desires Tobacco Cessation Calc : 0 Keeley Shin RN - 03/19/2020 17:20 EDT Social History (As Of: 03/19/2020 17:21:26 EDT) Tobacco: Use in Last 12 Months: No. Smoking Status Never smoker. (Last Updated: 05/23/2015 22:12:49 EDT by Tamara Hwang, RN) Alcohol: Alcohol Use History No. (Last Updated: 05/23/2015 22:12:38 EDT by Tamara Hwang, RN) Substance Abuse: Drug Use Hx: No. Use in Last 12 Months: No. (Last Updated: 05/23/2015 22:12:53 EDT by Tamara Hwang, JUHI) Home/Environment: Lives with Spouse. (Last Updated: 05/23/2015 22:12:43 EDT by Tamara Hwang, RN) Musculoskeletal Musculoskeletal Assessment WDL : WDL with exceptions Musculoskeletal Assessment Comment : c/o pain neck and left upper arm Keeley Shin RN - 03/19/2020 17:20 EDT documented in this encounter Plan of Treatment Not on file documented as of this encounter Visit Diagnoses Not on filedocumented in this encounter
--- OUTSIDE RECORDS SUMMARY | 2025-05-29 11:59 | XMS_ITS | Encounter Summary ---
Author Organization [employer] ([place], [place], [place], [place]) Address [address] [place] [address] Care Team Providers Care Cloth Shearing Supervisor Name Role Phone Unavailable Primary Care Provider Unavailabl e Encounter Details Date Type Department Care Team (Late st Contact Info) Description 03/19/2020 Transcribed Document [facility] Family Medicine [facility] [place] [address] ProviderArchie MD [address] [place] [phone] Social History Tobacco Use Types Packs/Day Years [...] Conversion Note - Historical ProviderMD - 03/19/2020 6:21 PM CDT documented in this encounter Plan of Treatment Not on file documented as of this encounter Visit Diagnoses Not on filedocumented in this encounter
--- OUTSIDE RECORDS SUMMARY | 2025-05-29 11:59 | XMS_ITS | Encounter Summary ---
Author Organization Healthcare Address [address] [place] [address] Care Team Providers Care Customer Service Receptionist Name Role Phone Kirill Desai MD Primary Care Provider [phone] Jocelynn Troy APRN Primary Care Provider [phone]- [phone] Encounter Details Date Type Department Care Team (Late Contact Info) Description 04/17/2025 Lab Requisition [facility] [address] [place] [address] Jake Alberts MD [facility] [phone] Nontoxic single thyroid nodule Social History Tobacco Use Types Packs/Day Years Used Date Smoking Tobacco: Never Alcohol Use Standard Drinks/Week Comments No 0 (1 standard drink = 0.6 oz pur e alcohol) Comments Unknown Sex and Gender Information Value Date Recorded Sex Assigned at Not on file Legal Sex Female 7:54 PM EDT Gender Identity Not on file Sexual Orientation Not on file documented as of this encounter Plan of Treatment Upcoming Encounters Date Type Department Care Team (Late Contact Info) Description 06/08/2025 9:00 AM EDT Consult Medical Office Building Surgical Specialties [address], [address] [place] [address] Rich Christine MD [address] [place] [address] 08/16/2025 12:40 PM EDT [facility] [address] [place] [address] Tram Mead, FILM TESTS CHECKER [address] [place] [address] 09/07/2025 1:00 PM EST [facility] Medicine [facility]ties [address] [place] [address] Monster[employer] dial, FILM TESTS CHECKER [address] [place] [address] documented as of this encounter Procedures Procedure Name Priority Date/Time Associated Diagnosis Comments CYTOLOGY CONSULT Routine 04/17/2025 10:1 3 AM EDT Nontoxic single thyroid nodule documented in this encounter Results * Cytology Consult (04/17/2025 10:13 AM EDT) Case Report Cytology Case: [id number] Authorizing Provider: Jake Alberts MD Collected: 04/17/2025 1013 Ordering Location: [facility] Lab Received: 04/17/2025 1013 Pathologist: Chantal Muro MD Specimen: Thyroid, [id number] 04/17/2025 5:37 PM EDT [facility] Final Diagnosis A. 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 04/17/2025 5:37 PM EDT [facility] at 1737 EDT Comment The specimen is bloody and scantly cellular with minimal colloid, but the sampled cells show occasional nuclear enlargement and some nuclear membrane irregularity. The findings fit best within [place] category III (atypia of undetermined significance). Rebiopsy with consideration for molecular testing is suggested for further characterization . 04/17/2025 5:37 PM EDT [facility] Clinical Information E04.1 - Nontoxic single thyroid nodule [ICD-10-CM] 04/17/2025 5:37 PM EDT [facility] Gross Description A. [id number] Received along with a corresponding pathology report from [facility] are 5 slides labeled outside case: [id number] collected on 02/17/2025. 04/17/2025 5:37 PM EDT [facility] Fine Needle Aspirate Thyroid structure / Unknown 04/17/2025 10:13 AM EDT 04/17/2025 10:13 AM EDT us Jake Alberts MD LAB PATHOLOGY ORDERABLES Fi nal Result [facility] [address] [place] [address] documented in this encounter Visit Diagnoses Diagnosis Nontoxic single thyroid nodule Nontoxic uninodular goiter documented in this encounter Care Teams Customer Service Receptionist Relationship Specialty Start Date End Date Kirill Desai MD PCP - General 03/08/21 05/17/25 Jocelynn Troy APRN [address] [place] [address] PCP - General 05/18/25 documented as of this encounter
--- OUTSIDE RECORDS SUMMARY | 2025-05-29 11:59 | XMS_ITS | Clinical Summary ---
Author Organization [employer] ([place], [place], [place], [place]) Address [address] [place] [address] Care Team Providers Care Payroll Professional Name Role Phone Unavailable Primary Care Provider [...]
--- OUTSIDE RECORDS SUMMARY | 2025-05-29 11:59 | XMS_ITS | Clinical Summary ---
Author Organization Healthcare Address [address] [place] [address] Care Team Providers Care Religious Activities Director Name Role Phone Jocelynn Troy KEVYN Primary Care Provider [phone] Allergies Active Allergy Reactions Criticality Noted Date Comments Tramadol Hives,Itching Medium 01/09/2014 Medications hydroCHLOROthi azide 12.5 MG PO tablet Take 1 tablet by mouth daily. 5 Active losartan (Cozaar) 50 MG tablet Take 1 tablet by mouth daily. 5 Active cetirizine (ZyrTEC) 10 MG tablet TAKE ONE TABLET BY MOUTH EVERY DAY NEEDED FOR FOR ALLERGY SYMPTOMS 4 Active cyclobenzaprin e (Flexeril) 5 MG tablet Take 1 tablet by mouth at night as needed. 0 Active diclofenac (Voltaren) 1 % topical gel 4 g 4 times a day as needed. DIRECTED Active estradiol (Vagifem) 10 MCG tablet vaginal tablet 5 Active fluticasone (Flonase) 50 MCG/ACT nasal spray 4 Active furosemide (Lasix) 20 MG tablet 4 Active OneTouch Verio test strip USE TO TEST BLOOD SUGAR TWICE DAILY 4 Active Lancets (OneTouch Delica Plus [id number]) misc USE TO TEST BLOOD SUGAR TWICE DAILY 4 Active levocetirizine (Xyzal) 5 MG tablet 5 Active allopurinol (Zyloprim) 100 MG tablet 5 Active metFORMIN (Glucophage) 500 MG tablet as needed. 5 Active potassium chloride ER (Micro-K) 10 MEQ ER capsule Take 1 capsule by mouth 2 times a day. 4 Active omeprazole (PriLOSEC) [address] capsule Active terconazole (Terazol 3) 0.8 % vaginal cream Active valACYclovir (Valtrex) 1 g tablet as needed. Active magnesium oxide (Mag-Ox) 400 mg tablet 1 tablet daily. Active omega-3 (Fish Oil) 1000 MG capsule Take 1 capsule by mouth 2 times a day with meals. Active OIL OF OREGANO PO Take by mouth. Active diclofenac (Voltaren) 75 MG EC tablet Take 1 tablet by mouth 2 times a day. Do not crush, chew, or split. 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 02/17/2025 05/18/2025 Arthropathy, unspecified 01/30/2025 Chronic sinusitis, unspecified 01/19/2025 05/18/2025 Localized edema 01/19/2025 05/18/2025 Obstructive sleep apnea (adult) (pediatric) 01/19/2025 05/18/2025 Other allergic rhinitis 01/19/202504/26 Pain in unspecified joint 01/19/2025 Cardiac murmur, unspecified 07/19/2024 05/18/2025 Dizziness and giddiness 07/19/202404/26 Frequency of micturition 07/19/2024 Prediabetes 07/19/2024 05/18/2025 Abnormal weight gain 07/13/2024 025 Edema, unspecified 07/13/2024 Essential (primary) hypertension 07/13/2024 05/18/2025 Fever, unspecified 05/20/2024 Nasal congestion 05/20/2024 05/18/2025 Allergic rhinitis, unspecified 05/20/2024 05/18/2025 Morbid (severe) obesity due to excess calories 04/11/2024 05/18/2025 SI (sacroiliac) joint dysfunction 04/11/2024 05/18/2025 Spinal stenosis, lumbar christina on, with neurogenic claudication 04/11/2024 05/18/2025 Tear of LCL (lateral collate ral ligament) of knee, left, initial encounter 08/06/2020 05/18/2025 Low back pain 05/07/2020 05/18/2025 Cervical spine fracture 05/02/202004/26 Humerus fracture 04/25/2020 05/18/2025 Asthenopia 04/17/2020 05/18/2025 Knee pain 04/06/2020 05/18/2025 Arm pain 03/27/2020 05/18/2025 Chronic diarrhea 07/03/2014 05/18/2025 Helicobacter pylori (H. pylori) infection 07/03/2014 05/18/2025 IBS (irritable bowel syndrome) 07/03/2014 05/18/2025 Encounters Date Type Department Care Team Description 05/23/2025 Orders Only [facility] Medicine Specialties [address] [place] [address] Melvin Kearns, [employer] 05/18/2025 10:57 AM EDT - 05/18/2025 11:59 PM EDT Hospital Encounter [place] [facility] [address] [place] [address] SHERRY positive Discharge Disposition: Home or Self Care 05/18/2025 9:30 AM EDT Consult [facility] [address] [place] [address] Melvin Kearns, [employer] SHERRY positive (Primary Dx); Polyarthralgia; Scl-70 antibody positive; Diarrhea, unspecified type; Osteoarthritis, unspecified osteoarthritis type, unspecified site 05/18/2025 Results Follow-Up [facility] [address] [place] [id number] Melvin Kearns APRN 05/18/2025 Travel 04/17/2025 Lab Requisition [facility] [address] [place] [address] Jake Alberts MD Nontoxic single thyroid nodule from Last 3 Months Immunizations Immunization Administration Dates Next Due Influenza, recombinant, quad rivalent, injectable, preservative free 08/26/2020 Tdap 01/26/2019 Family History Medical History Relation Name Comments Bone cancer Maternal Grandfather Ovarian cancer Mother Diabetes Other 1 Hyperlipidemia Other 2 Hypertension Other 3 Relation Name Status Comments Maternal Grandfather Mother Other 1 Other 2 Other 3 Social History Tobacco Use Types Packs/Day Years [...] Pulse 71 05/18/2025 9:36 AM EDT Temperature 36.8 C (98.3 F) 08/28/2020 10:58 AM EST Respiratory Rate 17 04/25/2020 12:53 PM EDT Oxygen Saturation 99% 05/18/2025 9:36 AM EDT Inhaled Oxygen Concentration - - Weight 121 kg (266 lb 12.1 oz) 05/18/2025 9:36 A M EDT Height 165.1 cm (5' 5 ) 05/18/2025 9:36 AM EDT Body Mass Index 44.39 05/18/2025 9:36 AM EDT Plan of Treatment Upcoming Encounters Date Type Department Care Team (Late st Contact Info) Description 06/08/2025 9:00 AM EDT Consult Medical Office Building Surgical Specialties [address] [facility], [address] [place] [address] Rich Christine MD [address] [facility] [address] [place] [address] 08/16/2025 12:40 PM EDT Office Visit [facility] [address] [place] [address] Tram Mead, [employer] [address] [place] [address] 09/07/2025 1:00 PM EST Office Visit [facility]ties [address] [place] [address] Melvin Kearns, [employer] [address] [place] [address] Health Maintenance Due Date Last Done Comments [facility]-HIV Screening 1974 [facility]-/Child/Adol SDOH Screenings 1974 [facility]- SDOH Screenings 1992 [facility]-Adult SDOH Screenings 1992 [facility]-Hepatitis B Vaccines (1 of 3 - 19+ 3-dose series) 1993 [facility]-Pap Smear 1995 [facility]-Cervical Cancer Screening 2004 [facility]-HPV/Cotest 2004 CT Colonography 2019 Colonoscopy 2019 FIT-DNA 2019 FIT 2019 FOBT 2019 Sigmoidoscopy 2019 [facility]-Colorectal Cancer Screening 2019 [id number] Vaccine (2 - 2023- season) 2024 11/24/2021 [facility]-Breast Cancer Screening 2024 [facility]-Pneumococcal Vaccine: 50 + Years (1 of 1 - PCV) 2024 [facility]-Zoster Vaccines (1 of 2) 2024 [facility]-Influenza Vaccine (#1) 2025 08/26/2020 [facility]-Depression Screening 05/18/2026 025, 05/18/2025 [facility]-DTaP,Tdap,and Td Vaccine s (2 - Td or Tdap) 01/26/2029 01/26/2019 [facility]-Hepatitis C Screening Completed 05/18/2025 [facility]-Obesity Intervention Completed 05/18/2025 HPV Vaccines Aged Out No longer eligi ble based on patient's age to complete this topic [facility]-HIB Vaccines Aged Out No longer e ligible based on patient's age to complete this topic [facility]-Hepatitis A Vaccines Aged Out No longer eligible based on patient's age to complete this topic [facility]-IPV Vaccines Aged Out No longer e ligible based on patient's age to complete this topic [facility]-Rotavirus Vaccines Aged Out No lo nger eligible based on patient's age to complete this topic Procedures Procedure Name Priority Date/Time Associated Diagnosis Comments XR KNEE RIGHT 1 OR 2 VIEWS Routine 05/18/2025 11:31 AM EDT SHERRY positive XR KNEE LEFT 1 OR 2 VIEWS Routine 05/18/2025 11:31 AM EDT SHERRY positive XR FOOT RIGHT 3+ VIEWS Routine 11:31 AM EDT SHERRY positive XR FOOT LEFT 3+ VIEWS Routine 05/18/2025 11:31 AM EDT SHERRY positive XR HAND WRIST BILATERAL 2 VIEWS Routine 05/18/2025 11:31 AM EDT SHERRY positive C-REACTIVE PROTEIN, PLASMA Routine 05/18/2025 10:54 AM EDT SHERRY positive SEDIMENTATION RATE, AUTOMATED Routine 05/18/2025 10:54 AM EDT SHERRY positive CYCLIC CITRUL PEPTIDE ANTIBODY IGG Routine 05/18/2025 10:54 AM EDT SHERRY positive RHEUMATOID FACTOR, PLASMA Routine 05/18/2025 10:54 AM EDT SHERRY positive ACUTE HEPATITIS PANEL Routine 05/18/2025 10:54 AM EDT SHERRY positive ANTINUCLEAR ANTIBODY (SHERRY) WITH HEP-2 SUBSTRATE, IGG BY IFA (SO) Routine 05/18/2025 10:54 AM EDT SHERRY positive DOUBLE-STRANDED DNA (DSDNA) ANTIBODY, IGG BY IFA (SO) Routine 05/18/2025 10:54 AM EDT SHERRY positive C3 COMPLEMENT Routine 05/18/2025 10:54 AM EDT SHERRY positive C4 COMPLEMENT Routine 05/18/2025 10:54 AM EDT SHERRY positive BROTHERS/PACKAGER HAND (MINERVA) ANTIBODY, IGG (SO) Routine 05/18/2025 10:54 AM EDT SHERRY positive EXTRACTABLE NUCLEAR ANTIGEN ANTIBODIES (SSA 52, SSA 60, AND SSB) (SO) Routine 05/18/2025 10:54 AM EDT SHERRY positive BROTHERS (MINERVA) ANTIBODY, IGG (SO) Routine 05/18/2025 10:54 AM EDT SHERRY positive THYROID PEROXIDASE ANTIBODY Routine 05/18/2025 10:54 AM EDT SHERRY positive SCLERODERMA (SCL-70) (MINERVA) ANTIBODY, IGG (SO) Routine 05/18/2025 10:54 AM EDT Scl-70 antibody positive RNA POLYMERASE III ANTIBODY, IGG (SO) Routine 05/18/2025 10:54 AM EDT Scl-70 antibody positive CENTROMERE ANTIBODY, IGG (SO) Routine 05/18/2025 10:54 AM EDT Scl-70 antibody positive PROTEIN, URINE, RANDOM WITH CREATININE Routine 05/18/2025 10:42 AM EDT SHERRY positive CYTOLOGY CONSULT Routine 04/17/2025 10:1 3 AM EDT Nontoxic single thyroid nodule from Last 3 Months Results * XR Hand and Wrist Bilateral 2 [...] tissue swelling the dorsal foot. Procedure Note Shahbaz Vyas, Rios Foley MD - 05/18/2025 CLINICAL INDICATION: evaluation for [...] MD on 1:38 AM Melvin Kearns APRN [facility] XR PROCEDURES Final Result * XR Foot [...] Vyas MD on 1:38 AM Melvin Kearns [employer] IMG XR PROCEDURES Final Result * XR [...] XR PROCEDURES Final Result * XR Knee Right 1 or 2 [...] tissue swelling the dorsal foot. Procedure Note Shahbaz Vyas, Rios Foley MD - 05/18/2025 CLINICAL INDICATION: evaluation for [...] 05/18/2025 11:35 AM Final report signed by Rois Vyas MD on 1:38 AM Melvin Kearns [...] tissue swelling the dorsal foot. Procedure Note Shahbaz Vyas, Rios Foley MD - 05/18/2025 CLINICAL INDICATION: evaluation for [...] Rios Vyas MD on 1:38 AM Melvin Boyd [employer] IMG XR PROCEDURES Final Result * RNA Polymerase III Antibody, IgG (05/18/2025 10:54 AM EDT) RNA Polymerase III Antibody, IgG 5 0 - 19 Units 05/19/2025 11:33 PM EDT [facility] ([facility]) Blood Venous blood specimen / Unknown Venipuncture / Unknown 05/18/2025 10:54 AM EDT 05/18/2025 10:54 AM EDT Narrative [facility] ([facility]) - 05/19/2025 11:33 PM EDT INTERPRETIVE INFORMATION: [...] antibodies associated with SSc, including centromere, Scl-70, U3-PACKAGER HAND, PM/Scl, or Th/To. Performed By: [facility] [address] [id number] Air Brake Operator: Ari Beasley MD, PhD CLIA Number: [id number] Melvin Kearns [employer] LAB BLOOD ORDERABLES Final Res ult [facility] [employer]) [address] [id number] * Centromere Antibody, IgG (05/18/2025 10:54 AM EDT) Pathologist [facility] Centromere Ab, IgG 0 0 - 40 AU/mL 05/20/2025 1:30 PM EDT [facility] [employer] (TOBI) Blood Venous blood specimen / Unknown Venipuncture / Unknown 05/18/2025 10:54 AM EDT 05/18/2025 10:54 AM EDT Narrative [facility] [employer]) - 05/20/2025 1:30 PM EDT INTERPRETIVE INFORMATION: [...] other antibodies associated with SSc, including Scl-70, U3-PACKAGER HAND, PM/Scl, or Th/To. Performed By: [facility] [address] [id number] Air Brake Operator: Ari Beasley MD, PhD CLIA Number: [id number] Melvin Kearns APRN LAB BLOOD ORDERABLES Final Res ult Performing Organization Address [facility] Co de Phone Number [facility]) [address] [place], [place] [id number] * Brothers (MINERVA) Antibody, IgG (05/18/2025 10:54 AM EDT) Brothers (MINERVA) Antibody, IgG 1 0 - 40 AU/mL 05/20/2025 1:30 PM EDT [facility] ([facility]) Serum 05/18/2025 10:5 4 AM EDT 05/18/2025 10:54 AM EDT Narrative [facility]) - 05/20/2025 1:30 PM EDT INTERPRETIVE INFORMATION: [...] associations with SLE clinical manifestations. Performed By: [facility] [address] [place] [address] Air Brake Operator: Ari Beasley MD, PhD CLIA Number: [id number] Melvin Kearns APRN LAB REF LAB BLOOD AND FLUID OR D Final Result Performing Organization Address [facility] Co de Phone Number [facility] ([facility]) [address] [place] [address] * ENAII (05/18/2025 10:54 AM EDT) SSA-52 (RO52) (MINERVA) Antibody, IgG 1 0 - 40 AU/mL 05/20/2025 1:30 PM EDT [facility] ([facility]) SSA-60 (RO60) (MINERVA) Antibody, IgG 0 0 - 40 AU/mL 05/20/2025 1:30 PM EDT [facility] ([facility]) SSB (LA) (MINERVA) Antibody, IgG 1 0 - 40 AU/mL 05/20/2025 1:30 PM EDT [facility] ([facility]) Blood Venous blood specimen / Unknown Venipuncture / Unknown 05/18/2025 10:54 AM EDT 05/18/2025 10:54 AM EDT Narrative [facility] ([facility]) - 05/20/2025 1:30 PM EDT INTERPRETIVE INFORMATION: [...] (PSS) also have this antibody. Performed By: [facility] [address] [place] [address] Air Brake Operator: Ari Beasley MD, PhD CLIA Number: [id number] Melvin Oliver Kearns APRN LAB BLOOD ORDERABLES Final Res ult Performing Organization Address [facility] Co de Phone Number [facility] ([facility]) [address] [place] [address] * ENAI (05/18/2025 10:54 AM EDT) Pathologist [facility] Brothers/PACKAGER HAND (MINERVA) Ab, IgG 2 0 - 19 Units 05/19/2025 11:55 PM EDT [facility] ([facility]) Blood Venous blood specimen / Unknown Venipuncture / Unknown 05/18/2025 10:54 AM EDT 05/18/2025 10:54 AM EDT Narrative [facility] ([facility]) - 05/19/2025 11:55 PM EDT INTERPRETIVE INFORMATION: Brothers/PACKAGER HAND (MINERVA) Antibody, IgG 19 Units or Less ............. Negative 20 to 39 Units ............... Weak Positive 40 to 80 Units ............... Moderate Positive 81 Units or greater .......... Strong Positive Brothers/PACKAGER HAND antibodies are frequently seen in patients with mixed connective tissue disease (MCTD) and are also associated with other systemic autoimmune rheumatic diseases (SARDs) such as systemic lupus erythematosus (SLE), systemic sclerosis, and myositis. Antibodies targeting the Brothers/PACKAGER HAND antigenic complex also recognize Brothers antigens, therefore, the Brothers antibody response must be considered when interpreting these results. Performed By: [facility] [address] [place] [address] Air Brake Operator: Ari Beasley MD, PhD CLIA Number: [id number] Melvin Kearns APRN LAB BLOOD ORDERABLES Final Res ult Performing Organization Address [facility] Co de Phone Number [facility] ([facility]) [address] [place] [address] * Thyroid Peroxidase Antibody (05/18/2025 10:54 AM EDT) Thyroid Peroxidase Antibody <5 <=8 IU/mL 05/18/2025 1:44 PM EDT [facility] Blood Venous blood specimen / Unknown Venipuncture / Unknown 05/18/2025 10:54 AM EDT 05/18/2025 10:54 AM EDT Melvin Hookyojana BAGLEY LAB BLOOD ORDERABLES Final Res ult Performing Organization Address [facility] Co de Phone Number [facility] [address] [place] [address] * Cyclic Citrul Peptide Antibody IgG (05/18/2025 10:54 AM EDT) Cyclic Citrul Peptide Antibody IgG <5.0 <=5.0 U/mL 05/18/2025 2:04 PM EDT [facility] Blood Venous blood specimen / Unknown Venipuncture / Unknown 05/18/2025 10:54 AM EDT 05/18/2025 10:54 AM EDT Melvin Boyd Urmila BAGLEY LAB BLOOD ORDERABLES Final Res ult Performing Organization Address [facility] [place] [address] * Anti-scleroderma antibody (05/18/2025 10:54 AM EDT) SCLERODERMA (SCL-70) (MINERVA) ANTIBODY, IGG 1 0 - 40 AU/mL 05/20/2025 1:30 PM EDT [facility] ([facility]) Blood Venous blood specimen / Unknown Venipuncture / Unknown 05/18/2025 10:54 AM EDT 05/18/2025 10:54 AM EDT Narrative [facility] ([facility]) - 05/20/2025 1:30 PM EDT INTERPRETIVE INFORMATION: [...] testing for centromere, RNA polymerase III and U3-PACKAGER HAND, PM/Scl, or Th/To antibodies. Performed By: [facility] [address] [place] [address] Air Brake Operator: Ari Beasley MD, PhD CLIA Number: [id number] Melvin Kearns APRN LAB BLOOD ORDERABLES Final Res ult [facility] [employer]) [address] [place] [address] * Double-Stranded DNA (dsDNA) Antibody, IgG by IFA (05/18/2025 10:54 AM EDT) Double-Strande d DNA (dsDNA) Ab IgG IFA <1:10 <1:10 05/20/2025 6:52 PM EDT [facility] [employer]) Blood Venous blood specimen / Unknown Venipuncture / Unknown 05/18/2025 10:54 AM EDT 05/18/2025 10:54 AM EDT Narrative [facility]) - 05/20/2025 6:52 PM EDT INTERPRETIVE INFORMATION: [...] recommendations for testing may be found at [email or web address]. Performed By: [facility] [address] [place] [address] Air Brake Operator: Ari Beasley MD, PhD CLIA Number: [id number] us Melvin Kearns APRN LAB BLOOD ORDERABLES Final Res ult [facility] ([facility]) [address] [place] [address] * Acute Hepatitis Panel (05/18/2025 10:54 AM EDT) Hepatitis B Surf Antigen Negative Negative 05/18/2025 1:56 PM EDT [facility] Hepatitis C Antibody Negative Negative 05/18/2025 1:56 PM EDT [facility] Hepatitis A Antibody IgM Negative Negative 05/18/2025 1:56 PM EDT [facility] Hepatitis B Core Antibody IgM Negative Negative 05/18/2025 1:56 PM EDT [facility] Blood Venous blood specimen / Unknown Venipuncture / Unknown 05/18/2025 10:54 AM EDT 05/18/2025 10:54 AM EDT us Melvin Kearns APRN LAB BLOOD ORDERABLES Final Res ult [facility] [address] [place] [address] * (ABNORMAL) Sedimentation Rate, Automated (05/18/2025 10:54 AM EDT) Pathologist [facility] Sedimentation Rate 51(H) <30 mm/hr 2024 1:32 PM EDT [facility] Blood Venous blood specimen / Unknown Venipuncture / Unknown 05/18/2025 10:54 AM EDT 05/18/2025 10:54 AM EDT Melvin Boyd Urmila WEATHERSN LAB BLOOD ORDERABLES Final Res ult [facility] [address] [place] [address] * Rheumatoid Factor, Plasma (05/18/2025 10:54 AM EDT) Pathologist [facility] Rheumatoid Factor, Plasma <10 <14 IU/mL 05/18/2025 1:28 PM EDT [facility] Blood Venous blood specimen / Unknown Venipuncture / Unknown 05/18/2025 10:54 AM EDT 05/18/2025 10:54 AM EDT Melvin Kearns APRN LAB BLOOD ORDERABLES Final Res ult Performing Organization Address City/[facility]/[place] [address] * C3 Complement (05/18/2025 10:54 AM EDT) [facility] C3 Complement 166 84 - 166 mg/dL 05/18/2025 1:20 PM EDT [facility] Blood Venous blood specimen / Unknown Venipuncture / Unknown 05/18/2025 10:54 AM EDT 05/18/2025 10:54 AM EDT Melvin Boyd Urmila WEATHERSN LAB BLOOD [place] [address] * C4 Complement (05/18/2025 10:54 AM EDT) [facility] C4 Complement 28 13 - 36 mg/dL 05/18/2025 1:20 PM EDT [facility] Blood Venous blood specimen / Unknown Venipuncture / Unknown 05/18/2025 10:54 AM EDT 05/18/2025 10:54 AM EDT Melvin Kearns [employer] LAB BLOOD ORDERABLES Final Res ult Performing Organization Address [facility] de Phone Number [facility] [address] [place] [address] * (ABNORMAL) C-Reactive Protein, Plasma (05/18/2025 10:54 AM EDT) [facility] CRP, Plasma 27.4(H) <=8.0 mg/L 05/18/2025 1:28 PM EDT [facility] Blood Venous blood specimen / Unknown Venipuncture / Unknown 05/18/2025 10:54 AM EDT 05/18/2025 10:54 AM EDT Narrative [facility] - 05/18/2025 1:28 PM EDT This CRP test is appropriate for assessment of infection, systemic inflammation and/or tissue injury. To assess cardiovascular disease risk order high sensitivity CRP (CRPH). Melvin Boyd Urmila [employer] LAB BLOOD ORDERABLES Final Res ult Performing Organization Address [facility] [place] [address] * Antinuclear Antibody (SHERRY), HEp-2, IgG (05/18/2025 10:54 AM EDT) [facility] SHERRY INTERPRETIVE COMMENT See Note 05/20/2025 9:29 AM EDT [facility] ([facility]) Anti Nuc Ab Screen <1:80 <1:80 05/20/2025 9:29 AM EDT [facility] ([facility]) Blood Venous blood specimen / Unknown Venipuncture / Unknown 05/18/2025 10:54 AM EDT 05/18/2025 10:54 AM EDT Narrative [facility] ([facility]) - 05/20/2025 9:29 AM EDT Antinuclear antibodies [...] not necessarily rule out SARD. Performed By: [facility] [address] [place] [address] Air Brake Operator: Ari Beasley MD, PhD CLIA Number: [id number] Melvin Kearns APRN LAB BLOOD ORDERABLES Final Res ult [facility] ([facility]) [address] [place] [address] * Protein, Random, Urine with Creatinine (05/18/2025 10:42 AM EDT) Protein, Urine 9 mg/dL 05/18/2025 11:59 AM EDT [facility] Creatinine, Urine 82 mg/dL 05/18/2025 11:59 AM EDT [facility] Protein/Creatin ine Ratio 0.1 mg/mg Creat 05/18/2025 11:59 AM EDT [facility] Urine Urine specimen obtained by clean catch procedure / Unknown Non-blood Collection / Unknown 05/18/2025 10:42 AM EDT 05/18/2025 10:42 AM EDT Melvin Boyd [employer] LAB URINE ORDERABLES Final Res ult [facility] [address] [place] [address] * Cytology Consult (04/17/2025 10:13 AM EDT) Case Report Cytology Case: [id number] Authorizing Provider: Jake Alberts MD Collected: 04/17/2025 1013 Ordering Location: [facility] Lab Received: 04/17/2025 1013 Pathologist: Chantal Muro MD Specimen: Thyroid, [id number] 04/17/2025 5:37 PM EDT [facility] Final Diagnosis A. THYROID, RIGHT, FINE NEEDLE ASPIRATION (OUTSIDE CASE [id number]; COLLECTED ON 02/17/2025): - ATYPIA OF UNDETERMINED SIGNIFICANCE - NUCLEAR ATYPIA (BETHESDA CATEGORY III), SEE COMMENT. 04/17/2025 5:37 PM EDT [facility] at 1737 EDT Comment The specimen is bloody and scantly cellular with minimal colloid, but the sampled cells show occasional nuclear enlargement and some nuclear membrane irregularity. The findings fit best within [place]om category III (atypia of undetermined significance). Rebiopsy with consideration for molecular testing is suggested for further characterization . 04/17/2025 5:37 PM EDT [facility] Clinical Information E04.1 - Nontoxic single thyroid nodule [ICD-10-CM] 04/17/2025 5:37 PM EDT [facility] Gross Description A. [id number] Received along with a corresponding pathology report from [facility] are 5 slides labeled outside case: [id number] collected on 02/17/2025. 04/17/2025 5:37 PM EDT [facility] Fine Needle Aspirate Thyroid structure / Unknown 04/17/2025 10:13 AM EDT 04/17/2025 10:13 AM EDT us Jake Alberts MD LAB PATHOLOGY ORDERABLES Fi nal Result [facility] [address] [place] [address] from Last 3 Months Insurance [employer] [facility] MEDICAID Care Teams Religious Activities Director Relationship Specialty Start Date End Date Jocelynn Troy APRN [address] [place] [address] PCP - General 05/18/25
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
[2025-05-29] MEDS: METOPROLOL TARTRATE 50MG TABLET PO (12:43)
[2025-05-29] MEDS: IVABRADINE HCL 7.5MG TABLET PO (12:44)
[2025-05-29 12:59] LABS: Chloride 101 mmol/L (98-107); Potassium 3.9 mmoL/L (3.5-5.1); Sodium 134 mmol/L (136-145)
[2025-05-29 13:02] LABS: Anion Gap 8.9 mEq/L (5-15); Blood Urea Nitrogen 15 mg/dl (7-17); Carbon Dioxide 28 mmol/L (22.0-30.0); Creatinine Clearance Estimated 121 mL/min (50-200); Creatinine,Serum 0.50 mg/dl (0.52-1.04); Estimated Glomerular Filt Rate 131 ml/min (>60); GFR (African American) 158 ML/MIN (>60); Glucose 116 mg/dl (74-100)
[2025-05-29 13:03] LABS: Calcium 9.8 mg/dl (8.4-10.2)
[2025-05-29] MEDS: IOPAMIDOL-370 (76%);100ML BOTTLE 85 ML IV (13:51)
[2025-05-29] MEDS: SODIUM CHLORIDE 0.9% 10ML SYR (RAD ONLY) 10 ML IV (13:51)
[2025-05-29] MEDS: 0.9 % SODIUM CHLORIDE 50 ML VIAL IV (13:51)
[2025-05-29 14:16] LABS: POC Glucose,Bedside 117 (70-110)
== END 2025-05-29 13:56 | disposition home or self-care (01) ==
PROVIDERS: PCP Nurse Practitioner Family; Visit Provider Physician Assistant
DX: G47.33 Obstructive sleep apnea (adult) (pediatric) (principal); G47.36 Sleep related hypoventilation in conditions classified elsewhere; I20.89 Other forms of angina pectoris; I10 Essential (primary) hypertension; G93.31 Postviral fatigue syndrome; R94.39 Abnormal result of other cardiovascular function study; R42 Dizziness and giddiness; R60.9 Edema, unspecified
CPT/HCPCS: 75574; 80048; 82962; G0399; Q9967

== ENCOUNTER 2025-07-26 13:40 | Outpatient (CLI) | payer OTHER, SELFPAY ==
--- OUTSIDE RECORDS SUMMARY | 2025-05-29 16:05 | XMS_ITS | Encounter Summary ---
Author Organization Healthcare Address [address] [place] [address] Care Team Providers Care Truck Engine Technician Name Role Phone Jocelynn Troy KEVYN Primary Care Provider [phone]- [phone] Encounter Details Date Type Department Care Team (Latest Contact Info) Description 05/29/2025 4:05 PM EDT Ancillary Procedure [address] [place] [address] SOB (shortness of breath); Edema; Dizziness; Fatigue Social History Tobacco Use Types Packs/Day Years [...] Care Team (Late st Contact Info) Description 08/16/2025 12:40 PM EDT Office Visit [facility] Medicine Specialties [address] [place] [address] Tram Mead, SCHOOL BASED THERAPIST [address] [place] [address] 09/07/2025 1:00 PM EST [facility] [address] [place] [address] MonsterMelvin dial, SCHOOL BASED THERAPIST [address] [place] [address] documented as of this encounter Procedures Procedure Name Priority Date/Time Associated Diagnosis Comments CT ANGIO CARDIAC CORONARY ARTERIES Routine 05/29/2025 4:01 PM EDT SOB (shortness of breath) Edema Dizziness Fatigue documented in this encounter Results * CT Angio Cardiac Coronary Arteries (05/29/2025 4:01 PM EDT) Anatomical Region Laterality Modality Heart Computed Tomogra phy Impressions 05/29/2025 5:33 PM EDT 1. No coronary calcification with an Agatston score = 0 using the AJ-130 method. Vascular age is 38 years. 2. Non-diagnostic coronary CTA due to photon starvation causing poor iqiaid-ny-yurht and evlxspre-bk-wxdia. 3. No significant non coronary cardiac findings in particular normal cardiac chambers, non-coronary vessels in the field of view and unremarkable pericardium. 4. Extracardiac structures in the field of view are unremarkable. CRITICAL RESULT: No. COMMUNICATION: Per this written report. Drafted by Abraham Delgado MD on 05/29/2025 5:23 PM Final report signed by Abraham Delgado MD on 05/29/2025 5:33 PM Narrative 05/29/2025 5:33 PM EDT CLINICAL INDICATION: 49 years Female Symptoms: Dyspnea, edema, dizziness, fatigue TECHNIQUE: Procedure Data Image Acquisition: Images were acquired at [facility] in [place], and interpreted at [facility]. A 128-slice MDCT scanner (Xekoa View) was used for data acquisition. A non-contrast coronary calcium scan was initially performed. was performed. Bolus tracking in the ascending aorta with a threshold of 180HU. Immediately afterwards, ECG synchronized Cardiac CT was then performed from cardiac base to apex using retrospective gating with ECG tube current modulation. A total of 85 mL Isovue 370mg/mL contrast media was administered at 5 mL/sec followed by a saline flush using a biphasic injection protocol. A tube voltage of 120 kVp was used. The patient received the following medications prior to the Cardiac CT: 50mg of po metoprolol, 15mg of po ivabradine The average heart rate at the time of acquisition was 66 bpm (64 bpm to 68 bpm) and regular. Image Reconstruction: Transaxial images were reconstructed at 0.63 mm slice thickness. Data was reviewed interactively on an advanced workstation ([employer]AI) capable of 2 and 3 dimensional displays in all conventional reconstruction formats including multiplanar reformations, maximum intensity projections, curved multiplanar reformations, and volume rendered reconstructions. There were no good diagnostic quality images to send to PACs. Complications: None Technical Quality: Overall image quality is Suboptimal due to photon starvation, breathing artifacts. Coronary artery opacification is Suboptimal Total DLP (Dose-Length Product): 1581.9mGycm. (22.1 mSv) Please note: The reported value represents the total of one or more individual components during the CT acquisition on this date and at this time, and as such, the same value may appear in more than one CT report depending on the interpreting/reporting physicians. COMPARISON: None. FINDINGS: -CT Coronary Calcium Scoring- LMA= 0 LAD= 0 LCX= 0 RCA= 0 Total calcium score = 0 using the AJ-130 method. The calculated vascular age for this patient is 38 years. There is no identifiable calcification in the aortic wall, mitral annulus/valve, pericardium, myocardium. -Coronary CT Angiography- Coronary Arteries: The coronaries have normal origin and proximal course. The coronary arterial system is right dominant. Note: Stenosis is reported as maximum percentage diameter stenosis. Stenosis grading is reported using the following scheme. Quantitative Stenosis Grading: CAD-RADS 0: 0% - No visible stenosis CAD-RADS 1: 1-24% - Minimal stenosis CAD-RADS 2: 25-49% - Mild stenosis CAD-RADS 3: 50-69% - Moderate stenosis CAD-RADS 4A: 70-99% - Severe stenosis in 1-2 vessels CAD-RADS 4B: Left main >50%, or 3 vessel >70% CAD-RADS 5: 100% - Occluded Left Main: CAD-RADS 0 The left main bifurcates into the left anterior descending artery and left circumflex artery. LAD and Diagonals: CAD-RADS N. Large vessel that appears to give off a diagonal and reaches the apex. No obvious atherosclerotic disease in the proximal segment, but unable to assess mid to distal segments. LCx and Obtuse Marginals: CAD-RADS N Unable to assess due to photon starvation RCA: CAD-RADS N Large dominant vessel. Unable to assess due to photon starvation. Non Coronary Cardiac Findings: Normal cardiac chamber size. No pericardial thickening or calcification. Normal interatrial and interventricular septum, pulmonary veins and imaged central veins. Central and branch pulmonary arteries in the field of view are unremarkable. Thoracic aorta and imaged thoracic aortic branches in the field of view are unremarkable. Extra Cardiac Structures: No significant findings. Procedure Note Abraham Delgado MD - 05/29/2025 CLINICAL INDICATION: 49 years Female Symptoms: Dyspnea, edema, dizziness, fatigue TECHNIQUE: Procedure Data Image Acquisition: Images were acquired at [facility] in [place], andinterpreted at [facility]. A 128-slice MDCT scanner (OfficialVirtualDJ) was used for data acquisition. A non-contrast coronarycalcium scan was initially performed. was performed. Bolus tracking in theascending aorta with a threshold of 180HU. Immediately afterwards, ECGsynchronized Cardiac CT was then performed from cardiac base to apex usingretrospective gating with ECG tube current modulation. A total of 85 mLIsovue 370mg/mL contrast media was administered at 5 mL/sec followed by asaline flush using a biphasic injection protocol. A tube voltage of 120kVp was used. The patient received the following medications prior to the Cardiac CT:50mg of po metoprolol, 15mg of po ivabradine The average heart rate at the time of acquisition was 66 bpm (64 bpm to 68bpm) and regular. Image Reconstruction: Transaxial images were reconstructed at 0.63 mm slice thickness. Data wasreviewed interactively on an advanced workstation ([employer]) capable of 2and 3 dimensional displays in all conventional reconstruction formatsincluding multiplanar reformations, maximum intensity projections, curvedmultiplanar reformations, and volume rendered reconstructions. There wereno good diagnostic quality images to send to PACs. Complications: None Technical Quality: Overall image quality is Suboptimal due to photon starvation, breathingartifacts. Coronary artery opacification is Suboptimal Total DLP (Dose-Length Product): 1581.9mGycm. (22.1 mSv) Please note: Thereported value represents the total of one or more individual componentsduring the CT acquisition on this date and at this time, and as such, thesame value may appear in more than one CT report depending on theinterpreting/reporting physicians. COMPARISON: None. FINDINGS: -CT Coronary Calcium Scoring- LMA= 0 LAD= 0 LCX= 0 RCA= 0 Total calcium score = 0 using the AJ-130 method. The calculated vascularage for this patient is 38 years. There is no identifiable calcification in the aortic wall, mitralannulus/valve, pericardium, myocardium. -Coronary CT Angiography- Coronary Arteries: The coronaries have normal origin and proximal course. The coronaryarterial system is right dominant. Note: Stenosis is reported as maximum percentage diameter stenosis.Stenosis grading is reported using the following scheme. Quantitative Stenosis Grading: CAD-RADS 0: 0% - No visible stenosis CAD-RADS 1: 1-24% - Minimal stenosis CAD-RADS 2: 25-49% - Mild stenosis CAD-RADS 3: 50-69% - Moderate stenosis CAD-RADS 4A: 70-99% - Severe stenosis in 1-2 vessels CAD-RADS 4B: Left main >50%, or 3 vessel >70% CAD-RADS 5: 100% - Occluded Left Main: CAD-RADS 0 The left main bifurcates into the left anteriordescending artery and left circumflex artery. LAD and Diagonals: CAD-RADS N. Large vessel that appears to give off adiagonal and reaches the apex. No obvious atherosclerotic disease in theproximal segment, but unable to assess mid to distal segments. LCx and Obtuse Marginals: CAD-RADS N Unable to assess due to photonstarvation RCA: CAD-RADS N Large dominant vessel. Unable to assess due to photonstarvation. Non Coronary Cardiac Findings: Normal cardiac chamber size. No pericardial thickening or calcification. Normal interatrial and interventricular septum, pulmonary veins and imagedcentral veins. Central and branch pulmonary arteries in the field of view areunremarkable. Thoracic aorta and imaged thoracic aortic branches in the field of vieware unremarkable. Extra Cardiac Structures: No significant findings. IMPRESSION: 1. No coronary calcification with an Agatston score = 0 using the AJ-130method. Vascular age is 38 years. 2. Non-diagnostic coronary CTA due to photon starvation causing ahfhjacohb-te-auanj and nscxhrgb-ah-awrxc. 3. No significant non coronary cardiac findings in particular normalcardiac chambers, non-coronary vessels in the field of view andunremarkable pericardium. 4. Extracardiac structures in the field of view are unremarkable. CRITICAL RESULT: No. COMMUNICATION: Per this written report. Drafted by Abraham Delgado MD on 05/29/2025 5:23 PM Final report signed by Abraham Delgado MD on 05/29/2025 5:33 PM Dejuan GARCIA IMG CT PROCEDURES Final Result documented in this encounter Visit Diagnoses Diagnosis SOB (shortness of breath) Shortness of breath Edema Dizziness Dizziness and giddiness Fatigue Other malaise and fatigue documented in this encounter Additional Health Concerns Assessment Noted Time PHQ-9 Depression Total Score: 6 05/18/20 9:44 AM EDT A fall risk assessment has been complete d for the patient 05/18/2025 9:44 AM EDT A Body Mass Index follow-up plan has been documented for the patient 05/18/2025 10:31 AM EDT documented as of this encounter Care Teams Truck Engine Technician Relationship Specialty Start Date End Date Jocelynn Troy APRN [address] [place] [address] PCP - General 05/18/25 documented as of this encounter
--- NOTE | 2025-07-26 13:42 | XR_ITS ---
FINAL REPORT CLINICAL HISTORY: left sided sciatica COMPARISON: None FINDINGS: LUMBOSACRAL SPINE SERIES Five views of the lumbosacral spine were obtained. There is no fracture present. There is no malalignment. There is moderate facet sclerosis in the lower lumbar spine. IMPRESSION: Moderate facet sclerosis without acute process. Reviewed, Interpreted and Dictated by Nate Sierra MD Transcribed by Gayle Chang Authenticated and [facility]
--- OUTSIDE RECORDS SUMMARY | 2025-07-26 13:42 | XMS_ITS | Clinical Summary ---
Author Organization [facility] , [facility] Address [address] [place] [address] Phone Care Team Providers Care Senior Director Insight Name Role Phone Omar SANDERS, Bc Randhawa Primary Care Provider [phone] Avery SANDERS, Humberto Casillas Unavailable [phone] Kirill Desai MD Unavailable [phone] Reason for Visit and Chief Complaint The Chief Complaint is: Low back/leg pain Problems Includes: Problems addressed during this encounter and other active Problems Current Visit Onset Date Resolved Date Provider Alexia candelaria Status Lower Back Pain 12/18/2016 Humberto Varela MD Act juwan Last Documented On 7 1:02PM ; [facility], [facility] Plan of Treatment Patient was seen by myself Geraldo Belle PA-C. Patient will follow up with Dr. Varela after lumbar spine MRI. - Last Documented On 05/12/2023 12:50PM ; [facility], [facility] Pending Tests Order Diagnosis Results Due Ordering [facility] Radiology - MRI MRI Lumbar Spine Low back pain 05/25/23 Geraldo Belle PA-C Last Documented On 3 12:50PM ; [facility], [facility] Instructions to patient Lose weight Last Documented On 3 2:43PM ; [facility], [facility] Assessments Includes: Assessments from this encounter Findings L4-S1 laminectomy January 07, 2023 - Last Documented On 05/12/2023 12:50PM ; [facility], [facility] Right leg radiculopathy possible recurrence of spinal stenosis - Last Documented On 05/12/2023 12:50PM ; [facility], [facility] Instructions Includes: Instructions from this encounter Instructions to patient Lose weight Last Documented On 3 2:43PM ; [facility], [facility] Medical Equipment - Implanted Devices Includes: Current Devices No Medical Equipment Recorded Medications Includes: Medications discussed during this encounter and other current Medications Current Medications (continue as prescribed) Venlafaxine HCl ER 150 MG Or al Capsule Extended Release 24 Hour 11/21/2022 Provider: Diagnosis: Last Documented On 3 9:10AM By Tram Burton ; [facility], [facility] Citalopram Hydrobromide 20 MG Oral Tablet 11/05/2022 Provider: Diagnosis: Last Documented On 3 9:10AM By Tram Burton ; [facility], [facility] hydroCHLOROthiazide 25 MG Oral Tablet 11/05/2022 Pro vider: Diagnosis: Last Documented On 3 9:10AM By Tram Burton ; [facility], [facility] Past Medications on file Methocarbamol 750 MG Oral Tablet 07/02/2023 - 08/31/20 Provider: Humberto Varela MD Diagnosis: Take 1 tablet every 8 hrs prn pain Last Documented On 3 9:14AM By Tram Burton ; [facility], [facility] HYDROcodone-Acetaminophen 5- 325 MG Oral Tablet 01/22/2023 - 02/06/2023 Provider: Humberto Varela MD Diagnosis: Take 1 tablet every 8 hrs prn pain Last Documented On 3 3:26PM By Humberto Varela ; [facility], [facility] Clindamycin HCl 300 MG Oral Capsule 01/19/2023 - 01/26/2023 Provider: Geraldo Bernardo Diagnosis: Take 2 tablets by mouth every 8 hours Last Documented On 3 4:45PM By Nicci Eugene ; [facility], [facility] HYDROcodone-Acetaminophen 7. 5-325 MG Oral Tablet 01/05/2023 - 01/20/2023 Provider: Humberto Varela MD Diagnosis: 1 po q 4h prn pain Last Documented On 3 1:44PM By Humberto Varela ; [facility], [facility] Flector 1.3 % Patch 12/18/2016 - 01/17/2017 Provider: Humberto Varela MD Diagnosis: take as directed Last Documented On 7 1:40PM By Gayle Clifford [facility], [facility] Medications Administered Includes: Administered Medications from this encounter No Administered Medications Recorded Vital Signs Includes: Vital Signs from this encounter Vital Name 05/11/2023 02:50P Height (in) 65 Weight (lb) 225 Body Mass Index 37.4 Body Surface Area 2.1 Note: mg Last Documented: On 05/11/2023 2:50PM ; [facility], [facility] Results Includes: Results discussed during [...] History Description Last Updated Tobacco non-user 07/02/2023 Last Documented On 3 2:42PM ; [facility], [facility] No recent change in diet 01/23/2023 Last Documented On 3 2:42PM ; [facility], [facility] Not a current smoker. 01/23/2023 Last Documented On 3 2:42PM ; [facility], [facility] Caffeine use 12/18/2016 Last Documented On 3 2:42PM ; [facility], [facility] No recent change in diet 12/18/2016 Last Documented On 3 2:42PM ; [facility], [facility] No tobacco use 12/18/2016 Last Documented On 3 2:42PM ; [facility], [facility] Not a current smoker 12/18/2016 Last Documented On 3 2:42PM ; [facility], [facility] Not exercising regularly 12/18/2016 Last Documented On 3 2:42PM ; [facility], [facility] Not using alcohol 12/18/2016 Last Documented On 3 2:42PM ; [facility] Not using drugs 12/18/2016 Last Documented On 3 2:42PM ; [facility], [facility] Smoking status : Never smoker 12/18/2016 Last Documented On 3 2:42PM ; [facility], [facility] Procedures and Surgical History Includes: Procedures from this encounter Procedures Code Diagnosis Performing Provider Service L ocation Service Date use of tobacco assessment performed 1000F Last Documented On 3 2:43PM ; [facility] Surgical History Last Updated History of back surgery L5-S1 Fusion 200 8 11/27/2022 Last Documented On 3 2:42PM ; [facility] History of History of Gallbladder 2022 Last Documented On 3 2:42PM ; [facility] Medical History Includes: Medical History addressed during this encounter Description Last Updated History of depression 11/27/2022 Last Documented On 3 2:42PM ; [facility] History of Hypertension 11/27/2022 Last Documented On 3 2:42PM ; [facility], [facility] Past medical/surgical history [use for f ree text] 11/27/2022 Last Documented On 3 2:42PM ; [facility] Gallbladder disease 12/18/2016 Last Documented On 3 2:42PM ; [facility] History of gastric ulcer 12/18/2016 Last Documented On 3 2:42PM ; [facility] Family History Includes: Family History addressed during this encounter Description Last Updated Diabetes mellitus 11/27/2022 Last Documented On 3 2:42PM ; [facility], [facility] Family history of cancer 12/18/2016 Last Documented On 3 2:42PM ; [facility], [facility] Family history of diabetes mellitus 11/27 Last Documented On 3 2:42PM ; [facility], [facility] Family history of heart disease 12/18/19 17 Last Documented On 3 2:42PM ; [facility], [facility] Family history of hypertension 7 Last Documented On 3 2:42PM ; [facility] Family history of rheumatoid arthritis 0 12/18/2016 Last Documented On 3 2:42PM ; [facility] Family history of thromboembolic disease 12/18/2016 Last Documented On 3 2:42PM ; [facility] Review of Systems Includes: Review of Systems [...] Statu s traMADol HCl Allergy 12/01/2016 Active Last Documented On 3 8:27AM ; [facility] Percocet Allergy 12/01/2016 Active Last Documented On 3 8:27AM ; [facility] Encounters Encounter Provider Location Date Check-In Time Check- Out Time Diagnosis Follow Up Geraldo Belle PA-C [facility] 3 2:43PM 3:12PM Insurance Includes: Active Insurance Policies Plan Name Member ID Group # Subscriber Relationship Effect juwan Dates 1 - [facility] [id number] Tiffanie Glasgow Self Clinical Notes Includes: Clinical Notes from this encounter * Progress note Date Encounter Last Documented by 05/11/2023 Follow Up Last documented on 05/12/2023; 12:50 PM, Geraldo Chavez; [facility], [facility] Active Problems & Conditions - [...]
--- OUTSIDE RECORDS SUMMARY | 2025-07-26 13:42 | XMS_ITS | Clinical Summary ---
Author Organization [facility] Address [address] [place] [address] Care Team Providers Care Health Physics Technician Name Role Phone TroyJocelynn APRN Primary Care Provider [phone] Allergies Active Allergy Reactions Criticality Noted Date [...] DAILY 4 Active Lancets (OneTouch Delica Plus Tavowr31M) misc USE TO TEST BLOOD SUGAR TWICE [...] ANNUAL PHYSICAL 03/07/2024 HEPATITIS C SCREENING 03/07/2024 Pneumococcal Vaccine 50+ (1 of 1 - PCV) 2024 ZOSTER VACCINE (1 of 2) 2024 INFLUENZA VACCINE 05/26/2025 08/26/2020 TDAP/TD VACCINES (2 - Td or Tdap) 01/26/2029 019 Insurance [facility] Care Teams Health Physics Technician Relationship Specialty Start Date End Date Jocelynn Troy APRN [address] [place] [address] [place] [id number] PCP - General Internal Medicine 01/18/24
--- OUTSIDE RECORDS SUMMARY | 2025-07-26 13:43 | XMS_ITS | Clinical Summary ---
Author Organization [facility] , [facility] Address [address] [place] [address] Phone Care Team Providers Care Senior Design Engineering Specialist Name Role Phone Omar SANDERS, Bc Randhawa Primary Care Provider [phone] Avery SANDERS, Humberto Casillas Unavailable [phone] Giselle SANDERS, Kirill Unavailable [phone] Reason for Visit and Chief Complaint The Chief Complaint is: L4-S1 Lami POV Problems Includes: Problems addressed during this encounter and other active Problems Current Visit Onset Date Resolved Date Provider Alexia candelaria Status Lower Back Pain 12/18/2016 Humberto Varela MD Act juwan Last Documented On 7 1:02PM ; [facility], [facility] Plan of Treatment Patient was seen by myself Geraldo Belle PA-C. Patient will follow up with myself and Dr. Varela on . We will place her on some clindamycin keep a dressing on this but some there is new Steri-Strips on it to - Last Documented On 01/20/2023 8:12AM ; [facility] Pending Tests Order Diagnosis Results Due Ordering P rovider Radiology - MRI MRI Lumbar Spine Low back pain 05/25/23 Geraldo Belle PA-C Last Documented On 3 12:50PM ; [facility] Instructions to patient Lose weight Last Documented On 3 4:04PM ; [facility], [facility] Assessments Includes: Assessments from this encounter Findings L4-S1 laminectomy January 07, 2023 - Last Documented On 01/20/2023 8:12AM ; [facility], [facility] Instructions Includes: Instructions from this encounter Instructions to patient Lose weight Last Documented On 3 4:04PM ; [facility] Medical Equipment - Implanted Devices Includes: [...] every 8 hours Pharmacy: [facility] [address] [place], [place] [address]Jose Guadalupe Din[place], [id number] Last Documented On 3 4:45PM By Nicci Eugene ; [facility], [facility] Current Medications (continue as prescribed) Venlafaxine HCl ER 150 MG Or al Capsule Extended Release 24 Hour 11/21/2022 Provider: Diagnosis: Last Documented On 3 9:10AM By Tram Burton ; [facility] Citalopram Hydrobromide 20 MG Oral Tablet 11/05/2022 Provider: Diagnosis: Last Documented On 3 9:10AM By Tram Burton ; [facility] hydroCHLOROthiazide 25 MG Oral Tablet 11/05/2022 Pro vider: Diagnosis: Last Documented On 3 9:10AM By Tram Burton ; [facility] Past Medications on file Methocarbamol 750 MG Oral Tablet 07/02/2023 - 08/31/20 23 Provider: Humberto Varela MD Diagnosis: Take 1 tablet every 8 hrs prn pain Last Documented On 3 9:14AM By Tram PELAEZ, [facility] HYDROcodone-Acetaminophen 5- 325 MG Oral Tablet 01/22/2023 - 02/06/2023 Provider: Humberto Varela MD Diagnosis: Take 1 tablet every 8 hrs prn pain Last Documented On 3 3:26PM By Humberto Varela ; [facility] HYDROcodone-Acetaminophen 7. 5-325 MG Oral Tablet 01/05/2023 - 01/20/2023 Provider: Humberto Varela MD Diagnosis: 1 po q 4h prn pain Last Documented On 3 1:44PM By Humberto Varela ; [facility], [facility] Flector 1.3 % Patch 12/18/2016 - 01/17/2017 Provider: Humberto Varela MD Diagnosis: take as directed Last Documented On 7 1:40PM By Gayle Kerr ; [facility], [facility] Medications Administered Includes: Administered Medications from this encounter No Administered Medications Recorded Vital Signs Includes: Vital Signs from this encounter Vital Name 01/19/2023 04:05P Height (in) 65 Weight (lb) 225 Body Mass Index 37.4 Body Surface Area 2.1 Note: MG Last Documented: On 01/19/2023 4:05PM ; [facility], [facility] Results Includes: Results discussed during this [...] Tobacco non-user 07/02/2023 Last Documented On 3 4:04PM ; [facility], [facility] No recent change in diet 01/23/2023 Last Documented On 3 4:04PM ; [facility] Not a current smoker. 01/23/2023 Last Documented On 3 4:04PM ; [facility] Caffeine use 12/18/2016 Last Documented On 3 4:04PM ; [facility], [facility] No recent change in diet 12/18/2016 Last Documented On 3 4:04PM ; [facility], [facility] No tobacco use 12/18/2016 Last Documented On 3 4:04PM ; [facility], [facility] Not a current smoker 12/18/2016 Last Documented On 3 4:04PM ; [facility], [facility] Not exercising regularly 12/18/2016 Last Documented On 3 4:04PM ; [facility] Not using alcohol 12/18/2016 Last Documented On 3 4:04PM ; [facility], [facility] Not using drugs 12/18/2016 Last Documented On 3 4:04PM ; [facility], [facility] Smoking status : Never smoker 12/18/2016 Last Documented On 3 4:04PM ; [facility], [facility] Procedures and Surgical History Includes: Procedures from this encounter Procedures Code Diagnosis Performing Provider Service L ocation Service Date use of tobacco assessment performed 1000F Last Documented On 3 4:04PM ; [facility], [facility] Surgical History Last Updated History of back surgery L5-S1 Fusion 200 8 11/27/2022 Last Documented On 3 4:04PM ; [facility], [facility] History of History of Gallbladder 2022 Last Documented On 3 4:04PM ; [facility], [facility] Medical History Includes: Medical History addressed during this encounter Description Last Updated History of depression 11/27/2022 Last Documented On 3 4:04PM ; [facility] History of Hypertension 11/27/2022 Last Documented On 3 4:04PM ; [facility], [facility] Past medical/surgical history [use for f ree text] 11/27/2022 Last Documented On 3 4:04PM ; [facility], [facility] Gallbladder disease 12/18/2016 Last Documented On 3 4:04PM ; [facility], [facility] History of gastric ulcer 12/18/2016 Last Documented On 3 4:04PM ; [facility], [facility] Family History Includes: Family History addressed during this encounter Description Last Updated Diabetes mellitus 11/27/2022 Last Documented On 3 4:04PM ; [facility], [facility] Family history of cancer 12/18/2016 Last Documented On 3 4:04PM ; [facility], [facility] Family history of diabetes mellitus 11/27 Last Documented On 3 4:04PM ; [facility], [facility] Family history of heart disease 12/18/19 17 Last Documented On 3 4:04PM ; [facility], [facility] Family history of hypertension 7 Last Documented On 3 4:04PM ; [facility] Family history of rheumatoid arthritis 0 12/18/2016 Last Documented On 3 4:04PM ; [facility] Family history of thromboembolic disease 12/18/2016 Last Documented On 3 4:04PM ; [facility] Review of Systems Includes: Review of Systems [...] Active Last Documented On 3 8:27AM ; [facility] Percocet Allergy 12/01/2016 Active Last Documented On 3 8:27AM ; [facility] Encounters Encounter Provider Location Date Check-In Time Check- Out Time Diagnosis Post Op Geraldo Belle PA-C [facility] 3 4:00PM 4:27PM Insurance Includes: Active Insurance Policies Plan Name Member ID Group # Subscriber Relationship Effect juwan Dates 1 - [facility] [id number] Tiffanie Glasgow Self Clinical Notes Includes: Clinical Notes from this encounter * Progress note Date Encounter Last Documented by 01/19/2023 Post Op Last documented on 01/20/2023; 8:12 AM, Geraldo Belle PA-C; [facility], [facility] Active Problems & Conditions - Lower [...]
--- OUTSIDE RECORDS SUMMARY | 2025-07-26 13:43 | XMS_ITS ---
Care Plan - [facility], [facility] Created on: July 26, 2025 Tiffanie Glasgow : 1975 Sex: Female Author Organization [facility] , [facility] Address [address] [place] [address] Phone Care Team Providers Care Electronic Tester Name Role Phone Omar SANDERS, Bc Randhawa Primary Care Provider [phone] Avery SANDERS, Humberto Casillas Unavailable [phone] Giselle SANDERS, Kirill Unavailable [phone]
--- OUTSIDE RECORDS SUMMARY | 2025-07-26 13:43 | XMS_ITS ---
Author Organization [facility] , [facility] Address [address] [place] [address] Phone Care Team Providers Care Vice President Of Finance Name Role Phone Omar SANDERS, Bc Randhawa Primary Care Provider [phone] Avery SANDERS, Humberto Casillas Unavailable [phone] Giselle SANDERS, Kirill Unavailable [phone] Problems Includes: Active, inactive, and resolved Problems All Visits Onset Date Resolved Date Provider Condition S tatus Lower Back Pain 12/18/2016 Humberto Varela MD Act juwan Last Documented On 7 1:02PM ; [facility], [facility] Plan of Treatment Pending Tests Order Diagnosis Results Due Ordering P rovider Radiology - MRI MRI Lumbar Spine Low back pain 05/25/23 Geraldo Belle PA-C Last Documented On 3 12:50PM ; [facility], [facility] Instructions to patient Lose weight Last Documented On 3 8:27AM ; [facility], [facility] Lose weight Last Documented On 3 2:43PM ; [facility], [facility] Lose weight Last Documented On 3 1:55PM ; [facility], [facility] Lose weight Last Documented On 3 4:04PM ; [facility], [facility] Lose weight Last Documented On 3 8:17AM ; [facility], [facility] No intervention and counseli ng on cessation of tobacco use Last Documented On 7 1:02PM ; [facility], [facility] No intervention and counseli ng on cessation of tobacco use Last Documented On 7 8:59AM ; [facility], [facility] Education and Decision Aids were provided during visit for: No health seminar on smoking cessation Last Documented On 7 1:02PM ; [facility], [facility] No health seminar on smoking cessation Last Documented On 7 8:59AM ; [facility], [facility] Assessments Includes: Assessments for all patient encounters Findings Encounter Date Overweight Follow Up with Humberto Varela MD 07/02/2023 Last Documented On 3 4:54PM ; [facility], [facility] Instructions Includes: Instructions for all patient encounters Instructions to patient Lose weight Last Documented On 3 8:27AM ; [facility] Lose weight Last Documented On 3 2:43PM ; [facility], [facility] Lose weight Last Documented On 3 1:55PM ; [facility], [facility] Lose weight Last Documented On 3 4:04PM ; [facility], [facility] Lose weight Last Documented On 3 8:17AM ; [facility], [facility] No intervention and counseli ng on cessation of tobacco use Last Documented On 7 1:02PM ; [facility], [facility] No intervention and counseli ng on cessation of tobacco use Last Documented On 7 8:59AM ; [facility], [facility] Education and Decision Aids were provided during visit for: No health seminar on smoking cessation Last Documented On 7 1:02PM ; [facility], [facility] No health seminar on smoking cessation Last Documented On 7 8:59AM ; [facility], [facility] Medical Equipment - Implanted Devices Includes: Current and historical Devices No Medical Equipment Recorded Medications Includes: Current and historical Medications Current Medications (continue as prescribed) Venlafaxine HCl ER 150 MG Or al Capsule Extended Release 24 Hour 11/21/2022 Provider: Diagnosis: Last Documented On 3 9:10AM By Tram Burton ; [facility] Citalopram Hydrobromide 20 MG Oral Tablet 11/05/2022 Provider: Diagnosis: Last Documented On 3 9:10AM By Tram Burton ; [facility] hydroCHLOROthiazide 25 MG Oral Tablet 11/05/2022 Pro vider: Diagnosis: Last Documented On 3 9:10AM By Tram Burton ; [facility], [facility] Past Medications on file Methocarbamol 750 MG Oral Tablet 07/02/2023 - 08/31/20 Provider: Humberto Varela MD Diagnosis: Take 1 tablet every 8 hrs prn pain Last Documented On 3 9:14AM By Tram Burton ; [facility] HYDROcodone-Acetaminophen 5- 325 MG Oral Tablet 01/22/2023 - 02/06/2023 Provider: Humberto Varela MD Diagnosis: Take 1 tablet every 8 hrs prn pain Last Documented On 3 3:26PM By Humberto Varela ; [facility], [facility] Clindamycin HCl 300 MG Oral Capsule 01/19/2023 - 01/26/2023 Provider: Geraldo Bernardo Diagnosis: Take 2 tablets by mouth every 8 hours Last Documented On 3 4:45PM By Nicci Eugene ; [facility], [facility] HYDROcodone-Acetaminophen 7. 5-325 MG Oral Tablet 01/05/2023 - 01/20/2023 Provider: Humberto Varela MD Diagnosis: 1 po q 4h prn pain Last Documented On 3 1:44PM By Humberto Varela ; [facility], [facility] Flector 1.3 % Patch 12/18/2016 - 01/17/2017 Provider: Humberto Varela MD Diagnosis: take as directed Last Documented On 7 1:40PM By Gayle Kerr ; [facility], [facility] Lisinopril 20 MG Tablet 12/01/2016 - 11/27/2022 Provid er: Diagnosis: Last Documented On 3 9:10AM By Tram Burton ; [facility], [facility] PriLOSEC 10 MG Packet 12/01/2016 - 11/27/2022 Provider : Diagnosis: Last Documented On 3 9:10AM By Tram Burton ; [facility], [facility] Medications Administered Includes: Administered Medications in patient's chart No Administered Medications Recorded Results Includes: Results from 07/26/2024 through 07/26/2025 No Results Recorded For Specified Dates History of Present Illness History of Present Illness not supported for this document type No History of Present Illness Recorded Social History Description Last Updated Tobacco non-user 07/02/2023 Last Documented On 3 4:54PM ; [facility], [facility] No recent change in diet 01/23/2023 Last Documented On 3 7:50AM ; [facility] Not a current smoker. 01/23/2023 Last Documented On 3 7:50AM ; [facility] Caffeine use 12/18/2016 Last Documented On 7 11:53AM ; [facility] No recent change in diet 12/18/2016 Last Documented On 7 11:53AM ; [facility] No tobacco use 12/18/2016 Last Documented On 7 11:53AM ; [facility], [facility] Not a current smoker 12/18/2016 Last Documented On 7 11:53AM ; [facility], [facility] Not exercising regularly 12/18/2016 Last Documented On 7 11:53AM ; [facility], [facility] Not using alcohol 12/18/2016 Last Documented On 7 11:53AM ; [facility], [facility] Not using drugs 12/18/2016 Last Documented On 7 11:53AM ; [facility], [facility] Smoking status : Never smoker 12/18/2016 Last Documented On 7 11:53AM ; [facility], [facility] Procedures and Surgical History Surgical History Last Updated History of back surgery L5-S1 Fusion 200 8 11/27/2022 Last Documented On 3 11:20AM ; [facility], [facility] History of History of Gallbladder 2022 Last Documented On 3 11:20AM ; [facility], [facility] Medical History Includes: Medical History in patient's chart Description Last Updated History of depression 11/27/2022 Last Documented On 3 11:20AM ; [facility] History of Hypertension 11/27/2022 Last Documented On 3 11:20AM ; [facility], [facility] Past medical/surgical history [use for f ree text] 11/27/2022 Last Documented On 3 11:20AM ; [facility] Gallbladder disease 12/18/2016 Last Documented On 7 11:53AM ; [facility] History of gastric ulcer 12/18/2016 Last Documented On 7 11:53AM ; [facility] Family History Includes: Family History in patient's chart Description Last Updated Diabetes mellitus 11/27/2022 Last Documented On 3 11:20AM ; [facility] Family history of cancer 12/18/2016 Last Documented On 7 11:53AM ; [facility] Family history of diabetes mellitus 11/27 Last Documented On 7 11:53AM ; [facility] Family history of heart disease 12/18/19 17 Last Documented On 7 11:53AM ; [facility] Family history of hypertension 7 Last Documented On 7 11:53AM ; [facility] Family history of rheumatoid arthritis 0 12/18/2016 Last Documented On 7 11:53AM ; [facility] Family history of thromboembolic disease 12/18/2016 Last Documented On 7 11:53AM ; [facility], [facility] Review of Systems Review of Systems not [...] Active Last Documented On 3 8:27AM ; [facility] Percocet Allergy 12/01/2016 Active Last Documented On 3 8:27AM ; [facility], [facility] Insurance Includes: Active Insurance Policies Plan Name Member ID Group # Subscriber Relationship Effect juwan Dates 1 - [employer] [facility] [id number] Tiffanie Glasgow Self Clinical Notes Includes: Signed Clinical Notes starting from 10/09/2022 No Clinical Notes Recorded
--- OUTSIDE RECORDS SUMMARY | 2025-07-26 13:43 | XMS_ITS | Clinical Summary ---
Author Organization [facility] , [facility] Address [address] [place] [address] Phone Care Team Providers Care Farmworker General Name Role Phone Omar SANDERS, Bc Randhawa Primary Care Provider [phone] Avery SANDERS, Humberto Casillas Unavailable [phone] Giselle SANDERS, Kirill Unavailable [phone] Reason for Visit and Chief Complaint [facility] Problems Includes: Problems addressed during this encounter and other active Problems All Visits Onset Date Resolved Date Provider Condition S tatus Lower Back Pain 12/18/2016 Humberto Varela MD Act juwan Last Documented On 7 1:02PM ; [facility], [facility] Plan of Treatment No Plan of Treatment [...] Last Documented On 3 9:10AM By Tram [facility], [facility] Citalopram Hydrobromide 20 MG Oral Tablet 11/05/2022 Provider: Diagnosis: Last Documented On 3 9:10AM By Tram [facility], [facility] hydroCHLOROthiazide 25 MG Oral Tablet 11/05/2022 Pro vider: Diagnosis: Last Documented On 3 9:10AM By Tram [facility], [facility] Medications Administered Includes: Administered Medications from this encounter No Administered Medications Recorded Results Includes: Results discussed during this encounter No Results Recorded For Specified Dates History of Present Illness Includes: History of Present Illness from this encounter No History of Present Illness Recorded Social History No Social History Recorded - Smoking Status Unknown Medical History Includes: Medical History addressed during [...] Active Last Documented On 3 8:27AM ; [facility] Percocet Allergy 12/01/2016 Active Last Documented On 3 8:27AM ; [facility] Encounters Encounter Provider Location Date Check-In Time Check-Out Time Diagnosis [facility] Humberto Varela MD Surgery 3 01/08/2023 11:18AM 11:59PM Insurance Includes: Active Insurance Policies Plan Name Member ID Group # Subscriber Relationship Effect juwan Dates 1 - [employer]etna [facility] [id number] Tiffanie Glasgow Self Clinical Notes Includes: Clinical Notes from this encounter No Clinical Notes Recorded
--- OUTSIDE RECORDS SUMMARY | 2025-07-26 13:43 | XMS_ITS | Clinical Summary ---
Author Organization [facility] , [facility] Address [address] [place] [address] Phone Care Team Providers Care Chiropractic Doctor Name Role Phone Omar SANDERS, Bc Randhawa Primary Care Provider [phone] Avery SANDERS, Humberto Casillas Unavailable [phone] Kirill Desai MD Unavailable [phone] Reason for Visit and Chief Complaint The Chief Complaint is: L4-S1 Lami POV Problems Includes: Problems addressed during this encounter and other active Problems Current Visit Onset Date Resolved Date Provider Alexia candelaria Status Lower Back Pain 12/18/2016 Humberto Varela MD Act juwan Last Documented On 7 1:02PM ; [facility] Plan of Treatment Instructions to patient Lose weight Last Documented On 3 1:55PM ; [facility] Assessments Includes: Assessments from this encounter Findings L4-S1 laminectomy January 07, 2023 - Last Documented On 01/23/2023 7:50AM ; [facility] Instructions Includes: Instructions from this encounter Instructions to patient Lose weight Last Documented On 3 1:55PM ; [facility] Medical Equipment - Implanted Devices [...] hrs prn pain Pharmacy: [facility] [address] [place] [address] , [facility], [place], [phone] - Last Documented On 3 3:26PM By Humberto Varela ; [facility], [facility] Current Medications (continue as prescribed) Venlafaxine HCl ER 150 MG Or al Capsule Extended Release 24 Hour 11/21/2022 Provider: Diagnosis: Last Documented On 3 9:10AM By Tram Burton ; [facility], [facility] Citalopram Hydrobromide 20 MG Oral Tablet 11/05/2022 Provider: Diagnosis: Last Documented On 3 9:10AM By Tram Burton ; [facility], [facility] hydroCHLOROthiazide 25 MG Oral Tablet 11/05/2022 Pro vider: Diagnosis: Last Documented On 3 9:10AM By Tram Burton ; [facility] Past Medications on file Methocarbamol 750 MG Oral Tablet 07/02/2023 - 08/31/20 Provider: Humberto Varela MD Diagnosis: Take 1 tablet every 8 hrs prn pain Last Documented On 3 9:14AM By Tram [facility], [facility] Clindamycin HCl 300 MG Oral Capsule 01/19/2023 - 01/26/2023 Provider: Geraldo Bernardo Diagnosis: Take 2 tablets by mouth every 8 hours Last Documented On 3 4:45PM By Nicci PELAEZ, [facility] HYDROcodone-Acetaminophen 7. 5-325 MG Oral Tablet 01/05/2023 - 01/20/2023 Provider: Humberto Varela MD Diagnosis: 1 po q 4h prn pain Last Documented On 3 1:44PM By Humberto [facility], [facility] Flector 1.3 % Patch 12/18/2016 - 01/17/2017 Provider: Humberto Varela MD Diagnosis: take as directed Last Documented On 7 1:40PM By Gayle [facility] Medications Administered Includes: Administered Medications from this encounter No Administered Medications Recorded Vital Signs Includes: Vital Signs from this encounter Vital Name 01/22/2023 02:05P Height (in) 65 Weight (lb) 225 Body Mass Index 37.4 Body Surface Area 2.1 Note: mg Last Documented: On 01/22/2023 2:05PM ; [facility], [facility] Results Includes: Results discussed during this encounter No Results Recorded For Specified Dates History of Present Illness Includes: History of Present Illness from this encounter HPI Tiffanie Glasgow is a 47 year old female. - Allergy list reviewed - Problem list reviewed - Medication list reviewed with patient Social History Description Last Updated Tobacco non-user 01/23/2023 Last Documented On 3 7:50AM ; [facility] No recent change in diet 01/23/2023 Last Documented On 3 7:50AM ; [facility] Not a current smoker. 01/23/2023 Last Documented On 3 7:50AM ; [facility], [facility] Caffeine use 12/18/2016 Last Documented On 3 1:55PM ; [facility], [facility] Not exercising regularly 12/18/2016 Last Documented On 3 1:55PM ; [facility] Not using alcohol 12/18/2016 Last Documented On 3 1:55PM ; [facility], [facility] Not using drugs 12/18/2016 Last Documented On 3 1:55PM ; [facility], [facility] Smoking Status Unknown Procedures and Surgical History Includes: Procedures from this encounter Procedures Code Diagnosis Performing Provider Service L ocation Service Date use of tobacco assessment performed 1000F Last Documented On 3 1:55PM ; [facility], [facility] Surgical History Last Updated History of back surgery L5-S1 Fusion 200 8 11/27/2022 Last Documented On 3 1:55PM ; [facility], [facility] History of History of Gallbladder 2022 Last Documented On 3 1:55PM ; [facility], [facility] Medical History Includes: Medical History addressed during this encounter Description Last Updated History of depression 11/27/2022 Last Documented On 3 1:55PM ; [facility], [facility] History of Hypertension 11/27/2022 Last Documented On 3 1:55PM ; [facility], [facility] Past medical/surgical history [use for f ree text] 11/27/2022 Last Documented On 3 1:55PM ; [facility], [facility] Gallbladder disease 12/18/2016 Last Documented On 3 1:55PM ; [facility], [facility] History of gastric ulcer 12/18/2016 Last Documented On 3 1:55PM ; [facility], [facility] Family History Includes: Family History addressed during this encounter Description Last Updated Diabetes mellitus 11/27/2022 Last Documented On 3 1:55PM ; [facility], [facility] Family history of cancer 12/18/2016 Last Documented On 3 1:55PM ; [facility], [facility] Family history of diabetes mellitus 11/27 Last Documented On 3 1:55PM ; [facility], [facility] Family history of heart disease 12/18/19 17 Last Documented On 3 1:55PM ; [facility], [facility] Family history of hypertension 7 Last Documented On 3 1:55PM ; [facility], [facility] Family history of rheumatoid arthritis 0 12/18/2016 Last Documented On 3 1:55PM ; [facility], [facility] Family history of thromboembolic disease 12/18/2016 Last Documented On 3 1:55PM ; [facility], [facility] Review of Systems Includes: Review of Systems [...] Active Last Documented On 3 8:27AM ; [facility], [facility] Percocet Allergy 12/01/2016 Active Last Documented On 3 8:27AM ; [facility], [facility] Encounters Encounter Provider Location Date Check-In Time Check- Out Time Diagnosis Post Op Humberto Varela MD [facility] 3 1:34PM 2:26PM Insurance Includes: Active Insurance Policies Plan Name Member ID Group # Subscriber Relationship Effect juwan Dates 1 - Aetna [facility] [id number] Tiffanie Glasgow Self Clinical Notes Includes: Clinical Notes from this encounter * Progress note Date Encounter Last Documented by 01/22/2023 Post Op Last documented on 01/23/2023; 7:50 AM, Humberto Varela MD; [facility] Active Problems & Conditions - [...]
--- OUTSIDE RECORDS SUMMARY | 2025-07-26 13:43 | XMS_ITS | Encounter Summary ---
Author Organization Healthcare Address [address] [place] [address] Care Team Providers Care Birthing Nurse Name Role Phone Kirill Desai MD Primary Care Provider [phone] Jocelynn Troy APRN Primary Care Provider [phone] Encounter Details Date Type Department Care Team (Late Contact Info) Description 04/17/2025 Lab Requisition [facility] [address] [place] [address] Jake Alberts MD [facility] [address] Nontoxic single thyroid nodule Social History Tobacco [...] Department Care Team (Late Contact Info) Description 08/16/2025 12:40 PM EDT Office Visit [facility] [address] [place] [address] Tram Mead APRN [address] [place] [address] 09/07/2025 1:00 PM EST Office Visit [facility] [address] [place] [address] Melvin Kearns W, SPLUNK DEVELOPER [address] [place] [address] documented as of this encounter Procedures Procedure Name Priority Date/Time Associated Diagnosis Comments CYTOLOGY CONSULT Routine 04/17/2025 10:1 3 AM EDT Nontoxic single thyroid nodule documented in this encounter Results * Cytology Consult (04/17/2025 10:13 AM EDT) Case Report Cytology Case: [id number] Authorizing Provider: Jake Alberts MD Collected: 04/17/2025 1013 Ordering Location: [facility] Lab Received: 04/17/2025 1013 Pathologist: Chantal Muro MD Specimen: Thyroid, [id number] 04/17/2025 5:37 PM EDT [facility] Final Diagnosis A. 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 04/17/2025 5:37 PM EDT [facility] at 1737 EDT Comment The specimen is bloody and scantly cellular with minimal colloid, but the sampled cells show occasional nuclear enlargement and some nuclear membrane irregularity. The findings fit best within [place] category III (atypia of undetermined significance). Rebiopsy with consideration for molecular testing is suggested for further characterization . 04/17/2025 5:37 PM EDT [facility] Clinical Information E04.1 - Nontoxic single thyroid nodule [ICD-10-CM] 04/17/2025 5:37 PM EDT [facility] Gross Description A. [id number] Received along with a corresponding pathology report from [facility] Cytology Laboratory are 5 slides labeled outside case: [id number] collected on 02/17/2025. 04/17/2025 5:37 PM EDT [facility] Fine Needle Aspirate Thyroid structure / Unknown 04/17/2025 10:13 AM EDT 04/17/2025 10:13 AM EDT us Jake Alberts MD LAB PATHOLOGY ORDERABLES Fi nal Result [facility] [address] [place] [address] documented in this encounter Visit Diagnoses Diagnosis Nontoxic single thyroid nodule Nontoxic uninodular goiter documented in this encounter Care Teams Birthing Nurse Relationship Specialty Start Date End Date Kirill Desai MD PCP - General 03/08/21 05/17/25 oJcelynn Troy APRN [facility] [place] [address] PCP - General 05/18/25 documented as of this encounter
--- OUTSIDE RECORDS SUMMARY | 2025-07-26 13:43 | XMS_ITS | Encounter Summary ---
Author Organization Healthcare Address [address] [place] [address] Care Team Providers Care Content Management Consultant Name Role Phone Kirill Desai MD Primary Care Provider [phone] Jocelynn Troy APRN Primary Care Provider [phone] Encounter Details Date Type Department Care Team (Late Contact Info) Description 09/16/2022 Orders Only External Location [address] [place] [address] Geraldo Siegel MD [address] [place] [address] Social History Tobacco Use Types Packs/Day Years [...] Description 08/16/2025 12:40 PM EDT Office Visit [facility] Medicine Specialties [address], [address] [place] [address] Tram Mead APRN [address] [place] [address] 09/07/2025 1:00 PM EST Office Visit [facility] Medicine Specialties [address], [address] [place] [address] Melvin Kearns, SCREEN EXAMINER [address] [place] [address] documented as of this encounter Procedures Procedure Name Priority Date/Time Associated Diagnosis Comments CT OUTSIDE IMAGES 09/16/2022 2:50 AM EST documented in this encounter Results * CT OUTSIDE IMAGES (09/16/2022 2:50 AM EST) Anatomical Region Laterality Modality Computed Tomogra phy 09/16/2022 2:50 AM EST Geraldo Siegel MD IMG CT PROCEDURES Final Resu lt documented in this encounter Visit Diagnoses Not on filedocumented in this encounter Care Teams Content Management Consultant Relationship Specialty Start Date End Date Kirill Desai MD PCP - General 03/08/21 05/17/25 Jocelynn Troy, SCREEN EXAMINER [address] [place] [address] PCP - General 05/18/25 documented as of this encounter
--- OUTSIDE RECORDS SUMMARY | 2025-07-26 13:43 | XMS_ITS | Clinical Summary ---
Author Organization Healthcare Address [address] [id number] Care Team Providers Care Auger Supervisor Name Role Phone Jocelynn Troy KEVYN Primary Care Provider [phone] Allergies Active Allergy Reactions Criticality Noted Date Comments Tramadol Hives,Itching Medium 01/09/2014 Medications hydroCHLOROthia zide 12.5 MG PO tablet Take 1 tablet by mouth daily. 05/11/2025 Active losartan (Cozaar) 50 MG tablet Take 1 tablet by mouth daily. 05/11/2025 Active cetirizine (ZyrTEC) 10 MG tablet TAKE ONE TABLET BY MOUTH EVERY DAY NEEDED FOR FOR ALLERGY SYMPTOMS 08/23/2024 Active cyclobenzaprine (Flexeril) 5 MG tablet Take 1 tablet by mouth at night as needed. 04/25/2020 Active diclofenac (Voltaren) 1 % topical gel 4 g 4 times a day as needed. DIRECTED Active estradiol (Vagifem) 10 MCG tablet vaginal tablet 12/28/2024 Acti ve fluticasone (Flonase) 50 MCG/ACT nasal spray 08/23/2024 Active furosemide (Lasix) 20 MG tablet 10/20/2024 Active OneTouch Verio test strip USE TO TEST BLOOD SUGAR TWICE DAILY 10/20/2024 Active Lancets (OneTouch Delica Plus [id number]) misc USE TO TEST BLOOD SUGAR TWICE DAILY 10/20/2024 Active levocetirizine (Xyzal) 5 MG tablet 02/14/2025 Active allopurinol (Zyloprim) 100 MG tablet 02/14/2025 Active metFORMIN (Glucophage) 500 MG tablet as needed. 02/14/2025 Acti ve potassium chloride ER (Micro-K) 10 MEQ ER capsule Take 1 capsule by mouth 2 times a day. 10/20/2024 Active omeprazole (PriLOSEC) [address] capsule 06/07/2024 Activ e terconazole (Terazol 3) 0.8 % vaginal cream 11/29/2024 Act juwan valACYclovir (Valtrex) 1 g tablet as needed. 03/16/2025 Active magnesium oxide (Mag-Ox) 400 mg tablet 1 tablet daily. Active omega-3 (Fish Oil) 1000 MG capsule Take 1 capsule by mouth 2 times a day with meals. Active OIL OF OREGANO PO Take by mouth. Active diclofenac (Voltaren) 75 MG EC tablet Take 1 tablet by mouth 2 times a day. Do not crush, chew, or split. 60 tablet 2 05/23/2025 Active Resolved Problems Problem Noted Date Diagnosed Date [...] Encounters Date Type Department Care Team Description 05/29/2025 4:05 PM EDT Ancillary Procedure [address] [address] SOB (shortness of breath); Edema; Dizziness; Fatigue 05/23/2025 Orders Only [facility] Medicine Specialties [address], [address] [place] [address] Melvin Kearns, KEVYN 05/18/2025 10:57 AM EDT - 05/18/2025 11:59 PM EDT Hospital Encounter [facility] Radiology [address], [address] [place] [address] SHERRY positive Discharge Disposition: Home or Self Care 05/18/2025 9:30 AM EDT Consult [facility] Medicine Specialties [address], [address] [place] [address] Melvin Kearns, BRINE SUPERVISOR SHERRY positive (Primary Dx); Polyarthralgia; Scl-70 antibody positive; Diarrhea, unspecified type; Osteoarthritis, unspecified osteoarthritis type, unspecified site 05/18/2025 Results Follow-Up [facility] Medicine Specialties [address] [place] [address] Melvin Kearns APRN 05/18/2025 Travel from Last 3 Months Immunizations Immunization Administration [...] Description 08/16/2025 12:40 PM EDT Office Visit [facility] Medicine Specialties [address], [address] [place] [address] Tram Mead, BRINE SUPERVISOR [address] [place] [address] 09/07/2025 1:00 PM EST Office Visit [facility] Medicine Specialties [address], [address] [place] [address] Melvin Kearns, BRINE SUPERVISOR [address] [place] [address] Health Maintenance Due Date Last Done Comments [facility]-HIV Screening 1974 [facility]-Infant/Child/Adol SDOH Screenings 1974 [facility]- SDOH Screenings 1992 [facility]-Adult SDOH Screenings 1992 [facility]-Hepatitis B Vaccines (1 of 3 - 19+ 3-dose series) 1993 [facility]-Pap Smear 1995 [facility]-Cervical Cancer Screening 2004 [facility]-HPV/Cotest 2004 CT Colonography 2019 Colonoscopy 2019 FIT-DNA 2019 FIT 2019 FOBT 2019 Sigmoidoscopy 2019 [facility]-Colorectal Cancer Screening 2019 [facility]-Breast Cancer Screening 2024 [facility]-Pneumococcal Vaccine: 50 + Years (1 of 1 - PCV) 2024 [facility]-Zoster Vaccines (1 of 2) 2024 [id number] Vaccine (2 - season) 2025 11/24/2021 [facility]-Influenza Vaccine (#1) 2025 08/26/2020 [facility]-Depression Screening [...] SOB (shortness of breath) Edema Dizziness Fatigue XR KNEE RIGHT 1 OR 2 VIEWS [...] Routine 05/18/2025 10:54 AM EDT SHERRY positive BROTHERS/CAREER SERVICES REPRESENTATIVE (MINERVA) ANTIBODY, IGG (SO) Routine 05/18/2025 10:54 [...] Routine 05/18/2025 10:42 AM EDT SHERRY positive from Last 3 Months Results * CT Angio Cardiac Coronary Arteries (05/29/2025 4:01 PM EDT) Anatomical Region Laterality Modality Heart Computed Tomogra phy Impressions 05/29/2025 5:33 PM EDT 1. No coronary calcification with an Agatston score = 0 using the AJ-130 method. Vascular age is 38 years. 2. Non-diagnostic coronary CTA due to photon starvation causing poor wzfvrv-et-uycbn and bbgwfmpt-rx-cgqfg. 3. No significant non coronary cardiac findings [...] Data Image Acquisition: Images were acquired at [facility] in [place], and interpreted at [facility]. A 128-slice MDCT scanner ([facility]) was used for data acquisition. A [...] was reviewed interactively on an advanced workstation (MyRepublic) capable of 2 and 3 dimensional displays [...] Data Image Acquisition: Images were acquired at [facility] in [place], andinterpreted at [facility]. A 128-slice MDCT scanner (Geodruid) was used for data acquisition. A non-contrast [...] Data wasreviewed interactively on an advanced workstation (MyRepublic) capable of 2and 3 dimensional displays in [...] coronary CTA due to photon starvation causing fctybqsjiz-mt-iqrvc and tgbpfdxh-be-iqzur. 3. No significant non coronary cardiac findings [...] Dejuan GARCIA IMG CT PROCEDURES Final Result * XR Hand and [...] the dorsal foot. Procedure Note Shahbaz Vyas, Rois Foley MD - 05/18/2025 CLINICAL INDICATION: evaluation [...] MD on 511:38 AM Melvin Kearns APRN [facility]ED[place] Final Result * XR Knee [...] Per this written report. Drafted by Rios Vyas, MD on 05/18/2025 11:35 AM Final report signed by Rios Vyas MD on 511:38 AM us Melvin Kearns APRN IMG XR PROCEDURES Final Result * RNA Polymerase III Antibody, IgG (05/18/2025 10:54 AM EDT) RNA Polymerase III Antibody, IgG 5 0 - 19 Units 05/19/2025 11:33 PM EDT [employer] [facility] [employer] (TOBI) Blood Venous blood specimen / Unknown Venipuncture / Unknown 05/18/2025 10:54 AM EDT 05/18/2025 10:54 AM EDT Narrative [facility] (TO[facility]) - 05/19/2025 11:33 PM EDT INTERPRETIVE INFORMATION: [...] antibodies associated with SSc, including centromere, Scl-70, U3-CAREER SERVICES REPRESENTATIVE, PM/Scl, or Th/To. Performed By: [employer] [address] [place] [address] Energy Risk Management Analyst: Ari Beasley MD, PhD CLIA Number: [id number] us Melvin Kearns APRN LAB BLOOD ORDERABLES Final Res ult [facility] ([facility]) [address] [place] [address] * Centromere Antibody, IgG (05/18/2025 10:54 AM EDT) Centromere Ab, IgG 0 0 - 40 AU/mL 05/20/2025 1:30 PM EDT [facility] (TO[facility]) Blood Venous blood specimen / Unknown Venipuncture / Unknown 05/18/2025 10:54 AM EDT 05/18/2025 10:54 AM EDT Narrative [facility] ([facility]) - 05/20/2025 1:30 PM EDT INTERPRETIVE INFORMATION: [...] other antibodies associated with SSc, including Scl-70, U3-CAREER SERVICES REPRESENTATIVE, PM/Scl, or Th/To. Performed By: [facility] [address] [place] [address] Energy Risk Management Analyst: Ari Beasley MD, PhD CLIA Number: [id number] Melvin Kearns APRN LAB BLOOD ORDERABLES Final Res ult [facility] ([facility]) [address] [place] [address] * Brothers (MINERVA) Antibody, IgG (05/18/2025 10:54 AM EDT) Brothers (MINERVA) Antibody, IgG 1 0 - 40 AU/mL 05/20/2025 1:[address] [facility] Serum 05/18/2025 10:5 4 AM EDT 05/18/2025 10:54 AM EDT Narrative [facility]) - 05/20/2025 1:30 PM EDT [...] associations with SLE clinical manifestations. Performed By: [employer] [address] [place] [address] Energy Risk Management Analyst: Ari Beasley MD, PhD CLIA Number: [id number] Melvin Kearns APRN LAB REF LAB BLOOD AND FLUID OR D Final Result [facility] [address] [place] [address] * ENAII (05/18/2025 10:54 AM EDT) SSA-52 (RO52) (MINERVA) Antibody, IgG 1 0 - 40 AU/mL 05/20/2025 1:[address] [facility] ([employer]) SSA-60 (RO60) (MINERVA) Antibody, IgG 0 0 - 40 AU/mL 05/20/2025 1:[address] [facility] ([employer]) SSB (LA) (MINERVA) Antibody, IgG 1 0 - 40 AU/mL 05/20/2025 1:30 PM EDT [facility] ([employer]) Blood Venous blood specimen / Unknown Venipuncture / Unknown 05/18/2025 10:54 AM EDT 05/18/2025 10:54 AM EDT Narrative [facility]) - 05/20/2025 1:30 PM EDT [...] (PSS) also have this antibody. Performed By: [facility] [address] [place] [address] Energy Risk Management Analyst: Ari Beasley MD, PhD CLIA Number: [id number] Melvin Kearns APRN LAB BLOOD ORDERABLES Final Res ult [facility] ([facility]) [address] [place] [address] * ENAI (05/18/2025 10:54 AM EDT) Brothers/CAREER SERVICES REPRESENTATIVE (MINERVA) Ab, IgG 2 0 - 19 Units 05/19/2025 11:[address] [facility] (TOBI) Blood Venous blood specimen / Unknown Venipuncture / Unknown 05/18/2025 10:54 AM EDT 05/18/2025 10:54 AM EDT Narrative [facility] LEA) - 05/19/2025 11:55 PM EDT INTERPRETIVE INFORMATION: Brothers/CAREER SERVICES REPRESENTATIVE (MINERVA) Antibody, IgG 19 Units or Less ............. Negative 20 to 39 Units ............... Weak Positive 40 to 80 Units ............... Moderate Positive 81 Units or greater .......... Strong Positive Brothers/CAREER SERVICES REPRESENTATIVE antibodies are frequently seen in patients with mixed connective tissue disease (MCTD) and are also associated with other systemic autoimmune rheumatic diseases (SARDs) such as systemic lupus erythematosus (SLE), systemic sclerosis, and myositis. Antibodies targeting the Brothers/CAREER SERVICES REPRESENTATIVE antigenic complex also recognize Brothers antigens, therefore, the Brothers antibody response must be considered when interpreting these results. Performed By: [facility] [address] [id number] Energy Risk Management Analyst: Ari Beasley MD, PhD CLIA Number: [id number] Melvin Kearns APRN LAB BLOOD ORDERABLES Final Res ult [facility]) [address] [place] [address] * Thyroid Peroxidase Antibody (05/18/2025 10:54 AM EDT) Thyroid Peroxidase Antibody <5 <=8 IU/mL 05/18/2025 1:44 PM EDT [facility] Blood Venous blood specimen / Unknown Venipuncture / Unknown 05/18/2025 10:54 AM EDT 05/18/2025 10:54 AM EDT Melvin Kearns BRINE SUPERVISOR LAB BLOOD ORDERABLES Final Res ult Performing Organization Address City/[facility]/ZIP Co de Phone Number [address] [address] * Cyclic Citrul Peptide Antibody IgG (05/18/2025 10:54 AM EDT) Cyclic Citrul Peptide Antibody IgG <5.0 <=5.0 U/mL 05/18/2025 2:04 PM EDT [facility] Blood Venous blood specimen / Unknown Venipuncture / Unknown 05/18/2025 10:54 AM EDT 05/18/2025 10:54 AM EDT Melvin Kearns [facility] LAB BLOOD ORDERABLES Final Res ult Performing Organization Address [facility] [place] [address] * Anti-scleroderma antibody (05/18/2025 10:54 AM EDT) SCLERODERMA (SCL-70) (MINERVA) ANTIBODY, IGG 1 0 - 40 AU/mL 05/20/2025 1:30 PM EDT [facility] Blood Venous blood specimen / Unknown Venipuncture / Unknown 05/18/2025 10:54 AM EDT 05/18/2025 10:54 AM EDT [address] [facility] ([facility]) - 05/20/2025 1:30 PM EDT INTERPRETIVE INFORMATION: [...] testing for centromere, RNA polymerase III and U3-CAREER SERVICES REPRESENTATIVE, PM/Scl, or Th/To antibodies. Performed By: [facility] [address] [place] [address] Energy Risk Management Analyst: Ari Beasley MD, PhD CLIA Number: [id number] Melvin Kearns APRN LAB BLOOD ORDERABLES Final Res ult [facility] [employer]) [address] [place] [address] * Double-Stranded DNA (dsDNA) Antibody, IgG by IFA (05/18/2025 10:54 AM EDT) Double-Strande d DNA (dsDNA) Ab IgG IFA <1:10 <1:10 05/20/2025 6:[address] [facility] ([facility]) Blood Venous blood specimen / Unknown Venipuncture / Unknown 05/18/2025 10:54 AM EDT 05/18/2025 10:54 AM EDT Narrative [facility] [employer]) - 05/20/2025 6:52 PM EDT INTERPRETIVE INFORMATION: [...] recommendations for testing may be found at https://Playmysong/content/[email or web address]-ulodgu-[email or web address]. Performed By: [facility] [address] [place] [address] Energy Risk Management Analyst: Ari Beasley MD, PhD CLIA Number: [id number] Melvin Kearns APRN LAB BLOOD ORDERABLES Final Res ult Performing Organization Address City/[facility]/ZIP Co de Phone Number [facility] ([facility]) [address] [place] [address] * Acute Hepatitis Panel (05/18/2025 10:54 AM EDT) Hepatitis B Surf Antigen Negative Negative 05/18/2025 1:56 PM EDT [facility] Hepatitis C Antibody Negative Negative 05/18/2025 1:56 PM EDT [facility] Hepatitis A Antibody IgM Negative Negative 05/18/2025 1:56 PM EDT [facility] Hepatitis B Core Antibody IgM Negative Negative 05/18/2025 1:56 PM EDT [facility] Blood Venous blood specimen / Unknown Venipuncture / Unknown 05/18/2025 10:54 AM EDT 05/18/2025 10:54 AM EDT us Melvin Kearns APRN LAB BLOOD ORDERABLES Final Res ult [facility] [address] [place] [address] * (ABNORMAL) Sedimentation Rate, Automated (05/18/2025 10:54 AM EDT) Sedimentation Rate 51(H) <30 mm/hr 2024 1:32 PM EDT [facility] Blood Venous blood specimen / Unknown Venipuncture / Unknown 05/18/2025 10:54 AM EDT 05/18/2025 10:54 AM EDT us Melvin Kearns APRN LAB BLOOD ORDERABLES Final Res ult Performing Organization Address [facility] [place] [address] * Rheumatoid Factor, Plasma (05/18/2025 10:54 AM EDT) Rheumatoid Factor, Plasma <10 <14 IU/mL 05/18/2025 1:28 PM EDT [facility] Blood Venous blood specimen / Unknown Venipuncture / Unknown 05/18/2025 10:54 AM EDT 05/18/2025 10:54 AM EDT Melvin Kearns APRN LAB BLOOD ORDERABLES Final Res ult Performing Organization Address [facility] [place] [address] * C3 Complement (05/18/2025 10:54 AM EDT) C3 Complement 166 84 - 166 mg/dL 05/18/2025 1:20 PM EDT [facility] Blood Venous blood specimen / Unknown Venipuncture / Unknown 05/18/2025 10:54 AM EDT 05/18/2025 10:54 AM EDT Melvin Hookyojana BAGLEY LAB BLOOD ORDERABLES Final Res ult Performing Organization Address City/[facility]/ZIP Co de Phone Number [facility] [address] [place] [address] * C4 Complement (05/18/2025 10:54 AM EDT) C4 Complement 28 13 - 36 mg/dL 05/18/2025 1:20 PM EDT [facility] Blood Venous blood specimen / Unknown Venipuncture / Unknown 05/18/2025 10:54 AM EDT 05/18/2025 10:54 AM EDT us Melvin Kearns BRINE SUPERVISOR LAB BLOOD ORDERABLES Final Res ult Performing Organization Address [facility]/ZIP Co de Phone Number [facility] [address] [place] [address] * (ABNORMAL) C-Reactive Protein, Plasma (05/18/2025 10:54 AM EDT) CRP, Plasma 27.4(H) <=8.0 mg/L 05/18/2025 1:28 PM EDT [facility] Blood Venous blood specimen / Unknown Venipuncture / Unknown 05/18/2025 10:54 AM EDT 05/18/2025 10:54 AM EDT Narrative [facility] - 05/18/2025 1:28 PM EDT This CRP test is appropriate for assessment of infection, systemic inflammation and/or tissue injury. To assess cardiovascular disease risk order high sensitivity CRP (CRPH). Melvin Kearns BRINE SUPERVISOR LAB BLOOD ORDERABLES Final Res ult Performing Organization Address [facility] Co de Phone Number [facility] [address] [place] [address] * Antinuclear Antibody (SHERRY), HEp-2, IgG (05/18/2025 10:54 AM EDT) Pathologist [facility] SHERRY INTERPRETIVE COMMENT See Note 05/20/2025 9:29 AM EDT [facility] ([facility]) Anti Nuc Ab Screen <1:80 <1:80 05/20/2025 9:29 AM EDT [facility] ([facility]) Blood Venous blood specimen / Unknown Venipuncture / Unknown 05/18/2025 10:54 AM EDT 05/18/2025 10:54 AM EDT Narrative [facility] ([facility]) - 05/20/2025 9:29 AM EDT Antinuclear antibodies [...] not necessarily rule out SARD. Performed By: [facility] [address] [place] [address] Energy Risk Management Analyst: Ari Beasley MD, PhD CLIA Number: [id number] us Melvin Kearns APRN LAB BLOOD ORDERABLES Final Res ult Performing Organization Address City/[facility]/ZIP Co de Phone Number [facility] ([facility]) [address] [place] [address] * Protein, Random, Urine with Creatinine (05/18/2025 10:42 AM EDT) Protein, Urine 9 mg/dL 05/18/2025 11:59 AM EDT [facility] Creatinine, Urine 82 mg/dL 05/18/2025 11:59 AM EDT [facility] Protein/Creatin ine Ratio 0.1 mg/mg Creat 05/18/2025 11:59 AM EDT [facility] Urine Urine specimen obtained by clean catch procedure / Unknown Non-blood Collection / Unknown 05/18/2025 10:42 AM EDT 05/18/2025 10:42 AM EDT Melvin Kearns APRN LAB URINE ORDERABLES Final Res ult [facility] [address] [place] [address] from Last 3 Months Insurance [facility] MED[facility] Care Teams Auger Supervisor Relationship Specialty Start Date End Date Jocelynn Troy APRN [address] [place] [address] PCP - General 05/18/25
--- OUTSIDE RECORDS SUMMARY | 2025-07-26 13:43 | XMS_ITS | Encounter Summary ---
Author Organization Healthcare Address [address] [id number] Care Team Providers Care Services Rep Name Role Phone Jocelynn Troy KEVYN Primary Care Provider [phone]- [phone] Encounter Details Date Type Department Care Team (Late st Contact Info) Description 05/18/2025 Results Follow-Up [facility] Medicine Specialties [address] [place] [address] Melvin Kearns APRN [address] [place] [address] Social History Tobacco Use Types [...] Not at all 05/18/2025 9:44 AM EDT Lucia Merlos in R Patient Health Questionnaire-9 Score 6 05/18/2025 9:44 AM EDT Cara Merlos R * How difficult have these problems made it for you to do your work, take care of things at home, or get along with other people? Answer Date of Assessment Author Not difficult at all 05/18/2025 9:44 AM EDT Idalia Samuel R * How difficult have these problems [...] Description 08/16/2025 12:40 PM EDT Office Visit [facility] Medicine Specialties [address] [place] [address] Tram Mead, VICE PRESIDENT CORPORATE COMMUNICATIONS [address] [place] [address] 09/07/2025 1:00 PM EST Office Visit [facility] Medicine Specialties [address] [place] [address] Melvin Kearns, VICE PRESIDENT CORPORATE COMMUNICATIONS [address] [place] [address] documented as of this encounter Visit Diagnoses [...] documented as of this encounter Care Teams Services Rep Relationship Specialty Start Date End Date Jocelynn Troy, VICE PRESIDENT CORPORATE COMMUNICATIONS [address] [id number] PCP - General 05/18/25 documented as of this encounter
--- OUTSIDE RECORDS SUMMARY | 2025-07-26 13:43 | XMS_ITS | Clinical Summary ---
Author Organization [facility] , [facility] Address [address] [place] [address] Phone Care Team Providers Care Nipple Maker Name Role Phone Omar SANDERS, Bc Randhawa Primary Care Provider [phone] Avery SANDERS, Humberto Casillas Unavailable [phone] Kirill Desai MD Unavailable [phone] Reason for Visit and Chief Complaint The Chief Complaint is: Low back/leg pain Problems Includes: Problems addressed during this encounter and other active Problems Current Visit Onset Date Resolved Date Provider Alexia candelaria Status Lower Back Pain 12/18/2016 Humberto Varela MD Act juwan Last Documented On 7 1:02PM ; [facility], [facility] Plan of Treatment Patient was seen by myself and Dr. Avery Belle PA-C. Patient will follow up 6 weeks last resort for her be a lumbar fusion working to see if we can have her start some physical therapy prescription for Robaxin continue with anti-inflammatories as she is using Aleve rmxz-rnh-zxuozki and will try a L5-S1 transforaminal injection on the right side - Last Documented On 07/02/2023 4:54PM ; [facility], [facility] Pending Tests Order Diagnosis Results Due Ordering P rovider Therapy - Physical Therapy Lumbar Low back pain Humberto Varela MD Last Documented On 3 4:54PM ; [facility], [facility] Instructions to patient Lose weight Last Documented On 3 8:27AM ; [facility], [facility] Assessments Includes: Assessments from this encounter Findings - Overweight - Last Documented On 07/02/2023 4:54PM ; [facility], [facility] L4-L5 L5-S1 spinal stenosis - Last Documented On 07/02/2023 4:54PM ; [facility] Instructions Includes: Instructions from this encounter Instructions to patient Lose weight Last Documented On 3 8:27AM ; [facility] Medical Equipment - Implanted Devices Includes: Current Devices No Medical Equipment Recorded Medications Includes: Medications discussed during this encounter and other current Medications New / Renewed during this visit Humberto Varlea MD on 07/02/2023 Methocarbamol 750 MG Oral Tablet Provider: Humberto Varela MD 30 day supply: 60 tablet, 1 refills Diagnosis: Take 1 tablet every 8 hrs prn pain Pharmacy: [facility] [address] [place], [place] [address]Jose Guadalupe [place], [phone] - Last Documented On 3 9:14AM By Tram Burton ; [facility] Current Medications (continue as prescribed) Venlafaxine HCl ER 150 MG Or al Capsule Extended Release 24 Hour 11/21/2022 Provider: Diagnosis: Last Documented On 3 9:10AM By Tram Burton ; [facility] Citalopram Hydrobromide 20 MG Oral Tablet 11/05/2022 Provider: Diagnosis: Last Documented On 3 9:10AM By Tram Burton ; [facility] hydroCHLOROthiazide 25 MG Oral Tablet 11/05/2022 Pro vider: Diagnosis: Last Documented On 3 9:10AM By Tram Burton ; [facility] Past Medications on file HYDROcodone-Acetaminophen 5- 325 MG Oral Tablet 01/22/2023 - 02/06/2023 Provider: Humberto Varela MD Diagnosis: Take 1 tablet every 8 hrs prn pain Last Documented On 3 3:26PM By Humberto Varela ; [facility] Clindamycin HCl 300 MG Oral Capsule 01/19/2023 - 01/26/2023 Provider: Geraldo Bernardo Diagnosis: Take 2 tablets by mouth every 8 hours Last Documented On 3 4:45PM By Nicci Eugene ; [facility] HYDROcodone-Acetaminophen 7. 5-325 MG Oral Tablet 01/05/2023 - 01/20/2023 Provider: Humberto Varela MD Diagnosis: 1 po q 4h prn pain Last Documented On 3 1:44PM By Humberto Varela ; [facility] Flector 1.3 % Patch 12/18/2016 - 01/17/2017 Provider: Humberto Varela MD Diagnosis: take as directed Last Documented On 7 1:40PM By Gayle Kerr ; [facility] Medications Administered Includes: Administered Medications from this encounter No Administered Medications Recorded Vital Signs Includes: Vital Signs from this encounter Vital Name 07/02/2023 08:30A Height (in) 65 Weight (lb) 250 Body Mass Index 41.6 Body Surface Area 2.2 Note: sg Last Documented: On 07/02/2023 8:30AM ; [facility]IA[facility] Results Includes: Results discussed during this encounter [...] 07/02/2023 Last Documented On 3 4:54PM ; [facility] No recent change in diet 01/23/2023 Last Documented On 3 8:27AM ; [facility] Not a current smoker. 01/23/2023 Last Documented On 3 8:27AM ; [facility] Caffeine use 12/18/2016 Last Documented On 3 8:27AM ; [facility] No recent change in diet 12/18/2016 Last Documented On 3 8:27AM ; [facility] No tobacco use 12/18/2016 Last Documented On 3 8:27AM ; [facility] Not a current smoker 12/18/2016 Last Documented On 3 8:27AM ; [facility] Not exercising regularly 12/18/2016 Last Documented On 3 8:27AM ; [facility], [facility] Not using alcohol 12/18/2016 Last Documented On 3 8:27AM ; [facility], [facility] Not using drugs 12/18/2016 Last Documented On 3 8:27AM ; [facility], [facility] Smoking Status Unknown Procedures and Surgical History Includes: Procedures from this encounter Procedures Code Diagnosis Performing Provider Service L ocation Service Date use of tobacco assessment performed 1000F Last Documented On 3 8:27AM ; [facility], [facility] review of medications documented 1160F Last Documented On 3 8:30AM ; [facility], [facility] Surgical History Last Updated History of back surgery L5-S1 Fusion 200 8 11/27/2022 Last Documented On 3 8:27AM ; [facility], [facility] History of History of Gallbladder 2022 Last Documented On 3 8:27AM ; [facility], [facility] Medical History Includes: Medical History addressed during this encounter Description Last Updated History of depression 11/27/2022 Last Documented On 3 8:27AM ; [facility], [facility] History of Hypertension 11/27/2022 Last Documented On 3 8:27AM ; [facility], [facility] Past medical/surgical history [use for f ree text] 11/27/2022 Last Documented On 3 8:27AM ; [facility], [facility] Gallbladder disease 12/18/2016 Last Documented On 3 8:27AM ; [facility], [facility] History of gastric ulcer 12/18/2016 Last Documented On 3 8:27AM ; [facility], [facility] Family History Includes: Family History addressed during this encounter Description Last Updated Diabetes mellitus 11/27/2022 Last Documented On 3 4:54PM ; [facility], [facility] Family history of cancer 12/18/2016 Last Documented On 3 8:27AM ; [facility], [facility] Family history of heart disease 12/18/19 Last Documented On 3 8:27AM ; [facility] Family history of hypertension 7 Last Documented On 3 8:27AM ; [facility] Family history of rheumatoid arthritis 0 12/18/2016 Last Documented On 3 8:27AM ; [facility] Family history of thromboembolic disease 12/18/2016 Last Documented On 3 8:27AM ; [facility] Review of Systems Includes: Review of Systems [...] Active Last Documented On 3 8:27AM ; [facility] Percocet Allergy 12/01/2016 Active Last Documented On 3 8:27AM ; [facility] Encounters Encounter Provider Location Date Check-In Time Check-Out Time Diagnosis Follow Up Humberto Varela MD [facility] 3 8:27AM 8:45AM Overweight Insurance Includes: Active Insurance Policies Plan Name Member ID Group # Subscriber Relationship Effect juwan Dates 1 - [facility] [id number] Tiffanie Glasgow Self Clinical Notes Includes: Clinical Notes from this encounter * Progress note Date Encounter Last Documented by 07/02/2023 Follow Up Last documented on 07/02/2023; 4:54 PM, Humberto Varela MD; [facility], [facility] Active Problems & Conditions - Lower [...] with anti-inflammatories as she is using Aleve jspl-vty-lagqahk and will try a L5-S1 transforaminal injection [...]
== END 2025-07-26 23:59 | disposition home or self-care (01) ==
LOC: RAD 13:41
PROVIDERS: PCP Nurse Practitioner Family; Visit Provider Nurse Practitioner Family
DX: M47.27 Other spondylosis with radiculopathy, lumbosacral region (principal)
CPT/HCPCS: 72110

== ENCOUNTER 2025-08-07 14:43 | Emergency (ER) | payer OTHER, SELFPAY ==
[2025-08-07 14:59] VITALS: BP 153/82; PULSE 68; RESP 16; TEMP 36.7; O2SAT 98; BMI 42.3
[2025-08-07 15:07] VITALS: BP 153/82; PULSE 68; RESP 16; TEMP 36.7; O2SAT 98
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
--- OUTSIDE RECORDS SUMMARY | 2025-08-07 15:13 | XMS_ITS | Encounter Summary ---
Author Organization [employer] ([place], [place], [place], [place]) Address [address] [place] [address] Care Team Providers Care Payroll Accounting Specialist Name Role Phone Unavailable Primary Care Provider Unavailabl e Encounter Details Date Type Department Care Team (Late st Contact Info) Description 03/19/2020 Transcribed Document [facility] Family Medicine [facility] [place] [address] ProviderArchie MD [address] [place] [address] Social History Tobacco Use Types [...] Archie ProviderMD - 03/19/2020 6:59 PM CDT [facility] [place] [address] TIFFANIE GLASGOW MARCELLA :1975 Visit [...] Within 2 to 3 days Where: [address] [facility] [place] [address]- Business (1) Follow Up with Dr Morales at [facility] for humerus When Within 2 to 3 days Follow Up with SHAYLA SMILEY When Within 2 to 3 days Where: [address] [facility] [address] [place] [address] [facility] (1) Allergies Percocet 10/325 (Tramadol hydrochloride 50mg capsule, Tramadol) traMADol (Itching) Immunizations This Visit No Immunizations Found Medications What How Much When Instructions Next Dose acetaminophen-hydrocodone ([place] 5 mg-325 mg oral tablet) 1 Tablet(s) [...] Formulary med) 1 Tablet(s) Oral Every Day [id number] tab The home medications listed are only [...] at home: Medicines ??? Take and apply ebue-hsi-mckexvz and prescription medicines only as told by [...] and water are not available, use hand psychological science professor. ? Leave stitches (sutures), skin glue, or [...] 10/12/2006 Document Revised: 03/16/2017 Document Reviewed: 04/25/2016 [employer] Interactive Patient Education ?? 2019 [employer] Humerus Fracture Treated With Immobilization A [...] is stable enough for you to begin rexnj-lg-vkltti exercises. You may also be prescribed pain [...] says that it is safe. ??? Do tulzb-zp-olziuy exercises only as told by your health [...] ask your health care provider. ??? Take lkwx-dan-jmzxcjr and prescription medicines only as told by your health care provider. ??? Ask your health care provider if the medicine prescribed to you can cause constipation. You may need to take steps to prevent or treat constipation, such as: ? Drink enough fluid to keep your urine pale yellow. ? Take fhjc-qmb-idkqmjg or prescription medicines. ? Eat foods that [...] 01/18/2002 Document Revised: 06/13/2019 Document Reviewed: 06/13/2019 [employer] Interactive Patient Education ?? 2019 [employer]. Cast or Splint Care, Adult Casts and [...] activities are safe for you. ??? Take bdeb-cne-vgqgiyu and prescription medicines only as told by [...] 10/09/2001 Document Revised: 05/02/2017 Document Reviewed: 04/04/2017 [employer] Interactive Patient Education ?? 2019 [employer]. Emergency Awareness and Preventative Care STROKE is [...] Assistance with quitting is available by contacting 2-953-ZYNF-NOW. This is a free resource providing counseling, [...] was given the opportunity to ask questions. Patient/Granulator Operator Name: Patient/Granulator Operator Signature: Relationship to Patient: Clinician/Hospital Granulator Operator Signature: Please Provide a Telephone Number Where You Can Be Reached: Is it Permissible To Leave a Message? Date: Electronically signed by Ag, [facility] Conversion Vice President Research Cyndey at 02/13/2023 10:00 AM CDT documented in this encounter Plan of Treatment Not on file documented as of this encounter Visit Diagnoses Not on filedocumented in this encounter
--- OUTSIDE RECORDS SUMMARY | 2025-08-07 15:13 | XMS_ITS | Encounter Summary ---
Author Organization [employer] ([place], [place], [place], [place]) Address [address] [place] [address] Care Team Providers Care Mill Controller Name Role Phone Unavailable Primary Care Provider Unavailabl e Encounter Details Date Type Department Care Team (Late st Contact Info) Description 03/19/2020 Transcribed Document [facility] Family Medicine [address] [place] [address] ProviderArchie MD [address] [place], [place] [id number] Social History Tobacco Use Types Packs/Day Years [...] Historical ProviderMD - 03/19/2020 4:49 PM CDT [place] Suicide Severity Rating Scale (C-SSRS) Entered On: 03/19/2020 17:21 EDT Performed On: 03/19/2020 17:20 EDT by Keeley Shin RN [place] Suicide Severity Rating Scale (C-SSRS) CSSRS Past [...]
--- OUTSIDE RECORDS SUMMARY | 2025-08-07 15:13 | XMS_ITS | Encounter Summary ---
Author Organization [employer] ([place], [place], [place], [place]) Address [address] [place] [address] Care Team Providers Care Fabric Coating Supervisor Name Role Phone Unavailable Primary Care Provider Unavailabl e Encounter Details Date Type Department Care Team (Late st Contact Info) Description 03/19/2020 Transcribed Document [facility] Family Medicine [facility] [place] [address] ProviderArchie MD [address] [place] [address] Social History Tobacco Use Types [...] Cai MD - 03/19/2020 7:01 PM CDT [facility] [place] [address] LUNATIFFANIE STARK MARCELLA :1975 Visit [...] Within 2 to 3 days Where: [address] [facility] [place] [address]- Business (1) Follow Up with Dr Morales at [facility] for humerus When Within 2 to 3 days Follow Up with SHAYLA SMILEY When Within 2 to 3 days Where: [address] [facility] [address] [place] [address] [facility] (1) Allergies Percocet 10/325 (Tramadol hydrochloride 50mg capsule, Tramadol) traMADol (Itching) Immunizations This Visit No Immunizations Found Medications What How Much When Instructions Next Dose acetaminophen-hydrocodone ([place] 5 mg-325 mg oral tablet) 1 Tablet(s) [...] Formulary med) 1 Tablet(s) Oral Every Day [id number] tab The home medications listed are only [...] at home: Medicines ??? Take and apply hdxa-tqc-vuyldmh and prescription medicines only as told by [...] and water are not available, use hand account supervisor. ? Leave stitches (sutures), skin glue, or [...] 10/12/2006 Document Revised: 03/16/2017 Document Reviewed: 04/25/2016 [employer] Interactive Patient Education ?? 2019 [employer] Humerus Fracture Treated With Immobilization A [...] is stable enough for you to begin nrkzr-em-vcxjal exercises. You may also be prescribed pain [...] says that it is safe. ??? Do htwau-zp-uptykd exercises only as told by your health [...] ask your health care provider. ??? Take egab-drk-utlmurz and prescription medicines only as told by your health care provider. ??? Ask your health care provider if the medicine prescribed to you can cause constipation. You may need to take steps to prevent or treat constipation, such as: ? Drink enough fluid to keep your urine pale yellow. ? Take hzll-gss-ehragwj or prescription medicines. ? Eat foods that [...] 01/18/2002 Document Revised: 06/13/2019 Document Reviewed: 06/13/2019 [employer] Interactive Patient Education ?? 2019 [employer]ING. Cast or Splint Care, Adult Casts and [...] activities are safe for you. ??? Take rzwe-oeh-zrfcmyz and prescription medicines only as told by [...] 10/09/2001 Document Revised: 05/02/2017 Document Reviewed: 04/04/2017 [employer] Interactive Patient Education ?? 2019 H[employer]ING. Emergency Awareness and Preventative Care STROKE is [...] Assistance with quitting is available by contacting 0-591-EQND-NOW. This is a free resource providing counseling, [...] was given the opportunity to ask questions. Patient/Security Systems Sales Representative Name: Patient/Security Systems Sales Representative Signature: Relationship to Patient: Clinician/Hospital Security Systems Sales Representative Signature: Please Provide a Telephone Number Where You Can Be Reached: Is it Permissible To Leave a Message? Date: Electronically signed by Ag, [facility] Conversion Public Speaking Instructor Cydney at 02/13/2023 10:03 AM CDT documented in this encounter Plan of Treatment Not on file documented as of this encounter Visit Diagnoses Not on filedocumented in this encounter
--- OUTSIDE RECORDS SUMMARY | 2025-08-07 15:13 | XMS_ITS | Encounter Summary ---
Author Organization [facility] Address [address] [id number] Care Team Providers Care Scrap Iron Cutter Name Role Phone Jocelynn Troy KEVYN Primary Care Provider [phone] Reason for Visit * Reason Onset Date Comments HCN Clinical Concern/Question 08/01/2025 Encounter Details Date Type Department Care Team ([facility] st Contact Info) Description 08/01/2025 Telephone Medical Office Building Surgical Specialties [address] [place] [address] Rich Christine MD [address] [facility] [address] [place] [address] HCN Clinical Concern/Question Social History Tobacco Use Types Packs/Day Years [...] as of this encounter Miscellaneous Notes * Telephone Encounter - Lynda Richardson - 08/01/2025 11:46 AM EDT Clinical Concern/Question Reason for Call: Patient is calling she states she did not know about the appt in may and was calling to check on a referral her doc sent a few weeks ago. She wanted to see if she could reschedule the appt from may since the referral that was just sent was for the same thing. Please call patient back with info. Thank you Best contact number: [phone] (mobile) Optimal time of day to reach caller: ANYTIME Additional comments/information from caller: None Note: Please do not reply to this message. Follow-up communication and further actions as a result of this message need to be communicated with the patient directly, if the patient is not active onMyChart. If the patient is active on MyChart, they will receive notification of the communication/outcome via MyChart. documented in this encounter Plan of Treatment Upcoming Encounters Date Type Department Care Team (Late st Contact Info) Description 08/16/2025 12:40 PM EDT Office Visit [facility] Medicine Specialties [address] [place] [address] Tram Mead, WATER OPERATOR [address] [place] [address] 09/07/2025 1:00 PM EST Office Visit [facility] Medicine Specialties [address] [place] [address] Melvin Kearns, WATER OPERATOR [address] [place] [address] 10/05/2025 9:00 AM EST Consult Medical Office Building Surgical Specialties [address] [place] [address] Rich Christine MD [address] [facility] [address] [address] [place] [address] documented as of this encounter Visit Diagnoses [...] documented as of this encounter Care Teams Scrap Iron Cutter Relationship Specialty Start Date End Date Jocelynn Troy APRN [address] [place] [address] PCP - General 05/18/25 documented as of this encounter
--- OUTSIDE RECORDS SUMMARY | 2025-08-07 15:14 | XMS_ITS | Referral Summary ---
Author Organization [employer] ([place], [place], [place], [place]) Address [address] [place] [address] Care Team Providers Care Commercial Diver Name Role Phone Unavailable Primary Care Provider [...]
--- OUTSIDE RECORDS SUMMARY | 2025-08-07 15:14 | XMS_ITS | Clinical Summary ---
Author Organization [facility] ([place], [place], [place], [place]) Address [address] [place] [address] Care Team Providers Care Compressor Service Technician Name Role Phone Unavailable Primary Care Provider [...]
--- OUTSIDE RECORDS SUMMARY | 2025-08-07 15:14 | XMS_ITS | Clinical Summary ---
Author Organization [facility] Address [address] [place] [address] Care Team Providers Care Grain Spouter Name Role Phone TroyJocelynn APRN Primary Care Provider + [phone] Allergies Active Allergy Reactions Criticality Noted Date [...] DAILY 4 Active Lancets (OneTouch Delica Plus [id number]) misc USE TO TEST BLOOD SUGAR TWICE [...] - Td or Tdap) 01/26/2029 019 Insurance [facility] Care Teams Grain Spouter Relationship Specialty Start Date End Date Jocelynn Troy APRN [address] [place] [address] [place] [address] PCP - General Internal Medicine 01/18/24
--- OUTSIDE RECORDS SUMMARY | 2025-08-07 15:14 | XMS_ITS | Encounter Summary ---
Author Organization Healthcare Address [address] [id number] Care Team Providers Care Product Consultant Name Role Phone Jocelynn Troy KEVYN Primary Care Provider [phone] Encounter Details Date Type Department Care Team (Late st Contact Info) Description 05/18/2025 Results Follow-Up [facility] Medicine Specialties [address] [place] [address] Melvin Kearns APRN [address] [place] [address] Social History Tobacco Use Types [...] Idalia Quan documented as of this encounter Plan of Treatment Upcoming Encounters Date Type Department Care Team (Late st Contact Info) Description 08/16/2025 12:40 PM EDT Office Visit [facility] Medicine Specialties [address] [place] [address] Tram Mead, SERVICE ATTENDANT CAFETERIA [address] [place] [address] 09/07/2025 1:00 PM EST Office Visit [facility] Medicine Specialties [address] [place] [address] Melvin Kearns, SERVICE ATTENDANT [place]FETERIA [address] [place] [address] 10/05/2025 9:00 AM EST Consult Medical Office Building Surgical Specialties [address] [facility] [place] [address] Rich Christine MD [address] [facility] [address] [place] [address] documented as of this encounter Visit Diagnoses [...] documented as of this encounter Care Teams Product Consultant Relationship Specialty Start Date End Date Jocelynn Troy APRN [address] [place] [address] PCP - General 05/18/25 documented as of this encounter
--- OUTSIDE RECORDS SUMMARY | 2025-08-07 15:14 | XMS_ITS | Encounter Summary ---
Author Organization [employer] ([place], [place], [place], [place]) Address [address] [place] [address] Care Team Providers Care Corporate Affairs Manager Name Role Phone Unavailable Primary Care Provider Unavailabl e Encounter Details Date Type Department Care Team (Late st Contact Info) Description 03/20/2020 Transcribed Document [facility] [place] [address] ProviderArchie MD [address] [place], [place] [id number] Social History Tobacco Use Types Packs/Day Years [...] Provider Review Required Electronically signed by Ag [facility] Conversion Conference Planning Manager Cerner at 02/13/2023 9:59 AM CDT documented in this encounter Plan of Treatment Not on file documented as of this encounter Visit Diagnoses Not on filedocumented in this encounter
--- OUTSIDE RECORDS SUMMARY | 2025-08-07 15:14 | XMS_ITS | Encounter Summary ---
Author Organization [employer] ([place], [place], [place], [place]) Address [address] [place] [address] Care Team Providers Care Software Quality Tester Name Role Phone Unavailable Primary Care Provider Unavailabl e Encounter Details Date Type Department Care Team (Late st Contact Info) Description 03/19/2020 Transcribed Document [facility] [place] [facility] [place] [address] ProviderArchie MD [address] [place] [address] Social History Tobacco Use Types [...] 03/19/2020 19:11 EDT Electronically signed by Ag [facility] Conversion Director Records Management Cerner at 02/13/2023 9:54 AM CDT documented in this encounter Plan of Treatment Not on file documented as of this encounter Visit Diagnoses Not on filedocumented in this encounter
--- OUTSIDE RECORDS SUMMARY | 2025-08-07 15:14 | XMS_ITS | Encounter Summary ---
Author Organization [employer] ([place], [place], [place], [place]) Address [address] [place] [address] Care Team Providers Care Gamma Facilities Operator Name Role Phone Unavailable Primary Care Provider Unavailabl e Encounter Details Date Type Department Care Team (Late st Contact Info) Description 03/19/2020 Transcribed Document [facility] [place] [facility] [place] [address] ProviderArchie MD [address] [place] [address] Social History Tobacco Use Types [...]
--- OUTSIDE RECORDS SUMMARY | 2025-08-07 15:14 | XMS_ITS | Encounter Summary ---
Author Organization [employer] ([place], [place], [place], [place]) Address [address] [place] [address] Care Team Providers Care Phosphorus Processing Supervisor Name Role Phone Unavailable Primary Care Provider Unavailabl e Encounter Details Date Type Department Care Team (Late st Contact Info) Description 03/19/2020 Transcribed Document [facility] [place] [facility] [place] [address] ProviderArchie MD [address] [place], [place] [id number] Social History Tobacco Use Types Packs/Day Years [...] On: 03/19/2020 17:20 EDT by Keeley Shin, COFFEE SHOP AIDE Quick Look Assessment Level of Consciousness : Alert, Awake Affect/Behavior : Appropriate, Calm, Cooperative Orientation : Oriented x 4 Skin Temperature : Warm Skin Description : Normal for ethnicity Keeley Shni RN - 03/19/2020 17:20 EDT ED General-Functional Assess Information Obtained From : Patient Preferred Communication Mode : Verbal Communication Barrier : None Primary Language : Citizen Of [place] Any Spiritual/Cultural Needs or Requests : No [...]
--- OUTSIDE RECORDS SUMMARY | 2025-08-07 15:14 | XMS_ITS | Encounter Summary ---
Author Organization [facility] Address [address] [place] [address] Care Team Providers Care Guest Experience Manager Name Role Phone Kirill Desai MD Primary Care Provider [phone] Jocelynn Troy APRN Primary Care Provider [phone] Encounter Details Date Type Department Care Team (Late Contact Info) Description 04/17/2025 Lab Requisition [facility] [address] [place] [address] Jake Alberts MD [facility] [address] Nontoxic single thyroid nodule Social History Tobacco [...] Description 08/16/2025 12:40 PM EDT Office Visit [facility] Medicine Specialties [address] [place] [address] Tram Mead APRN [address] [place] [address] 09/07/2025 1:00 PM EST Office Visit [facility] Medicine Specialties [address] [place] [address] MonsterMelvin dial W, JD EDWARDS CONSULTANT [address] [place] [address] 10/05/2025 9:00 AM EST Consult Medical Office Building Surgical Specialties [address] [facility] [place] [address] Rich Christine MD [address] [facility] [address] [place] [address] documented as of this encounter Procedures Procedure Name Priority Date/Time Associated Diagnosis Comments CYTOLOGY CONSULT Routine 04/17/2025 10:1 3 AM EDT Nontoxic single thyroid nodule documented in this encounter Results * Cytology Consult (04/17/2025 10:13 AM EDT) Case Report Cytology Case: [id number] Authorizing Provider: Jake Alberts MD Collected: 04/17/2025 1013 Ordering Location: [facility] Lab Received: 04/17/2025 1013 Pathologist: Chantal Muro MD Specimen: Thyroid, [id number] 04/17/2025 5:37 PM EDT [facility] Final Diagnosis A. 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 04/17/2025 5:37 PM EDT [facility] at 1737 EDT Comment The specimen is bloody and scantly cellular with minimal colloid, but the sampled cells show occasional nuclear enlargement and some nuclear membrane irregularity. The findings fit best within [place] category III (atypia of undetermined significance). Rebiopsy with consideration for molecular testing is suggested for further characterization . 04/17/2025 5:37 PM EDT [facility] Clinical Information E04.1 - Nontoxic single thyroid nodule [ICD-10-CM] 04/17/2025 5:37 PM EDT [facility] Gross Description A. [id number] Received along with a corresponding pathology report from [facility] Laboratory are 5 slides labeled outside case: [id number] collected on 02/17/2025. 04/17/2025 5:37 PM EDT [facility] Fine Needle Aspirate Thyroid structure / Unknown 04/17/2025 10:13 AM EDT 04/17/2025 10:13 AM EDT us Jake Alberts MD LAB PATHOLOGY ORDERABLES Fi nal Result [facility] [address] [place] [address] documented in this encounter Visit Diagnoses Diagnosis Nontoxic single thyroid nodule Nontoxic uninodular goiter documented in this encounter Care Teams Guest Experience Manager Relationship Specialty Start Date End Date Kirill Desai MD PCP - General 03/08/21 05/17/25 Jocelynn Troy APRN [address] [place] [address] PCP - General 05/18/25 documented as of this encounter
--- OUTSIDE RECORDS SUMMARY | 2025-08-07 15:14 | XMS_ITS | Encounter Summary ---
Author Organization [employer] ([place], [place], [place], [place]) Address [address] [place] [address] Care Team Providers Care Horse Riding Coach Or Instructor Name Role Phone Unavailable Primary Care Provider Unavailabl e Encounter Details Date Type Department Care Team (Late st Contact Info) Description 03/19/2020 Transcribed Document [facility] [place] [facility] [place] [address] ProviderArchie MD [address] [place], [place] [id number] Social History Tobacco Use Types Packs/Day Years [...] Conversion Note - Archie ProviderMD - 03/19/2020 5:03 PM CDT Vital [...]
--- OUTSIDE RECORDS SUMMARY | 2025-08-07 15:14 | XMS_ITS | Encounter Summary ---
Author Organization [employer] ([place], [place], [place], [place]) Address [address] [place] [address] Care Team Providers Care Mill Laborer Name Role Phone Unavailable Primary Care Provider Unavailabl e Encounter Details Date Type Department Care Team (Late st Contact Info) Description 03/19/2020 Transcribed Document [facility] [place] [facility] [place] [address] ProviderArchie MD [address] [place] [id number] Social History Tobacco Use Types Packs/Day Years [...]
--- OUTSIDE RECORDS SUMMARY | 2025-08-07 15:14 | XMS_ITS | Clinical Summary ---
Author Organization Healthcare Address [address] [place] [id number] Care Team Providers Care Hand Counter Name Role Phone Jocelynn Troy KEVYN Primary Care Provider [phone]- [phone] Allergies Active Allergy Reactions Criticality Noted Date [...] DAILY 10/20/2024 Active Lancets (OneTouch Delica Plus [id number]) misc USE TO TEST BLOOD SUGAR TWICE [...] Encounters Date Type Department Care Team Description 08/01/2025 Telephone Medical Office Building Surgical Specialties [address], [address] [place] [address] Rich Christine MD HCN Clinical Concern/Question 05/29/2025 4:05 PM EDT Ancillary Procedure [facility] [address] [facility] [address] [place] [address] SOB (shortness of breath); Edema; Dizziness; Fatigue 05/23/2025 Orders Only [facility] Medicine Specialties [address], [address] [place] [address] Melvin Kearns APRN 05/18/2025 10:57 AM EDT - 05/18/2025 11:59 PM EDT Hospital Encounter [facility] Radiology [address], [address] [place] [address] SHERRY positive Discharge Disposition: Home or Self Care 05/18/2025 9:30 AM EDT Consult [facility] Medicine Specialties [address], [address] [place] [address] Melvin Kearns, KEVYN SHERRY positive (Primary Dx); Polyarthralgia; Scl-70 antibody positive; Diarrhea, unspecified type; Osteoarthritis, unspecified osteoarthritis type, unspecified site 05/18/2025 Results Follow-Up [facility] Medicine Specialties [address], [address] [place] [address] Melvin Kearns APRN 05/18/2025 Travel from Last [...] Description 08/16/2025 12:40 PM EDT Office Visit [facility] Medicine Specialties [address], [address] [place] [address] Tram Mead, LPN [employer] [address] [place] [phone] 09/07/2025 1:00 PM EST Office Visit [facility] Medicine Specialties [address], [address] [place] [phone] Melvin Kearns, LPN [employer] [address] [place] [address] 10/05/2025 9:00 AM EST Consult Medical Office Building Surgical Specialties [address], [address] [place] [address] Rich Christine MD [address] [facility] [address] [place] [address] Health Maintenance Due Date Last Done Comments [...] 2024 UKY-Zoster Vaccines (1 of 2) 2024 [id number] Vaccine (2 - season) 2025 11/24/2021 UKY-Influenza [...] Routine 05/18/2025 10:54 AM EDT SHERRY positive BROTHERS/DATA ENTRY COORDINATOR (MINERVA) ANTIBODY, IGG (SO) Routine 05/18/2025 10:54 [...] CTA due to photon starvation causing poor rsdnut-aa-bmznu and xmyzusux-ob-gcuiq. 3. No significant non coronary cardiac findings [...] Data Image Acquisition: Images were acquired at [facility] in [place], and interpreted at [facility]. A 128-slice MDCT scanner (Blossoma View) was used for data acquisition. A [...] was reviewed interactively on an advanced workstation (Ideal Implant) capable of 2 and 3 dimensional displays [...] Data Image Acquisition: Images were acquired at [facility] in [place], andinterpreted at [facility]. A 128-slice MDCT scanner (Diassess) was used for data acquisition. A non-contrast [...] Data wasreviewed interactively on an advanced workstation (Ideal Implant) capable of 2and 3 dimensional displays in [...] coronary CTA due to photon starvation causing lmkcdzhqhm-hg-tqilh and jrsewwmu-ie-quzqj. 3. No significant non coronary cardiac findings in particular normalcardiac chambers, non-coronary vessels in the field of view andunremarkable pericardium. 4. Extracardiac structures in the field of view are unremarkable. CRITICAL RESULT: No. COMMUNICATION: Per this written report. Drafted by Abraham Delgado MD on 05/29/2025 5:23 PM Final report signed by Abraham Delgado MD on 05/29/2025 5:33 PM Dejuan GARCIA IM CT PROCEDURES Final Result * XR Hand [...] MD on 511:38 AM Melvin Kearns APRN IM XR PROCEDURES Final Result * XR Foot [...] Vyas MD on 1:38 AM Melvin Kearns LPN [employer] IMG XR PROCEDURES Final Result * XR [...] Vyas MD on 1:38 AM Melvin Kearns LPN [employer] IM XR PROCEDURES Final Result * XR Knee [...] III Antibody, IgG (05/18/2025 10:54 AM EDT) [facility] RNA Polymerase III Antibody, IgG 5 0 - 19 Units 05/19/2025 11:33 PM EDT [facility] ([facility]ol) Blood Venous blood specimen / Unknown Venipuncture / Unknown 05/18/2025 10:54 AM EDT 05/18/2025 10:54 AM EDT Narrative [facility] ([facility]) - 05/19/2025 11:33 PM EDT INTERPRETIVE INFORMATION: [...] antibodies associated with SSc, including centromere, Scl-70, U3-DATA ENTRY COORDINATOR, PM/Scl, or Th/To. Performed By: [facility] [address] [place] [address] Chief Data Officer: Ari Beasley MD, PhD CLIA Number: [id number] Melvin Kearns LPN [employer] LAB BLOOD ORDERABLES Final Res ult [facility] ([facility]) [address] [place] [address] * Centromere Antibody, IgG (05/18/2025 10:54 AM EDT) Centromere Ab, IgG 0 0 - 40 AU/mL 05/20/2025 1:30 PM EDT [facility] ([facility]) Blood Venous blood specimen / Unknown Venipuncture / Unknown 05/18/2025 10:54 AM EDT 05/18/2025 10:54 AM EDT Narrative [facility]) - 05/20/2025 1:30 PM EDT INTERPRETIVE INFORMATION: [...] other antibodies associated with SSc, including Scl-70, U3-DATA ENTRY COORDINATOR, PM/Scl, or Th/To. Performed By: [facility] [address] [place] [address] Chief Data Officer: Ari Beasley MD, PhD CLIA Number: [id number] Melvin Kearns APRN LAB BLOOD ORDERABLES Final Res ult Performing Organization Address [facility]/ZIP Co de Phone Number [facility] ([facility]) [address] [place] [address] * Brothers (MINERVA) Antibody, IgG (05/18/2025 10:54 AM EDT) Brothers (MINERVA) Antibody, IgG 1 0 - 40 AU/mL 05/20/2025 1:30 PM EDT [facility] ([facility]) Serum 05/18/2025 10:5 4 AM EDT 05/18/2025 10:54 AM EDT Narrative [facility]) - 05/20/2025 1:30 PM EDT INTERPRETIVE [...] associations with SLE clinical manifestations. Performed By: [facility] [address] [place] [address] Chief Data Officer: Ari Beasley MD, PhD CLIA Number: [id number] Melvin Kearns APRN LAB REF LAB BLOOD AND FLUID OR D Final Result Performing Organization Address [facility]/ZIP Co de Phone Number [facility] [address] [place] [address] * ENAII (05/18/2025 10:54 AM EDT) SSA-52 (RO52) (MINERVA) Antibody, IgG 1 0 - 40 AU/mL 05/20/2025 1:30 PM EDT [facility] ([facility]) SSA-60 (RO60) (MINERVA) Antibody, IgG 0 0 - 40 AU/mL 05/20/2025 1:30 PM EDT [facility] ([facility]) SSB (LA) (MINERVA) Antibody, IgG 1 0 - 40 AU/mL 05/20/2025 1:30 PM EDT [facility] ([facility]) Blood Venous blood specimen / Unknown Venipuncture / Unknown 05/18/2025 10:54 AM EDT 05/18/2025 10:54 AM EDT Narrative [facility] ([facility]) - 05/20/2025 1:30 PM EDT INTERPRETIVE INFORMATION: [...] (PSS) also have this antibody. Performed By: [facility] [address] [place] [address] Chief Data Officer: Ari Beasley MD, PhD CLIA Number: [id number] Melvin Kearns APRN LAB BLOOD ORDERABLES Final Res ult [facility] ([facility]) [address] [place] [address] * ENAI (05/18/2025 10:54 AM EDT) Brothers/DATA ENTRY COORDINATOR (MINERVA) Ab, IgG 2 0 - 19 Units 05/19/2025 11:55 PM EDT [facility] ([facility]) Blood Venous blood specimen / Unknown Venipuncture / Unknown 05/18/2025 10:54 AM EDT 05/18/2025 10:54 AM EDT Narrative [facility] ([facility]) - 05/19/2025 11:55 PM EDT INTERPRETIVE INFORMATION: Brothers/DATA ENTRY COORDINATOR (MINERVA) Antibody, IgG 19 Units or Less ............. Negative 20 to 39 Units ............... Weak Positive 40 to 80 Units ............... Moderate Positive 81 Units or greater .......... Strong Positive Brothers/DATA ENTRY COORDINATOR antibodies are frequently seen in patients with mixed connective tissue disease (MCTD) and are also associated with other systemic autoimmune rheumatic diseases (SARDs) such as systemic lupus erythematosus (SLE), systemic sclerosis, and myositis. Antibodies targeting the Brothers/DATA ENTRY COORDINATOR antigenic complex also recognize Brothers antigens, therefore, the Brothers antibody response must be considered when interpreting these results. Performed By: [facility] [address] [place] [address] Chief Data Officer: Ari Beasley MD, PhD CLIA Number: [id number] Melvin W Biery LPN [employer] LAB BLOOD ORDERABLES Final Res ult [facility] ([facility]) [address] [place] [address] * Thyroid Peroxidase Antibody (05/18/2025 10:54 AM EDT) Thyroid Peroxidase Antibody <5 <=8 IU/mL 05/18/2025 1:44 PM EDT [facility] Blood Venous blood specimen / Unknown Venipuncture / Unknown 05/18/2025 10:54 AM EDT 05/18/2025 10:54 AM EDT us Melvin Boyd Urmila LPN [employer] LAB BLOOD ORDERABLES Final Res ult Performing Organization Address City/[facility]/ZIP Co de Phone Number [facility] [address] [place] [address] * Cyclic Citrul Peptide Antibody IgG (05/18/2025 10:54 AM EDT) Cyclic Citrul Peptide Antibody IgG <5.0 <=5.0 U/mL 05/18/2025 2:04 PM EDT [facility] Blood Venous blood specimen / Unknown Venipuncture / Unknown 05/18/2025 10:54 AM EDT 05/18/2025 10:54 AM EDT us Melvin Hookyojana LPN [employer] LAB BLOOD ORDERABLES Final Res ult Performing Organization Address City/[facility] Co de Phone Number [facility] [address] [place] [address] * Anti-scleroderma antibody (05/18/2025 10:54 AM EDT) SCLERODERMA (SCL-70) (MINERVA) ANTIBODY, IGG 1 0 - 40 AU/mL 05/20/2025 1:30 PM EDT [facility] ([facility]) Blood Venous blood specimen / Unknown Venipuncture / Unknown 05/18/2025 10:54 AM EDT 05/18/2025 10:54 AM EDT Narrative [facility] ([facility]) - 05/20/2025 1:30 PM EDT INTERPRETIVE INFORMATION: [...] testing for centromere, RNA polymerase III and U3-DATA ENTRY COORDINATOR, PM/Scl, or Th/To antibodies. Performed By: [facility] [address] [place] [address] Chief Data Officer: Ari Bealsey MD, PhD CLIA Number: [id number] Melvin Kearns APRN LAB BLOOD ORDERABLES Final Res ult [facility]) [address] [place] [address] * Double-Stranded DNA (dsDNA) Antibody, IgG by IFA (05/18/2025 10:54 AM EDT) Double-Strande d DNA (dsDNA) Ab IgG IFA <1:10 <1:10 05/20/2025 6:52 PM EDT [facility] ([facility]) Blood Venous blood specimen / Unknown Venipuncture / Unknown 05/18/2025 10:54 AM EDT 05/18/2025 10:54 AM EDT Narrative [facility] ([facility]) - 05/20/2025 6:52 PM EDT INTERPRETIVE INFORMATION: [...] recommendations for testing may be found at [email or web address]. Performed By: [facility] [address] [place] [address] Chief Data Officer: Ari Beasley MD, PhD CLIA Number: [id number] us Melvin Kearns APRN LAB BLOOD ORDERABLES Final Res ult [facility] ([facility]) [address] [place] [address] * Acute Hepatitis Panel (05/18/2025 10:54 AM EDT) Hepatitis B Surf Antigen Negative Negative 05/18/2025 1:56 PM EDT [facility] Hepatitis C Antibody Negative Negative 05/18/2025 1:56 PM EDT [facility] Hepatitis A Antibody IgM Negative Negative 05/18/2025 1:56 PM EDT [facility] Hepatitis B Core Antibody IgM Negative Negative 05/18/2025 1:56 PM EDT [facility] Blood Venous blood specimen / Unknown Venipuncture / Unknown 05/18/2025 10:54 AM EDT 05/18/2025 10:54 AM EDT Melvin Hookyojana LPN [employer] LAB BLOOD ORDERABLES Final Res ult Performing Organization Address City/[facility]/ZIP Co de Phone Number [facility] [address] [place] [address] * (ABNORMAL) Sedimentation Rate, Automated (05/18/2025 10:54 AM EDT) Sedimentation Rate 51(H) <30 mm/hr 2024 1:32 PM EDT [facility] Blood Venous blood specimen / Unknown Venipuncture / Unknown 05/18/2025 10:54 AM EDT 05/18/2025 10:54 AM EDT us Melvin Boyd Urmila LPN [employer] LAB BLOOD ORDERABLES Final Res ult Performing Organization Address [facility] [place] [address] * Rheumatoid Factor, Plasma (05/18/2025 10:54 AM EDT) Rheumatoid Factor, Plasma <10 <14 IU/mL 05/18/2025 1:28 PM EDT [facility] Blood Venous blood specimen / Unknown Venipuncture / Unknown 05/18/2025 10:54 AM EDT 05/18/2025 10:54 AM EDT Melvin Boyd Urmila LPN [employer] LAB BLOOD ORDERABLES Final Res ult Performing Organization Address City/[facility] Co de Phone Number [facility] [address] [place] [address] * C3 Complement (05/18/2025 10:54 AM EDT) C3 Complement 166 84 - 166 mg/dL 05/18/2025 1:20 PM EDT [facility] Blood Venous blood specimen / Unknown Venipuncture / Unknown 05/18/2025 10:54 AM EDT 05/18/2025 10:54 AM EDT Melvin Hookyojana LPN [employer] LAB BLOOD ORDERABLES Final Res ult Performing Organization Address City/[facility]/ZIP Co de Phone Number [facility] [address] [place] [address] * C4 Complement (05/18/2025 10:54 AM EDT) C4 Complement 28 13 - 36 mg/dL 05/18/2025 1:20 PM EDT [facility] Blood Venous blood specimen / Unknown Venipuncture / Unknown 05/18/2025 10:54 AM EDT 05/18/2025 10:54 AM EDT Melvin Boyd Diwaneeyojana LPN [employer] LAB BLOOD ORDERABLES Final Res ult Performing Organization Address [facility] Co de Phone Number [facility] [address] [place] [address] * (ABNORMAL) C-Reactive Protein, Plasma (05/18/2025 10:54 AM EDT) Pathologist [facility] CRP, Plasma 27.4(H) <=8.0 mg/L 05/18/2025 1:28 PM EDT [facility] Blood Venous blood specimen / Unknown Venipuncture / Unknown 05/18/2025 10:54 AM EDT 05/18/2025 10:54 AM EDT Narrative [facility] - 05/18/2025 1:28 PM EDT This CRP test is appropriate for assessment of infection, systemic inflammation and/or tissue injury. To assess cardiovascular disease risk order high sensitivity CRP (CRPH). [facility] BLOOD ORDERABLES Final Res ult Performing Organization Address City/[facility] Co de Phone Number [facility] [address] [place] [address] * Antinuclear Antibody (SHERRY), HEp-2, IgG (05/18/2025 10:54 AM EDT) SHERRY INTERPRETIVE COMMENT See Note 05/20/2025 9:29 AM EDT [facility] ([facility]re[facility]) Anti Nuc Ab Screen <1:80 <1:80 05/20/2025 9:29 AM EDT [facility] ([facility]) Blood Venous blood specimen / Unknown Venipuncture / Unknown 05/18/2025 10:54 AM EDT 05/18/2025 10:54 AM EDT Narrative [facility]) - 05/20/2025 9:29 AM EDT Antinuclear antibodies [...] not necessarily rule out SARD. Performed By: [facility] [address] [place] [address] Chief Data Officer: Ari Beasley MD, PhD CLIA Number: [id number] Melvin Kearns APRN LAB BLOOD ORDERABLES Final Res ult [facility] ([facility]) [address] [place] [address] * Protein, Random, Urine with Creatinine (05/18/2025 10:42 AM EDT) Protein, Urine 9 mg/dL 05/18/2025 11:59 AM EDT [facility] Creatinine, Urine 82 mg/dL 05/18/2025 11:59 AM EDT [facility] Protein/Creatin ine Ratio 0.1 mg/mg Creat 05/18/2025 11:59 AM EDT [facility] Urine Urine specimen obtained by clean catch procedure / Unknown Non-blood Collection / Unknown 05/18/2025 10:42 AM EDT 05/18/2025 10:42 AM EDT us Melvin Kearns APRN LAB URINE ORDERABLES Final Res ult [facility] [address] [place] [address] from Last 3 Months Insurance [facility] MEDICAID Care Teams Hand Counter Relationship Specialty Start Date End Date Jocelynn Troy APRN [address] [place] [address] PCP - General 05/18/25
--- OUTSIDE RECORDS SUMMARY | 2025-08-07 15:14 | XMS_ITS | Encounter Summary ---
Author Organization Healthcare Address [address] [place] [address] Care Team Providers Care Enrollment Specialist Name Role Phone Kirill Desai MD Primary Care Provider [phone] Jocelynn Troy APRN Primary Care Provider [phone] Encounter Details Date Type Department Care Team (Late Contact Info) Description 09/16/2022 Orders Only External Location [address] [place] [address] Geraldo Siegel MD [address] [place] [address] Social History Tobacco Use Types Packs/Day Years [...] Description 08/16/2025 12:40 PM EDT Office Visit [facility] Medicine Specialties [address], [address] [place] [address] Tram Mead APRN [address] [place] [address] 09/07/2025 1:00 PM EST Office Visit [facility] Medicine Specialties [address], [address] [place] [address] Melvin Kearns, COMPOSITE ASSEMBLER [address] [place] [address] 10/05/2025 9:00 AM EST Consult Medical Office Building Surgical Specialties [address] [place] [address] Rich Christine MD [address] [place] [address] documented as of this encounter [...] on filedocumented in this encounter Care Teams Enrollment Specialist Relationship Specialty Start Date End Date Kirill Desai MD PCP - General 03/08/21 05/17/25 Jocelynn Troy APRN [address] [place] [address] PCP - General 05/18/25 documented as of this encounter
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
--- NOTE | 2025-08-07 15:27 | CT_ITS ---
PROCEDURE INFORMATION: Exam: CT Maxillofacial With Contrast Exam date and time: 08/07/2025 5:39 PM Age: 49 years old Clinical indication: Face pain; Additional info: Concern for left parotid infection vs. Tumor TECHNIQUE: Imaging protocol: Computed tomography of the face with contrast. Radiation optimization: All CT scans at this facility use at least one of these dose optimization techniques: automated exposure control; mA and/or kV adjustment per patient size (includes targeted exams where dose is matched to clinical indication); or iterative reconstruction. Contrast material: ISOVUE; Contrast volume: 100 ml; Contrast route: IV; COMPARISON: MR HEAD/BRAIN WO CON 08/11/2024 3:37 PM FINDINGS: Paranasal sinuses: No air-fluid levels. Orbital cavities: Orbits are normal. Globes are unremarkable. Salivary glands: The parotid glands are mildly prominent bilaterally. Note that the entire parotid was not included on this examination. No obvious mass or inflammatory process is noted. Bones: No acute fracture. Soft tissues: Unremarkable. IMPRESSION: Mild parotid asymmetry. No evidence of mass or other acute process. Note that the entirety of the parotids were not included on this exam.
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
[2025-08-07] MEDS: ACETAMINOPHEN 500MG TAB 1000 MG PO (16:29)
[2025-08-07] MEDS: KETOROLAC 15MG/ML VIAL 15 MG IV (16:29)
[2025-08-07 16:44] LABS: Hematocrit 38.5 % (37.0-47.0); Hemoglobin 12.7 g/dL (12.2-16.2); Immature Granulocytes % 0.2 %; Mean Corpuscular HGB Conc 33.0 g/dL (31.8-35.4); Mean Corpuscular Hemoglobin 28.8 pg (27.0-31.2); Mean Corpuscular Volume 87.3 fl (81-99); Nucleated Red Blood Cells % 0 %; Platelet Count 366 K/mm3 (142-424); Red Blood Count 4.41 M/mm3 (4.20-5.40); Red Cell Distribution Width-SD 46.4 fL; White Blood Count 10.2 K/mm3 (4.8-10.8)
[2025-08-07 17:00] LABS: Alanine Aminotransferase 35 U/L (12-78); Albumin Level 4.5 g/dl (3.5-5.0); Albumin/Globulin Ratio 1.3 (1.1-1.8); Alkaline Phosphatase 122 U/L (38-126); Anion Gap 15.0 mEq/L (5-15); Aspartate Amino Transferase 41 U/L (14-36); Bilirubin,Total 0.8 mg/dl (0.2-1.3); Blood Urea Nitrogen 16 mg/dl (7-17); Calcium 9.6 mg/dl (8.4-10.2); Carbon Dioxide 27 mmol/L (22.0-30.0); Chloride 101 mmol/L (98-107); Creatinine Clearance Estimated 87 mL/min (50-200); Creatinine,Serum 0.70 mg/dl (0.52-1.04); Estimated Glomerular Filt Rate 89 ml/min (>60); GFR (African American) 107 ML/MIN (>60); Globulin 3.4 g/dL (1.3-3.2); Glucose 117 mg/dl (74-100); Potassium 4.0 mmoL/L (3.5-5.1); Sodium 139 mmol/L (136-145); Total Protein,Serum 7.9 g/dl (6.3-8.2)
[2025-08-07 17:05] LABS: C-Reactive Protein 12.8 mg/L (0-4)
[2025-08-07] MEDS: SODIUM CHLORIDE 0.9% 10ML SYR (RAD ONLY) 10 ML IV (17:53)
[2025-08-07] MEDS: IOPAMIDOL-370 (76%);100ML BOTTLE 100 ML IV (17:53)
[2025-08-07 19:18] VITALS: BP 114/87; PULSE 78; RESP 15; TEMP 36.8; O2SAT 100
== END 2025-08-07 19:19 | disposition home or self-care (01) ==
PROVIDERS: Emergency Provider Student in an Organized Health Care Education/Training Program; PCP Nurse Practitioner Family
DX: K11.21 Acute sialoadenitis (principal); R22.0 Localized swelling, mass and lump, head; Z86.39 Personal history of other endocrine, nutritional and metabolic disease
CPT/HCPCS: 70487; 80053; 85025; 86140; 96374; 99282; 99284; J1885; Q9967

== ENCOUNTER 2025-08-18 16:01 | Outpatient (CLI) | payer OTHER, SELFPAY ==
--- OUTSIDE RECORDS SUMMARY | 2025-08-16 12:40 | XMS_ITS | Encounter Summary ---
Author Organization Healthcare Address [address] [id number] Care Team Providers Care Label Sewer Name Role Phone Jocelynn Troy APRN Primary Care Provider +1- [phone] Reason for Referral * Consultation (Routine) - Authorized Specialty Diagnoses / Procedures Referred By Contac t Referred To Contact Diagnoses Diarrhea, unspecified type Tram Mead APRN [address] [address] Phone: tel: fax: Referral ID Status Reason Start Date Expiration Date V isits Requested Visits Authorized [id number] Authorized 08/16/2025 02/15/2027 1 1 * Imaging (Routine) - Pending Review Specialty Diagnoses / Procedures Referred By Contac t Referred To Contact Gastroenterology Diagnoses Diarrhea, unspecified type Procedures Colonoscopy Tram Mead APRN [address] [address] Phone: tel: fax: Referral ID Status Reason Start Date Expiration Date Visits Requested Visits Authorized [id number] Pending Review Specialty Services Required 02/15/2027 1 1 * Genetic Testing (Routine) - Closed Specialty Diagnoses / Procedures Referred By Contac t Referred To Contact Lab Diagnoses Diarrhea, unspecified type Procedures IgA Tram Mead APRN [address] [facility] [address] [place] [address] Phone: tel: fax: Referral ID Status Reason Start Date Expiration Date Visits Re quested Visits Authorized [id number] Closed 08/16/2025 02/15/2027 1 1 Reason for Visit * Reason Comments Diarrhea * Consultation (Routine) - Closed Specialty Diagnoses / Procedures Referred By Contfausto t Referred To Contact Gastroenterology Diagnoses Diarrhea, unspecified type Melvin Kearns, ATTACHE [address] [facility] [address] [place] [address] Phone: tel: fax: Referral ID Status Reason Start Date Expiration Date V isits Requested Visits Authorized [id number] Closed Specialty Services Required 05/18/2025 11/17/2026 1 1 Encounter Details Date Type Department Care Team (Late st Contact Info) Description 08/16/2025 12:40 PM EDT Office Visit [facility] Medicine Specialties [address] [place] [address] Tram Mead APRN [id number] [place] [phone] Diarrhea, unspecified type (Primary Dx); Helicobacter pylori [...] EDT Geraldo Jaramillo 2. Non-Specific Active Suici enio Thoughts (Past 1 Month) No 08/16/2025 12:23 PM EDT Taryn Jaramillo 6. Suicidal Behavior (Lifetime) No 12:23 PM EDT Geraldo Jaramillo documented as of this encounter Miscellaneous Notes * Progress Notes - Tram Mead, ATTACHE - 08/16/2025 12:40 PM EDT Subjective Patient [...] Upcoming Encounters Date Type Department Care Team ([facility] st Contact Info) Description 09/07/2025 1:00 PM EST Office Visit [facility] Medicine Specialties [address] [place] [address] Melvin Kearns, KEVYN [address] [place] [address] 10/05/2025 9:00 AM EST Consult Medical Office Building Surgical Specialties [address] [facility] [place] [address] Rich Christine MD [address] [facility] [address] [place] [address] 11/22/2025 10:40 AM EST Office Visit [facility] Medicine Specialties [address] [place] [address] Tram Mead, KEVYN [address] [place] [address] Scheduled Orders Name Type Priority [...] 0.2 <=0.9 IV 08/18/2025 1:[address] [facility] ([place]) Serum Venous blood specimen / Unknown 08/16/2025 1:58 PM EDT 08/16/2025 1:58 PM EDT Narrative [facility] ([place]) - 08/18/2025 1:23 PM EDT [...] also result in false-positive results. Performed By: [facility] [address] [place] [address] Radio Producer: Ari Beasley MD, PhD CLIA Number: [id number] Tram Mead ATTACHE LAB BLOOD ORDERABLES Fin al Result [facility] ([place]) [address] [id number] * (ABNORMAL) Comprehensive metabolic panel (08/16/2025 1:58 PM EDT) Glucose, Plasma 103(H) 74 - 99 mg/dL 08/16/2025 3:55 PM EDT [facility] BUN, Plasma 19 7 - 21 mg/dL 08/16/2025 3:55 PM EDT [facility] Creatinine, Plasma 0.74 0.60 - 1.10 mg/dL 08/16/2025 3:55 PM EDT [facility] BUN/Creatinine Ratio 26 08/16/2025 3:55 PM EDT [facility] Sodium, Plasma 139 136 - 145 mmol/L 08/16/2025 3:55 PM EDT [facility] Potassium, Plasma 4.1 3.6 - 4.9 mmol/L 08/16/2025 3:55 PM EDT [facility] Chloride, Plasma 102 97 - 107 mmol/L 08/16/2025 3:55 PM EDT [facility] CO2, Plasma 26 22 - 29 mmol/L 08/16/2025 3:55 PM EDT [facility] Anion Gap 11 6 - 16 mmol/L 08/16/2025 3:55 PM EDT [facility] Total Calcium, Plasma 10.1 8.9 - 10.2 mg/dL 08/16/2025 3:55 PM EDT [facility] Total Protein 8.0(H) 6.3 - 7.9 g/dL 08/16/2025 3:55 PM EDT [facility] Albumin, Plasma 4.4 3.5 - 5.2 g/dL 08/16/2025 3:55 PM EDT [facility] AST, Plasma 18 10 - 35 U/L 08/16/2025 3:55 PM EDT [facility] ALT, Plasma 25 10 - 35 U/L 08/16/2025 3:55 PM EDT [facility] Alkaline Phosphatase, Plasma 126(H) 35 - 104 U/L 08/16/2025 3:55 PM EDT [facility] Total Bilirubin, Plasma 0.4 0.2 - 1.1 mg/dL 08/16/2025 3:55 PM EDT [facility] eGFRcr 98.7 mL/min/1.7 3m*2 08/16/2025 3:55 PM EDT [facility] Comment:Reported eGFRcr in m L/min/1.73m2 is based the CKD-EPI 2020 equation that does not use a race coefficient. Blood Venous blood specimen / Unknown Venipuncture / Unknown 08/16/2025 1:58 PM EDT 08/16/2025 1:58 PM EDT us Tram Mead ATTACHE LAB BLOOD ORDERABLES Fin al Result [facility] [address] [place] [address] * IgA (08/16/2025 1:58 PM EDT) IGA 352 75 - 400 mg/dL 08/16/2025 3:[address] [facility] Blood Venous blood specimen / Unknown Venipuncture / Unknown 08/16/2025 1:58 PM EDT 08/16/2025 1:58 PM EDT Tram Mead ATTACHE LAB BLOOD ORDERABLES Fin al Result Performing Organization Address [facility] Co de Phone Number [facility] [address] [place] [address] * Tissue Transglutaminase (tTG) Ab, IgA (SO) (08/16/2025 1:58 PM EDT) Tissue Transglutaminase (tTG) Ab, IgA 1.64 0.00 - 4.99 FLU 08/18/2025 12:46 AM EDT [facility] ([facility]) Blood Venous blood specimen / Unknown Venipuncture / Unknown 08/16/2025 1:58 PM EDT 08/16/2025 1:58 PM EDT Mark [facility] ([place]) - 08/18/2025 12:46 AM EDT [...] indicate a response to therapy. Performed By: [facility] [address] [place] [address] Radio Producer: Ari Beasley MD, PhD CLIA Number: [id number] us Tram Mead ATTACHE LAB REF LAB BLOOD AND FL UID ORD Final Result [facility] ([place]) [address] [place] [address] documented in this encounter Visit Diagnoses Diagnosis [...] documented as of this encounter Care Teams Label Sewer Relationship Specialty Start Date End Date Jocelynn Troy APRN [address] [place] [address] PCP - General 05/18/25 documented as of this encounter
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
--- OUTSIDE RECORDS SUMMARY | 2025-08-18 16:03 | XMS_ITS | Encounter Summary ---
Author Organization [employer] ([place], [place], [place], [place]) Address [address] [place] [address] Care Team Providers Care Oral Surgery Technician Name Role Phone Unavailable Primary Care Provider Unavailabl e Encounter Details Date Type Department Care Team (Late st Contact Info) Description 03/19/2020 Transcribed Document [facility] [place] [address] ProviderArchie MD [address] [place] [address] Social History Tobacco Use Types [...] Cai MD - 03/19/2020 7:01 [place] [address] LUNATIFFANIE STARK MARCELLA :1975 Visit [...] Within 2 to 3 days Where: [address] [place] [address]- Business (1) Follow Up with Dr Morales at [facility] for humerus When Within 2 to 3 days Follow Up with SHAYLA SMILEY When Within 2 to 3 days Where: [address] [facility] [address] [place] [address] [facility] (1) Allergies Percocet 10/325 (Tramadol hydrochloride 50mg capsule, Tramadol) traMADol (Itching) Immunizations This Visit No Immunizations Found Medications What How Much When Instructions Next Dose acetaminophen-hydrocodone ([place] 5 mg-325 mg oral tablet) 1 Tablet(s) [...] Formulary med) 1 Tablet(s) Oral Every Day [id number] tab The home medications listed are only [...] at home: Medicines ??? Take and apply tnhs-wsg-uzgloxs and prescription medicines only as told by [...] and water are not available, use hand manager business. ? Leave stitches (sutures), skin glue, or [...] 10/12/2006 Document Revised: 03/16/2017 Document Reviewed: 04/25/2016 [employer] Interactive Patient Education ?? 2019 [employer] Humerus Fracture Treated With Immobilization A [...] is stable enough for you to begin oqljr-ix-wmqfvd exercises. You may also be prescribed pain [...] says that it is safe. ??? Do lkzhe-ma-gkbppi exercises only as told by your health [...] ask your health care provider. ??? Take uzct-qxj-wnjclip and prescription medicines only as told by your health care provider. ??? Ask your health care provider if the medicine prescribed to you can cause constipation. You may need to take steps to prevent or treat constipation, such as: ? Drink enough fluid to keep your urine pale yellow. ? Take drrl-dse-kmvjolh or prescription medicines. ? Eat foods that [...] 01/18/2002 Document Revised: 06/13/2019 Document Reviewed: 06/13/2019 [employer] Interactive Patient Education ?? 2019 [employer]. Cast or Splint Care, Adult Casts and [...] activities are safe for you. ??? Take knfw-odd-pwkiawj and prescription medicines only as told by [...] 10/09/2001 Document Revised: 05/02/2017 Document Reviewed: 04/04/2017 [employer] Interactive Patient Education ?? 2019 [employer]. Emergency Awareness and Preventative Care STROKE is [...] Assistance with quitting is available by contacting 5-688-ONXH-NOW. This is a free resource providing counseling, [...] was given the opportunity to ask questions. Patient/Capacity Planning Analyst Name: Patient/Capacity Planning Analyst Signature: Relationship to Patient: Clinician/Hospital Capacity Planning Analyst Signature: Please Provide a Telephone Number Where You Can Be Reached: Is it Permissible To Leave a Message? Date: documented in this encounter Plan of Treatment Not on file documented as of this encounter Visit Diagnoses Not on filedocumented in this encounter
--- OUTSIDE RECORDS SUMMARY | 2025-08-18 16:03 | XMS_ITS | Clinical Summary ---
Author Organization [facility] Address [address] [place] [address] Phone Care Team Providers Care Rubber Tester Name Role Phone Omar SANDERS, Bc Randhawa Primary Care Provider [phone] Avery SANDERS, Humberto Casillas Unavailable [phone] Kirill Desai MD Unavailable [phone] Reason for Visit and Chief Complaint The Chief Complaint is: Low back/leg pain Problems Includes: Problems addressed during this encounter and other active Problems Current Visit Onset Date Resolved Date Provider Alexia candelaria Status Lower Back Pain 12/18/2016 Humberto Varela MD Act juwan Last Documented On 7 1:02PM ; [facility], [facility] Plan of Treatment Patient was seen by myself Geraldo Belle PA-C. Patient will follow up with Dr. Varela after lumbar spine MRI. - Last Documented On 05/12/2023 12:50PM ; [facility], [facility] Pending Tests Order Diagnosis [facility] Lumbar Spine Low back pain 05/25/23 Geraldo Belle PA-C Last Documented On 3 12:50PM ; [facility], [facility] Instructions to patient Lose weight Last Documented On 3 2:43PM ; [facility], [facility] Assessments Includes: Assessments from this encounter Findings L4-S1 laminectomy January 07, 2023 - Last Documented On 05/12/2023 12:50PM ; [facility], [facility] Right leg radiculopathy possible recurrence of spinal stenosis - Last Documented On 05/12/2023 12:50PM ; [facility], [facility] Instructions Includes: Instructions from this encounter Instructions to patient Lose weight Last Documented On 3 2:43PM ; [facility], [facility] Medical Equipment - Implanted Devices Includes: Current Devices No Medical Equipment Recorded Medications Includes: Medications discussed during this encounter and other current Medications Current Medications (continue as prescribed) Venlafaxine HCl ER 150 MG Or al Capsule Extended Release 24 Hour 11/21/2022 Provider: Diagnosis: Last Documented On 3 9:10AM By Tram Burton ; [facility], [facility] Citalopram Hydrobromide 20 MG Oral Tablet 11/05/2022 Provider: Diagnosis: Last Documented On 3 9:10AM By Tram Burton ; [facility], [facility] hydroCHLOROthiazide 25 MG Oral Tablet 11/05/2022 Pro vider: Diagnosis: Last Documented On 3 9:10AM By Tram Burton ; [facility], [facility] Past Medications on file Methocarbamol 750 MG Oral Tablet 07/02/2023 - 08/31/20 Provider: Humberto Varela MD Diagnosis: Take 1 tablet every 8 hrs prn pain Last Documented On 3 9:14AM By Tram Burton ; [facility], [facility] HYDROcodone-Acetaminophen 5- 325 MG Oral Tablet 01/22/2023 - 02/06/2023 Provider: Humberto Varela MD Diagnosis: Take 1 tablet every 8 hrs prn pain Last Documented On 3 3:26PM By Humberto Varela ; [facility], [facility] Clindamycin HCl 300 MG Oral Capsule 01/19/2023 - 01/26/2023 Provider: Geraldo Bernardo Diagnosis: Take 2 tablets by mouth every 8 hours Last Documented On 3 4:45PM By Nicci Eugene ; [facility], [facility] HYDROcodone-Acetaminophen 7. 5-325 MG Oral Tablet 01/05/2023 - 01/20/2023 Provider: Humberto Varela MD Diagnosis: 1 po q 4h prn pain Last Documented On 3 1:44PM By Humberto Varela ; [facility], [facility] Flector 1.3 % Patch 12/18/2016 - 01/17/2017 Provider: Humberto Varela MD Diagnosis: take as directed Last Documented On 7 1:40PM By Gayle Clifford [facility], [facility] Medications Administered Includes: Administered Medications from this encounter No Administered Medications Recorded Vital Signs Includes: Vital Signs from this encounter Vital Name 05/11/2023 02:50P Height (in) 65 Weight (lb) 225 Body Mass Index 37.4 Body Surface Area 2.1 Note: mg Last Documented: On 05/11/2023 2:50PM ; [facility], [facility] Results Includes: Results discussed during [...] 07/02/2023 Last Documented On 3 2:42PM ; [facility], [facility] No recent change in diet 01/23/2023 Last Documented On 3 2:42PM ; [facility], [facility] Not a current smoker. 01/23/2023 Last Documented On 3 2:42PM ; [facility], [facility] Caffeine use 12/18/2016 Last Documented On 3 2:42PM ; [facility], [facility] No recent change in diet 12/18/2016 Last Documented On 3 2:42PM ; [facility], [facility] No tobacco use 12/18/2016 Last Documented On 3 2:42PM ; [facility], [facility] Not a current smoker 12/18/2016 Last Documented On 3 2:42PM ; [facility], [facility] Not exercising regularly 12/18/2016 Last Documented On 3 2:42PM ; [facility], [facility] Not using alcohol 12/18/2016 Last Documented On 3 2:42PM ; [facility] Not using drugs 12/18/2016 Last Documented On 3 2:42PM ; [facility], [facility] Smoking status : Never smoker 12/18/2016 Last Documented On 3 2:42PM ; [facility], [facility] Procedures and Surgical History Includes: [...] Last Documented On 3 2:42PM ; [facility] Medical History Includes: Medical History addressed during this encounter Description Last Updated History of depression 11/27/2022 Last Documented On 3 2:42PM ; [facility] History of Hypertension 11/27/2022 Last Documented On 3 2:42PM ; [facility], [facility] Past medical/surgical history [use for f ree text] 11/27/2022 Last Documented On 3 2:42PM ; [facility] Gallbladder disease 12/18/2016 Last Documented On 3 2:42PM ; [facility] History of gastric ulcer 12/18/2016 Last Documented On 3 2:42PM ; [facility] Family History Includes: Family History addressed during this encounter Description Last Updated Diabetes mellitus 11/27/2022 Last Documented On 3 2:42PM ; [facility], [facility] Family history of cancer 12/18/2016 Last Documented On 3 2:42PM ; [facility], [facility] Family history of diabetes mellitus 11/27 Last Documented On 3 2:42PM ; [facility], [facility] Family history of heart disease 12/18/19 17 Last Documented On 3 2:42PM ; [facility], [facility] Family history of hypertension 7 Last Documented On 3 2:42PM ; [facility] Family history of rheumatoid arthritis 0 12/18/2016 Last Documented On 3 2:42PM ; [facility] Family history of thromboembolic disease 12/18/2016 Last Documented On 3 2:42PM ; [facility] Review of Systems Includes: Review [...] Active Last Documented On 3 8:27AM ; [facility] Percocet Allergy 12/01/2016 Active Last Documented On 3 8:27AM ; [facility] Encounters Encounter Provider Location Date Check-In Time Check- Out Time Diagnosis Follow Up Geraldo Belle PA-C [facility] 3 2:43PM 3:12PM Insurance Includes: Active Insurance Policies Plan Name Member ID Group # Subscriber Relationship Effect juwan Dates 1 - [facility] [id number] Tiffanie Glasgow Self Clinical Notes Includes: Clinical Notes from this encounter * Progress note Date Encounter Last Documented by 05/11/2023 Follow Up Last documented on 05/12/2023; 12:50 PM, Geraldo Chavez; [facility], [facility] Active Problems [...]
--- OUTSIDE RECORDS SUMMARY | 2025-08-18 16:03 | XMS_ITS | Encounter Summary ---
Author Organization [employer] ([place], [place], [place], [place]) Address [address] [place] [address] Care Team Providers Care Appellate Conferee Name Role Phone Unavailable Primary Care Provider Unavailabl e Encounter Details Date Type Department Care Team (Late st Contact Info) Description 03/19/2020 Transcribed Document [facility] [place] [facility] [place] [address] ProviderArchie MD [address] [place] [address] Social History Tobacco Use Types [...] Archie ProviderMD - 03/19/2020 6:59 PM CDT [facility] [place] [address] TIFFANIE GLASGOW MARCELLA :1975 Visit [...] Within 2 to 3 days Where: [address] [facility] [place] [address]- Business (1) Follow Up with [facility] Morales at [facility] for humerus When Within 2 to 3 days Follow Up with SHAYLA SMILEY When Within 2 to 3 days Where: [address] [facility] [address] [place] [address] [facility] (1) Allergies Percocet 10/325 (Tramadol hydrochloride 50mg capsule, Tramadol) traMADol (Itching) Immunizations This Visit No Immunizations Found Medications What How Much When Instructions Next Dose acetaminophen-hydrocodone ([place] 5 mg-325 mg oral tablet) 1 Tablet(s) [...] Formulary med) 1 Tablet(s) Oral Every Day [id number] tab The home medications listed are only [...] at home: Medicines ??? Take and apply ndjs-oda-unuzsvn and prescription medicines only as told by [...] and water are not available, use hand machine maintenance repairer. ? Leave stitches (sutures), skin glue, or [...] 10/12/2006 Document Revised: 03/16/2017 Document Reviewed: 04/25/2016 [employer] Interactive Patient Education ?? 2019 [employer]. Humerus Fracture Treated With Immobilization A [...] is stable enough for you to begin dhihc-lm-ttpnve exercises. You may also be prescribed pain [...] says that it is safe. ??? Do xpnnn-pi-ukkzut exercises only as told by your health [...] ask your health care provider. ??? Take oobw-uxq-ihtchhc and prescription medicines only as told by your health care provider. ??? Ask your health care provider if the medicine prescribed to you can cause constipation. You may need to take steps to prevent or treat constipation, such as: ? Drink enough fluid to keep your urine pale yellow. ? Take yafz-hos-gitnnns or prescription medicines. ? Eat foods that [...] 01/18/2002 Document Revised: 06/13/2019 Document Reviewed: 06/13/2019 [employer] Interactive Patient Education ?? 2019 [employer]. Cast or Splint Care, Adult Casts and [...] activities are safe for you. ??? Take plvo-dmc-nojuyop and prescription medicines only as told by [...] 10/09/2001 Document Revised: 05/02/2017 Document Reviewed: 04/04/2017 [employer] Interactive Patient Education ?? 2019 [employer]. Emergency Awareness and Preventative Care STROKE is [...] Assistance with quitting is available by contacting 1-299-GBVK-NOW. This is a free resource providing counseling, [...] was given the opportunity to ask questions. Patient/Manager Credit Risk Name: Patient/Manager Credit Risk Signature: Relationship to Patient: Clinician/Hospital Manager Credit Risk Signature: Please Provide a Telephone Number Where You Can Be Reached: Is it Permissible To Leave a Message? Date: Electronically signed by Ag, [facility] Conversion Wood Tank Erector Cydney at 02/13/2023 10:00 AM CDT documented in this encounter Plan of Treatment Not on file documented as of this encounter Visit Diagnoses Not on filedocumented in this encounter
--- OUTSIDE RECORDS SUMMARY | 2025-08-18 16:03 | XMS_ITS | Encounter Summary ---
Author Organization [employer] ([place], [place], [place], [place]) Address [address] [place] [address] Care Team Providers Care Campus Recruiting Internship Name Role Phone Unavailable Primary Care Provider Unavailabl e Encounter Details Date Type Department Care Team (Late st Contact Info) Description 03/19/2020 Transcribed Document [facility] [place] Family Medicine [address] [place] [address] ProviderArchie MD [address] [place], [place] [id number] Social History Tobacco Use Types Packs/Day Years [...] Historical ProviderMD - 03/19/2020 4:49 PM CDT [place] Suicide Severity Rating Scale (C-SSRS) Entered On: 03/19/2020 17:21 EDT Performed On: 03/19/2020 17:20 EDT by Keeley Shin RN [place] Suicide Severity Rating Scale (C-SSRS) CSSRS Past [...]
--- OUTSIDE RECORDS SUMMARY | 2025-08-18 16:03 | XMS_ITS | Encounter Summary ---
Author Organization [employer] ([place], [place], [place], [place]) Address [address] [place] [address] Care Team Providers Care Mainframe Applications Developer Name Role Phone Unavailable Primary Care Provider Unavailabl e Encounter Details Date Type Department Care Team (Late st Contact Info) Description 03/19/2020 Transcribed Document [facility] [place] Family Medicine [facility] [place] [address] ProviderArchie MD [address] [place] [address] Social History Tobacco Use Types [...] CHRISTINA REES RN - 03/19/2020 19:11 EDT documented in this encounter Plan of Treatment Not on file documented as of this encounter Visit Diagnoses Not on filedocumented in this encounter
--- OUTSIDE RECORDS SUMMARY | 2025-08-18 16:04 | XMS_ITS | Encounter Summary ---
Author Organization Healthcare Address [address] [place] [address] Care Team Providers Care Data Migration Consultant Name Role Phone Kirill Desai MD Primary Care Provider [phone] Jocelynn Troy APRN Primary Care Provider [phone] Encounter Details Date Type Department Care Team ([facility] Contact Info) Description 04/17/2025 Lab Requisition [facility] [address] [place] [address] Jake Alberts MD [address] [facility] [address] [place] [address] Nontoxic single thyroid nodule Social History Tobacco [...] Upcoming Encounters Date Type Department Care Team ([facility] Contact Info) Description 09/07/2025 1:00 PM EST Office Visit [place] [facility] [address] [place] [address] Melvin Kearns APRN [address] [place] [address] 10/05/2025 9:00 AM EST Consult Medical Office Building [facility] [address], [address] [place] [address] Rich Christine MD [address] [place] [address] 11/22/2025 10:40 AM EST Office Visit [place] [facility] [address] [place] [address] Tram Mead, [employer] [address] [place] [address] documented as of this encounter Procedures Procedure Name Priority Date/Time Associated Diagnosis Comments CYTOLOGY CONSULT Routine 04/17/2025 10:1 3 AM EDT Nontoxic single thyroid nodule documented in this encounter Results * Cytology Consult (04/17/2025 10:13 AM EDT) Case Report Cytology Case: [id number] Authorizing Provider: Jake Alberts MD Collected: 04/17/2025 1013 Ordering Location: [facility] Received: 04/17/2025 1013 Pathologist: Chantal Muro MD Specimen: Thyroid, [id number] 04/17/2025 5:37 PM EDT [facility] Final Diagnosis A. 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 04/17/2025 5:37 PM EDT [facility] at 1737 EDT Comment The specimen is bloody and scantly cellular with minimal colloid, but the sampled cells show occasional nuclear enlargement and some nuclear membrane irregularity. The findings fit best within [place] category III (atypia of undetermined significance). Rebiopsy with consideration for molecular testing is suggested for further characterization . 04/17/2025 5:37 PM EDT [facility] Clinical Information E04.1 - Nontoxic single thyroid nodule [ICD-10-CM] 04/17/2025 5:37 PM EDT [facility] Gross Description A. [id number] Received along with a corresponding pathology report from [facility] are 5 slides labeled outside case: [id number] collected on 02/17/2025. 04/17/2025 5:37 PM EDT [facility] Fine Needle Aspirate Thyroid structure / Unknown 04/17/2025 10:13 AM EDT 04/17/2025 10:13 AM EDT us Jake Alberts MD LAB PATHOLOGY ORDERABLES Fi nal Result [facility] [address] [place] [address] documented in this encounter Visit Diagnoses Diagnosis Nontoxic single thyroid nodule Nontoxic uninodular goiter documented in this encounter Care Teams Data Migration Consultant Relationship Specialty Start Date End Date Kirill Desai MD PCP - General 03/08/21 05/17/25 Jocelynn Troy APRN [address] [place] [address] PCP - General 05/18/25 documented as of this encounter
--- OUTSIDE RECORDS SUMMARY | 2025-08-18 16:04 | XMS_ITS | Encounter Summary ---
Author Organization [employer] ([place], [place], [place], [place]) Address [address] [place] [address] Care Team Providers Care Director Channel Name Role Phone Unavailable Primary Care Provider Unavailabl e Encounter Details Date Type Department Care Team (Late st Contact Info) Description 03/19/2020 Transcribed Document [facility] [place] [facility] [place] [address] ProviderArchie MD [address] [place], [place] [id number] Social History Tobacco Use Types Packs/Day Years [...] On: 03/19/2020 17:20 EDT by Keeley Shin, INFORMATION SYSTEMS SECURITY ANALYST Quick Look Assessment Level of Consciousness : Alert, Awake Affect/Behavior : Appropriate, Calm, Cooperative Orientation : Oriented x 4 Skin Temperature : Warm Skin Description : Normal for ethnicity Keeley Shin RN - 03/19/2020 17:20 EDT ED General-Functional Assess Information Obtained From : Patient Preferred Communication Mode : Verbal Communication Barrier : None Primary Language : [place] Any Spiritual/Cultural Needs or Requests : No [...]
--- OUTSIDE RECORDS SUMMARY | 2025-08-18 16:04 | XMS_ITS | Clinical Summary ---
Author Organization [facility] , [facility] Address [address] [place] [address] Phone Care Team Providers Care Roll Coating Machine Operator Name Role Phone Omar SANDERS, Bc Randhawa Primary Care Provider [phone] Avery SANDERS, Humberto Casillas Unavailable [phone] Giselle SANDERS, Kirill Unavailable [phone] Reason for Visit and Chief Complaint [facility] Problems Includes: Problems addressed during this encounter and other active Problems All Visits Onset Date Resolved Date Provider Condition S tatus Lower Back Pain 12/18/2016 Humberto Varela MD Act juwan Last Documented On 7 1:02PM ; [facility], [facility] Plan of Treatment No Plan of Treatment [...] Documented On 3 9:10AM By Tram [facility], [facility] Citalopram Hydrobromide 20 MG Oral Tablet 11/05/2022 Provider: Diagnosis: Last Documented On 3 9:10AM [facility] hydroCHLOROthiazide 25 MG Oral Tablet 11/05/2022 Pro vider: Diagnosis: Last Documented On 3 9:10AM By [facility] Medications Administered Includes: Administered Medications from this [...] Location Date Check-In Time Check-Out Time Diagnosis [facility] Humberto Varela MD Surgery 3 01/08/2023 11:18AM 11:59PM Insurance Includes: Active Insurance Policies Plan Name Member ID Group # Subscriber Relationship Effect juwan Dates 1 - [employer] [facility] [id number] Tiffanie Glasgow Self Clinical Notes Includes: Clinical Notes from this encounter No Clinical Notes Recorded
--- OUTSIDE RECORDS SUMMARY | 2025-08-18 16:04 | XMS_ITS | Clinical Summary ---
Author Organization Healthcare Address [address] [place] [address] Care Team Providers Care Peer Tutor Name Role Phone Jocelynn Troy APRN Primary Care Provider [phone] Allergies Active Allergy Reactions Criticality Noted Date Comments Tramadol Hives,Itching Medium 01/09/2014 Tramadol-Acetaminophen Hives,Itching Medium 12/04/2009 Medications hydroCHLOROthi azide 12.5 MG PO tablet [...] DAILY 4 Active Lancets (OneTouch Delica Plus Onwcke04Y) misc USE TO TEST BLOOD SUGAR TWICE DAILY 4 Active levocetirizine (Xyzal) 5 MG tablet 5 Active allopurinol (Zyloprim) 100 MG tablet 5 Active metFORMIN (Glucophage) 500 MG tablet as needed. 5 Active potassium chloride ER (Micro-K) 10 MEQ ER capsule Take 1 capsule by mouth 2 times a day. 4 Active terconazole (Terazol 3) 0.8 % vaginal cream 5 Active valACYclovir (Valtrex) 1 g tablet as needed. 5 Active magnesium oxide (Mag-Ox) 400 mg tablet 1 tablet daily. Active omega-3 (Fish Oil) 1000 MG capsule Take 1 capsule by mouth 2 times a day with meals. Active OIL OF OREGANO PO Take by mouth. Active diclofenac (Voltaren) 75 MG EC tablet Take 1 tablet by mouth 2 times a day. Do not crush, chew, or split. 60 tablet 2 5 Active losartan-hydro CHLOROthiazide (Hyzaar) 50-12.5 MG tablet Take 1 tablet by mouth daily. 5 Active methocarbamol (Robaxin) 500 MG tablet as needed. 5 Active pantoprazole (Protonix) 40 MG EC tablet Take 1 tablet by mouth daily. Do not crush, chew, or split. 30 tablet 3 5 Active cholestyramine (Questran) 4 GM/DOSE powder Take 1 packet by mouth daily. Dissolve in 8 oz of liquid and drink before a meal 30 packet 5 5 026 Active omeprazole (PriLOSEC) [address] capsule 4 025 Discontinued Resolved Problems Problem Noted Date [...] Encounters Date Type Department Care Team Description 08/18/2025 Telephone [facility] [address] [place] [address] Angeles Ribeiro Stool Studies 08/16/2025 12:40 PM EDT Office Visit [facility] Medicine Specialties [address] [facility], [address] [place] [phone] Tram Mead APRN Diarrhea, unspecified type (Primary Dx); Helicobacter pylori (H. pylori) infection; Gastroesophageal reflux disease, unspecified whether esophagitis present 08/16/2025 Travel 08/15/2025 Travel 08/01/2025 Telephone Medical Office Building Surgical Specialties [address] [facility], [address] [place] [address] Rich Christine MD HCN Clinical Concern/Question 05/29/2025 4:05 PM EDT Ancillary Procedure [place] [address] [place] [phone] SOB (shortness of breath); Edema; Dizziness; Fatigue 05/23/2025 Orders Only [facility] Medicine Specialties [address] [place] [address], [address] [place] [phone] Melvin Kearns APRN 05/18/2025 10:57 AM EDT - 05/18/2025 11:59 PM EDT Hospital Encounter [facility] Radiology [address] [place] [address], [address] [place] [phone] SHERRY positive Discharge Disposition: Home or Self Care 05/18/2025 9:30 AM EDT Consult [facility] Medicine Specialties [address] [place] [address], [address] [place] [phone] Melvin Kearns APRN SHERRY positive (Primary Dx); Polyarthralgia; Scl-70 antibody positive; Diarrhea, unspecified type; Osteoarthritis, unspecified osteoarthritis type, unspecified site 05/18/2025 Results Follow-Up [facility] Medicine Specialties [address] [place] [address], [address] [place] [phone] Melvin Kearns APRN 05/18/2025 Travel from Last [...] Mass Index 44.32 08/16/2025 12:16 PM EDT Plan of Treatment Upcoming Encounters Date Type Department Care Team (Late st Contact Info) Description 09/07/2025 1:00 PM EST [facility] [address], [address] [place] [phone] Melvin Kearns, CASKET COVERER [address] [place] [phone] 10/05/2025 9:00 AM EST Consult Medical Office Building Surgical Specialties [address] [facility], [address] [place] [address] Rich Christine MD [address] [facility] [address] [place] [address] 11/22/2025 10:40 AM EST Office Visit [facility] [address] [place] [phone] Tram Mead, CASKET COVERER [address] [place] [phone] Health Maintenance Due Date Last [...] 2024 [facility]-Zoster Vaccines (1 of 2) 2024 [id number]-05 Vaccine (2 - season) 2025 11/24/2021 [facility]-Influenza Vaccine (#1) 2025 08/26/2020 [facility]-Depression Screening 05/18/2026 025, 05/18/2025 [facility]-DTaP,Tdap,and Td Vaccine s (2 - Td or Tdap) 01/26/2029 01/26/2019 [facility]-Hepatitis C Screening Completed 05/18/2025 [facility]-Obesity Intervention Completed 025, 05/18/2025 HPV Vaccines Aged Out No longer [...] Procedure Name Priority Date/Time Associated Diagnosis Comments TISSUE TRANSGLUTAMINASE (TTG) AB, IGA (SO) Routine 08/16/2025 1:58 PM EDT Diarrhea, unspecified type IGA, PLASMA Routine 08/16/2025 1:58 PM EDT Diarrhea, unspecified type COMPREHENSIVE METABOLIC PANEL, PLASMA Routine 08/16/2025 1:58 PM EDT Diarrhea, unspecified type STRONGYLOIDES ANTIBODY, IGG BY JANINA, SERUM (SO) Routine 08/16/2025 1:58 PM EDT Diarrhea, unspecified type CT ANGIO CARDIAC CORONARY ARTERIES Routine 05/29/2025 [...] Routine 05/18/2025 10:54 AM EDT SHERRY positive BROTHERS/INTERNAL CONTROLS MANAGER (MINERVA) ANTIBODY, IGG (SO) Routine 05/18/2025 10:54 [...] positive from Last 3 Months Results * Tissue Transglutaminase (tTG) Ab, IgA (SO) (08/16/2025 1:58 PM EDT) Tissue Transglutaminase (tTG) Ab, IgA 1.64 0.00 - 4.99 FLU 08/18/2025 12:46 AM EDT [facility] ([facility]) Blood Venous blood specimen / Unknown Venipuncture / Unknown 08/16/2025 1:58 PM EDT 08/16/2025 1:58 PM EDT Narrative [facility] ([facility]) - 08/18/2025 12:46 AM EDT INTERPRETIVE INFORMATION: [...] indicate a response to therapy. Performed By: [facility] [address] [place] [address] Mechanic Chief: Ari Beasley MD, PhD CLIA Number: [id number] Tram Mead CASKET COVERER LAB REF LAB BLOOD AND FL UID ORD Final Result Performing Organization Address [facility]/ZIP Co de Phone Number [facility] [address] [place], [place] [id number] * Strongyloides Antibody (08/16/2025 1:58 PM EDT) Strongyloides Antibody, IgG By JANINA 0.2 <=0.9 IV 08/18/2025 1:23 PM EDT [facility] Control [facility] Pac[facility] ([facility]) Serum Venous blood specimen / Unknown 08/16/2025 1:58 PM EDT 08/16/2025 1:58 PM EDT [facility]) - 08/18/2025 1:23 PM EDT INTERPRETIVE INFORMATION: [...] also result in false-positive results. Performed By: [facility] [address] [place] [address] Mechanic Chief: Ari Beasley MD, PhD CLIA Number: [id number] Tram Mead CASKET COVERER LAB BLOOD ORDERABLES Fin al Result [facility]) [address] [phone] * IgA (08/16/2025 1:58 PM EDT) IGA 352 75 - 400 mg/dL 08/16/2025 3:55 PM EDT [facility] Blood Venous blood specimen / Unknown Venipuncture / Unknown 08/16/2025 1:58 PM EDT 08/16/2025 1:58 PM EDT us Tram Mead CASKET COVERER LAB BLOOD ORDERABLES Fin al Result [facility] [address] [place] [address] * (ABNORMAL) Comprehensive metabolic panel (08/16/2025 1:58 PM EDT) Pathologist [facility] Glucose, Plasma 103(H) 74 - 99 mg/dL 08/16/2025 3:55 PM EDT [facility] BUN, Plasma 19 7 - 21 mg/dL 08/16/2025 3:55 PM EDT [facility] Creatinine, Plasma 0.74 0.60 - 1.10 mg/dL 08/16/2025 3:55 PM EDT [facility] BUN/Creatinine Ratio 26 08/16/2025 3:55 PM EDT [facility] Sodium, Plasma 139 136 - 145 mmol/L 08/16/2025 3:55 PM EDT [facility] Potassium, Plasma 4.1 3.6 - 4.9 mmol/L 08/16/2025 3:55 PM EDT [facility] Chloride, Plasma 102 97 - 107 mmol/L 08/16/2025 3:55 PM EDT [facility] CO2, Plasma 26 22 - 29 mmol/L 08/16/2025 3:55 PM EDT [facility] Anion Gap 11 6 - 16 mmol/L 08/16/2025 3:55 PM EDT [facility] Total Calcium, Plasma 10.1 8.9 - 10.2 mg/dL 08/16/2025 3:55 PM EDT [facility] Total Protein 8.0(H) 6.3 - 7.9 g/dL 08/16/2025 3:55 PM EDT [facility] Albumin, Plasma 4.4 3.5 - 5.2 g/dL 08/16/2025 3:55 PM EDT [facility] AST, Plasma 18 10 - 35 U/L 08/16/2025 3:55 PM EDT [facility] ALT, Plasma 25 10 - 35 U/L 08/16/2025 3:55 PM EDT [facility] Alkaline Phosphatase, Plasma 126(H) 35 - 104 U/L 08/16/2025 3:55 PM EDT [facility] Total Bilirubin, Plasma 0.4 0.2 - 1.1 mg/dL 08/16/2025 3:55 PM EDT [facility] eGFRcr 98.7 mL/min/1.7 3m*2 08/16/2025 3:55 PM EDT [facility] Comment:Reported eGFRcr in m L/min/1.73m2 is based the CKD-EPI 2020 equation that does not use a race coefficient. Blood Venous blood specimen / Unknown Venipuncture / Unknown 08/16/2025 1:58 PM EDT 08/16/2025 1:58 PM EDT us Tram Mead CASKET COVERER LAB BLOOD ORDERABLES Fin al Result [facility] [address] [place] [address] * CT Angio Cardiac Coronary Arteries (05/29/2025 4:01 PM EDT) Anatomical Region Laterality Modality Heart Computed Tomogra phy Impressions 05/29/2025 5:33 PM EDT 1. No coronary calcification with an Agatston score = 0 using the AJ-130 method. Vascular age is 38 years. 2. Non-diagnostic coronary CTA due to photon starvation causing poor leexfn-fb-gyira and yjkyaxsj-cf-myyzi. 3. No significant non coronary cardiac findings [...] Data Image Acquisition: Images were acquired at [facility] in [place], and interpreted at [facility]. A 128-slice MDCT scanner (HipLogiqa View) was used for data acquisition. A [...] was reviewed interactively on an advanced workstation (Shaka) capable of 2 and 3 dimensional displays [...] Data Image Acquisition: Images were acquired at [facility] in [place], andinterpreted at [facility]. A 128-slice MDCT scanner (Media Machines View) was used for data acquisition. A [...] Data wasreviewed interactively on an advanced workstation (Shaka) capable of 2and 3 dimensional displays in [...] coronary CTA due to photon starvation causing gplvtbgoll-pb-fkmub and goccrmiu-kc-yekde. 3. No significant non coronary cardiac findings in particular normalcardiac chambers, non-coronary vessels in the field of view andunremarkable pericardium. 4. Extracardiac structures in the field of view are unremarkable. CRITICAL RESULT: No. COMMUNICATION: Per this written report. Drafted by Abraham Delgado MD on 05/29/2025 5:23 PM Final report signed by Abraham Delgado MD on 05/29/2025 5:33 PM Dejuan GARCIA [facility] CT PROCEDURES Final Result * XR Hand [...] MD on 511:38 AM Melvin Kearns APRN [facility] XR PROCEDURES Final Result * XR Knee [...] COMMUNICATION: Per this written report. Drafted by Riosrica Vyas MD on 05/18/2025 11:35 AM Final report signed by Rios Vyas MD on 1:38 AM Melvin Kearns CASKET COVERER IMG XR PROCEDURES Final Result * XR [...] III Antibody, IgG (05/18/2025 10:54 AM EDT) Pathologist [facility] RNA Polymerase III Antibody, IgG 5 0 - 19 Units 05/19/2025 11:33 PM EDT [facility] ([facility]) Blood Venous blood specimen / Unknown Venipuncture / Unknown 05/18/2025 10:54 AM EDT 05/18/2025 10:54 AM EDT Narrative [facility] ([facility]) - 05/19/2025 11:33 PM EDT INTERPRETIVE INFORMATION: [...] antibodies associated with SSc, including centromere, Scl-70, U3-INTERNAL CONTROLS MANAGER, PM/Scl, or Th/To. Performed By: [facility] [address] [place] [address] Mechanic Chief: Ari Beasley MD, PhD CLIA Number: [id number] Melvin Kearns APRN LAB BLOOD ORDERABLES Final Res ult [facility]) [address] [place] [address] * Centromere Antibody, IgG (05/18/2025 10:54 AM EDT) [facility] Centromere Ab, IgG 0 0 - 40 AU/mL 05/20/2025 1:30 PM EDT [facility] ([facility]) Blood Venous blood specimen / Unknown Venipuncture / Unknown 05/18/2025 10:54 AM EDT 05/18/2025 10:54 AM EDT Narrative [facility]) - 05/20/2025 1:30 PM EDT INTERPRETIVE INFORMATION: [...] other antibodies associated with SSc, including Scl-70, U3-INTERNAL CONTROLS MANAGER, PM/Scl, or Th/To. Performed By: [facility] [address] [place] [address] Mechanic Chief: Ari Beasley MD, PhD CLIA Number: [id number] us Melvin Kearns APRN LAB BLOOD ORDERABLES Final Res ult Performing Organization Address [facility]/ZIP Co de Phone Number [facility] [employer] [address] [place] [address] * Brothers (MINERVA) Antibody, IgG (05/18/2025 10:54 AM EDT) Brothers (MINERVA) Antibody, IgG 1 0 - 40 AU/mL 05/20/2025 1:30 PM EDT [facility] ([facility]) Serum 05/18/2025 10:5 4 AM EDT 05/18/2025 10:54 AM EDT Narrative [facility]) - 05/20/2025 1:30 PM [...] associations with SLE clinical manifestations. Performed By: [facility] [address] [place] [address] Mechanic Chief: Ari Beasley MD, PhD CLIA Number: [id number] Melvin Kearns APRN LAB REF LAB BLOOD AND FLUID OR D Final Result Performing Organization Address City/[facility]/ZIP Co de Phone Number [facility] ([facility]) [address] [place] [address] * ENAII (05/18/2025 10:54 AM EDT) SSA-52 (RO52) (MINERVA) Antibody, IgG 1 0 - 40 AU/mL 05/20/2025 1:30 PM EDT [facility] ([facility]) SSA-60 (RO60) (MINERVA) Antibody, IgG 0 0 - 40 AU/mL 05/20/2025 1:30 PM EDT [facility] ([facility]) SSB (LA) (MINERVA) Antibody, IgG 1 0 - 40 AU/mL 05/20/2025 1:30 PM EDT [facility] ([facility]) Blood Venous blood specimen / Unknown Venipuncture / Unknown 05/18/2025 10:54 AM EDT 05/18/2025 10:54 AM EDT Narrative [facility] ([facility]) - 05/20/2025 1:30 PM EDT INTERPRETIVE INFORMATION: [...] (PSS) also have this antibody. Performed By: [facility] [address] [place] [address] Mechanic Chief: Ari Beasley MD, PhD CLIA Number: [id number] Melvin Kearns APRN LAB BLOOD ORDERABLES Final Res ult [facility] ([facility]) [address] [place] [address] * ENAI (05/18/2025 10:54 AM EDT) Brothers/INTERNAL CONTROLS MANAGER (MINERVA) Ab, IgG 2 0 - 19 Units 05/19/2025 11:55 PM EDT [facility] ([facility]) Blood Venous blood specimen / Unknown Venipuncture / Unknown 05/18/2025 10:54 AM EDT 05/18/2025 10:54 AM EDT Narrative [facility] ([facility]) - 05/19/2025 11:55 PM EDT INTERPRETIVE INFORMATION: Brothers/INTERNAL CONTROLS MANAGER (MINERVA) Antibody, IgG 19 Units or Less ............. Negative 20 to 39 Units ............... Weak Positive 40 to 80 Units ............... Moderate Positive 81 Units or greater .......... Strong Positive Brothers/INTERNAL CONTROLS MANAGER antibodies are frequently seen in patients with mixed connective tissue disease (MCTD) and are also associated with other systemic autoimmune rheumatic diseases (SARDs) such as systemic lupus erythematosus (SLE), systemic sclerosis, and myositis. Antibodies targeting the Brothers/INTERNAL CONTROLS MANAGER antigenic complex also recognize Brothers antigens, therefore, the Brothers antibody response must be considered when interpreting these results. Performed By: [facility] [address] [place] [address] Mechanic Chief: Ari Beasley MD, PhD CLIA Number: [id number] Melvin Kearns APRN LAB BLOOD ORDERABLES Final Res ult Performing Organization Address City/[facility]/ZIP Co de Phone Number [facility] ([facility]) [address] [place] [address] * Thyroid Peroxidase Antibody (05/18/2025 10:54 AM EDT) Thyroid Peroxidase Antibody <5 <=8 IU/mL 05/18/2025 1:44 PM EDT [facility] Blood Venous blood specimen / Unknown Venipuncture / Unknown 05/18/2025 10:54 AM EDT 05/18/2025 10:54 AM EDT Melvin Kearns APRN LAB BLOOD ORDERABLES Final Res ult Performing Organization Address [facility]/ZIP Co de Phone Number [facility] [address] [place] [address] * Cyclic Citrul Peptide Antibody IgG (05/18/2025 10:54 AM EDT) Cyclic Citrul Peptide Antibody IgG <5.0 <=5.0 U/mL 05/18/2025 2:04 PM EDT [facility] Blood Venous blood specimen / Unknown Venipuncture / Unknown 05/18/2025 10:54 AM EDT 05/18/2025 10:54 AM EDT Melvin Kearns APRN LAB BLOOD ORDERABLES Final Res ult Performing Organization Address City/[facility]/ZIP Co de Phone Number [facility] [address] [place] [address] * Anti-scleroderma antibody (05/18/2025 10:54 AM EDT) SCLERODERMA (SCL-70) (MINERVA) ANTIBODY, IGG 1 0 - 40 AU/mL 05/20/2025 1:30 PM EDT [facility] ([facility]) Blood Venous blood specimen / Unknown Venipuncture / Unknown 05/18/2025 10:54 AM EDT 05/18/2025 10:54 AM EDT Narrative [facility] ([facility]) - 05/20/2025 1:30 PM EDT INTERPRETIVE [...] testing for centromere, RNA polymerase III and U3-INTERNAL CONTROLS MANAGER, PM/Scl, or Th/To antibodies. Performed By: [facility] [address] [place] [address] Mechanic Chief: Ari Beasley MD, PhD CLIA Number: [id number] Melvin Kearns APRN LAB BLOOD ORDERABLES Final Res ult [facility]) [address] [place] [address] * Double-Stranded DNA (dsDNA) Antibody, IgG by IFA (05/18/2025 10:54 AM EDT) Double-Strande d DNA (dsDNA) Ab IgG IFA <1:10 <1:10 05/20/2025 6:52 PM EDT [facility] ([facility]) Blood Venous blood specimen / Unknown Venipuncture / Unknown 05/18/2025 10:54 AM EDT 05/18/2025 10:54 AM EDT Narrative [facility]) - 05/20/2025 6:52 PM EDT INTERPRETIVE INFORMATION: [...] recommendations for testing may be found at [email or web address]. Performed By: [facility] [address] [place] [address] Mechanic Chief: Ari Beasley MD, PhD CLIA Number: [id number] Melvin Kearns APRN LAB BLOOD ORDERABLES Final Res ult [facility]) [address] [id number] * Acute Hepatitis Panel (05/18/2025 10:54 AM EDT) Hepatitis B Surf Antigen Negative Negative 05/18/2025 1:56 PM EDT [facility] Hepatitis C Antibody Negative Negative 05/18/2025 1:56 PM EDT [facility] Hepatitis A Antibody IgM Negative Negative 05/18/2025 1:56 PM EDT [facility] Hepatitis B Core Antibody IgM Negative Negative 05/18/2025 1:56 PM EDT [facility] Blood Venous blood specimen / Unknown Venipuncture / Unknown 05/18/2025 10:54 AM EDT 05/18/2025 10:54 AM EDT Melvin Kearns APRN LAB BLOOD ORDERABLES Final Res ult Performing Organization Address City/[facility]/ZIP Co de Phone Number [facility] [address] [place] [address] * (ABNORMAL) Sedimentation Rate, Automated (05/18/2025 10:54 AM EDT) Sedimentation Rate 51(H) <30 mm/hr 2024 1:32 PM EDT [facility] Blood Venous blood specimen / Unknown Venipuncture / Unknown 05/18/2025 10:54 AM EDT 05/18/2025 10:54 AM EDT Melvin Hookyojana CASKET COVERER LAB BLOOD ORDERABLES Final Res ult Performing Organization Address City/[facility]/[place] [address] * Rheumatoid Factor, Plasma (05/18/2025 10:54 AM EDT) Rheumatoid Factor, Plasma <10 <14 IU/mL 05/18/2025 1:28 PM EDT [facility] Blood Venous blood specimen / Unknown Venipuncture / Unknown 05/18/2025 10:54 AM EDT 05/18/2025 10:54 AM EDT Melvin Kearns APRN LAB BLOOD ORDERABLES Final Res ult Performing Organization Address City/[facility]/[place] [address] * C3 Complement (05/18/2025 10:54 AM EDT) C3 Complement 166 84 - 166 mg/dL 05/18/2025 1:20 PM EDT [facility] Blood Venous blood specimen / Unknown Venipuncture / Unknown 05/18/2025 10:54 AM EDT 05/18/2025 10:54 AM EDT Melvin Kearns CASKET COVERER LAB BLOOD ORDERABLES Final Res ult Performing Organization Address [facility]/ZIP Co de Phone Number [facility] [address] [place] [address] * C4 Complement (05/18/2025 10:54 AM EDT) C4 Complement 28 13 - 36 mg/dL 05/18/2025 1:20 PM EDT [facility] Blood Venous blood specimen / Unknown Venipuncture / Unknown 05/18/2025 10:54 AM EDT 05/18/2025 10:54 AM EDT Melvin Hookyojana CASKET COVERER LAB BLOOD ORDERABLES Final Res ult Performing Organization Address [facility] de Phone Number [facility] [address] [place] [address] * (ABNORMAL) C-Reactive Protein, Plasma (05/18/2025 10:54 AM EDT) CRP, Plasma 27.4(H) <=8.0 mg/L 05/18/2025 1:28 PM EDT [facility] Blood Venous blood specimen / Unknown Venipuncture / Unknown 05/18/2025 10:54 AM EDT 05/18/2025 10:54 AM EDT Narrative [facility] - 05/18/2025 1:28 PM EDT This CRP test is appropriate for assessment of infection, systemic inflammation and/or tissue injury. To assess cardiovascular disease risk order high sensitivity CRP (CRPH). Melvin Hookyojana CASKET COVERER LAB BLOOD ORDERABLES Final Res ult Performing Organization Address [facility] Co de Phone Number [facility] [address] [place] [address] * Antinuclear Antibody (SHERRY), HEp-2, IgG (05/18/2025 10:54 AM EDT) SHERRY INTERPRETIVE COMMENT See Note 05/20/2025 9:29 AM EDT [facility] ([facility]) Anti Nuc Ab Screen <1:80 <1:80 05/20/2025 9:29 AM EDT [facility] ([facility]) Blood Venous blood specimen / Unknown Venipuncture / Unknown 05/18/2025 10:54 AM EDT 05/18/2025 10:54 AM EDT Narrative [facility]) - 05/20/2025 9:29 AM EDT Antinuclear [...] not necessarily rule out SARD. Performed By: [facility] [address] [place] [address] Mechanic Chief: Ari Beasley MD, PhD CLIA Number: [id number] Melvin Kearns APRN LAB BLOOD ORDERABLES Final Res ult [facility] [employer]) [address] [place] [address] * Protein, Random, Urine with Creatinine (05/18/2025 10:42 AM EDT) Protein, Urine 9 mg/dL 05/18/2025 11:59 AM EDT [facility] Creatinine, Urine 82 mg/dL 05/18/2025 11:59 AM EDT [facility] Protein/Creatin ine Ratio 0.1 mg/mg Creat 05/18/2025 11:59 AM EDT [facility] Urine Urine specimen obtained by clean catch procedure / Unknown Non-blood Collection / Unknown 05/18/2025 10:42 AM EDT 05/18/2025 10:42 AM EDT us Melvin Kearns APRN LAB URINE ORDERABLES Final Res ult [facility] [address] [place] [address] from Last 3 Months Insurance [facility] MEDICAID Care Teams Peer Tutor Relationship Specialty Start Date End Date Jocelynn Troy APRN [address] [place] [address] PCP - General 05/18/25
--- OUTSIDE RECORDS SUMMARY | 2025-08-18 16:04 | XMS_ITS | Clinical Summary ---
Author Organization [facility] Address [address] [place] [address] Care Team Providers Care Body Cleaner Name Role Phone TroyJocelynn APRN Primary Care Provider + [phone] Allergies Active Allergy Reactions Criticality Noted Date [...] DAILY 4 Active Lancets (OneTouch Delica Plus [id number]) misc USE TO TEST BLOOD SUGAR TWICE [...] - Td or Tdap) 01/26/2029 019 Insurance [facility] Care Teams Body Cleaner Relationship Specialty Start Date End Date Jocelynn Troy APRN [address] [place] [address] [place] [id number] PCP - General Internal Medicine 01/18/24
--- OUTSIDE RECORDS SUMMARY | 2025-08-18 16:04 | XMS_ITS | Encounter Summary ---
Author Organization [employer] ([place], [place], [place], [place]) Address [address] [place] [address] Care Team Providers Care Tax Manager Name Role Phone Unavailable Primary Care Provider Unavailabl e Encounter Details Date Type Department Care Team (Late st Contact Info) Description 03/20/2020 Transcribed Document [facility] [place] [facility] Family Medicine [facility] [address] ProviderArchie MD [address] [place], [place] [id number] Social History Tobacco Use Types Packs/Day Years [...] Provider Review Required Electronically signed by Ag [facility] Conversion Geological Scout Cerner at 02/13/2023 9:59 AM CDT documented in this encounter Plan of Treatment Not on file documented as of this encounter Visit Diagnoses Not on filedocumented in this encounter
--- OUTSIDE RECORDS SUMMARY | 2025-08-18 16:04 | XMS_ITS | Encounter Summary ---
Author Organization [facility] Address [address] [place] [address] Care Team Providers Care Machine Technician Name Role Phone Jocelynn Troy APRN Primary Care Provider [phone] Reason for Visit * Reason Onset Date Comments HCN Clinical Concern/Question 08/01/2025 Encounter Details Date Type Department Care Team ([facility] st Contact Info) Description 08/01/2025 Telephone Medical Office Building Surgical Specialties [address] [facility], [address] [place] [address] Rich Christine MD [address] [facility] [address] [place] [address] HCN Clinical Concern/Question Social History [...] with info. Thank you Best contact number: [phone] (mobile) Optimal time of day to reach [...] Description 09/07/2025 1:00 PM EST Office Visit [facility] Medicine [facility] [address] [place] [address] Melvin Kearns, SAFETY DEPOSIT SUPERVISOR [address] [place] [address] 10/05/2025 9:00 AM EST Consult Medical Office Building Surgical Specialties [address] [facility], [address] [place] [address] Rich Christine MD [address] [facility] [address] [place] [address] 11/22/2025 10:40 AM EST Office Visit [facility] Medicine Specialties [address] [place] [address] Tram Mead, SAFETY DEPOSIT SUPERVISOR [address] [place] [address] documented as of this encounter Visit Diagnoses [...] documented as of this encounter Care Teams Machine Technician Relationship Specialty Start Date End Date Jocelynn Troy APRN [address] [place] [address] PCP - General 05/18/25 documented as of this encounter
--- OUTSIDE RECORDS SUMMARY | 2025-08-18 16:04 | XMS_ITS | Clinical Summary ---
Author Organization [facility] , [facility] Address [address] [place] [address] Phone Care Team Providers Care Online Advertising Director Name Role Phone Omar SANDERS, Bc Randhawa Primary Care Provider [phone] Avery SANDERS, Humberto Casillas Unavailable [phone] Giselle SANDERS, Kirill Unavailable [phone] Reason for Visit and Chief Complaint The Chief Complaint is: L4-S1 Lami POV Problems Includes: Problems addressed during this encounter and other active Problems Current Visit Onset Date Resolved Date Provider Alexia candelaria Status Lower Back Pain 12/18/2016 Humberto Varela MD Act juwan Last Documented On 7 1:02PM ; [facility], [facility] Plan of Treatment Patient was seen by myself Geraldo Belle PA-C. Patient will follow up with myself and Dr. Varela on . We will place her on some clindamycin keep a dressing on this but some there is new Steri-Strips on it to - Last Documented On 01/20/2023 8:12AM ; [facility] Pending Tests Order Diagnosis Results Due Ordering P rovider Radiology - MRI MRI Lumbar Spine Low back pain 05/25/23 Geraldo Belle PA-C Last Documented On 3 12:50PM ; [facility] Instructions to patient Lose weight Last Documented On 3 4:04PM ; [facility], [facility] Assessments Includes: Assessments from this encounter Findings L4-S1 laminectomy January 07, 2023 - Last Documented On 01/20/2023 8:12AM ; [facility], [facility] Instructions Includes: Instructions from this encounter Instructions to patient Lose weight Last Documented On 3 4:04PM ; [facility] Medical Equipment - Implanted Devices [...] every 8 hours Pharmacy: [facility] [address] [place], [place] [address], [id number] Last Documented On 3 4:45PM By Nicci Eugene ; [facility] Current Medications (continue as prescribed) Venlafaxine HCl ER 150 MG Or al Capsule Extended Release 24 Hour 11/21/2022 Provider: Diagnosis: Last Documented On 3 9:10AM By Tram Burton ; [facility] Citalopram Hydrobromide 20 MG Oral Tablet 11/05/2022 Provider: Diagnosis: Last Documented On 3 9:10AM By Tram Burton ; [facility], [facility] hydroCHLOROthiazide 25 MG Oral Tablet 11/05/2022 Pro vider: Diagnosis: Last Documented On 3 9:10AM By Tram Burton ; [facility] Past Medications on file Methocarbamol 750 MG Oral Tablet 07/02/2023 - 08/31/20 23 Provider: Humberto Varela MD Diagnosis: Take 1 tablet every 8 hrs prn pain Last Documented On 3 9:14AM By Tram [facility], [facility] HYDROcodone-Acetaminophen 5- 325 MG Oral Tablet 01/22/2023 - 02/06/2023 Provider: Humberto Varela MD Diagnosis: Take 1 tablet every 8 hrs prn pain Last Documented On 3 3:26PM By Humberto Varela ; [facility] HYDROcodone-Acetaminophen 7. 5-325 MG Oral Tablet 01/05/2023 - 01/20/2023 Provider: Humberto Varela MD Diagnosis: 1 po q 4h prn pain Last Documented On 3 1:44PM By Humberto Varela ; [facility], [facility] Flector 1.3 % Patch 12/18/2016 - 01/17/2017 Provider: Humberto Varela MD Diagnosis: take as directed Last Documented On 7 1:40PM By Gayle Kerr ; [facility], [facility] Medications Administered Includes: Administered Medications from this encounter No Administered Medications Recorded Vital Signs Includes: Vital Signs from this encounter Vital Name 01/19/2023 04:05P Height (in) 65 Weight (lb) 225 Body Mass Index 37.4 Body Surface Area 2.1 Note: MG Last Documented: On 01/19/2023 4:05PM ; [facility], [facility] Results Includes: Results discussed during this [...] 07/02/2023 Last Documented On 3 4:04PM ; [facility], [facility] No recent change in diet 01/23/2023 Last Documented On 3 4:04PM ; [facility] Not a current smoker. 01/23/2023 Last Documented On 3 4:04PM ; [facility] Caffeine use 12/18/2016 Last Documented On 3 4:04PM ; [facility], [facility] No recent change in diet 12/18/2016 Last Documented On 3 4:04PM ; [facility], [facility] No tobacco use 12/18/2016 Last Documented On 3 4:04PM ; [facility], [facility] Not a current smoker 12/18/2016 Last Documented On 3 4:04PM ; [facility], [facility] Not exercising regularly 12/18/2016 Last Documented On 3 4:04PM ; [facility] Not using alcohol 12/18/2016 Last Documented On 3 4:04PM ; [facility], [facility] Not using drugs 12/18/2016 Last Documented On 3 4:04PM ; [facility] Smoking status : Never smoker 12/18/2016 Last Documented On 3 4:04PM ; [facility] Procedures and Surgical History Includes: Procedures from this encounter Procedures Code Diagnosis Performing Provider Service L ocation Service Date use of tobacco assessment performed 1000F Last Documented On 3 4:04PM ; [facility] Surgical History Last Updated History of back surgery L5-S1 Fusion 200 8 11/27/2022 Last Documented On 3 4:04PM ; [facility], [facility] History of History of Gallbladder 2022 Last Documented On 3 4:04PM ; [facility], [facility] Medical History Includes: Medical History addressed during this encounter Description Last Updated History of depression 11/27/2022 Last Documented On 3 4:04PM ; [facility], [facility] History of Hypertension 11/27/2022 Last Documented On 3 4:04PM ; [facility], [facility] Past medical/surgical history [use for f ree text] 11/27/2022 Last Documented On 3 4:04PM ; [facility], [facility] Gallbladder disease 12/18/2016 Last Documented On 3 4:04PM ; [facility] History of gastric ulcer 12/18/2016 Last Documented On 3 4:04PM ; [facility], [facility] Family History Includes: Family History addressed during this encounter Description Last Updated Diabetes mellitus 11/27/2022 Last Documented On 3 4:04PM ; [facility], [facility] Family history of cancer 12/18/2016 Last Documented On 3 4:04PM ; [facility], [facility] Family history of diabetes mellitus 11/27 Last Documented On 3 4:04PM ; [facility], [facility] Family history of heart disease 12/18/19 17 Last Documented On 3 4:04PM ; [facility], [facility] Family history of hypertension 7 Last Documented On 3 4:04PM ; [facility] Family history of rheumatoid arthritis 0 12/18/2016 Last Documented On 3 4:04PM ; [facility] Family history of thromboembolic disease 12/18/2016 Last Documented On 3 4:04PM ; [facility] Review of Systems Includes: Review of [...] Active Last Documented On 3 8:27AM ; [facility] Percocet Allergy 12/01/2016 Active Last Documented On 3 8:27AM ; [facility] Encounters Encounter Provider Location Date Check-In Time Check- Out Time Diagnosis Post Op Geraldo Belle PA-C [facility] 3 4:00PM 4:27PM Insurance Includes: Active Insurance Policies Plan Name Member ID Group # Subscriber Relationship Effect juwan Dates 1 - [facility] [id number] Tiffanie Glasgow Self Clinical Notes Includes: Clinical Notes from this encounter * Progress note Date Encounter Last Documented by 01/19/2023 Post Op Last documented on 01/20/2023; 8:12 AM, Geraldo Belle PA-C; [facility], [facility] Active Problems & Conditions - [...]
--- OUTSIDE RECORDS SUMMARY | 2025-08-18 16:04 | XMS_ITS | Encounter Summary ---
Author Organization [employer] ([place], [place], [place], [place]) Address [address] [place] [address] Care Team Providers Care Fly Frame Tender Name Role Phone Unavailable Primary Care Provider Unavailabl e Encounter Details Date Type Department Care Team (Late st Contact Info) Description 03/19/2020 Transcribed Document [facility] [place] Medicine [facility] [place] [address] ProviderArchie MD [address] [place] [id number] Social History Tobacco Use Types Packs/Day Years [...] Historical ProviderMD - 03/19/2020 6:21 PM CDT Electronically signed by Andrea Luong Conversion Laboratory Apparatus Glass Grinder Cydney at 02/13/2023 10:12 AM CDT documented in this encounter Plan of Treatment Not on file documented as of this encounter Visit Diagnoses Not on filedocumented in this encounter
--- OUTSIDE RECORDS SUMMARY | 2025-08-18 16:04 | XMS_ITS | Encounter Summary ---
Author Organization [employer] ([place], [place], [place], [place]) Address [address] [place] [address] Care Team Providers Care Paint Line Production Supervisor Name Role Phone Unavailable Primary Care Provider Unavailabl e Encounter Details Date Type Department Care Team (Late st Contact Info) Description 03/19/2020 Transcribed Document [facility] [place] Family Medicine [facility] [place] [address] ProviderArchie MD [address] [place] [address] Social History Tobacco Use Types [...] RN Intervention Information: morphine Performed by CECELIA AHMPTON RN on 03/19/2020 18:03:00 EDT morphine,4mg IV [...]
--- OUTSIDE RECORDS SUMMARY | 2025-08-18 16:04 | XMS_ITS | Encounter Summary ---
Author Organization [facility] Address [address] [id number] Care Team Providers Care Intern Name Role Phone Jocelynn Troy APRN Primary Care Provider [phone]- [phone] Reason for Visit * Reason Onset Date Comments Stool Studies 08/18/2025 Encounter Details Date Type Department Care Team (Late st Contact Info) Description 08/18/2025 Telephone [place] [facility] Medicine Specialties [address] [place] [id number] [place] [address] Stool Studies Social History Tobacco Use Types Packs/Day Years [...] encounter Miscellaneous Notes * Telephone Encounter - Angeles Ribeiro - 08/18/2025 3:16 PM EDT Received call from patient Patient requesting stool study to be sent to [facility] Faxed orders to F: [phone] CB: [phone] documented in this encounter Plan of Treatment Upcoming Encounters Date Type Department Care Team (Late st Contact Info) Description 09/07/2025 1:00 PM EST Office Visit [facility] Medicine Specialties [address] [place] [address] Melvin Kearns, SCRAP DROP CRANE OPERATOR [address] [place] [address] 10/05/2025 9:00 AM EST Consult Medical Office Building Surgical Specialties [address] [facility], [address] [place] [address] Rich Christine MD [address] [facility] [address] [place] [address] 11/22/2025 10:40 AM EST Office Visit [facility] Medicine Specialties [address] [place] [address] Tram Mead, SCRAP DROP CRANE OPERATOR [address] [facility] [address] [place] [address] documented as of this encounter Visit Diagnoses Not on filedocumented in this encounter Additional Health Concerns Assessment Noted Time PHQ-9 Depression Total Score: 6 05/18/20 25 9:44 AM EDT A fall risk assessment has been complete d for the patient 05/18/2025 9:44 AM EDT A Body Mass Index follow-up plan has been documented for the patient 08/18/2025 10:13 AM EDT documented as of this encounter Care Teams Intern Relationship Specialty Start Date End Date Jocelynn Troy, SCRAP DROP CRANE OPERATOR [address] [place] [address] PCP - General 05/18/25 documented as of this encounter
--- OUTSIDE RECORDS SUMMARY | 2025-08-18 16:04 | XMS_ITS | Encounter Summary ---
Author Organization [facility] Address [address] [place] [address] Care Team Providers Care Motor Patrol Operator Name Role Phone Jocelynn Troy APRN Primary Care Provider [phone]- [phone] Encounter Details Date Type Department Care Team (Late st Contact Info) Description 05/18/2025 Results Follow-Up [facility] Medicine Specialties [address] [place] [address] Melvin Kearns APRN [address] [place] [address] Social History Tobacco Use Types [...] at all 05/18/2025 9:44 AM Lucia Ball in R Patient Health Questionnaire-9 Score 6 05/18/2025 9:44 AM Cara Ball R * How difficult have these problems made it for you to do your work, take care of things at home, or get along with other people? Answer Date of Assessment Author Not difficult at all 05/18/2025 9:44 AM Idalia Quan R * How difficult have these problems [...] Description 09/07/2025 1:00 PM EST Office Visit [facility] Medicine Specialties [address] [place] [address] Melvin Kearns, TRUCK HOP [address] [place] [address] 10/05/2025 9:00 AM EST Consult Medical Office Building Surgical Specialties [address] [facility] [place] [address] Rich Christine MD [address] [facility] [address] [place] [address] 11/22/2025 10:40 AM EST Office Visit [facility] Medicine Specialties [address] [place] [address] Tram Mead, TRUCK HOP [address] [place] [address] documented as of this encounter Visit Diagnoses [...] documented as of this encounter Care Teams Motor Patrol Operator Relationship Specialty Start Date End Date Jocelynn Troy APRN [address] [place] [address] PCP - General 05/18/25 documented as of this encounter
--- OUTSIDE RECORDS SUMMARY | 2025-08-18 16:04 | XMS_ITS | Clinical Summary ---
Author Organization [facility] Address [address] [place] [address] Phone Care Team Providers Care Extender Name Role Phone Omar SANDERS, Bc Randhawa Primary Care Provider [phone] Avery SANDERS, Humberto Casillas Unavailable [phone] Kirill Desai MD Unavailable [phone] Reason for Visit and Chief Complaint The Chief Complaint is: Low back/leg pain Problems Includes: Problems addressed during this encounter and other active Problems Current Visit Onset Date Resolved Date Provider Alexia candelaria Status Lower Back Pain 12/18/2016 Humberto Varela MD Act juwan Last Documented On 7 1:02PM ; [facility] Plan of Treatment Patient was seen by myself and Dr. Avery Belle PA-C. Patient will follow up 6 weeks last resort for her be a lumbar fusion working to see if we can have her start some physical therapy prescription for Robaxin continue with anti-inflammatories as she is using Aleve [id number] and will try a L5-S1 transforaminal injection on the right side - Last Documented On 07/02/2023 4:54PM ; [facility] Pending Tests Order Diagnosis Results Due Ordering P rovider Therapy - Physical Therapy Lumbar Low back pain Humberto Varela MD Last Documented On 3 4:54PM ; [facility] Instructions to patient Lose weight Last Documented On 3 8:27AM ; [facility] Assessments Includes: Assessments from this encounter Findings - Overweight - Last Documented On 07/02/2023 4:54PM ; [facility] L4-L5 L5-S1 spinal stenosis - Last Documented On 07/02/2023 4:54PM ; [facility] Instructions Includes: Instructions from this encounter Instructions to patient Lose weight Last Documented On 3 8:27AM ; [facility] Medical Equipment - Implanted Devices Includes: [...] hrs prn pain Pharmacy: [facility] [address] [place], [place] [address]Jose Guadalupe Dinh [place], [id number] - Last Documented On 3 9:14AM By Tram Burton ; [facility] Current Medications (continue as prescribed) Venlafaxine HCl ER 150 MG Or al Capsule Extended Release 24 Hour 11/21/2022 Provider: Diagnosis: Last Documented On 3 9:10AM By Tram Burton ; [facility] Citalopram Hydrobromide 20 MG Oral Tablet 11/05/2022 Provider: Diagnosis: Last Documented On 3 9:10AM By Tram Burton ; [facility] hydroCHLOROthiazide 25 MG Oral Tablet 11/05/2022 Pro vider: Diagnosis: Last Documented On 3 9:10AM By Tram Burton ; [facility] Past Medications on file HYDROcodone-Acetaminophen 5- 325 MG Oral Tablet 01/22/2023 - 02/06/2023 Provider: Humberto Varela MD Diagnosis: Take 1 tablet every 8 hrs prn pain Last Documented On 3 3:26PM By Humberto Varela ; [facility] Clindamycin HCl 300 MG Oral Capsule 01/19/2023 - 01/26/2023 Provider: Geraldo Bernardo Diagnosis: Take 2 tablets by mouth every 8 hours Last Documented On 3 4:45PM By Nicci Eugene ; [facility] HYDROcodone-Acetaminophen 7. 5-325 MG Oral Tablet 01/05/2023 - 01/20/2023 Provider: Humberto Varela MD Diagnosis: 1 po q 4h prn pain Last Documented On 3 1:44PM By Humebrto Varela ; ANALISA DIAZ Flector 1.3 % [...] Documented On 3 4:54PM ; [facility] No recent change in diet 01/23/2023 Last Documented On 3 8:27AM ; [facility] Not a current smoker. 01/23/2023 Last Documented On 3 8:27AM ; [facility] Caffeine use 12/18/2016 Last Documented On 3 8:27AM ; [facility] No recent change in diet 12/18/2016 Last Documented On 3 8:27AM ; [facility] No tobacco use 12/18/2016 Last Documented On 3 8:27AM ; [facility] Not a current smoker 12/18/2016 Last Documented On 3 8:27AM ; [facility] Not exercising regularly 12/18/2016 Last Documented On 3 8:27AM ; [facility] Not using alcohol 12/18/2016 Last Documented On 3 8:27AM ; [facility] Not using drugs 12/18/2016 Last Documented On 3 8:27AM ; [facility] Smoking Status Unknown Procedures and Surgical History Includes: Procedures from this encounter Procedures Code Diagnosis Performing Provider Service L ocation Service Date use of tobacco assessment performed 1000F Last Documented On 3 8:27AM ; [facility] review of medications documented 1160F Last Documented On 3 8:30AM ; [facility] Surgical History Last Updated History of back surgery L5-S1 Fusion 200 8 11/27/2022 Last Documented On 3 8:27AM ; [facility] History of History of Gallbladder 2022 Last Documented On 3 8:27AM ; [facility] Medical History Includes: Medical History addressed during this encounter Description Last Updated History of depression 11/27/2022 Last Documented On 3 8:27AM ; [facility] History of Hypertension 11/27/2022 Last Documented On 3 8:27AM ; [facility] Past medical/surgical history [use for f ree text] 11/27/2022 Last Documented On 3 8:27AM ; [facility] Gallbladder disease 12/18/2016 Last Documented On 3 8:27AM ; [facility] History of gastric ulcer 12/18/2016 Last Documented On 3 8:27AM ; [facility] Family History Includes: Family History addressed during this encounter Description Last Updated Diabetes mellitus 11/27/2022 Last Documented On 3 4:54PM ; [facility] Family history of cancer 12/18/2016 Last Documented On 3 8:27AM ; [facility] Family history of heart disease 12/18/19 Last Documented On 3 8:27AM ; [facility] Family history of hypertension 7 Last Documented On 3 8:27AM ; [facility] Family history of rheumatoid arthritis 0 12/18/2016 Last Documented On 3 8:27AM ; [facility] Family history of thromboembolic disease 12/18/2016 Last Documented On 3 8:27AM ; [facility] Review of Systems Includes: Review of [...] Active Last Documented On 3 8:27AM ; [facility] Percocet Allergy 12/01/2016 Active Last Documented On 3 8:27AM ; [facility] Encounters Encounter Provider Location Date Check-In Time Check-Out Time Diagnosis Follow Up Humberto Varela MD [facility] 3 8:27AM 8:45AM Overweight Insurance Includes: Active Insurance Policies Plan Name Member ID Group # Subscriber Relationship Effect juwan Dates 1 - [facility] [id number] Tiffanie Glasgow Self Clinical Notes Includes: Clinical Notes from this encounter * Progress note Date Encounter Last Documented by 07/02/2023 Follow Up Last documented on 07/02/2023; 4:54 PM, Humberto Varela MD; [facility] Active Problems & Conditions - Lower [...] with anti-inflammatories as she is using Aleve [id number]-ghvewmj and will try a L5-S1 transforaminal injection [...]
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
--- OUTSIDE RECORDS SUMMARY | 2025-08-18 16:04 | XMS_ITS | Clinical Summary ---
Author Organization [facility] ([place], [place], [place], [place]) Address [address] [place] [address] Care Team Providers Care Realtime Reporter Name Role Phone Unavailable Primary Care Provider [...]
--- OUTSIDE RECORDS SUMMARY | 2025-08-18 16:04 | XMS_ITS | Encounter Summary ---
Author Organization Healthcare Address [address] [place] [address] Care Team Providers Care Retort Press Operator Name Role Phone Kirill Desai MD Primary Care Provider Jocelynn Troy APRN Primary Care Provider [phone] Encounter Details Date Type Department Care Team ([facility] Contact Info) Description 09/16/2022 Orders Only External Location [address] [place] [address] Geraldo Siegel MD [address] [place] [address] Social History Tobacco Use Types Packs/Day Years [...] Upcoming Encounters Date Type Department Care Team ([facility] Contact Info) Description 09/07/2025 1:00 PM EST Office Visit [place] [facility] [address] [place] [id number] Melvin Kearns APRN [address] [place] [address] 10/05/2025 9:00 AM EST Consult Medical Office Building Surgical Specialties [address] [facility], [address] [place] [address] Rich Christine MD [address] [place] [address] 11/22/2025 10:40 AM EST [facility] [address] [place] [address] Tram Mead, KEVYN [address] [place] [address] documented as of this encounter [...] on filedocumented in this encounter Care Teams Retort Press Operator Relationship Specialty Start Date End Date Kirill Desai MD PCP - General 03/08/21 05/17/25 Jocelynn Troy APRN [address] [place] [address] PCP - General 05/18/25 documented as of this encounter
--- OUTSIDE RECORDS SUMMARY | 2025-08-18 16:04 | XMS_ITS ---
Care Plan - [facility] Created on: August 18, 2025 Tiffanie Glasgow : 1975 Sex: Female Author Organization [facility] Address [address] [place] [address] Phone Care Team Providers Care Vp Integrity Name Role Phone Omar SANDERS, Bc Randhawa Primary Care Provider [phone] Avery SANDERS, Humberto Casillas Unavailable [phone] Giselle SANDERS, Kirill Unavailable [phone]
--- OUTSIDE RECORDS SUMMARY | 2025-08-18 16:04 | XMS_ITS | Encounter Summary ---
Author Organization Healthcare Address [address] [place] [address] Care Team Providers Care Job Trainer Name Role Phone Woodrow Jocelynnallison Kolb APRN Primary Care Provider [phone] Encounter Details Date Type Department Care Team (Latest Contact Info) Description 08/15/2025 Travel Social History Tobacco Use Types Packs/Day [...] Department Care Team (Late Contact Info) Description 09/07/2025 1:00 PM EST Office Visit [place] [facility] [address] [place] [address] Melvin Kearns APRN [address] [place] [address] 10/05/2025 9:00 AM EST Consult Medical Office Building Surgical Specialties [address] [place] [address] Rich Christine MD [address] [place] [address] 11/22/2025 10:40 AM EST Office Visit [facility] [address] [place] [address] Tram Mead, CUT OFF SAW GRADER [address] [place] [address] documented as of this encounter [...] documented as of this encounter Care Teams Job Trainer Relationship Specialty Start Date End Date Jocelynn Troy, CUT OFF SAW GRADER [address] [place] [address] PCP - General 05/18/25 documented as of this encounter
--- OUTSIDE RECORDS SUMMARY | 2025-08-18 16:04 | XMS_ITS | Encounter Summary ---
Author Organization Healthcare Address [address] [place] [address] Care Team Providers Care Pretzel Twister Name Role Phone TroyJocelynn Cortes BAGLEY Primary Care Provider [phone] Encounter Details Date Type Department Care Team (Latest Contact Info) Description 08/16/2025 Travel Social History Tobacco Use Types Packs/Day [...] as of this encounter Functional Status * Calculated C-SSRS [...] Geraldo Jaramillo documented as of this encounter Plan of Treatment Upcoming Encounters Date Type Department Care Team (Late st Contact Info) Description 09/07/2025 1:00 PM EST Office Visit [facility] Medicine Specialties [address] [place] [address] Melvin Kearns, SHINGLE BOLT CUTTER [address] [place] [address] 10/05/2025 9:00 AM EST Consult Medical Office Building Surgical Specialties [address] [place] [address] Rich Christine MD [address] [facility] [address] [place] [address] 11/22/2025 10:40 AM EST Office Visit [facility] Medicine Specialties [address] [place] [address] Tram Mead, SHINGLE BOLT CUTTER [address] [facility] [address] [place] [address] documented as of this encounter [...] documented as of this encounter Care Teams Pretzel Twister Relationship Specialty Start Date End Date Jocelynn Troy, SHINGLE BOLT CUTTER [address] [place] [address] PCP - General 05/18/25 documented as of this encounter
--- OUTSIDE RECORDS SUMMARY | 2025-08-18 16:04 | XMS_ITS | Referral Summary ---
Author Organization [employer] ([place], [place], [place], [place]) Address [address] [place] [address] Care Team Providers Care Crossbow Maker Name Role Phone Unavailable Primary Care Provider [...]
--- OUTSIDE RECORDS SUMMARY | 2025-08-18 16:04 | XMS_ITS | Encounter Summary ---
Author Organization [facility] ([place], [place], [place], [place]) Address [address] [place] [address] Care Team Providers Care Mechanical Assembly Technician Name Role Phone Unavailable Primary Care Provider Unavailabl e Encounter Details Date Type Department Care Team (Late st Contact Info) Description 03/19/2020 Transcribed Document [facility] [place] [facility] [place] [address] ProviderArchie MD [address] [place], [place] [id number] Social History Tobacco Use Types Packs/Day Years [...]
== END 2025-08-18 23:59 | disposition home or self-care (01) ==
LOC: LAB 16:01
PROVIDERS: PCP Nurse Practitioner Family; Visit Provider Nurse Practitioner Family
DX: R19.7 Diarrhea, unspecified (principal)
CPT/HCPCS: 83993; 87177; 87338

== ENCOUNTER 2025-08-23 15:26 | Outpatient (CLI) | payer OTHER, SELFPAY ==
--- OUTSIDE RECORDS SUMMARY | 2025-08-16 12:40 | XMS_ITS | Encounter Summary ---
Author Organization Healthcare Address [address] [id number] Care Team Providers Care Research Study Assistant Name Role Phone Jocelynn Troy APRN Primary Care Provider +1- [phone] Reason for Referral * Consultation (Routine) - Authorized Specialty Diagnoses / Procedures Referred By Contac t Referred To Contact Diagnoses Diarrhea, unspecified type Tram Mead APRN [address] [address] Phone: tel: fax: Referral ID Status Reason Start Date Expiration Date V isits Requested Visits Authorized [id number] Authorized 08/16/2025 02/15/2027 1 1 * Imaging (Routine) - Pending Review Specialty Diagnoses / Procedures Referred By Contac t Referred To Contact Gastroenterology Diagnoses Diarrhea, unspecified type Procedures Colonoscopy Tram Mead APRN [address] [address] Phone: tel: fax: Referral ID Status Reason Start Date Expiration Date Visits Requested Visits Authorized [id number] Pending Review Specialty Services Required 02/15/2027 1 1 * Genetic Testing (Routine) - Closed Specialty Diagnoses / Procedures Referred By Contac t Referred To Contact Lab Diagnoses Diarrhea, unspecified type Procedures IgA Tram Mead APRN [address] [facility] [address] [place] [address] Phone: tel: fax: Referral ID Status Reason Start Date Expiration Date Visits Re quested Visits Authorized [id number] Closed 08/16/2025 02/15/2027 1 1 Reason for Visit * Reason Comments Diarrhea * Consultation (Routine) - Closed Specialty Diagnoses / Procedures Referred By Contfausto t Referred To Contact Gastroenterology Diagnoses Diarrhea, unspecified type Melvin Kearns, HAT MODEL [address] [facility] [address] [place] [address] Phone: tel: fax: Referral ID Status Reason Start Date Expiration Date V isits Requested Visits Authorized [id number] Closed Specialty Services Required 05/18/2025 11/17/2026 1 1 Encounter Details Date Type Department Care Team (Late st Contact Info) Description 08/16/2025 12:40 PM EDT Office Visit [facility] Medicine Specialties [address] [place] [address] Tram Mead APRN [id number] [place] [phone] Diarrhea, unspecified type (Primary Dx); Helicobacter pylori (H. pylori) infection; Gastroesophageal reflux disease, unspecified whether esophagitis present Social History Tobacco Use Types Packs/Day Years [...] Sign Reading Time Taken Comments Blood Pressure 116/87 08/16/2025 12:16 PM EDT Pulse 69 08/16/2025 12:16 PM EDT Temperature 36.6 C (97.8 F) 08/16/2025 12:16 PM EDT Respiratory Rate 16 08/16/2025 12:16 PM EDT Oxygen Saturation 98% 08/16/2025 12:16 PM EDT Inhaled Oxygen Concentration - - Weight 121 kg (266 lb 5.1 oz) 08/16/2025 12:16 P M EDT Height 165.1 cm (5' 5 ) 08/16/2025 12:16 PM EDT Body Mass Index 44.32 08/16/2025 12:16 PM EDT documented in this encounter Functional Status * Calculated C-SSRS Risk Score (Lifetime/Recent) Answer Date of Assessment Author No Risk Indicated 08/16/2025 12:23 PM EDT Geraldo Jaramillo * Question Answer Date of Assessment Author 1. Wish to be (Past 1 Month) No 025 12:23 PM EDT Geraldo Jaramillo 2. Non-Specific Active Suici eino Thoughts (Past 1 Month) No 08/16/2025 12:23 PM EDT Taryn Jaramillo 6. Suicidal Behavior (Lifetime) No 12:23 PM EDT Geraldo Jaramillo documented as of this encounter Miscellaneous Notes * Progress Notes - Tram Mead, HAT MODEL - 08/16/2025 12:40 PM EDT Subjective Patient ID: Tiffanie Glasgow is a 49 y.o. female. Chief Complaint Patient presents with Diarrhea Abdominal Pain This is a recurrent problem. The current episode started more than 1 year ago. The onset quality isgradual. The problem occurs daily. The problem has been gradually worsening. The pain is located inthe LUQ and RLQ. The pain is at a severity of 5/10. The quality of the pain is cramping and a sensation of fullness. The abdominal pain radiates to the epigastric region. Associated symptoms include arthralgias, belching, diarrhea, flatus, headaches and myalgias. Pertinent negatives include no anorexia, constipation, dysuria, frequency, hematochezia, hematuria, melena, nausea, vomiting or weight loss. The pain is aggravated by bowel movement and eating. The pain is relieved by Bowel movements, movement and passing flatus. Prior diagnostic workup includes CT scan, lower endoscopy and upper endoscopy. The following portions of the chart were reviewed this encounter and updated as appropriate: Ms. Glasgow is a 49 y/o female who presents to clinic for consultation of diarrhea. PMH is significant for DM II, thyroid nodule, SHIVA, HTN, obesity, appendectomy, cholecystectomy, oophorectomy. Diarrhea: - Reports diarrhea started about 20 years ago. States diarrhea is always associated with food intake. States she has fecal urgency and occasionally fecal incontinence. Can have >5 BM/day. No hematochezia. Reports her last colonoscopy was 8-10 years ago. Was told that she had polyps removed at this time. Did notice an increase in diarrhea following the cholecystectomy but states the diarrhea was present prior to the surgery. Denies nocturnal symptoms. H. Pylori: - Initially diagnosed about 15 years ago. Reports being treated 3X, most recently was last year. Reports she was not retested after her most recent treatment. Describes epigastric pain that is increased following food intake. Reports an increase in pain following intake of dairy. Reflux: - Reports previously being diagnosed with GERD. Experiences regurgitation of acid into her throat most days. Reports constant mucous in the back of her throat which causes her to cough and clear her throat. Believes this is coming from her stomach. Reports being treated for sinus infections withoutsignificant improvement. No dysphagia or odynophagia. Underwent EGD in 02/2024 which showed gastritis, irregular z-line. Pathology not available to for review. Reports her paternal aunt had colon cancer, mother had uterine cancer, and father had prostate cancer. Denies tobacco, alcohol, and NSAID use. Review of Systems Constitutional: Negative for weight loss. Gastrointestinal: Positive for abdominal pain, diarrhea and flatus. Negative for anorexia, constipation, hematochezia, melena, nausea and vomiting. Genitourinary: Negative for dysuria, frequency and hematuria. Musculoskeletal: Positive for arthralgias and myalgias. Neurological: Positive for headaches. All other systems reviewed and are negative. Objective Physical Exam Vitals reviewed. Constitutional: Appearance: She is obese. HENT: Head: Normocephalic. Cardiovascular: Rate and Rhythm: Normal rate and regular rhythm. Pulses: Normal pulses. Heart sounds: Normal heart sounds. Pulmonary: Effort: Pulmonary effort is normal. Breath sounds: Normal breath sounds. Abdominal: General: Abdomen is flat. Bowel sounds are normal. Palpations: Abdomen is soft. Musculoskeletal: Cervical back: Neck supple. Skin: General: Skin is warm and dry. Neurological: Mental Status: She is alert. Psychiatric: Mood and Affect: Mood normal. Behavior: Behavior normal. Thought Content: Thought content normal. Judgment: Judgment normal. Assessment/Plan Assessment & Plan Diarrhea, unspecified type - Ddx include but are not limited to infectious cause, IBD, Celiac disease, thyroid dysfunction, IBS, medication side effect, ect. - Reviewed recent CBC. - Check CMP. - Reviewed recent comprehensive GI panel and C. Diff which were negative. - Check stool O&P, Strongyloides AB. - TTG IgA/plasma IGA ordered to evaluate for Celiac disease. - Fecal calprotectin ordered to evaluate for intestinal inflammation. - Will have colonoscopy completed for farther evaluation. - Start cholestyramine 4 mg once daily, discussed importance of dosing separate from other medications. Orders: Ova and Parasite Exam, Fecal; Future Calprotectin, Stool; Future Tissue Transglutaminase (tTG) Ab, IgA (SO); Future IgA; Future Comprehensive metabolic panel; Future Strongyloides Antibody; Future Helicobacter pylori Antigen; Future Colonoscopy; Future Follow Up GI; Future Helicobacter pylori (H. pylori) infection - Reports testing (+) and being treated X 3. - Denies testing following most recent treatment. - Check H. Pylori stool antigen. Gastroesophageal reflux disease, unspecified whether esophagitis present - Reviewed EGD report from 02/2024. Records requested for pathology report. - Has omeprazole 20 mg once daily on her medication list. States she is not taking this. - D/c omeprazole. - Start pantoprazole 40 mg once daily following completion of H. Pylori stool study. - Uncertain of correlation between reflux and drainage/throat clearing. Consider impedance testing if no improvement following trial of PPI therapy. Follow up after colonoscopy. documented in this encounter Plan of Treatment Upcoming Encounters Date Type Department Care Team ([facility] st Contact Info) Description 09/07/2025 1:00 PM EST Office Visit [facility] Medicine Specialties [address] [place] [address] Melvin Kearns, KEVYN [address] [place] [address] 10/05/2025 9:00 AM EST Consult Medical Office Building Surgical Specialties [address] [facility], [address] [place] [address] Rich Christine MD [address] [facility] [address] [place] [address] 11/22/2025 10:40 AM EST Office Visit [facility] Medicine Specialties [address] [place] [address] Tram Mead, KEVYN [address] [place] [address] Scheduled Orders Name Type Priority Associated Diagnoses Orde r Schedule Ova and Parasite Exam, Fecal Microbiology Routine Diarrhea, unspecified type Expected: 08/16/2025 (Approximate), Expires: 08/16/2026 Calprotectin, Stool Lab Routine Diarrhea, unspecified type Expected: 08/16/2025 (Approximate), Expires: 02/17/2027 Helicobacter pylori Antigen Microbiology Routine Diarrhea, unspecified type Expected: 08/16/2025 (Approximate), Expires: 02/17/2027 Colonoscopy Endoscopy Routine Diarrhea, unspecified type Expected: 08/16/2025, Expires: 02/14/2027 Scheduled Referrals Name Type Priority Associated Diagnoses Orde r Schedule Follow Up GI Outpatient Referral Routine Diarrhea, unspecified type Expected: 11/16/2025, Expires: 09/16/2026 documented as of this encounter Results * Strongyloides Antibody (08/16/2025 1:58 PM EDT) Strongyloides Antibody, IgG By JANINA 0.2 <=0.9 IV 08/18/2025 1:23 PM EDT [facility] ([facility]) Serum Venous blood specimen / Unknown 08/16/2025 1:58 PM EDT 08/16/2025 1:58 PM EDT Narrative [facility] ([place]) - 08/18/2025 1:23 PM EDT INTERPRETIVE INFORMATION: Strongyloides Ab, IgG by JANINA 0.9 IV or less....... Negative - No significant level of Strongyloides IgG antibody detected. 1.0 IV................Equivocal - The Strongyloides IgG antibody result is borderline and therefore inconclusive. Recommend retesting the patient in 2-4 weeks, if clinically indicated. 1.1 IV or greater ... Positive - IgG antibodies to Strongyloides detected, which may suggest current or past infection. False-positive results may occur with prior exposure to other helminth infections. Testing low-prevalence populations may also result in false-positive results. Performed By: [facility] [address] [place] [address] Lightning Rod Erector: Ari Beasley MD, PhD CLIA Number: [id number] Tram Mead HAT MODEL LAB BLOOD ORDERABLES Fin al Result [facility] ([place]) [address] [id number] * (ABNORMAL) Comprehensive metabolic panel (08/16/2025 1:58 PM EDT) Glucose, Plasma 103(H) 74 - 99 mg/dL 08/16/2025 3:55 PM EDT [facility] BUN, Plasma 19 7 - 21 mg/dL 08/16/2025 3:55 PM EDT [facility] Creatinine, Plasma 0.74 0.60 - 1.10 mg/dL 08/16/2025 3:55 PM EDT [facility] BUN/Creatinine Ratio 26 08/16/2025 3:55 PM EDT [facility] Sodium, Plasma 139 136 - 145 mmol/L 08/16/2025 3:55 PM EDT [facility] Potassium, Plasma 4.1 3.6 - 4.9 mmol/L 08/16/2025 3:55 PM EDT [facility] Chloride, Plasma 102 97 - 107 mmol/L 08/16/2025 3:55 PM EDT [facility] CO2, Plasma 26 22 - 29 mmol/L 08/16/2025 3:55 PM EDT [facility] Anion Gap 11 6 - 16 mmol/L 08/16/2025 3:55 PM EDT [facility] Total Calcium, Plasma 10.1 8.9 - 10.2 mg/dL 08/16/2025 3:55 PM EDT [facility] Total Protein 8.0(H) 6.3 - 7.9 g/dL 08/16/2025 3:55 PM EDT [facility] Albumin, Plasma 4.4 3.5 - 5.2 g/dL 08/16/2025 3:55 PM EDT [facility] AST, Plasma 18 10 - 35 U/L 08/16/2025 3:55 PM EDT [facility] ALT, Plasma 25 10 - 35 U/L 08/16/2025 3:55 PM EDT [facility] Alkaline Phosphatase, Plasma 126(H) 35 - 104 U/L 08/16/2025 3:55 PM EDT [facility] Total Bilirubin, Plasma 0.4 0.2 - 1.1 mg/dL 08/16/2025 3:55 PM EDT [facility] eGFRcr 98.7 mL/min/1.7 3m*2 08/16/2025 3:55 PM EDT [facility] Comment:Reported eGFRcr in m L/min/1.73m2 is based the CKD-EPI 2020 equation that does not use a race coefficient. Blood Venous blood specimen / Unknown Venipuncture / Unknown 08/16/2025 1:58 PM EDT 08/16/2025 1:58 PM EDT us Tram Mead HAT MODEL LAB BLOOD ORDERABLES Fin al Result [facility] [address] [place] [address] * IgA (08/16/2025 1:58 PM EDT) IGA 352 75 - 400 mg/dL 08/16/2025 3:55 PM EDT [facility] Blood Venous blood specimen / Unknown Venipuncture / Unknown 08/16/2025 1:58 PM EDT 08/16/2025 1:58 PM EDT Tram Mead HAT MODEL LAB BLOOD ORDERABLES Fin al Result Performing Organization Address [facility] Co de Phone Number [facility] [address] [place] [address] * Tissue Transglutaminase (tTG) Ab, IgA (SO) (08/16/2025 1:58 PM EDT) Tissue Transglutaminase (tTG) Ab, IgA 1.64 0.00 - 4.99 FLU 08/18/2025 12:46 AM EDT [facility] ([facility]) Blood Venous blood specimen / Unknown Venipuncture / Unknown 08/16/2025 1:58 PM EDT 08/16/2025 1:58 PM EDT Mark [facility] ([place]) - 08/18/2025 12:46 AM EDT INTERPRETIVE INFORMATION: Tissue Transglutaminase (tTG) Antibody, IgA Presence of the tissue transglutaminase (tTG) IgA antibody is associated with gluten-sensitive enteropathies such as celiac disease and dermatitis herpetiformis. Individuals with positive results should be confirmed with small intestinal biopsy to establish celiac disease diagnosis. tTG IgA antibody concentrations greater than 50 FLU exhibits higher correlation with results of duodenal biopsies consistent with celiac disease. For antibody concentrations greater than or equal to 5 FLU but less than 10 FLU, additional testing for endomysial (MARCE) IgA concentrations may improve the positive predictive value for disease. A decrease in tTG IgA antibody concentration after initiation of a gluten-free diet may indicate a response to therapy. Performed By: [facility] [address] [place] [address] Lightning Rod Erector: Ari Beasley MD, PhD CLIA Number: [id number] us Tram Mead HAT MODEL LAB REF LAB BLOOD AND FL UID ORD Final Result [facility] ([facility]) [address] [place] [address] documented in this encounter Visit Diagnoses Diagnosis Diarrhea, unspecified type- Primary Helicobacter pylori (H. pylori) infection Helicobacter pylori (H. pylori) Gastroesophageal reflux disease, unspecified whether esophagitis present documented in this encounter Additional Health Concerns Assessment Noted Time PHQ-9 Depression Total Score: 6 05/18/20 9:44 AM EDT A fall risk assessment has been complete d for the patient 05/18/2025 9:44 AM EDT A Body Mass Index follow-up plan has been documented for the patient 08/18/2025 10:13 AM EDT documented as of this encounter Care Teams Research Study Assistant Relationship Specialty Start Date End Date Jocelynn Troy APRN [address] [place] [address] PCP - General 05/18/25 documented as of this encounter
--- NOTE | 2025-08-23 15:30 | US_ITS ---
FINAL REPORT CLINICAL HISTORY: SIALOADENITIS COMPARISON: None FINDINGS: ULTRASOUND SOFT TISSUES NECK: Ultrasound of the soft tissues of the neck with special attention to the salivary glands was performed to evaluate for sialadenitis. The parotid and submandibular glands are unremarkable in appearance without evidence of focal mass. The echotexture is unremarkable. No focal nodules or masses are seen. There are a few small less than 1 cm in size nonspecific lymph nodes noted in the soft tissues of the neck, likely reactive. IMPRESSION: Unremarkable appearing salivary glands without evidence of focal mass or abnormal echotexture. Reviewed, Interpreted and Dictated by Nate Sierra MD Transcribed by Leia Gilliland Authenticated and [facility]
--- OUTSIDE RECORDS SUMMARY | 2025-08-23 15:45 | XMS_ITS | Encounter Summary ---
Author Organization [employer] ([place], [place], [place], [place]) Address [address] [place] [address] Care Team Providers Care Travel Specialist Name Role Phone Unavailable Primary Care Provider Unavailabl e Encounter Details Date Type Department Care Team (Late st Contact Info) Description 03/19/2020 Transcribed Document [facility] Family Medicine [facility] [place] [address] ProviderArchie MD [address] [place] [address] Social History Tobacco Use Types [...] Archie ProviderMD - 03/19/2020 6:59 PM CDT [facility] [address] LUNATIFFANIE STARK MARCELLA :1975 Visit [...] Within 2 to 3 days Where: [address] [facility] [place] [address]- Business (1) Follow Up with Dr Morales at [facility] for humerus When Within 2 to 3 days Follow Up with SHAYLA SMILEY When Within 2 to 3 days Where: [address] [facility] [address] [place] [address] [facility] (1) Allergies Percocet 10/325 (Tramadol hydrochloride 50mg capsule, Tramadol) traMADol (Itching) Immunizations This Visit No Immunizations Found Medications What How Much When Instructions Next Dose acetaminophen-hydrocodone ([place] 5 mg-325 mg oral tablet) 1 Tablet(s) [...] Formulary med) 1 Tablet(s) Oral Every Day [id number] tab The home medications listed are only [...] at home: Medicines ??? Take and apply faov-oev-fqiyexf and prescription medicines only as told by [...] and water are not available, use hand mica plate layer hand. ? Leave stitches (sutures), skin glue, or [...] 10/12/2006 Document Revised: 03/16/2017 Document Reviewed: 04/25/2016 [employer] Interactive Patient Education ?? 2019 [employer] Humerus Fracture Treated With Immobilization A [...] is stable enough for you to begin nvveh-uf-etyawj exercises. You may also be prescribed pain [...] says that it is safe. ??? Do pkmso-lk-etqtci exercises only as told by your health [...] ask your health care provider. ??? Take glyr-jwb-yplttjw and prescription medicines only as told by your health care provider. ??? Ask your health care provider if the medicine prescribed to you can cause constipation. You may need to take steps to prevent or treat constipation, such as: ? Drink enough fluid to keep your urine pale yellow. ? Take wnfv-vfp-yukdvlj or prescription medicines. ? Eat foods that [...] 01/18/2002 Document Revised: 06/13/2019 Document Reviewed: 06/13/2019 [employer] Interactive Patient Education ?? 2019 [employer]™. Cast or Splint Care, Adult Casts and [...] activities are safe for you. ??? Take wxqo-jpb-euutyyv and prescription medicines only as told by [...] 10/09/2001 Document Revised: 05/02/2017 Document Reviewed: 04/04/2017 [employer] Interactive Patient Education ?? 2019 [employer]™. Emergency Awareness and Preventative Care STROKE is [...] Assistance with quitting is available by contacting 7-503-ZLJG-NOW. This is a free resource providing counseling, [...] was given the opportunity to ask questions. Patient/Trial Attorney Name: Patient/Trial Attorney Signature: Relationship to Patient: Clinician/Hospital Trial Attorney Signature: Please Provide a Telephone Number Where You Can Be Reached: Is it Permissible To Leave a Message? Date: Electronically signed by Ag, [facility] Conversion Cooling Machine Operator Cydney at 02/13/2023 10:00 AM CDT documented in this encounter Plan of Treatment Not on file documented as of this encounter Visit Diagnoses Not on filedocumented in this encounter
--- OUTSIDE RECORDS SUMMARY | 2025-08-23 15:45 | XMS_ITS | Encounter Summary ---
Author Organization Healthcare Address [address] [place] [address] Care Team Providers Care Food And Nutrition Professor Name Role Phone Woodrow Jocelynnallison Kolb APRN Primary Care Provider +1- [phone] Encounter Details Date Type Department Care Team [...] Description 09/07/2025 1:00 PM EST Office Visit [facility] [address] [place] [address] Melvin Kearns APRN [address] [place] [address] 10/05/2025 9:00 AM EST Consult Medical Office Building Surgical Specialties [address], [address] [place] [address] Rich Christine MD [address] [place] [address] 11/22/2025 10:40 AM EST Office Visit [place] [facility] [address] [place] [address] Tram Mead, JUKE BOX MECHANIC [address] [place] [address] documented as of this encounter [...] documented as of this encounter Care Teams Food And Nutrition Professor Relationship Specialty Start Date End Date Jocelynn Troy, JUKE BOX MECHANIC [address] [place] [address] PCP - General 05/18/25 documented as of this encounter
--- OUTSIDE RECORDS SUMMARY | 2025-08-23 15:45 | XMS_ITS | Encounter Summary ---
Author Organization [employer] ([place], [place], [place], [place]) Address [address] [place] [address] Care Team Providers Care Program Director Scouting Name Role Phone Unavailable Primary Care Provider Unavailabl e Encounter Details Date Type Department Care Team (Late st Contact Info) Description 03/19/2020 Transcribed Document [facility] Family Medicine [facility] [place] [address] ProviderArchie MD [address] [place] [address] Social History Tobacco Use Types [...] Cai MD - 03/19/2020 7:01 PM CDT [facility] [place] [address] LUNATIFFANIE STARK MARCELLA :1975 Visit [...] Within 2 to 3 days Where: [address] [facility] [place] [address]- Business (1) Follow Up with Dr Morales at [facility] for humerus When Within 2 to 3 days Follow Up with SHAYLA SMILEY When Within 2 to 3 days Where: [address] [facility] [address] [place] [address] [facility] (1) Allergies Percocet 10/325 (Tramadol hydrochloride 50mg capsule, Tramadol) traMADol (Itching) Immunizations This Visit No Immunizations Found Medications What How Much When Instructions Next Dose acetaminophen-hydrocodone ([place] 5 mg-325 mg oral tablet) 1 Tablet(s) [...] Formulary med) 1 Tablet(s) Oral Every Day [id number] tab The home medications listed are only [...] at home: Medicines ??? Take and apply mdgk-gbt-qpbvuic and prescription medicines only as told by [...] and water are not available, use hand stump shooter. ? Leave stitches (sutures), skin glue, or [...] 10/12/2006 Document Revised: 03/16/2017 Document Reviewed: 04/25/2016 [employer] Interactive Patient Education ?? 2019 [employer] Humerus Fracture Treated With Immobilization A [...] is stable enough for you to begin jpwoy-fm-topwpo exercises. You may also be prescribed pain [...] says that it is safe. ??? Do hvfcp-wt-laphoe exercises only as told by your health [...] ask your health care provider. ??? Take rfra-ppe-eiwzgio and prescription medicines only as told by your health care provider. ??? Ask your health care provider if the medicine prescribed to you can cause constipation. You may need to take steps to prevent or treat constipation, such as: ? Drink enough fluid to keep your urine pale yellow. ? Take gfxw-yek-fzejeiy or prescription medicines. ? Eat foods that [...] 01/18/2002 Document Revised: 06/13/2019 Document Reviewed: 06/13/2019 [employer] Interactive Patient Education ?? 2019 [employer]. Cast or Splint Care, Adult Casts and [...] activities are safe for you. ??? Take lwot-ifh-wzoxkyv and prescription medicines only as told by [...] 10/09/2001 Document Revised: 05/02/2017 Document Reviewed: 04/04/2017 [employer] Interactive Patient Education ?? 2019 [employer]. Emergency Awareness and Preventative Care STROKE is [...] Assistance with quitting is available by contacting 0-629-QQRW-NOW. This is a free resource providing counseling, [...] was given the opportunity to ask questions. Patient/Germination Worker Name: Patient/Germination Worker Signature: Relationship to Patient: Clinician/Hospital Germination Worker Signature: Please Provide a Telephone Number Where You Can Be Reached: Is it Permissible To Leave a Message? Date: Electronically signed by Ag, [facility] Conversion Historical Site Guide Cydney at 02/13/2023 10:03 AM CDT documented in this encounter Plan of Treatment Not on file documented as of this encounter Visit Diagnoses Not on filedocumented in this encounter
--- OUTSIDE RECORDS SUMMARY | 2025-08-23 15:45 | XMS_ITS | Encounter Summary ---
Author Organization [employer] ([place], [place], [place], [place]) Address [address] [place] [address] Care Team Providers Care Glassware Verifier Name Role Phone Unavailable Primary Care Provider Unavailabl e Encounter Details Date Type Department Care Team (Late st Contact Info) Description 03/19/2020 Transcribed Document [facility] Family Medicine [facility] [place] [address] ProviderArchie MD [address] [place] [address] Social History Tobacco Use Types [...] 03/19/2020 19:11 EDT Electronically signed by Ag [facility] Conversion Vice President Underwriting Cerner at 02/13/2023 9:54 AM CDT documented in this encounter Plan of Treatment Not on file documented as of this encounter Visit Diagnoses Not on filedocumented in this encounter
--- OUTSIDE RECORDS SUMMARY | 2025-08-23 15:45 | XMS_ITS | Encounter Summary ---
Author Organization [employer] ([place], [place], [place], [place]) Address [address] [place] [address] Care Team Providers Care Dowel Setting Machine Operator Name Role Phone Unavailable Primary Care Provider Unavailabl e Encounter Details Date Type Department Care Team (Late st Contact Info) Description 03/19/2020 Transcribed Document [facility] Family Medicine [address] [place] [address] ProviderArchie MD [address] [place], [place] [id number] Social History Tobacco Use Types Packs/Day Years [...] Historical ProviderMD - 03/19/2020 4:49 PM CDT Blanch Suicide Severity Rating Scale (C-SSRS) Entered On: 03/19/2020 17:21 EDT Performed On: 03/19/2020 17:20 EDT by Keeley Shin RN Blanch Suicide Severity Rating Scale (C-SSRS) CSSRS Past [...]
--- OUTSIDE RECORDS SUMMARY | 2025-08-23 15:45 | XMS_ITS | Referral Summary ---
Author Organization [employer] ([place], [place], [place], [place]) Address [address] [place] [address] Care Team Providers Care Painting Contractor Name Role Phone Unavailable Primary Care Provider [...]
--- OUTSIDE RECORDS SUMMARY | 2025-08-23 15:45 | XMS_ITS | Encounter Summary ---
Author Organization [employer] ([place], [place], [place], [place]) Address [address] [place] [address] Care Team Providers Care Lead Teacher Name Role Phone Unavailable Primary Care Provider Unavailabl e Encounter Details Date Type Department Care Team (Late st Contact Info) Description 03/19/2020 Transcribed Document [facility] Family Medicine [facility] [place] [address] ProviderArchie MD [address] [place] [address] Social History Tobacco Use Types [...]
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
--- OUTSIDE RECORDS SUMMARY | 2025-08-23 15:45 | XMS_ITS | Encounter Summary ---
Author Organization Healthcare Address [address] [place] [address] Care Team Providers Care Door To Door Salesman Name Role Phone Jocelynn Troy APRN Primary Care Provider [phone]- [phone] Reason for Visit * Reason Onset Date Comments HCN Clinical Concern/Question 08/01/2025 Encounter Details Date Type Department Care Team ([facility] st Contact Info) Description 08/01/2025 Telephone Medical Office Building Surgical Specialties [address] [facility] [place] [address] Rich Christine MD [address] [facility] [address] [place] [address] HCN Clinical Concern/Question Social History [...] with info. Thank you Best contact number: [phone] (mobile) Optimal time of day to reach [...] Description 09/07/2025 1:00 PM EST Office Visit [facility] Medicine [facility] [address], [address]nd [place] [address] Melvin Kearns, CARPENTER STREETCAR [address] [place] [address] 10/05/2025 9:00 AM EST Consult Medical Office Building Surgical Specialties [address] [facility], [address] [place] [address] Rich Christine MD [address] [facility] [address] [place] [address] 11/22/2025 10:40 AM EST Office Visit [facility] Medicine Specialties [address] [place] [address] Tram Mead, [address] STREET[address] [place] [address] documented as of this encounter Visit Diagnoses [...] documented as of this encounter Care Teams Door To Door Salesman Relationship Specialty Start Date End Date Jocelynn Troy APRN [address] [place] [address] PCP - General 05/18/25 documented as of this encounter
--- OUTSIDE RECORDS SUMMARY | 2025-08-23 15:45 | XMS_ITS | Encounter Summary ---
Author Organization Healthcare Address [address] [place] [address] Care Team Providers Care Yam Curer Name Role Phone Jocelynn Troy APRN Primary Care Provider [phone]- [phone] Encounter Details Date Type Department Care Team (Late st Contact Info) Description 05/18/2025 Results Follow-Up [facility] Medicine Specialties [address], [address] [place] [address] Melvin Kearns APRN [address] [place] [address] Social History Tobacco Use Types [...] Description 09/07/2025 1:00 PM EST Office Visit [facility] Medicine Specialties [address], [address] [place] [address] Melvin Kearns, ASSOCIATE PROFESSOR PLANT PATHOLOGY [address] [place] [address] 10/05/2025 9:00 AM EST Consult Medical Office Building Surgical Specialties [address] [facility], [address] [place] [address] Rich Christine MD [address] [facility] [address] [place] [address] 11/22/2025 10:40 AM EST Office Visit [facility] Medicine Specialties [address] [place] [address] Tram Mead, ASSOCIATE PROFESSOR PLANT PATHOLOGY [address] [place] [address] documented as of this encounter Visit Diagnoses [...] documented as of this encounter Care Teams Yam Curer Relationship Specialty Start Date End Date Jocelynn Troy APRN [address] [place] [address] PCP - General 05/18/25 documented as of this encounter
--- OUTSIDE RECORDS SUMMARY | 2025-08-23 15:45 | XMS_ITS | Encounter Summary ---
Author Organization Healthcare Address [address] [place] [address] Care Team Providers Care Experimental Mechanic Name Role Phone Kirill Desai MD Primary Care Provider [phone] Jocelynn Troy APRN Primary Care Provider [phone]- [phone] Encounter Details Date Type Department Care Team ([facility] Contact Info) Description 04/17/2025 Lab Requisition [facility] [address] [place] [address] Jake Alberts MD [address] [facility] [address] [place] [address] Nontoxic single thyroid nodule Social History Tobacco [...] Upcoming Encounters Date Type Department Care Team ([facility] Contact Info) Description 09/07/2025 1:00 PM EST Office Visit [place] [facility] [address] [place] [address] Melvin Kearns APRN [address] [place] [address] 10/05/2025 9:00 AM EST Consult Medical Office Building Surgical Specialties [address], [address] [place] [address] Rich Christine MD [address] [place] [address] 11/22/2025 10:40 AM EST Office Visit [place] [facility] [address] [place] [address] Tram Mead, REGISTERED MAIL CLERK [address] [place] [address] documented as of this encounter Procedures Procedure Name Priority Date/Time Associated Diagnosis Comments CYTOLOGY CONSULT Routine 04/17/2025 10:1 3 AM EDT Nontoxic single thyroid nodule documented in this encounter Results * Cytology Consult (04/17/2025 10:13 AM EDT) Case Report Cytology Case: [id number] Authorizing Provider: Jake Alberts MD Collected: 04/17/2025 1013 Ordering Location: [facility] Received: 04/17/2025 1013 Pathologist: Chantal Muro MD Specimen: Thyroid, [id number] 04/17/2025 5:37 PM EDT [facility] Final Diagnosis A. 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 04/17/2025 5:37 PM EDT [facility] at 1737 EDT Comment The specimen is bloody and scantly cellular with minimal colloid, but the sampled cells show occasional nuclear enlargement and some nuclear membrane irregularity. The findings fit best within [place] category III (atypia of undetermined significance). Rebiopsy with consideration for molecular testing is suggested for further characterization . 04/17/2025 5:37 PM EDT [facility] Clinical Information E04.1 - Nontoxic single thyroid nodule [ICD-10-CM] 04/17/2025 5:37 PM EDT [facility] Gross Description A. [id number] Received along with a corresponding pathology report from [facility] are 5 slides labeled outside case: [id number] collected on 02/17/2025. 04/17/2025 5:37 PM EDT [facility] Fine Needle Aspirate Thyroid structure / Unknown 04/17/2025 10:13 AM EDT 04/17/2025 10:13 AM EDT us Jake Alberts MD LAB PATHOLOGY ORDERABLES Fi nal Result [facility] [address] [place] [address] documented in this encounter Visit Diagnoses Diagnosis Nontoxic single thyroid nodule Nontoxic uninodular goiter documented in this encounter Care Teams Experimental Mechanic Relationship Specialty Start Date End Date Kirill Desai MD PCP - General 03/08/21 05/17/25 Jocelynn Troy APRN [address] [place] [address] PCP - General 05/18/25 documented as of this encounter
--- OUTSIDE RECORDS SUMMARY | 2025-08-23 15:45 | XMS_ITS | Encounter Summary ---
Author Organization [employer] ([place], [place], [place], [place]) Address [address] [place] [address] Care Team Providers Care Obstetrics And Gynecology Professor Name Role Phone Unavailable Primary Care Provider Unavailabl e Encounter Details Date Type Department Care Team (Late st Contact Info) Description 03/20/2020 Transcribed Document [facility] Family Medicine [facility] [place] [address] ProviderArchie MD [address] [place] [id number] Social History Tobacco Use Types Packs/Day Years [...] Provider Review Required Electronically signed by Ag [facility] Conversion Land Surveyor Cerner at 02/13/2023 9:59 AM CDT documented in this encounter Plan of Treatment Not on file documented as of this encounter Visit Diagnoses Not on filedocumented in this encounter
--- OUTSIDE RECORDS SUMMARY | 2025-08-23 15:45 | XMS_ITS | Clinical Summary ---
Author Organization [facility] Address [address] [place] [address] Care Team Providers Care Diagnostic Imaging Manager Name Role Phone TroyJocelynn APRN Primary Care Provider + [phone] Allergies Active Allergy Reactions Criticality Noted Date [...] DAILY 4 Active Lancets (OneTouch Delica Plus [id number]) misc USE TO TEST BLOOD SUGAR TWICE [...] 019 Insurance [facility] Care Teams Diagnostic Imaging Manager Relationship Specialty Start Date End Date Jocelynn Troy APRN [address] [place] [address] [place] [address] PCP - General Internal Medicine 01/18/24
--- OUTSIDE RECORDS SUMMARY | 2025-08-23 15:45 | XMS_ITS | Encounter Summary ---
Author Organization [employer] ([place], [place], [place], [place]) Address [address] [place] [address] Care Team Providers Care Power Press Operator Name Role Phone Unavailable Primary Care Provider Unavailabl e Encounter Details Date Type Department Care Team (Late st Contact Info) Description 03/19/2020 Transcribed Document [facility] [place] Medicine [facility] [place] [address] ProviderArchie MD [address] [place], [place] [id number] Social History Tobacco Use Types Packs/Day Years [...]
--- OUTSIDE RECORDS SUMMARY | 2025-08-23 15:45 | XMS_ITS | Encounter Summary ---
Author Organization Healthcare Address [address] [place] [address] Care Team Providers Care Auto Body Painter Name Role Phone TroyJocelynn Cortes BAGLEY Primary Care Provider +1- [phone] Encounter Details Date Type Department Care Team [...] [facility] Medicine Specialties [address], [address] [place] [address] Melvin Kearns, MEDICAL APPARATUS MODEL MAKER [address] [place] [address] 10/05/2025 9:00 AM EST Consult Medical Office Building Surgical Specialties [address], [address] [place] [address] Rich Christine MD [address] [facility] [address] [place] [address] 11/22/2025 10:40 AM EST Office Visit [facility] Medicine Specialties [address], [address] [place] [address] Tram Mead, MEDICAL APPARATUS MODEL MAKER [address] [facility] [address] [place] [address] documented as of this encounter [...] documented as of this encounter Care Teams Auto Body Painter Relationship Specialty Start Date End Date Jocelynn Troy, MEDICAL APPARATUS MODEL MAKER [address] [place] [address] PCP - General 05/18/25 documented as of this encounter
--- OUTSIDE RECORDS SUMMARY | 2025-08-23 15:45 | XMS_ITS | Clinical Summary ---
Author Organization Healthcare Address [address] [place] [address] Care Team Providers Care Land Mobile Radio Technician Name Role Phone Jocelynn Troy APRN Primary Care Provider +1- [phone] Allergies Active Allergy Reactions Criticality Noted Date [...] DAILY 4 Active Lancets (OneTouch Delica Plus [id number]) misc USE TO TEST BLOOD SUGAR TWICE [...] Type Department Care Team Description 08/18/2025 Telephone [place] [facility] Medicine Specialties [address], [address] [place] [phone] Angeles Ribeiro Stool Studies 08/16/2025 12:40 PM EDT Office Visit [facility] Medicine Specialties [address], [address] [place] [phone] Tram Mead, HYBRID POWERTRAIN DEVELOPMENT ENGINEER Diarrhea, unspecified type (Primary Dx); Helicobacter pylori (H. pylori) infection; Gastroesophageal reflux disease, unspecified whether esophagitis present 08/16/2025 Travel 08/15/2025 Travel 08/01/2025 Telephone Medical Office Building Surgical Specialties [address] [facility], [address] [place] [address] Rich Christine MD HCN Clinical Concern/Question 05/29/2025 4:05 PM EDT Ancillary Procedure [address] [facility] [address] [place] [address] SOB (shortness of breath); Edema; Dizziness; Fatigue 05/23/[address] [facility] Medicine Specialties [address], [address] [place] [phone] Melvin Kearns, HYBRID POWERTRAIN DEVELOPMENT ENGINEER from Last 3 Months Immunizations Immunization Administration [...] Description 09/07/2025 1:00 PM EST Office Visit [facility] Medicine Specialties [address], [address] [place] [address] Melvin Kearns, HYBRID POWERTRAIN DEVELOPMENT ENGINEER [address] [place] [address] 10/05/2025 9:00 AM EST Consult Medical Office Building Surgical Specialties [address] [facility], [address] [place] [address] Rich Christine MD [address] [facility] [address] [place] [address] 11/22/2025 10:40 AM EST Office Visit [facility] Medicine Specialties [address], [address] [place] [address] Tram Mead, HYBRID POWERTRAIN DEVELOPMENT ENGINEER [address] [place] [address] Health Maintenance Due Date Last [...] 2024 [facility]-Zoster Vaccines (1 of 2) 2024 [id number]-56 Vaccine (2 - season) 2025 11/24/2021 [facility]-Influenza [...] SOB (shortness of breath) Edema Dizziness Fatigue ACUTE HEPATITIS PANEL Routine 05/18/2025 10:54 AM EDT SHERRY positive from Last 3 Months or Most Recently Relevant to Health Maintenance Results * Tissue Transglutaminase (tTG) Ab, IgA (SO) (08/16/2025 1:58 PM EDT) Tissue Transglutaminase (tTG) Ab, IgA 1.64 0.00 - 4.99 FLU 08/18/2025 12:46 AM EDT [facility] ([facility]) Blood Venous blood specimen / Unknown Venipuncture / Unknown 08/16/2025 1:58 PM EDT 08/16/2025 1:58 PM EDT Narrative [facility] ([facility]) - 08/18/2025 12:46 AM EDT INTERPRETIVE INFORMATION: [...] indicate a response to therapy. Performed By: [facility] [address] [place] [address] Contract Serviceman: Ari Beasley MD, PhD CLIA Number: [id number] Tram Mead HYBRID POWERTRAIN DEVELOPMENT ENGINEER LAB REF LAB BLOOD AND FL UID ORD Final Result Performing Organization Address [facility] de Phone Number [facility] ([facility]) [address] [place] [address] * Strongyloides Antibody (08/16/2025 1:58 PM EDT) Pathologist [facility] Strongyloides Antibody, IgG By JANINA 0.2 <=0.9 IV 08/18/2025 1:23 PM EDT [facility] ([facility]) Serum Venous blood specimen / Unknown 08/16/2025 1:58 PM EDT 08/16/2025 1:58 PM EDT Narrative [facility]) - 08/18/2025 1:23 PM EDT INTERPRETIVE [...] also result in false-positive results. Performed By: [facility] [address] [place] [address] Contract Serviceman: Ari Beasley MD, PhD CLIA Number: [id number] Tram Mead HYBRID POWERTRAIN DEVELOPMENT ENGINEER LAB BLOOD ORDERABLES Fin al Result Performing Organization Address [facility]/ZIP Co de Phone Number [facility] [employer]) [address] [place] [address] * IgA (08/16/2025 1:58 PM EDT) IGA 352 75 - 400 mg/dL 08/16/2025 3:55 PM EDT [facility] Blood Venous blood specimen / Unknown Venipuncture / Unknown 08/16/2025 1:58 PM EDT 08/16/2025 1:58 PM EDT us Tram Cortes Mead HYBRID POWERTRAIN DEVELOPMENT ENGINEER LAB BLOOD ORDERABLES Fin al Result [facility] [address] [place] [address] * (ABNORMAL) Comprehensive metabolic panel (08/16/2025 1:58 PM EDT) Pathologist [facility] Glucose, Plasma 103(H) 74 - 99 mg/dL 08/16/2025 3:55 PM EDT [facility] BUN, Plasma 19 7 - 21 mg/dL 08/16/2025 3:55 PM EDT [facility] Creatinine, Plasma 0.74 0.60 - 1.10 mg/dL 08/16/2025 3:55 PM EDT [facility] BUN/Creatinine Ratio 26 08/16/2025 3:55 PM EDT [facility] Sodium, Plasma 139 136 - 145 mmol/L 08/16/2025 3:55 PM EDT [facility] Potassium, Plasma 4.1 3.6 - 4.9 mmol/L 08/16/2025 3:55 PM EDT [facility] Chloride, Plasma 102 97 - 107 mmol/L 08/16/2025 3:55 PM EDT [facility] CO2, Plasma 26 22 - 29 mmol/L 08/16/2025 3:55 PM EDT [facility] Anion Gap 11 6 - 16 mmol/L 08/16/2025 3:55 PM EDT [facility] Total Calcium, Plasma 10.1 8.9 - 10.2 mg/dL 08/16/2025 3:55 PM EDT [facility] Total Protein 8.0(H) 6.3 - 7.9 g/dL 08/16/2025 3:55 PM EDT [facility] Albumin, Plasma 4.4 3.5 - 5.2 g/dL 08/16/2025 3:55 PM EDT [facility] AST, Plasma 18 10 - 35 U/L 08/16/2025 3:55 PM EDT [facility] ALT, Plasma 25 10 - 35 U/L 08/16/2025 3:55 PM EDT [facility] Alkaline Phosphatase, Plasma 126(H) 35 - 104 U/L 08/16/2025 3:55 PM EDT [facility] Total Bilirubin, Plasma 0.4 0.2 - 1.1 mg/dL 08/16/2025 3:55 PM EDT [facility] eGFRcr 98.7 mL/min/1.7 3m*2 08/16/2025 3:55 PM EDT [facility] Comment:Reported eGFRcr in m L/min/1.73m2 is based the CKD-EPI 2020 equation that does not use a race coefficient. Blood Venous blood specimen / Unknown Venipuncture / Unknown 08/16/2025 1:58 PM EDT 08/16/2025 1:58 PM EDT us Tram Mead HYBRID POWERTRAIN DEVELOPMENT ENGINEER LAB BLOOD ORDERABLES Fin al Result [facility] [address] [place] [address] * CT Angio Cardiac Coronary Arteries (05/29/2025 4:01 PM EDT) Anatomical Region Laterality Modality Heart Computed Tomogra phy Impressions 05/29/2025 5:33 PM EDT 1. No coronary calcification with an Agatston score = 0 using the AJ-130 method. Vascular age is 38 years. 2. Non-diagnostic coronary CTA due to photon starvation causing poor eznbwd-wv-lvxmy and mvciuoqh-cg-qpwbp. 3. No significant non coronary cardiac findings [...] Data Image Acquisition: Images were acquired at [facility] in [place], and interpreted at [facility]. A 128-slice MDCT scanner ([employer] View) was used for data acquisition. A [...] was reviewed interactively on an advanced workstation ([employer]) capable of 2 and 3 dimensional displays [...] Data Image Acquisition: Images were acquired at [facility] in [place], andinterpreted at [facility]. A 128-slice MDCT scanner (L[employer]) was used for data acquisition. A non-contrast [...] Data wasreviewed interactively on an advanced workstation ([employer]) capable of 2and 3 dimensional displays in [...] coronary CTA due to photon starvation causing lsngpoxsvx-mu-lphjx and yurocldw-vn-lakam. 3. No significant non coronary cardiac findings in particular normalcardiac chambers, non-coronary vessels in the field of view andunremarkable pericardium. 4. Extracardiac structures in the field of view are unremarkable. CRITICAL RESULT: No. COMMUNICATION: Per this written report. Drafted by Abraham Delgado MD on 05/29/2025 5:23 PM Final report signed by Abraham Delgado MD on 05/29/2025 5:33 [address] [facility] CT PROCEDURES Final Result * Acute Hepatitis Panel (05/18/2025 10:54 AM EDT) Hepatitis B Surf Antigen Negative Negative 05/18/2025 1:56 PM EDT [facility] Hepatitis C Antibody Negative Negative 05/18/2025 1:56 PM EDT [facility] Hepatitis A Antibody IgM Negative Negative 05/18/2025 1:56 PM EDT [facility] Hepatitis B Core Antibody IgM Negative Negative 05/18/2025 1:56 PM EDT [facility] Blood Venous blood specimen / Unknown Venipuncture / Unknown 05/18/2025 10:54 AM EDT 05/18/2025 10:54 AM EDT Melvin Kearns APRN LAB BLOOD ORDERABLES Final Res ult [facility] [address] [place] [address] from Last 3 Months or Most Recently Relevant to Health Maintenance Insurance [employer] Care Teams Land Mobile Radio Technician Relationship Specialty Start Date End Date Jocelynn Troy APRN [address] [place] [address] PCP - General 05/18/25
--- OUTSIDE RECORDS SUMMARY | 2025-08-23 15:45 | XMS_ITS | Encounter Summary ---
Author Organization [employer] ([place], [place], [place], [place]) Address [address] [place] [address] Care Team Providers Care Right Of Way Agent Name Role Phone Unavailable Primary Care Provider Unavailabl e Encounter Details Date Type Department Care Team (Late st Contact Info) Description 03/19/2020 Transcribed Document [facility] [facility] [place] [address] ProviderArchie MD [address] [place], [place] [id number] Social History Tobacco Use Types Packs/Day Years [...] On: 03/19/2020 17:20 EDT by Keeley Shin, AWNING CRAFTSPERSON Quick Look Assessment Level of Consciousness : Alert, Awake Affect/Behavior : Appropriate, Calm, Cooperative Orientation : Oriented x 4 Skin Temperature : Warm Skin Description : Normal for ethnicity Keeley Shin RN - 03/19/2020 17:20 EDT ED General-Functional Assess Information Obtained From : Patient Preferred Communication Mode : Verbal Communication Barrier : None Primary Language : Citizen Of [place] Any Spiritual/Cultural Needs or Requests : No [...]
--- OUTSIDE RECORDS SUMMARY | 2025-08-23 15:45 | XMS_ITS | Encounter Summary ---
Author Organization Healthcare Address [address] [place] [address] Care Team Providers Care Apprentice Stylist Name Role Phone Kirill Desai MD Primary Care Provider [phone] Jocelynn Troy APRN Primary Care Provider [phone]- [phone] Encounter Details Date Type Department Care Team ([facility] Contact Info) Description 09/16/2022 Orders Only External Location [address] [place] [address] Geraldo Siegel MD [address] [place] [address] Social History Tobacco Use Types Packs/Day Years [...] Upcoming Encounters Date Type Department Care Team ([facility] Contact Info) Description 09/07/2025 1:00 PM EST Office Visit [place] [facility] Medicine Specialties [address], [address] [place] [phone] Melvin Kearns APRN [address] [place] [address] 10/05/2025 9:00 AM EST Consult Medical Office Building Surgical Specialties [address] [facility], [address] [place] [address] Rich Christine MD [address] [place] [address] 11/22/2025 10:40 AM EST Office Visit [place] [facility] Medicine Specialties [address], [address] [place] [address] Tram Mead, KEVYN [address] [place] [address] documented as of this encounter [...] on filedocumented in this encounter Care Teams Apprentice Stylist Relationship Specialty Start Date End Date Kirill Desai MD PCP - General 03/08/21 05/17/25 Jocelynn Troy APRN [address] [place] [address] PCP - General 05/18/25 documented as of this encounter
--- OUTSIDE RECORDS SUMMARY | 2025-08-23 15:45 | XMS_ITS | Clinical Summary ---
Author Organization [employer] ([place], [place], [place], [place]) Address [address] [place] [address] Care Team Providers Care Front End Web Designer Name Role Phone Unavailable Primary Care Provider [...]
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
--- OUTSIDE RECORDS SUMMARY | 2025-08-23 15:45 | XMS_ITS | Encounter Summary ---
Author Organization [employer] ([place], [place], [place], [place]) Address [address] [place] [address] Care Team Providers Care Triage Clinician Name Role Phone Unavailable Primary Care Provider Unavailabl e Encounter Details Date Type Department Care Team (Late st Contact Info) Description 03/19/2020 Transcribed Document [facility] [place] Medicine [facility] [place] [address] ProviderArchie MD [address] [place] [id number] Social History Tobacco Use Types Packs/Day Years [...]
--- OUTSIDE RECORDS SUMMARY | 2025-08-23 15:45 | XMS_ITS | Encounter Summary ---
Author Organization [facility] Address [address] [id number] Care Team Providers Care Heavy Equipment Plumbing Supervisor Name Role Phone Jocelynn Troy APRN Primary Care Provider [phone]- [phone] Reason for Visit * Reason Onset Date Comments Stool Studies 08/18/2025 Encounter Details Date Type Department Care Team (Late st Contact Info) Description 08/18/2025 Telephone [place] [facility] [address] [place] [phone] [place] [address] Stool Studies Social History Tobacco Use Types [...] requesting stool study to be sent to [facility] Faxed orders to F: [phone] CB: [phone] documented in this encounter Plan of Treatment Upcoming Encounters Date Type Department Care Team (Late st Contact Info) Description 09/07/2025 1:00 PM EST Office Visit [facility] Medicine Specialties [address] [place] [address] Melvin Kearns, WHITE SIDEWALL TIRE BUFFER [address] [place] [address] 10/05/2025 9:00 AM EST Consult Medical Office Building Surgical Specialties [address] [facility], [address] [place] [address] Rich Christine MD [address] [facility] [address] [place] [address] 11/22/2025 10:40 AM EST Office Visit [facility] Medicine Specialties [address] [place] [address] Tram Mead, WHITE SIDEWALL TIRE BUFFER [address] [facility] [address] [place] [address] documented as of this encounter [...] documented as of this encounter Care Teams Heavy Equipment Plumbing Supervisor Relationship Specialty Start Date End Date Jocelynn Troy, WHITE SIDEWALL TIRE BUFFER [address] [place] [address] PCP - General 05/18/25 documented as of this encounter
== END 2025-08-23 23:59 | disposition home or self-care (01) ==
LOC: RAD 15:26
PROVIDERS: PCP Nurse Practitioner Family; Visit Provider Nurse Practitioner Family
DX: K11.21 Acute sialoadenitis (principal)
CPT/HCPCS: 76536

== ENCOUNTER 2025-10-02 14:46 | Outpatient (CLI) | payer OTHER, SELFPAY ==
--- NOTE | 2025-10-02 14:45 | US_ITS ---
PROCEDURE INFORMATION: Exam: US Soft Tissue Head and Neck, Thyroid Exam date and time: 10/02/2025 3:01 PM Age: 50 years old Clinical indication: Abnormal findings; Abnormal thyroid scan; Additional info: Monitor thyroid nodule- 6month TECHNIQUE: Imaging protocol: Real-time ultrasound scan of the neck with image documentation. Exam focused on the thyroid. COMPARISON: US SOFT TISSUE HEAD AND NECK 08/23/2025 3:18 PM FINDINGS: Right thyroid lobe: Right lobe: 5.4 x 1.4 x 1.5 cm. Hypoechoic nodule midpole anteriorly 0.7 x 0.8 x 0.6 cm.TIRADS 4. Predominantly solid isoechoic nodule in the lower polar region of approximately 2 x 1.3 x 1.2 cm.TIRADS 3. Left thyroid lobe: Left lobe: 5 x 1.6 x 1.5 cm. Hypoechoic nodule upper pole 1.7 x 1.2 x 1.1 cm.TIRADS 4. Small hypoechoic nodule upper pole 0.5 x 0.6 x 0.3 cm. Possible a colloid cyst/TIRADS 1. . If solid,TIRADS 4. Isthmus: No nodules. IMPRESSION: Thyroid nodules as described above. COMMENTS: 1. Recommendations for TI-RADS scores are listed below for reference. (See Reference: Rahul) 2. TI-RADS 1, Benign. 0 points: No fine needle aspiration (FNA) or follow-up ultrasound recommended. 3. TI-RADS 2, Not suspicious. 2 points: No FNA or follow-up ultrasound recommended. 4. TI-RADS 3, Mildly suspicious. 3 points: FNA if equal or greater than 2.5 cm. Follow-up ultrasound if 1.5 to 2.4 cm in 1, 3, and 5 years. 5. TI-RADS 4, Moderately Suspicious. 4-6 points: FNA if equal or greater than 1.5 cm. Follow-up ultrasound if 1 to 1.4 cm in 1, 2, 3, and 5 years. 6. TI-RADS 5, Highly Suspicious. 7 points or greater: FNA if equal or greater than 1 cm. Follow-up ultrasound if 0.5 to 0.9 cm every year for 5 years. REFERENCES: Meganscheryle FN, Janey WD, Doyle EG et al. ACR Thyroid Imaging, Reporting and Data System (TI-RADS): White Paper of the ACR TI-RADS Committee. J Am Gaby Radiol. 2017; 14: 587-595.
== END 2025-10-02 23:59 | disposition home or self-care (01) ==
LOC: RAD 14:46
PROVIDERS: PCP Nurse Practitioner Family; Visit Provider Student in an Organized Health Care Education/Training Program
DX: E04.2 Nontoxic multinodular goiter (principal)
CPT/HCPCS: 76536

== ENCOUNTER 2025-10-16 13:43 | Outpatient (CLI) | payer OTHER, SELFPAY ==
--- OUTSIDE RECORDS SUMMARY | 2025-10-05 09:00 | XMS_ITS | Encounter Summary ---
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 9:24 AM EST Associated attestation - Rich Christine MD - 10/06/2025 9:24 AM EST I attest to being involved in more than half the total time in patient care. I performed the entirety of the procedure(s). 50F with HTN (losartan, hydrochlorothiazide), DM, SHIVA, obesity (BMI 44), IBS, GERD, PTSD, referred with indeterminate thyroid nodule. FH thyroid cancer in cousin and aunt. Mild compressive symptoms. Labs 03/30/25: TSH 2.10, Ca 9.9, TPO 12. US thyroid 01/31/25 reports right 0.7cm, right 1.9cm, and left 1.6cm thyroid nodules. 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 [facility] over read Wingate III, AUS. ThyGeNext no mutations detected, insufficient for ThyraMir. Low risk of Malignancy. US today with low sonographic suspicion multinodular goiter without suspicious lymphadenopathy. We discussed thyroid disease and thyroidectomy, including risks and expected course. We discussed repeat FNA with Afirma vs diagnostic right thyroid lobectomy vs total thyroidectomy. Given already had molecular testing and family history of thyroid cancer with compressive symptoms, will proceed with right thyroid lobectomy. Right thyroid lobectomy PAT phone screen (she plans to start GLP1) Outpatient after 4 hours observation in recovery Thank you, Rich Christine MD, FACS new car sales manager General, Endocrine & Metabolic Surgery documented in this encounter Plan of Treatment Upcoming Encounters Date Type Department Care Team (Latest Contact Info) Description 11/22/2025 8:00 AM EST Pre-Admission Testing [facility] Anesthesia [address] [place] [address] 11/22/2025 10:40 AM EST Office Visit [facility] Medicine Specialties [address], [address] [place] [phone] Tram Mead, POST DOC FELLOWSHIP [address] [facility] [address] [place] [address] 11/30/2025 7:30 AM EST Office Visit [facility] Medicine Specialties [address] [place] [address] Melvin Kearns, POST DOC FELLOWSHIP [address] [facility] [address] [place] [address] 12/04/2025 10:25 AM EST Hospital Encounter [facility] Operating Room [address] [place] [address] Rich Chritsine MD [address] [facility] [address] [place] [address] 12/04/2025 10:25 AM EST - 12/04/2025 12:50 PM EST Surgery [facility] Operating Room [address] [place] [address] Rich Christine MD [address] [facility] [address] [place] [address] LOBECTOMY, THYROID [[id number] (CPT )] 12/21/2025 11:15 AM EST Office Visit Medical Office Building Surgical Specialties [address] [facility], [address] [place] [address] Rich Christine MD [address] [facility] [address] [place] [address] Scheduled Procedures Name Priority Associated Diagnoses Date/Ti me LOBECTOMY, THYROID Multinodular goiter 12/04/2025 10:25 AM EST documented as of this encounter Visit Diagnoses Diagnosis Multinodular goiter- Primary Nontoxic multinodular goiter Multinodular goiter- Primary Nontoxic multinodular goiter Multinodular goiter Nontoxic multinodular goiter documented in this encounter Additional Health Concerns Assessment Noted Time PHQ-9 Depression Total Score: 6 05/18/20 9:44 AM EDT A fall risk assessment has been complete d for the patient 05/18/2025 9:44 AM EDT A Body Mass Index follow-up plan has been documented for the patient 10/05/2025 9:57 AM EST documented as of this encounter Care Teams [facility] Relationship Specialty Start Date End Date Jocelynn Troy APRN [address] [place] [address] PCP - General 05/18/25 documented as of this encounter
--- NOTE | 2025-10-16 13:45 | XR_ITS ---
FINAL REPORT CLINICAL HISTORY: postmenapausal COMPARISON: None FINDINGS: Using L1-4, the bone mineral density of the spine is 0.93 g/cm2, corresponding to T-score of -0.6. Using the left hip, the bone mineral density of the femoral neck is 0.830 g/cm2, corresponding to a T-score of -0.9. Using the right hip, the bone mineral density of the femoral neck is 0.698 g/cm2, corresponding to a T-score of -1.4. NOTE: T-score: Standard deviation compared with peak bone mass of young adult mean. *Following the recommendations of the International Society of Bone densitometry, classification of hip BMD is based on the lower of two T-scores; total hip or femoral neck. IMPRESSION: Normal bone mineral density of the lumbar spine and left hip. Diminished bone mineral density of the right femoral neck, corresponding to osteopenia. Reviewed, Interpreted and Dictated by Marycruz Roland MD Transcribed by Leia Gilliland Authenticated and [facility]
--- OUTSIDE RECORDS SUMMARY | 2025-10-16 14:01 | XMS_ITS | Encounter Summary ---
Author Organization Healthcare Address [address] [place] [address] Care Team Providers Care Medical Records Administrator Name Role Phone Woodrow Jocelynn Kolb APRN Primary Care Provider [phone]- [phone] Encounter Details Date Type Department Care Team (Late st Contact Info) Description 09/01/2025 Orders Only [facility] Medicine Specialties [address] [place] [address] Tram Mead, GRANTS ASSISTANT [address] [place] [address] Social History Tobacco Use Types [...] Description 11/22/2025 8:00 AM EST Pre-Admission Testing [facility] S Anesthesia [address] [phone] 11/22/2025 10:40 AM EST Office Visit [facility] Medicine Specialties [address] [place] [address] Tram Mead, GRANTS ASSISTANT [address] [place] [address] 11/30/2025 7:30 AM EST Office Visit [facility] Medicine Specialties [address] [place] [address] Melvin Kearns, GRANTS ASSISTANT [address] [place] [address] 12/04/2025 10:25 AM EST Hospital Encounter [facility] S Operating Room [address] [phone] Rich Christine MD [address] [phone] 12/04/2025 10:25 AM EST - 12/04/2025 12:[address] [facility] Operating Room [address] [place] [address] Rich Christine MD [address] [address] LOBECTOMY, THYROID [[id number] (CPT )] 12/21/2025 11:15 AM EST Office Visit Medical Office Building Surgical Specialties [address] [facility], [address] [place] [address] Rich Christine MD [address] [address] Scheduled Procedures Name Priority Associated Diagnoses Date/Ti me LOBECTOMY, THYROID Multinodular goiter 12/04/2025 10:25 AM EST documented as of this encounter Procedures Procedure Name Priority Date/Time Associated Diagnosis Comments OVA AND PARASITE EXAM, FECAL (SO) Routine 09/01/2025 10:27 AM EST documented in this encounter Results * Ova and Parasite Exam, Fecal (09/01/2025 10:27 AM EST) Stool Rectum structure / Unknown us Tram Mead APRN LAB MICROBIOLOGY - GENER AL ORDERABLES Final Result documented in this encounter Visit Diagnoses Not [...] documented as of this encounter Care Teams Medical Records Administrator Relationship Specialty Start Date End Date Jocelynn Troy APRN [address] [place] [address] PCP - General 05/18/25 documented as of this encounter
--- OUTSIDE RECORDS SUMMARY | 2025-10-16 14:01 | XMS_ITS | Encounter Summary ---
Author Organization [employer] ([place], [place], [place], [place], [place]) Address [address] [place] [address] Care Team Providers Care College Scouting Coordinator Name Role Phone Unavailable Primary Care Provider Unavailabl e Encounter Details Date Type Department Care Team (Late st Contact Info) Description 03/19/2020 Transcribed Document [facility] Family Medicine [facility] [place] [address] ProviderArchie MD [address] [place], [place] [id number] Social History Tobacco Use Types Packs/Day Years [...] Historical ProviderMD - 03/19/2020 4:49 PM CDT [place] Suicide Severity Rating Scale (C-SSRS) Entered On: 03/19/2020 17:21 EDT Performed On: 03/19/2020 17:20 EDT by Keeley Shin RN [place] Suicide Severity Rating Scale (C-SSRS) CSSRS Past [...]
--- OUTSIDE RECORDS SUMMARY | 2025-10-16 14:01 | XMS_ITS | Encounter Summary ---
Author Organization [facility] Address [address] [place] [address] Care Team Providers Care Business Information Consultant Name Role Phone Jocelynn Troy APRN Primary Care Provider [phone]- [phone] Reason for Visit * Reason Onset Date Comments Stool Studies 08/18/[address] ool Results Stool Results Encounter Details Date Type Department Care Team (Late st Contact Info) Description 08/18/2025 Telephone [facility] Medicine Specialties [address] [place] [address] [place] [address] Stool Studies (Stool Results /Stool Results /Stool Results ) Social History Tobacco Use Types Packs/Day Years [...] encounter Miscellaneous Notes * Telephone Encounter - Tram Mead APRN - 09/08/2025 1:58 PM EST Can we have the patient recollect these studies with enough? * Telephone Encounter - Glenda Man RN - 08/31/2025 8:37 AM EST Called lab first to get results. Was put on hold it seemed like so I hung up called MR (I had already faxed a request) Pt turned in on 08/18 so its been 13 days and all anyone can seem to find is Maria R&P pending. MR Staff will check and fax if can find them. * Telephone Encounter - Rosemarie Renee - 08/28/2025 4:41 PM EST As of 08/25/25, O&P result is still pending via fax notification from [facility] * Telephone Encounter - Glenda Man RN - 08/24/2025 2:32 PM EDT Faxed request via Right Fax to [facility] MR Dept at [phone] to obtain Stool Results. * Telephone Encounter - Angeles Ribeiro - 08/18/2025 3:16 PM EDT Received call from patient Patient requesting stool study to be sent to [facility] Faxed orders to F: [phone] CB: [phone] documented in this encounter Plan of Treatment Upcoming Encounters Date Type Department Care Team (Latest Contact Info) Description 11/22/2025 8:00 AM EST Pre-Admission Testing [facility] An[facility] [address] [place] [address] 11/22/2025 10:40 AM EST Office Visit [facility] Medicine Specialties [address] [place] [address] Tram Mead, EDUCATION DIAGNOSTICIAN [address] [place] [address] 11/30/2025 7:30 AM EST Office Visit [facility] Medicine Specialties [address] [place] [address] Melvin Kearns, EDUCATION DIAGNOSTICIAN [address] [place] [address] 12/04/2025 10:25 AM EST Hospital Encounter [facility] Operating Room [address] [phone] Rich Christine MD [address] [place] [address] 12/04/2025 10:25 AM EST - 12/04/2025 12:50 PM EST Surgery [facility] S Operating Room [address] [place] [address] Rich Christine MD [address] [address] LOBECTOMY, THYROID [[id number] (CPT )] 12/21/2025 11:15 AM EST Office Visit Medical Office Building Surgical Specialties [address] [facility], [address] [place] [address] Rich Christine MD [address] [address] Scheduled Procedures Name Priority Associated [...] documented as of this encounter Care Teams Business Information Consultant Relationship Specialty Start Date End Date Jocelynn Troy, KEVYN [address] [place] [address] PCP - General 05/18/25 documented as of this encounter
--- OUTSIDE RECORDS SUMMARY | 2025-10-16 14:01 | XMS_ITS | Encounter Summary ---
Author Organization Healthcare Address [address] [place] [address] Care Team Providers Care Nursing Professor Name Role Phone Kirill Desai MD Primary Care Provider [phone] Jocelynn rToy APRN Primary Care Provider [phone]- [phone] Encounter Details Date Type Department Care Team (Late st Contact Info) Description 09/16/2022 Orders Only External Location [address] [place] [address] Geraldo Siegel MD [address] [place] [address] Social History Tobacco Use Types Packs/Day Years [...] Pre-Admission Testing [facility] An[facility] [address] [place] [phone] 11/22/2025 10:40 AM EST Office Visit [facility] Medicine [facility]ties [address] [place] [address] Tram Mead APRN [address] [place] [address] 11/30/2025 7:30 AM EST Office [facility] [address] [place] [address] Melvin Kearns, DIE OPERATOR [address] [facility] [address] [place] [address] 12/04/2025 10:25 AM EST Hospital Encounter [facility] Operating Room [address] [place] [address] Rich Christine MD [address] [address] 12/04/2025 10:25 AM EST - 12/04/2025 12:50 PM EST Surgery [facility] S Operating Room [address] [place] [address] Rich Christine MD [address] [address] LOBECTOMY, THYROID [[id number] (CPT )] 12/21/2025 11:15 AM EST Office Visit Medical Office Building Surgical Specialties [address] [facility], [address] [place] [address] Rich Christine MD [address] [address] Scheduled Procedures Name Priority Associated [...] on filedocumented in this encounter Care Teams Nursing Professor Relationship Specialty Start Date End Date Kirill Desai MD PCP - General 03/08/21 05/17/25 Jocelynn Troy APRN [facility] [address] PCP - General 05/18/25 documented as of this encounter
--- OUTSIDE RECORDS SUMMARY | 2025-10-16 14:01 | XMS_ITS | Encounter Summary ---
Author Organization Healthcare Address [address] [place] [address] Care Team Providers Care Batter Mixer Name Role Phone Jocelynn Troy Cortes BAGLEY Primary Care Provider [phone]- [phone] Encounter Details Date Type Department Care Team (Latest Contact Info) Description 09/08/2025 Travel Social History Tobacco Use Types Packs/Day [...] [facility] Anesthesia [address] [place] [address] 11/22/2025 10:40 AM EST Office Visit [facility] Medicine Specialties [address] [place] [address] Tram Mead, RED HAT LINUX ADMINISTRATOR [address] [facility] [address] [place] [address] 11/30/2025 7:30 AM EST Office Visit [facility] Medicine Specialties [address] [place] [address] Melvin Kearns, RED HAT LINUX ADMINISTRATOR [address] [facility] [address] [place] [address] 12/04/2025 10:25 AM EST Hospital Encounter [facility] S Operating Room [address] [place] [address] Rich Christine MD [address] [place] [address] 12/04/2025 10:25 AM EST - 12/04/2025 12:50 PM EST Surgery [facility] Operating Room [address] [place] [address] Rich Christine MD [address] [address] LOBECTOMY, THYROID [[id number] (CPT )] 12/21/2025 11:15 AM EST Office Visit Medical Office Building Surgical Specialties [address] [facility], [address] [place] [address] Rich Christine MD [address] [address] Scheduled Procedures Name Priority Associated [...] documented as of this encounter Care Teams Batter Mixer Relationship Specialty Start Date End Date Jocelynn Troy APRN [address] [place] [address] PCP - General 05/18/25 documented as of this encounter
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
--- OUTSIDE RECORDS SUMMARY | 2025-10-16 14:01 | XMS_ITS | Encounter Summary ---
Author Organization Healthcare Address [address] [place] [address] Care Team Providers Care Dining Services Director Name Role Phone WoodrowJocelynn Cortes BAGLEY Primary Care Provider +1- [phone] Encounter Details Date Type Department Care Team (Late st Contact Info) Description 09/13/2025 Lab Requisition [facility] [address] [place] [address] Dyllan Carrasco MD [address] [facility] [address] [place] [address] Encounter for screening for malignant neoplasm of colon Social History Tobacco Use Types Packs/Day Years [...] Pre-Admission Testing [facility] S Anesthesia [address] [id number] 11/22/2025 10:40 AM EST Office Visit [facility] Medicine Specialties [address] [place] [address] Tram Mead, ARCHITECTURAL ADMINISTRATIVE ASSISTANT [address] [place] [address] 11/30/2025 7:30 AM EST Office Visit [facility] Medicine Specialties [address], [address] [place] [address] Melvin Kearns, ARCHITECTURAL ADMINISTRATIVE ASSISTANT [address] [place] [address] 12/04/2025 10:25 AM EST Hospital Encounter [facility] S Operating Room [address] [phone] Rich Christine MD [address] [address] 12/04/2025 10:25 AM EST - 12/04/2025 12:50 PM EST Surgery [facility] Operating Room [address] [place] [address] Rich Christine MD [address] [address] LOBECTOMY, THYROID [[id number] (CPT )] 12/21/2025 11:15 AM EST Office Visit Medical Office Building Surgical Specialties [address] [facility], [address] [place] [address] Rich Christine MD [address] [address] Scheduled Procedures Name Priority Associated Diagnoses Date/Ti or LOBECTOMY, THYROID Multinodular goiter 12/04/2025 10:25 AM EST documented as of this encounter Procedures Procedure Name Priority Date/Time Associated Diagnosis Comments SURGICAL PATHOLOGY EXAM Routine 09/13/2025 Encounter for screening for malignant neoplasm of colon documented in this encounter Results * Surgical Pathology Exam (09/13/2025) Case Report Surgical Pathology Case: [id number] Authorizing Provider: Dyllan Carrasco MD Collected: 09/13/2025 Ordering Location: [facility] Lab Received: 09/13/2025 1107 Pathologist: Casandra Howard MD Specimens: A) - Colon, Right, right colon biopsy B) - Colon, Left, left colon biopsy C) - Ileum, terminal ileum biopsy 09/14/2025 10:21 AM EST [facility] Final Diagnosis A. LARGE INTESTINE, RIGHT COLON, BIOPSY: - NO PATHOLOGIC ABNORMALITIES. B. LARGE INTESTINE, LEFT COLON, BIOPSY: - NO PATHOLOGIC ABNORMALITIES. C. LARGE INTESTINE, TERMINAL ILEUM, BIOPSY: - NO PATHOLOGIC ABNORMALITIES. 09/14/2025 10:21 AM EST [facility] at 1021 EST Clinical Information Encounter for screening for malignant neoplasm of colon Diarrhea Bloating Cramping IBS Normal terminal ileum and colon 09/14/2025 10:21 AM EST [facility] Gross Description A. RIGHT COLON BIOPSY Received in formalin labeled r ight colon biopsy , are 6 white-dockery soft tissue fragments that range from 0.1-0.5 cm in greatest dimension. Entirely submitted in cassette A1. Cold Time: 0 Staci B Pettey B. LEFT COLON BIOPSY Received in formalin labeled l eft colon biopsy , are 3 white-dockery soft tissue fragments that range from 0.2-0.3 cm in greatest dimension. Entirely submitted in cassette B1. Cold Time: 0 Staci B Pettey C. TERMINAL ILEUM BIOPSY Received in formalin labeled t erminal ileum biopsy , are 4 white-dockery soft tissue fragments that range from 0.1-0.5 cm in greatest dimension. Entirely submitted in cassette C1. Cold Time: 0 Staci B Pettey 09/14/2025 10:21 AM EST [facility] Note: A resident was involved in the service. I attest I examined the relevant preparations for the specimens and confirmed the diagnosis or interpretation. 09/14/2025 10:21 AM EST [facility] Tissue Ileal structure / Unknown 09/13/2025 09/13/2025 11:07 AM EST Tissue specimen (specimen) Left colon structure / Unknown 09/13/2025 09/13/2025 11:07 AM EST Tissue specimen (specimen) Ileal structure / Unknown 09/13/2025 09/13/2025 11:07 AM EST Dyllan Carrasco MD LAB PATHOLOGY ORDERABLES Final Result Performing Organization Address City/State/[facility] Co de Phone Number [facility] [address] [place] [address] documented in this encounter Visit Diagnoses Diagnosis Encounter for screening for malignant neoplasm of colon Multinodular goiter Nontoxic multinodular goiter documented in this encounter Additional Health Concerns Assessment Noted Time PHQ-9 Depression Total Score: 6 05/18/20 9:44 AM EDT A fall risk assessment has been complete d for the patient 05/18/2025 9:44 AM EDT A Body Mass Index follow-up plan has been documented for the patient 08/18/2025 10:13 AM EDT documented as of this encounter Care Teams Dining Services Director Relationship Specialty Start Date End Date Jocelynn Troy APRN [address] [place] [address] PCP - General 05/18/25 documented as of this encounter
--- OUTSIDE RECORDS SUMMARY | 2025-10-16 14:01 | XMS_ITS | Encounter Summary ---
Author Organization Healthcare Address [address] [place] [address] Care Team Providers Care Lockstitch Lining Setter Name Role Phone Kirill Desai MD Primary Care Provider [phone] Jocelynn Troy APRN Primary Care Provider [phone]- [phone] Encounter Details Date Type Department Care Team (Late st Contact Info) Description 04/17/2025 Lab Requisition [facility] [address] [place] [address] Jake Alberts MD [address] [address] Nontoxic single thyroid nodule Social History Tobacco [...] Testing [facility] S Anesthesia [address] [place] [address] 11/22/2025 10:40 AM EST [facility] Medicine [facility] [address] [place] [address] Tram Mead, KEVYN [address] [place] [address] 11/30/2025 7:30 AM EST [facility] Medicine [facility] [address] [place] [address] Melvin Kearns, TOOL GRINDER SET UP OPERATOR GEAR [address] [facility] [address] [place] [address] 12/04/2025 10:25 AM EST Hospital Encounter [facility] S Operating Room [address] [place] [address] Rich Christine MD [address] [address] 12/04/2025 10:25 AM EST - 12/04/2025 12:50 PM EST Surgery [facility] Operating Room [address] [place] [address] Rich Christine MD [address] [address] LOBECTOMY, THYROID [[id number] (CPT )] 12/21/2025 11:15 AM EST Office Visit Medical Office Building Surgical Specialties [address] [facility], [address] [place] [address] Rich Christine MD [address] [address] Scheduled Procedures Name Priority Associated Diagnoses Date/Ti me LOBECTOMY, THYROID Multinodular goiter 12/04/2025 10:25 AM EST documented as of this encounter Procedures Procedure Name Priority Date/Time Associated Diagnosis Comments CYTOLOGY CONSULT Routine 04/17/2025 10:1 3 AM EDT Nontoxic single thyroid nodule documented in this encounter Results * Cytology Consult (04/17/2025 10:13 AM EDT) Case Report Cytology Case: [id number] Authorizing Provider: Jake Alberts MD Collected: 04/17/2025 1013 Ordering Location: [facility] Lab Received: 04/17/2025 1013 Pathologist: Chantal Muro MD Specimen: Thyroid, [id number] 04/17/2025 5:37 PM EDT [facility] Final Diagnosis A. 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 04/17/2025 5:37 PM EDT [facility] at 1737 EDT Comment The specimen is bloody and scantly cellular with minimal colloid, but the sampled cells show occasional nuclear enlargement and some nuclear membrane irregularity. The findings fit best within Burnside category III (atypia of undetermined significance). Rebiopsy with consideration for molecular testing is suggested for further characterization . 04/17/2025 5:37 PM EDT [facility] Clinical Information E04.1 - Nontoxic single thyroid nodule [ICD-10-CM] 04/17/2025 5:37 PM EDT [facility] Gross Description A. [id number] Received along with a corresponding pathology report from [facility] are 5 slides labeled outside case: [id number] collected on 02/17/2025. 04/17/2025 5:37 PM EDT [facility] Fine Needle Aspirate Thyroid structure / Unknown 04/17/2025 10:13 AM EDT 04/17/2025 10:13 AM EDT us Jake Alberts MD LAB PATHOLOGY ORDERABLES Fi nal Result [facility] [address] [place] [address] documented in this encounter Visit Diagnoses Diagnosis Nontoxic single thyroid nodule Nontoxic uninodular goiter Multinodular goiter Nontoxic multinodular goiter documented in this encounter Care Teams Lockstitch Lining Setter Relationship Specialty Start Date End Date Kirill Desai MD PCP - General 03/08/21 05/17/25 Jocelynn Troy APRN [address] [place] [address] PCP - General 05/18/25 documented as of this encounter
--- OUTSIDE RECORDS SUMMARY | 2025-10-16 14:01 | XMS_ITS | Encounter Summary ---
Author Organization [employer] ([place], [place], [place], [place], [place]) Address [address] [place] [address] Care Team Providers Care Music Instructor Name Role Phone Unavailable Primary Care Provider Unavailabl e Encounter Details Date Type Department Care Team (Late st Contact Info) Description 03/19/2020 Transcribed Document [facility] [place] [facility] [place] [address] ProviderArchie MD [address] [place] [id number] Social History Tobacco Use Types Packs/Day Years [...]
--- OUTSIDE RECORDS SUMMARY | 2025-10-16 14:01 | XMS_ITS | Encounter Summary ---
Author Organization Healthcare Address [address] [place] [address] Care Team Providers Care Neighborhood Service Center Director Name Role Phone Jocelynn Troy APRN Primary Care Provider [phone]- [phone] Encounter Details Date Type Department Care Team ([facility] st Contact Info) Description 10/05/2025 Orders Only External Location [address] [place] [address] Provider, External Social History Tobacco Use Types Packs/Day Years [...] 10/05/2025 How often do you attend chur ch or zoroastrian services? More than 4 times per year 10/05/2025 Do you belong to any clubs o r organizations such as protestant groups, unions, fraternal or athletic groups, or [...] medical care, and heating? Somewhat hard 10/05/2025 [facility] of Occupat ional Health - Occupational Stress [...] any time in the past 12 m [facility], were you homeless or living in a skilled nursing (including now)? No 10/05/2025 [facility] Utilities Answer Date Recorded In the past [...] of Assessment Author 0 10/05/2025 9:03 AM Tao Joy * Question Answer Date of Assessment Author [...] Tao Joy documented as of this encounter Plan of Treatment Upcoming Encounters Date Type Department Care Team (Latest Contact Info) Description 11/22/2025 8:00 AM EST Pre-Admission Testing [facility] Anesthesia [address] [place] [address] 11/22/2025 10:40 AM EST Office Visit [facility] Medicine Specialties [address] [place] [address] Tram Mead L, MIRROR FRAMER [address] [place] [address] 11/30/2025 7:30 AM EST Office Visit [facility] Medicine [facility]ties [address] [place] [address] Melvin Kearns, MIRROR FRAMER [address] [facility] [address] [place] [address] 12/04/2025 10:25 AM EST Hospital Encounter [facility] S Operating Room [address] [place] [address] Rich Christine MD [address] [address] 12/04/2025 10:25 AM EST - 12/04/2025 12:50 PM EST Surgery [facility] S Operating Room [address] [place] [address] Rich Christine MD [address] [address] LOBECTOMY, THYROID [[id number] (CPT )] 12/21/2025 11:15 AM EST Office Visit Medical Office Building Surgical Specialties [address] [facility], [address] [place] [address] Rich Christine MD [address] [address] Scheduled Procedures Name Priority Associated Diagnoses Date/Ti me LOBECTOMY, THYROID Multinodular goiter 12/04/2025 10:25 AM EST documented as of this encounter Procedures Procedure Name Priority Date/Time Associated Diagnosis Comments POC ULTRASOUND 10/05/2025 documented in this encounter Results * POC Imaging (10/05/2025) Anatomical Region Laterality Modality Pelvis Other 10/05/2025 us External Provider IMG POINT OF CARE ULTRASOUND F inal Result documented in this encounter Visit Diagnoses [...] documented as of this encounter Care Teams Neighborhood Service Center Director Relationship Specialty Start Date End Date Jocelynn Troy APRN [address] [place] [address] PCP - General 05/18/25 documented as of this encounter
--- OUTSIDE RECORDS SUMMARY | 2025-10-16 14:01 | XMS_ITS | Encounter Summary ---
Author Organization Healthcare Address [address] [place] [address] Care Team Providers Care Scalp Specialist Name Role Phone Jocelynn Troy APRN Primary Care Provider +1- [phone] Encounter Details Date Type Department Care Team (Latest Contact Info) Description 10/05/2025 Travel Social History Tobacco Use Types Packs/Day [...] often do you attend chur ch or scientology services? More than 4 times per year 10/05/2025 Do you belong to any clubs o r organizations such as evangelical groups, unions, fraternal or athletic groups, or [...] medical care, and heating? Somewhat hard 10/05/2025 [facility] of Occupat ional Health - Occupational Stress [...] any time in the past 12 m ont, were you homeless or living in a fci (including now)? No 10/05/2025 [facility] Utilities Answer Date Recorded In the past 12 months has th e [employer], gas, oil, or water company threatened to [...] PAV S Anesthesia [address] [place] [address] 11/22/2025 10:40 AM EST Office Visit [facility] Medicine Specialties [address] [place] [address] Tram Mead, WRISTER [address] [place] [address] 11/30/2025 7:30 AM EST Office Visit [place] [facility] Medicine Specialties [address] [place] [address] Melvin Kearns APRN [address] [facility] [address] [place] [address] 12/04/2025 10:25 AM EST Hospital Encounter [facility] S Operating Room [address] [place] [address] Rich Christine MD [address] [phone] 12/04/2025 10:25 AM EST - 12/04/2025 12:50 PM EST Surgery [facility] Operating Room [address] [place] [address] Rich Christine MD [address] [address] LOBECTOMY, THYROID [[id number] (CPT )] 12/21/2025 11:15 AM EST Office Visit Medical Office Building Surgical Specialties [address] [facility], [address] [place] [address] Rich Christine MD [address] [address] Scheduled Procedures Name Priority Associated [...] documented as of this encounter Care Teams Scalp Specialist Relationship Specialty Start Date End Date Jocelynn Troy, WRISTER [address] [id number] PCP - General 05/18/25 documented as of this encounter
--- OUTSIDE RECORDS SUMMARY | 2025-10-16 14:01 | XMS_ITS | Encounter Summary ---
Author Organization Healthcare Address [address] [place] [address] Care Team Providers Care Load Blocker Name Role Phone WoodrowJocelynn Cortes BAGLEY Primary Care Provider +1- [phone] Encounter Details Date Type Department Care Team (Late st Contact Info) Description 09/14/2025 Results Follow-Up [facility] Medicine Specialties [address] [place] [address] Dyllan Carrasco MD [address] [place] [address] Social History Tobacco Use Types [...] Description 11/22/2025 8:00 AM EST Pre-Admission Testing [facility] S Anesthesia [address] [phone] 11/22/2025 10:40 AM EST Office Visit [facility] Medicine Specialties [address] [place] [address] Tram Mead, ADMINISTRATION INTERN [address] [place] [address] 11/30/2025 7:30 AM EST Office Visit [facility] Medicine Specialties [address] [place] [address] Melvin Kearns, ADMINISTRATION INTERN [address] [place] [address] 12/04/2025 10:25 AM EST Hospital Encounter [facility] S Operating Room [address] [phone] Rich Christine MD [address] [phone] 12/04/2025 10:25 AM EST - 12/04/2025 12:50 PM EST Surgery [facility] Operating Room [address] [place] [address] Rich Christine MD [address] [address] LOBECTOMY, THYROID [[id number] (CPT )] 12/21/2025 11:15 AM EST Office Visit Medical Office Building Surgical Specialties [address] [facility], [address] [place] [address] Rich Christine MD [address] [address] Scheduled Procedures Name Priority Associated [...] documented as of this encounter Care Teams Load Blocker Relationship Specialty Start Date End Date Jocelynn Troy APRN [address] [place] [address] PCP - General 05/18/25 documented as of this encounter
--- OUTSIDE RECORDS SUMMARY | 2025-10-16 14:01 | XMS_ITS | Clinical Summary ---
Author Organization [email or web address] ([place], [place], [place], [place], [place]) Address [address] [place] [address] Care Team Providers Care Plan Consultant Name Role Phone Unavailable Primary Care Provider [...]
--- OUTSIDE RECORDS SUMMARY | 2025-10-16 14:01 | XMS_ITS | Encounter Summary ---
Author Organization [employer] ([place], [place], [place], [place], [place]) Address [address] [place] [address] Care Team Providers Care Can Repairer Name Role Phone Unavailable Primary Care Provider Unavailabl e Encounter Details Date Type Department Care Team (Late st Contact Info) Description 03/19/2020 Transcribed Document [facility] [place] [facility] [place] [address] ProviderArchie MD [address] [place], [place] [id number] Social History Tobacco Use Types Packs/Day Years [...] On: 03/19/2020 17:20 EDT by Keeley Shin, RIVETER HELPER Quick Look Assessment Level of Consciousness : Alert, Awake Affect/Behavior : Appropriate, Calm, Cooperative Orientation : Oriented x 4 Skin Temperature : Warm Skin Description : Normal for ethnicity Keeley Shin RN - 03/19/2020 17:20 EDT ED General-Functional Assess Information Obtained From : Patient Preferred Communication Mode : Verbal Communication Barrier : None Primary Language : Nepalese Any Spiritual/Cultural Needs or Requests : No [...] (Last Updated: 05/23/2015 22:12:49 EDT by Tamara wHang, RN) Alcohol: Alcohol Use History No. (Last Updated: 05/23/2015 22:12:38 EDT by Tamara Hwang, RN) Substance Abuse: Drug Use Hx: No. Use in Last 12 Months: No. (Last Updated: 05/23/2015 22:12:53 EDT by Tamara Hwang, JUHI) Home/Environment: Lives with Spouse. (Last Updated: 05/23/2015 22:12:43 EDT by Tamara Hwang, JUHI) Musculoskeletal Musculoskeletal Assessment WDL : WDL with exceptions Musculoskeletal Assessment Comment : c/o pain neck and left upper arm Keeley Shin RN - 03/19/2020 17:20 EDT documented in this encounter Plan of Treatment Not on file documented as of this encounter Visit Diagnoses Not on filedocumented in this encounter
--- OUTSIDE RECORDS SUMMARY | 2025-10-16 14:01 | XMS_ITS | Encounter Summary ---
Author Organization Healthcare Address [address] [place] [address] Care Team Providers Care Senior Telecommunications Specialist Name Role Phone Jocelynn Troy APRN Primary Care Provider +1- [phone] Encounter Details Date Type Department Care Team (Late st Contact Info) Description 09/27/2025 Telephone [facility] Medicine Special[facility] [address] [place] [address] Melvin Kearns APRN [address] [place] [address] Social History Tobacco Use Types [...] encounter Miscellaneous Notes * Telephone Encounter - Melvin Kearns APRN - 10/04/2025 7:16 AM EST Yeah that's fine * Telephone Encounter - Sheyla Lynch RN - 10/03/2025 2:50 PM EST Called and spoke with Tiffanie--scheduled for 11/30. * Telephone Encounter - Grazyna Belle - 09/27/2025 12:00 PM EST Clinical Concern/Question Reason for Call: pt wants a call back to r/s. Will not allow me to r/s or reinstate referral Best contact number: [phone] (mobile) Optimal time of day to reach caller: ANYTIME Additional comments/information from caller: None Note: Please do not reply to this message. Follow-up communication and further actions as a result of this message need to be communicated with the patient directly, if the patient is not active onMyChart. If the patient is active on MyChart, they will receive notification of the communication/outcome via [employer]. documented in this encounter Plan of Treatment Upcoming Encounters Date Type Department Care Team (Latest Contact Info) Description 11/22/2025 8:00 AM EST Pre-Admission Testing [facility] Anesthesia [address] [place] [address] 11/22/2025 10:40 AM EST Office Visit [facility] Medicine Specialties [address] [place] [address] Tram Mead APRN [address] [place] [address] 11/30/2025 7:30 AM EST Office Visit [facility] Medicine Specialties [address] [place] [address] Melvin Kearns, FIRER WATERTENDER [address] [facility] [address] [place] [address] 12/04/2025 10:25 AM EST Hospital Encounter [facility] S Operating Room [address] [place] [address] Rich Christine MD [address] [facility] [address] [place] [address] 12/04/2025 10:25 AM EST - 12/04/2025 12:50 PM EST Surgery [facility] S Operating Room [address] [place] [address] Rich Christine MD [address] [address] LOBECTOMY, THYROID [[id number] (CPT )] 12/21/2025 11:15 AM EST Office Visit Medical Office Building Surgical Specialties [address] [facility], [address] [place] [address] Rich Christine MD [address] [address] Scheduled Procedures Name Priority Associated [...] documented as of this encounter Care Teams Senior Telecommunications Specialist Relationship Specialty Start Date End Date Jocelynn Troy FIRER WATERTENDER [address] [place] [address] PCP - General 05/18/25 documented as of this encounter
--- OUTSIDE RECORDS SUMMARY | 2025-10-16 14:01 | XMS_ITS | Encounter Summary ---
Author Organization [employer] ([place], [place], [place], [place], [place]) Address [address] [place] [address] Care Team Providers Care Visor Installer Name Role Phone Unavailable Primary Care Provider Unavailabl e Encounter Details Date Type Department Care Team (Late st Contact Info) Description 03/19/2020 Transcribed Document [facility] Family Medicine [facility] [place] [address] ProviderArchie MD [address] [place], [place] [phone] Social History Tobacco Use Types Packs/Day Years [...]
--- OUTSIDE RECORDS SUMMARY | 2025-10-16 14:01 | XMS_ITS | Encounter Summary ---
Author Organization [employer] ([place], [place], [place], [place], [place]) Address [address] [place] [address] Care Team Providers Care Raise Driller Name Role Phone Unavailable Primary Care Provider Unavailabl e Encounter Details Date Type Department Care Team (Late st Contact Info) Description 03/19/2020 Transcribed Document [facility] [place] Family Medicine [address] [place] [address] ProviderArchie MD [address] [place] [address] Social History Tobacco Use Types Packs/Day [...] Archie ProviderMD - 03/19/2020 6:59 PM CDT [facility] [address] TIFFANIE LUNAN :1975 Visit Time:03/19/2020 Your Visit Summary Your [...] Within 2 to 3 days Where: [address] [facility] [place] [address]- Business (1) Follow Up with Dr Morales at [facility] for humerus When Within 2 to 3 days Follow Up with SHAYLA SMILEY When Within 2 to 3 days Where: [address] [facility] [address] [place] [address] [facility] [place] Allergies Percocet 10/325 (Tramadol hydrochloride 50mg capsule, Tramadol) traMADol (Itching) Immunizations This Visit No Immunizations Found Medications What How Much When Instructions Next Dose acetaminophen-hydrocodone ([place] 5 mg-325 mg oral tablet) 1 Tablet(s) [...] Formulary med) 1 Tablet(s) Oral Every Day [id number] tab The home medications listed are only [...] at home: Medicines ??? Take and apply ghsm-csx-rlzyfhh and prescription medicines only as told by [...] and water are not available, use hand case management assistant. ? Leave stitches (sutures), skin glue, or [...] 10/12/2006 Document Revised: 03/16/2017 Document Reviewed: 04/25/2016 [employer] Interactive Patient Education ?? 2019 [employer] Humerus Fracture Treated With Immobilization A [...] is stable enough for you to begin oqhxp-ry-wkdpyd exercises. You may also be prescribed pain [...] says that it is safe. ??? Do hyxgb-ms-hdukty exercises only as told by your health [...] ask your health care provider. ??? Take aoos-ees-rrfmddv and prescription medicines only as told by your health care provider. ??? Ask your health care provider if the medicine prescribed to you can cause constipation. You may need to take steps to prevent or treat constipation, such as: ? Drink enough fluid to keep your urine pale yellow. ? Take trgy-rkw-yohqpvi or prescription medicines. ? Eat foods that [...] 01/18/2002 Document Revised: 06/13/2019 Document Reviewed: 06/13/2019 [employer] Interactive Patient Education ?? 2019 [employer]. Cast or Splint Care, Adult Casts and [...] activities are safe for you. ??? Take brsd-ezq-yymvagg and prescription medicines only as told by [...] 10/09/2001 Document Revised: 05/02/2017 Document Reviewed: 04/04/2017 [employer] Interactive Patient Education ?? 2019 [employer]. Emergency Awareness and Preventative Care STROKE is [...] Assistance with quitting is available by contacting 0-333-TJWD-NOW. This is a free resource providing counseling, [...] was given the opportunity to ask questions. Patient/Park Landscape Architect Name: Patient/Park Landscape Architect Signature: Relationship to Patient: Clinician/Hospital Park Landscape Architect Signature: Please Provide a Telephone Number Where You Can Be Reached: Is it Permissible To Leave a Message? Date: Electronically signed by Ag, [facility] Conversion Monalisa Lamas at 02/13/2023 10:00 AM CDT documented in this encounter Plan of Treatment Not on file documented as of this encounter Visit Diagnoses Not on filedocumented in this encounter
--- OUTSIDE RECORDS SUMMARY | 2025-10-16 14:01 | XMS_ITS | Encounter Summary ---
Author Organization [employer] ([place], [place], [place], [place], [place]) Address [address] [place] [address] Care Team Providers Care Broach Operator Name Role Phone Unavailable Primary Care Provider Unavailabl e Encounter Details Date Type Department Care Team (Late st Contact Info) Description 03/20/2020 Transcribed Document [facility] [place] [facility] [place] [address] ProviderArchie MD [address] [place], [place] [id number] Social History Tobacco Use Types Packs/Day Years [...] 03/20/2020 08:21 (LUCY HENSON) Provider Review Required documented in this encounter Plan of Treatment Not on file documented as of this encounter Visit Diagnoses Not on filedocumented in this encounter
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
--- OUTSIDE RECORDS SUMMARY | 2025-10-16 14:01 | XMS_ITS | Encounter Summary ---
Author Organization Healthcare Address [address] [place] [address] Care Team Providers Care Loom Tuner Name Role Phone Kya Troynie Cortes BAGLEY Primary Care Provider [phone] Reason for Visit * Reason Onset Date Comments HCN Clinical Concern/Question 08/01/2025 Encounter Details Date Type Department Care Team ([facility] st Contact Info) Description 08/01/2025 Telephone Medical Office Building Surgical Specialties [address] [facility] [address] [facility] [place] [address] Rich Christine MD [address] [facility] [address] [place] [address] HCN Clinical Concern/Question Social History [...] with info. Thank you Best contact number: [phone] (mobile) Optimal time of day to reach caller: ANYTIME Additional comments/information from caller: None Note: Please do not reply to this message. Follow-up communication and further actions as a result of this message need to be communicated with the patient directly, if the patient is not active onMyChart. If the patient is active on MyChart, they will receive notification of the communication/outcome via Applausehart. documented in this encounter Plan of Treatment Upcoming Encounters Date Type Department Care Team (Latest Contact Info) Description 11/22/2025 8:00 AM EST Pre-Admission Testing [facility] Anesthesia [address] [place] [address] 11/22/2025 10:40 AM EST Office Visit [facility] Medicine Specialties [address] [place] [address] Tram Mead, CONSTRUCTION TECHNICIAN [address] [place] [address] 11/30/2025 7:30 AM EST Office Visit [facility] Medicine Specialties [address] [place] [address] MonsterMelvin dial, CONSTRUCTION TECHNICIAN [address] [facility] [address] [place] [address] 12/04/2025 10:25 AM EST Hospital Encounter [facility] S Operating Room [address] [place] [address] Rich Christine MD [address] [place] [address] 12/04/2025 10:25 AM EST - 12/04/2025 12:50 PM EST Surgery [facility] S Operating Room [address] [place] [id number] Rich Christine MD [address] [address] LOBECTOMY, THYROID [[id number] (CPT )] 12/21/2025 11:15 AM EST Office Visit Medical Office Building Surgical Specialties [address] [facility] [place] [address] Rich Christine MD [address] [address] Scheduled Procedures Name Priority Associated [...] documented as of this encounter Care Teams Loom Tuner Relationship Specialty Start Date End Date Jocelynn Troy APRN [address] [place] [address] PCP - General 05/18/25 documented as of this encounter
--- OUTSIDE RECORDS SUMMARY | 2025-10-16 14:01 | XMS_ITS | Clinical Summary ---
Author Organization [facility] Address [address] [place] [address] Care Team Providers Care Bridge Ironworker Helper Name Role Phone TroyJocelynn APRN Primary Care Provider + [phone] Allergies Active Allergy Reactions Criticality Noted Date [...] DAILY 4 Active Lancets (OneTouch Delica Plus [id number]) misc USE TO TEST BLOOD SUGAR TWICE [...] - Td or Tdap) 01/26/2029 019 Insurance [facility] Care Teams Bridge Ironworker Helper Relationship Specialty Start Date End Date Jocelynn Troy APRN [address] [place] [address] [place] [id number] PCP - General Internal Medicine 01/18/24
--- OUTSIDE RECORDS SUMMARY | 2025-10-16 14:01 | XMS_ITS | Encounter Summary ---
Author Organization [employer] ([place], [place], [place], [place], [place]) Address [address] [place] [address] Care Team Providers Care Turning Machine Set Up Operator Name Role Phone Unavailable Primary Care Provider Unavailabl e Encounter Details Date Type Department Care Team (Late st Contact Info) Description 03/19/2020 Transcribed Document [facility] [place] Family Medicine [address] [place] [address] ProviderArchie MD [address] [place] [address] Social History Tobacco Use Types Packs/Day [...] Conversion Note - Archie ProviderMD - 03/19/2020 7:01 PM CDT [facility] [place] [address] TIFFANIE LUNAN :1975 Visit Time:03/19/2020 [...] Within 2 to 3 days Where: [address] [facility] [place] [address]- Business (1) Follow Up with Dr Morales at [facility] for humerus When Within 2 to 3 days Follow Up with SHAYLA SMILEY When Within 2 to 3 days Where: [address] [facility] [address] [place] [address] [facility] (1) Allergies Percocet 10/325 (Tramadol hydrochloride 50mg capsule, Tramadol) traMADol (Itching) Immunizations This Visit No Immunizations Found Medications What How Much When Instructions Next Dose acetaminophen-hydrocodone ([place] 5 mg-325 mg oral tablet) 1 Tablet(s) [...] Formulary med) 1 Tablet(s) Oral Every Day [id number] tab The home medications listed are only [...] at home: Medicines ??? Take and apply uada-xlh-zaodubo and prescription medicines only as told by [...] and water are not available, use hand guard sergeant. ? Leave stitches (sutures), skin glue, or [...] 10/12/2006 Document Revised: 03/16/2017 Document Reviewed: 04/25/2016 [employer] Interactive Patient Education ?? 2019 [employer] Humerus Fracture Treated With Immobilization A [...] is stable enough for you to begin zdkhe-jy-jsoqxg exercises. You may also be prescribed pain [...] says that it is safe. ??? Do avnty-er-dmirey exercises only as told by your health [...] ask your health care provider. ??? Take tvtm-tmt-hoigonc and prescription medicines only as told by your health care provider. ??? Ask your health care provider if the medicine prescribed to you can cause constipation. You may need to take steps to prevent or treat constipation, such as: ? Drink enough fluid to keep your urine pale yellow. ? Take rkhy-qpc-wsakdld or prescription medicines. ? Eat foods that [...] 01/18/2002 Document Revised: 06/13/2019 Document Reviewed: 06/13/2019 [employer] Interactive Patient Education ?? 2019 [employer]. Cast or Splint Care, Adult Casts and [...] activities are safe for you. ??? Take ebnt-cjs-pnrblvj and prescription medicines only as told by [...] 10/09/2001 Document Revised: 05/02/2017 Document Reviewed: 04/04/2017 [employer] Interactive Patient Education ?? 2019 [employer]. Emergency Awareness and Preventative Care STROKE is [...] Assistance with quitting is available by contacting 7-387-SBIA-NOW. This is a free resource providing counseling, [...] was given the opportunity to ask questions. Patient/Still Operator Brandy Name: Patient/Still Operator Brandy Signature: Relationship to Patient: Clinician/Hospital Still Operator Brandy Signature: Please Provide a Telephone Number Where You Can Be Reached: Is it Permissible To Leave a Message? Date: documented in this encounter Plan of Treatment Not on file documented as of this encounter Visit Diagnoses Not on filedocumented in this encounter
--- OUTSIDE RECORDS SUMMARY | 2025-10-16 14:01 | XMS_ITS | Encounter Summary ---
Author Organization [employer] ([place], [place], [place], [place], [place]) Address [address] [place] [address] Care Team Providers Care Airset Molder Name Role Phone Unavailable Primary Care Provider Unavailabl e Encounter Details Date Type Department Care Team (Late st Contact Info) Description 03/19/2020 Transcribed Document [facility] [place] [facility] [place] [address] ProviderArchie MD [address] [place], [place] [phone] Social History Tobacco Use Types Packs/Day Years [...] 03/19/2020 19:11 EDT Electronically signed by Ag [facility] Conversion Freight Elevator Erector Cerner at 02/13/2023 9:54 AM CDT documented in this encounter Plan of Treatment Not on file documented as of this encounter Visit Diagnoses Not on filedocumented in this encounter
--- OUTSIDE RECORDS SUMMARY | 2025-10-16 14:01 | XMS_ITS | Referral Summary ---
Author Organization [employer] ([place], [place], [place], [place], [place]) Address [address] [place] [address] Care Team Providers Care Director Of Midwifery/Staff Midwife Name Role Phone Unavailable Primary Care Provider [...]
--- OUTSIDE RECORDS SUMMARY | 2025-10-16 14:01 | XMS_ITS | Encounter Summary ---
Author Organization [employer] ([place], [place], [place], [place], [place]) Address [address] [place] [address] Care Team Providers Care Intensive Care Ambulance Paramedic Name Role Phone Unavailable Primary Care Provider Unavailabl e Encounter Details Date Type Department Care Team (Late st Contact Info) Description 03/19/2020 Transcribed Document [facility] [place] Family Medicine [facility] [place] [address] ProviderArchie MD [address] [place], [place] [phone] Social History Tobacco Use Types Packs/Day Years [...]
--- OUTSIDE RECORDS SUMMARY | 2025-10-16 14:01 | XMS_ITS | Clinical Summary ---
Author Organization Healthcare Address [address] [place] [address] Care Team Providers Care Deckhand Oyster Dredge Name Role Phone Jocelynn Troy APRN Primary Care Provider [phone] Allergies Active Allergy Reactions Criticality Noted Date Comments Tramadol Hives,Itching Medium 01/09/2014 Tramadol-Acetaminophen Hives,Itching Medium 12/04/2009 Medications hydroCHLOROthia zide 12.5 MG PO tablet Take 1 tablet by mouth daily. 5 Active losartan (Cozaar) 50 MG tablet Take 1 tablet by mouth daily. 5 Active cetirizine (ZyrTEC) 10 MG tablet TAKE ONE TABLET BY MOUTH EVERY DAY NEEDED FOR FOR ALLERGY SYMPTOMS 4 Active cyclobenzaprine (Flexeril) 5 MG tablet Take [...] DAILY 4 Active Lancets (OneTouch Delica Plus [id number]) misc USE TO TEST BLOOD SUGAR TWICE [...] (Mag-Ox) 400 mg tablet 1 tablet daily. Acti ve omega-3 (Fish Oil) 1000 MG capsule Take 1 capsule by mouth 2 times a day with meals. Active OIL OF [place]O PO Take by mouth. Activ e diclofenac (Voltaren) 75 MG EC tablet Take 1 tablet by mouth 2 times a day. Do not crush, chew, or split. 60 tablet 2 5 Active losartan-hydroC HLOROthiazide (Hyzaar) 50-12.5 MG tablet Take 1 tablet by mouth daily. 5 Active methocarbamol (Robaxin) 500 MG tablet as needed. 5 Active pantoprazole (Protonix) 40 MG EC tablet Take 1 tablet by mouth daily. Do not crush, chew, or split. 30 tablet 3 5 08/16/20 26 Active cholestyramine (Questran) 4 GM/DOSE powder Take 1 packet by mouth daily. Dissolve in 8 oz of liquid and drink before a meal 30 packet 5 5 08/16/20 26 Active bisacodyl (Dulcolax) 5 MG EC tablet Take all 4 tablets at 4 PM on day before colonoscopy . Do not crush, chew, or split. 4 tablet 5 Active polyethylene glycol (Golytely) 236 g solution SEE PHARMACY NOTE FOR PT INSTRUCTIONS 4000 mL 5 Active Active Problems Problem Noted Date Diagnosed Date Multinodular goiter 10/05/2025 Assessment & Plan (10/05/2025 11:53 AM EST): Orders: Case Request Operating Room: LOBECTOMY, THYROID; Standing Resolved Problems Problem Noted Date Diagnosed Date [...] Encounters Date Type Department Care Team Description 10/05/2025 9:00 AM EST Consult Medical Office Building Surgical Specialties [address] [facility], [address] [place] [address] Rich Christine MD Multinodular goiter (Primary Dx) 10/05/2025 Orders Only External Location [address] [place] [address] Provider, External 10/05/2025 Travel 09/27/2025 Telephone [facility] [address], [address] [place] [address] Melvin Kearns, TRAINING FACILITATOR 09/14/2025 Results Follow-Up [facility] [address], [address] [place] [phone] Dyllan Carrasco MD 09/13/2025 Lab Requisition [facility] [address] [place] [id number] Dyllan Carrasco MD Encounter for screening for malignant neoplasm of colon 09/08/2025 Travel 09/01/2025 Orders Only [facility] [address], [address] [place] [phone] Tram Mead, TRAINING FACILITATOR 08/18/2025 Telephone [facility] [address], [address] [place] [phone] Angeles Ribeiro Stool Studies (Stool Results /Stool Results /Stool Results ) 08/16/2025 12:40 PM EDT Office Visit [facility] [address] [place] [address] Tram Mead, TRAINING FACILITATOR Diarrhea, unspecified type (Primary Dx); Helicobacter pylori (H. pylori) infection; Gastroesophageal reflux disease, unspecified whether esophagitis present 08/16/2025 Travel 08/15/2025 Travel 08/01/2025 Telephone Medical Office Building Surgical Special[facility] [address] [facility], [address] [place] [address] Rich Christine MD [facility] Clinical Concern/Question from Last 3 Months Immunizations Immunization Administration [...] week 10/05/2025 How often do you attend [facility] or evangelical services? More than 4 times per year 10/05/2025 Do you belong to any clubs o r organizations such as sikh groups, unions, fraternal or athletic groups, or [...] medical care, and heating? Somewhat hard 10/05/2025 [facility] - Occupational Stress [...] any time in the past 12 m [facility], were you homeless or living in a [place] facility (including now)? No 10/05/2025 [facility] Utilities Answer Date Recorded In the past 12 months has e electric, gas, oil, or water company [...] Mass Index 43.91 10/05/2025 9:08 AM EST Plan of Treatment Upcoming Encounters Date Type Department Care Team (Latest Contact Info) Description 11/22/2025 8:00 AM EST Pre-Admission Testing [facility] [address] [place] [phone] 11/22/2025 10:40 AM EST Office Visit [facility] [address], [address] [place] [address] Tram Mead, TRAINING FACILITATOR [address] [place] [address] 11/30/2025 7:30 AM EST Office Visit [facility] [address] [place] [address] [employer] Melvin Oliver, TRAINING FACILITATOR [address] [facility] [address] [place] [address] 12/04/2025 10:25 AM EST Hospital Encounter [facility] Operating Room [address] [place] [address] Rich Christine MD [address] [facility] [address] [place] [address] 12/04/2025 10:25 AM EST - 12/04/2025 12:50 PM EST Surgery [facility] Operating Room [address] [place] [address] Rich Christine MD [address] [facility] [address] [place] [address] LOBECTOMY, THYROID [[id number] (CPT )] 12/21/2025 11:15 AM EST Office Visit Medical Office Building Surgical Specialties [address] [facility], [address] [place] [address] Rich Christine MD [address] [address] Scheduled Procedures Name Priority Associated Diagnoses Date/Ti me LOBECTOMY, THYROID Multinodular goiter 12/04/2025 10:25 AM EST Health Maintenance Due Date Last Done Comments [facility]-Diabetes: Hemoglobin A1C 1974 [facility]-HIV Screening 1974 [facility]-Infant/Child/Adol SDOH Screenings 1974 Diabetes: Dental Exam 1984 [facility]-Hepatitis B Vaccines (1 of 3 - 19+ 3-dose series) 1993 [facility]-Pneumococcal Vaccine: 50+ Years (1 of 2 - PCV) 1993 [facility]-Pap Smear 1995 [facility]-Cervical Cancer Screening 2004 [facility]-HPV/Cotest 2004 CT Colonography 2019 FIT 2019 FOBT 2019 Sigmoidoscopy 2019 [facility]-Breast Cancer Screening 2024 [facility]-Zoster Vaccines (1 of 2) 2024 [id number]-00 Vaccine (2 - season) 2025 11/24/2021 [facility]-Influenza Vaccine (#1) 2025 08/26/2020 [facility]- SDOH Screenings 04/05/2026 [facility]-Adult SDOH Screenings 04/05/2026 10/05/2025 [facility]-Depression Screening 05/18/2026 05/18/2025, 04/26 FIT-DNA 08/30/2028 08/30/2025 [facility]-DTaP,Tdap,and Td Vaccines (2 - Td or Tdap) 01/26/2029 01/26/2019 Colonoscopy 09/13/2035 09/13/2025, 09/13/2025 [facility]-Colorectal Cancer Screening 09/13/2035 [facility]-Hepatitis C Screening Completed 05/18/2025 [facility]-Obesity Intervention Completed 025, 10/05/2025, 10/05/2025, Additional history exists HPV Vaccines (No Doses Required) Completed [facility]-HIB Vaccines Aged Out No longer e [...] Date/Time Associated Diagnosis Comments POC ULTRASOUND 10/05/2025 COLONOSCOPY 09/13/2025 8:23 AM EST SURGICAL PATHOLOGY EXAM Routine 09/13/2025 Encounter for screening for malignant neoplasm of colon OVA AND PARASITE EXAM, FECAL (SO) Routine 09/01/2025 10:27 AM EST TISSUE TRANSGLUTAMINASE (TTG) AB, IGA (SO) Routine 08/16/2025 1:58 PM EDT Diarrhea, unspecified type IGA, PLASMA Routine 08/16/2025 1:58 PM EDT Diarrhea, unspecified type COMPREHENSIVE METABOLIC PANEL, PLASMA Routine 08/16/2025 1:58 PM EDT Diarrhea, unspecified type STRONGYLOIDES ANTIBODY, IGG BY JANINA, SERUM (SO) Routine 08/16/2025 1:58 PM EDT Diarrhea, unspecified type ACUTE HEPATITIS PANEL Routine 05/18/2025 10:54 AM EDT SHERRY positive from Last 3 Months or Most Recently Relevant to Health Maintenance Results * POC Imaging (10/05/2025) Anatomical Region Laterality Modality Pelvis Other 10/05/2025 us External Provider IMG POINT OF CARE ULTRASOUND F inal Result * Colonoscopy (09/13/2025 8:23 AM EST) Anatomical Region Laterality Modality Endoscopy 09/13/2025 7:50 AM EST Impressions 09/13/2025 8:23 AM EST Please see media tab for the result. Information added by interface. Narrative Procedure Note Dyllan Carrasco MD - 09/13/2025 IMPRESSION: Please see media tab for the result. Information added by interface. us External Provider GI PROCEDURE ORDERABLES Final Result * Surgical Pathology Exam (09/13/2025) Case Report Surgical Pathology Case: [id number] Authorizing Provider: Dyllan Carrasco MD Collected: 09/13/2025 Ordering Location: [facility] Lab Received: 09/13/2025 1108 Pathologist: Casandra Howard MD Specimens: A) - Colon, Right, right colon biopsy B) - Colon, Left, left colon biopsy C) - Ileum, terminal ileum biopsy 09/14/2025 10:21 AM EST [facility] Final Diagnosis A. LARGE INTESTINE, RIGHT COLON, BIOPSY: - NO PATHOLOGIC ABNORMALITIES. B. LARGE INTESTINE, LEFT COLON, BIOPSY: - NO PATHOLOGIC ABNORMALITIES. C. LARGE INTESTINE, TERMINAL ILEUM, BIOPSY: - NO PATHOLOGIC ABNORMALITIES. 09/14/2025 10:21 AM EST [facility] at 1021 EST Clinical Information Encounter for screening for malignant neoplasm of colon Diarrhea Bloating Cramping IBS Normal terminal ileum and colon 09/14/2025 10:21 AM EST [facility] Gross Description A. RIGHT COLON [...] Staci B Pettey 09/14/2025 10:21 AM EST [facility] Note: A resident was involved in the service. I attest I examined the relevant preparations for the specimens and confirmed the diagnosis or interpretation. 09/14/2025 10:21 AM EST [facility] Tissue Ileal structure / Unknown 09/13/2025 09/13/2025 11:07 AM EST Tissue specimen (specimen) Left colon structure / Unknown 09/13/2025 09/13/2025 11:07 AM EST Tissue specimen (specimen) Ileal structure / Unknown 09/13/2025 09/13/2025 11:07 AM EST Dyllan Carrasco MD LAB PATHOLOGY ORDERABLES Final Result [facility] [address] [place] [address] * Ova and Parasite Exam, Fecal (09/01/2025 10:27 AM EST) Stool Rectum structure / Unknown Tram Mead TRAINING FACILITATOR LAB MICROBIOLOGY - GENER AL ORDERABLES Final Result * Tissue Transglutaminase (tTG) Ab, IgA (SO) (08/16/2025 1:58 PM EDT) Tissue Transglutaminase (tTG) Ab, IgA 1.64 0.00 - 4.99 FLU 08/18/2025 12:46 AM EDT [facility] ([facility]) Blood Venous blood specimen / Unknown Venipuncture / Unknown 08/16/2025 1:58 PM EDT 08/16/2025 1:58 PM EDT Narrative [facility]) - 08/18/2025 12:46 AM EDT INTERPRETIVE INFORMATION: [...] indicate a response to therapy. Performed By: [facility] [address] [place] [address] Structures Engineer: Ari Beasley MD, PhD CLIA Number: [id number] Tram Mead APRN LAB REF LAB BLOOD AND FL UID ORD Final Result [facility]) [address] [id number] * Strongyloides Antibody (08/16/2025 1:58 PM EDT) Strongyloides Antibody, IgG By JANINA 0.2 <=0.9 IV 08/18/2025 1:23 PM EDT [facility]) Serum Venous blood specimen / Unknown 08/16/2025 1:58 PM EDT 08/16/2025 1:58 PM EDT Narrative [facility]) - 08/18/2025 1:23 PM EDT INTERPRETIVE INFORMATION: [...] also result in false-positive results. Performed By: [facility] [address] [place] [address] Structures Engineer: Ari Beasley MD, PhD CLIA Number: [id number] Tram Mead [facility] LAB BLOOD ORDERABLES Fin al Result [facility]) [address] [place] [address] * IgA (08/16/2025 1:58 PM EDT) IGA 352 75 - 400 mg/dL 08/16/2025 3:55 PM EDT [facility] Blood Venous blood specimen / Unknown Venipuncture / Unknown 08/16/2025 1:58 PM EDT 08/16/2025 1:58 PM EDT Tram Mead APRN LAB BLOOD ORDERABLES Fin al Result [facility] [address] [place] [address] * (ABNORMAL) Comprehensive metabolic panel (08/16/2025 1:58 PM EDT) [facility] Glucose, Plasma 103(H) 74 - 99 mg/dL 08/16/2025 3:55 PM EDT [facility] BUN, Plasma 19 7 - 21 mg/dL 08/16/2025 3:55 PM EDT [facility] Creatinine, Plasma 0.74 0.60 - 1.10 mg/dL 08/16/2025 3:55 PM EDT [facility] BUN/Creatinine Ratio 26 08/16/2025 3:55 PM EDT [facility] Sodium, Plasma 139 136 - 145 mmol/L 08/16/2025 3:55 PM EDT [facility] Potassium, Plasma 4.1 3.6 - 4.9 mmol/L 08/16/2025 3:55 PM EDT [facility] Chloride, Plasma 102 97 - 107 mmol/L 08/16/2025 3:55 PM EDT [facility] CO2, Plasma 26 22 - 29 mmol/L 08/16/2025 3:55 PM EDT [facility] Anion Gap 11 6 - 16 mmol/L 08/16/2025 3:55 PM EDT [facility] Total Calcium, Plasma 10.1 8.9 - 10.2 mg/dL 08/16/2025 3:55 PM EDT [facility] Total Protein 8.0(H) 6.3 - 7.9 g/dL 08/16/2025 3:55 PM EDT [facility] Albumin, Plasma 4.4 3.5 - 5.2 g/dL 08/16/2025 3:55 PM EDT [facility] AST, Plasma 18 10 - 35 U/L 08/16/2025 3:55 PM EDT [facility] ALT, Plasma 25 10 - 35 U/L 08/16/2025 3:55 PM EDT [facility] Alkaline Phosphatase, Plasma 126(H) 35 - 104 U/L 08/16/2025 3:55 PM EDT [facility] Total Bilirubin, Plasma 0.4 0.2 - 1.1 mg/dL 08/16/2025 3:55 PM EDT [facility] eGFRcr 98.7 mL/min/1.7 3m*2 08/16/2025 3:55 PM EDT [facility] Comment:Reported eGFRcr in m L/min/1.73m2 is based the CKD-EPI 2020 equation that does not use a race coefficient. Blood Venous blood specimen / Unknown Venipuncture / Unknown 08/16/2025 1:58 PM EDT 08/16/2025 1:58 PM EDT us Tram Mead TRAINING FACILITATOR LAB BLOOD ORDERABLES Fin al Result Performing Organization Address [facility] Co de Phone Number [facility] [address] [place] [address] * Acute Hepatitis Panel (05/18/2025 10:54 AM EDT) Hepatitis B Surf Antigen Negative Negative 05/18/2025 1:56 PM EDT [facility] Hepatitis C Antibody Negative Negative 05/18/2025 1:56 PM EDT [facility] Hepatitis A Antibody IgM Negative Negative 05/18/2025 1:56 PM EDT [facility] Hepatitis B Core Antibody IgM Negative Negative 05/18/2025 1:56 PM EDT [facility] Blood Venous blood specimen / Unknown Venipuncture / Unknown 05/18/2025 10:54 AM EDT 05/18/2025 10:54 AM EDT Melvin Kearns TRAINING FACILITATOR LAB BLOOD ORDERABLES Final Res ult Performing Organization Address City/[facility] Co de Phone Number [facility] [address] [place] [address] from Last 3 Months or Most Recently Relevant to Health Maintenance Insurance [employer] [facility] MEDICAID Care Teams Deckhand Oyster Dredge Relationship Specialty Start Date End Date Jocelynn Troy APRN [address] [place] [address] PCP - General 05/18/25
== END 2025-10-16 23:59 | disposition home or self-care (01) ==
LOC: RAD 13:44
PROVIDERS: PCP Nurse Practitioner Family; Visit Provider Nurse Practitioner Family
DX: Z13.820 Encounter for screening for osteoporosis (principal); Z78.0 Asymptomatic menopausal state; M85.88 Other specified disorders of bone density and structure, other site
CPT/HCPCS: 77080